=== PATIENT | female | born 1965 | race Hispanic/Latino ===

== ENCOUNTER 2018-05-05 13:59 | Emergency (ER) | payer MEDICARE ==
[~2018-05-05] VITALS: Ht 154.9 cm; Wt 106.6 kg
--- OUTSIDE RECORDS SUMMARY | 2018-05-05 14:05 | XMS REPORT | Summary of Care ---
Author Organization Unknown Address Unknown Phone Unavailable Encounter IRENA Dove(TIKI) [id number] Date(s): 09/06/13 - 09/07/13 [facility] [address] [place] [address]- [facility] Discharge Diagnosis: Lumbar Strain - Right side Discharge Disposition: Home Physician Attending: Samina Overton MD Reason for Visit BACK PAIN Vital Signs 1 2 3 Most recent to oldest [Reference Range]: 162.56 cm (09/06/13 9:45 PM) Height 98.2 DegF (09/07/13 2:08 AM) 98.1 DegF (09/06/13 9:45 PM) Temperature Oral [96.4-99.1 DegF] 128 mmHg (09/07/13 2:08 AM) 125 mmHg (09/06/13 11:56 PM) 129 mmHg (09/06/13 9:45 PM) Systolic Blood Pressure [90-140 mmHg] 86 mmHg (09/07/13 2:08 AM) 80 mmHg (09/06/13 11:56 PM) 83 mmHg (09/06/13 9:45 PM) Diastolic Blood Pressure [60-90 mmHg] 16 BRMIN (09/07/13 2:08 AM) 16 BRMIN (09/06/13 11:56 PM) 17 BRMIN (09/06/13 9:45 PM) Respiratory Rate [14-20 BRMIN] 70 bpm (09/07/13 2:08 AM) 80 bpm (09/06/13 11:56 PM) 83 bpm (09/06/13 9:45 PM) Peripheral Pulse Rate [60-100 bpm] 100 kg (09/06/13 9:45 PM) Weight 37.84 m2 (09/06/13 9:45 PM) Body Mass Index Problem List Condition Effective Dates Status Health Status Informant Asthma(Confirmed) Active Diabetes Active mellitus(Confirmed) Hypertension(Confirm Active ed) Thyroid(Confirmed) Resolved Allergies, Adverse Reactions, Alerts Substance Reaction Severity Status NKDA Active Medications cyclobenzaprine 10 mg, Route: PO, ONCE, Dosing Weight 100, kg, Priority: STAT, Start date: 09/07 1:09:00, Stop date: 09/07/13 1:09:00 Start Date: 09/07/13 Stop Date: 09/07/13 Status: Completed cyclobenzaprine 10 mg oral tablet 10 mg, PO, TID, Muscle Spasm, # 30 tab, 0 Refill(s) Start Date: 09/07/13 Stop Date: 09/17/13 Status: Ordered ibuprofen 600 mg, Route: PO, ONCE, Dosing Weight 100, kg, Priority: STAT, Start date: 05/23 1:09:00, Stop date: 09/07/13 1:09:00 Start Date: 09/07/13 Stop Date: 09/07/13 Status: Completed [place] 7.5/325 oral tablet 1 tab, Route: PO, Dosing Weight 100, kg, ONCE, Start date: 09/07/13 1:09:00, Sto p date: 09/07/13 1:09:00 Start Date: 09/07/13 Stop Date: 09/07/13 Status: Completed promethazine 25 mg oral tablet 25 mg=1 tab, PO, Q4H, Nausea, # 15 tab, 0 Refill(s) Start Date: 09/07/13 Status: Ordered Zofran ODT 4 mg, Route: PO, Drug form: TABDIS, ONCE, Dosing Weight 100, kg, Start date: 05/23 1:12:00, Stop date: 09/07/13 1:12:00 Start Date: 09/07/13 Stop Date: 09/07/13 Status: Completed Results URINE AND STOOL Most recent to 1 oldest [Reference Range]: UA Turbidity [Clear] Slight *ABN* (09/06/13 11:55 PM) UA Color [Yellow] Yellow *NA* (09/06/13 11:55 PM) UA pH [5.0-8.0] 5.0 (09/06/13 11:55 PM) UA Spec Grav 1.020 [<=1.030] (09/06/13 11:55 PM) UA Glucose [Negative Negative mg/dL mg/dL] *NA* (09/06/13 11:55 PM) UA Blood [Negative] Negative (09/06/13 11:55 PM) UA Ketones [Negative Negative mg/dL mg/dL] *NA* (09/06/13 11:55 PM) UA Protein [Negative 10 mg/dL mg/dL] *ABN* (09/06/13 11:55 PM) UA Urobilinogen <=1.0 mg/dL [0.1-1.0 mg/dL] *NA* (09/06/13 11:55 PM) UA Bili [Negative] Negative *NA* (09/06/13 11:55 PM) UA Leuk Est Small [Negative] *ABN* (09/06/13 11:55 PM) UA Nitrite Negative [Negative] (09/06/13 11:55 PM) UA WBC [0-5 /HPF] 3 /HPF (09/06/13 11:55 PM) UA RBC [0-2 /HPF] <1 /HPF (09/06/13 11:55 PM) UA Bacteria [None Occasional /HPF Seen /HPF] *NA* (09/06/13 11:55 PM) UA Sq Epi [Few /LPF] Many /LPF *ABN* (09/06/13 11:55 PM) UA Mucus [None Seen Few /LPF /LPF] *NA* (09/06/13 11:55 PM) UA Trans Epi [<=0] OCC *NA* (09/06/13 11:55 PM) Medications Administered During Your Visit No data available for this section Immunizations No data available for this section Social History Social History Type Response Smoking Status Never smoker, Exposure to Tobacco Smoke Lives with someone who smokes, Cigarette Smoking Last 365 Days No, Reg Smoking Cessation Counseling No
--- OUTSIDE RECORDS SUMMARY | 2018-05-05 14:05 | XMS REPORT | Summary of Care ---
Author Organization Unknown Address Unknown Phone Unavailable Encounter IRENA Webber) [id number] Date(s): 02/23/14 - 02/23/14 [facility] [address] Discharge Diagnosis: Abdominal pain, acute Discharge Disposition: Home Physician Attending: Almas Bartlett MD Reason for Visit ABSCESS Vital Signs 1 2 3 Most recent to oldest [Reference Range]: 162.56 cm (02/23/14 10:20 AM) Height 97.8 DegF (02/23/14 10:13 AM) Temperature Oral [96.4-99.1 DegF] 151 mmHg *HI* (02/23/14 1:36 PM) 172 mmHg *HI* (02/23/14 10:20 AM) 161 mmHg *HI* (02/23/14 10:13 AM) Systolic Blood Pressure [90-140 mmHg] 87 mmHg (02/23/14 1:36 PM) 100 mmHg *HI* (02/23/14 10:20 AM) 87 mmHg (02/23/14 10:13 AM) Diastolic Blood Pressure [60-90 mmHg] 16 BRMIN (02/23/14 1:36 PM) 18 BRMIN (02/23/14 10:13 AM) Respiratory Rate [14-20 BRMIN] 89 bpm (02/23/14 1:36 PM) 100 bpm (02/23/14 10:13 AM) Peripheral Pulse Rate [60-100 bpm] 104.545 kg (02/23/14 10:20 AM) Weight 39.56 m2 (02/23/14 10:20 AM) Body Mass Index Problem List Condition Effective Dates Status Health Status Informant Asthma(Confirmed) Active Diabetes Active mellitus(Confirmed) Hypertension(Confirm Active ed) Thyroid(Confirmed) Resolved Allergies, Adverse Reactions, Alerts Substance Reaction Severity Status NKDA Active Medications Bentyl 20 mg oral tablet 20 mg=1 tab, PO, QID, abdominal pain, # 28 tab, 0 Refill(s) Start Date: 02/23/14 Stop Date: 03/02/14 Status: Ordered potassium chloride 20 mEq oral tablet, extended release 40 mEq, 2 tab, Route: PO, Drug form: ERTAB, ONCE, Dosing Weight 104.545, kg, Diana ority: STAT, Start date: 02/23/14 12:06:00, Stop date: 02/23/14 12:06:00 Notes: (Same as: K-Dur 20)"Do Not Crush" With food and full glass of water Start Date: 02/23/14 Stop Date: 02/23/14 Status: Completed Zofran ODT 4 mg oral tablet, disintegrating 4 mg=1 tab, PO, TID, Nausea and Vomiting, # 10 tab, 0 Refill(s) Start Date: 02/23/14 Status: Ordered Results ELECTROLYTES Most recent to 1 oldest [Reference Range]: Sodium Lvl [135-145 139 mEq/L mEq/L] (02/23/14 10:53 AM) Potassium Lvl 3.2 mEq/L [3.5-5.1 mEq/L] *LOW* (02/23/14 10:53 AM) Chloride Lvl [95-109 103 mEq/L mEq/L] (02/23/14 10:53 AM) CO2 [24-32 mEq/L] 26 mEq/L (02/23/14 10:53 AM) AGAP [10.0-20.0 13.2 mEq/L mEq/L] (02/23/14 10:53 AM) CHEM PANEL Most recent to 1 oldest [Reference Range]: Creatinine Lvl 1.0 mg/dL [0.5-1.4 mg/dL] (02/23/14 10:53 AM) eGFR 67 mL/min/1.73m2 1 *NA* (02/23/14 10:53 AM) BUN [7-22 mg/dL] 9 mg/dL (02/23/14 10:53 AM) B/C Ratio [6-25] 9 (02/23/14 10:53 AM) Glucose Lvl [70-99 138 mg/dL 2 mg/dL] *HI* (02/23/14 10:53 AM) Total Protein 7.6 g/dL [6.4-8.4 g/dL] (02/23/14 10:53 AM) Albumin Lvl [3.5-5.0 3.6 g/dL g/dL] (02/23/14 10:53 AM) Globulin [2.0-4.0 4.0 g/dL g/dL] (02/23/14 10:53 AM) A/G Ratio [0.7-1.6] 0.9 (02/23/14 10:53 AM) Calcium Lvl 8.6 mg/dL [8.5-10.5 mg/dL] (02/23/14 10:53 AM) ALT [0-65 unit/L] 31 unit/L (02/23/14 10:53 AM) AST [0-37 unit/L] 19 unit/L (02/23/14 10:53 AM) Alk Phos [39-136 96 unit/L unit/L] (02/23/14 10:53 AM) Bili Total [0.2-1.3 1.2 mg/dL mg/dL] (02/23/14 10:53 AM) Lipase Lvl [73-393 247 unit/L unit/L] (02/23/14 10:53 AM) 1Result Comment: The eGFR is calculated using the CKD-EPI formula. In most young, healthy individuals the eGFR will be >90 mL/min/1.73m2. The eGFR declines with age. An eGFR of 60-89 may be normal in some populations, particularly the elderly, for whom the CKD-EPI formula has not been extensively validated. Use of the eGFR is not recommended in the following populations: Individuals with unstable creatinine concentrations, including patients and those with serious co-morbid conditions. Patients with extremes in muscle mass or diet. The data above are obtained from the National Kidney Disease Education Program ( NKDEP) which additionally recommends that when the eGFR is used in patients with extremes of body mass index for purposes of drug dosing, the eGFR should be mul tiplied by the estimated BMI. 2Interpretive Data: Adult reference range values reflect the clinical guidelines of the [place] [employer]. URINE CHEM Most recent to 1 oldest [Reference Range]: U Preg [Negative] Negative (02/23/14 11:26 AM) URINE AND STOOL Most recent to 1 oldest [Reference Range]: UA Turbidity [Clear] Slight *ABN* (02/23/14 11:26 AM) UA Color [Yellow] Yellow *NA* (02/23/14 11:26 AM) UA pH [5.0-8.0] 5.0 (02/23/14 11:26 AM) UA Spec Grav 1.014 [<=1.030] (02/23/14 11:26 AM) UA Glucose [Negative Negative mg/dL mg/dL] *NA* (02/23/14:26 AM) UA Blood [Negative] Negative (02/23/14 11:26 AM) UA Ketones [Negative Negative mg/dL mg/dL] *NA* (02/23/14:26 AM) UA Protein [Negative Negative mg/dL mg/dL] (02/23/14 11:26 AM) UA Urobilinogen <=1.0 mg/dL [0.1-1.0 mg/dL] *NA* (02/23/14:26 AM) UA Bili [Negative] Negative *NA* (02/23/14 11:26 AM) UA Leuk Est Negative [Negative] (02/23/14 11:26 AM) UA Nitrite Negative [Negative] (02/23/14 11:26 AM) UA WBC [0-5 /HPF] 3 /HPF (02/23/14 11:26 AM) UA Bacteria [None Occasional /HPF Seen /HPF] *NA* (02/23/14 11:26 AM) UA Sq Epi [Few /LPF] Many /LPF *ABN* (02/23/14 11:26 AM) UA Mucus [None Seen Few /LPF /LPF] *NA* (02/23/14 11:26 AM) Micro? Performed *NA* (02/23/14 11:26 AM) HEMATOLOGY Most recent to 1 oldest [Reference Range]: WBC [3.7-10.4 K/CMM] 12.7 K/CMM *HI* (02/23/14 10:53 AM) RBC [4.20-5.40 4.71 M/CMM M/CMM] (02/23/14 10:53 AM) Hgb [12.0-16.0 g/dL] 13.8 g/dL (02/23/14 10:53 AM) Hct [36.0-48.0 %] 40.3 % (02/23/14 10:53 AM) MCV [80.0-98.0 fL] 85.7 fL (02/23/14 10:53 AM) MCH [27.0-31.0 pg] 29.2 pg (02/23/14 10:53 AM) MCHC [32.0-36.0 34.1 g/dL g/dL] (02/23/14 10:53 AM) RDW [11.5-14.5 %] 13.4 % (02/23/14 10:53 AM) Platelet [133-450 345 K/CMM K/CMM] (02/23/14 10:53 AM) MPV [7.4-10.4 fL] 8.1 fL (02/23/14 10:53 AM) Segs [45.0-75.0 %] 65.2 % (02/23/14 10:53 AM) Lymphocytes 25.2 % [20.0-40.0 %] (02/23/14 10:53 AM) Monocytes [2.0-12.0 4.0 % %] (02/23/14 10:53 AM) Eosinophils [0.0-4.0 4.9 % %] *HI* (02/23/14 10:53 AM) Basophils [0.0-1.0 0.7 % %] (02/23/14 10:53 AM) Segs-Bands # 8.3 K/CMM [1.5-8.1 K/CMM] *HI* (02/23/14 10:53 AM) Lymphocytes # 3.2 K/CMM [1.0-5.5 K/CMM] (02/23/14 10:53 AM) Monocytes # [0.0-0.8 0.5 K/CMM K/CMM] (02/23/14 10:53 AM) Eosinophils # 0.6 K/CMM [0.0-0.5 K/CMM] *HI* (02/23/14 10:53 AM) Basophils # [0.0-0.2 0.1 K/CMM K/CMM] (02/23/14 10:53 AM) Medications Administered During Your Visit No data available for this section Immunizations No data available for this section Social History Social History Type Response Smoking Status Never smoker, Lives with someone who smokes, Cigarette Smoking Last 365 Days No, Reg Smoking Cessation Counseling No
--- OUTSIDE RECORDS SUMMARY | 2018-05-05 14:05 | XMS REPORT | Summary of Care ---
Author Organization Unknown Address Unknown Phone Unavailable Encounter IRENA Dove(TIKI) [id number] Date(s): 01/14/14 - 01/14/14 [facility] [address] Discharge Diagnosis: Knee sprain Discharge Disposition: Home Physician Attending: Tiffanie Desai MD Reason for Visit FALL/KNEE PAIN Vital Signs Most recent to 1 2 oldest [Reference Range]: Height 162.56 cm (01/14/14 3:52 PM) Temperature Oral 98.9 DegF 98.2 DegF [96.4-99.1 DegF] (01/14/14 6:00 PM) (01/14/14 3:52 PM) Systolic Blood 146 mmHg 148 mmHg Pressure [90-140 *HI* *HI* mmHg] (01/14/14 6:00 PM) (01/14/14 3:52 PM) Diastolic Blood 99 mmHg 84 mmHg Pressure [60-90 *HI* (01/14/14 3:52 PM) mmHg] (01/14/14 6:00 PM) Respiratory Rate 15 BRMIN 16 BRMIN [14-20 BRMIN] (01/14/14 6:00 PM) (01/14/14 3:52 PM) Peripheral Pulse 84 bpm 85 bpm Rate [60-100 bpm] (01/14/14 6:00 PM) (01/14/14 3:52 PM) Weight 89.091 kg (01/14/14 3:52 PM) Body Mass Index 33.71 m2 (01/14/14 3:52 PM) Problem List Condition Effective Dates Status Health Status Informant Asthma(Confirmed) Active Diabetes Active mellitus(Confirmed) Hypertension(Confirm Active ed) Thyroid(Confirmed) Resolved Allergies, Adverse Reactions, Alerts Substance Reaction Severity Status NKDA Active Medications Naprosyn 500 mg oral tablet 500 mg=1 tab, PO, BID, Pain, # 30 tab, 0 Refill(s) Start Date: 01/14/14 Status: Ordered Medications Administered During Your Visit No data available for this section Immunizations No data available for this section Social History Social History Type Response Smoking Status Never smoker, Exposure to Tobacco Smoke Lives with someone who smokes, Cigarette Smoking Last 365 Days No, Reg Smoking Cessation Counseling No
--- OUTSIDE RECORDS SUMMARY | 2018-05-05 14:05 | XMS REPORT | Summary of Care ---
Author Organization Unknown Address Unknown Phone Unavailable Encounter IRENA Dove(TIKI) [id number] Date(s): 09/05/13 - 09/05/13 [facility] [address] Discharge Diagnosis: Abdominal pain Discharge Disposition: Home Physician Attending: Checo Higuera MD Reason for Visit VOMITING BLOOD Vital Signs Most recent to 1 2 oldest [Reference Range]: Height 162.56 cm (09/05/13 1:16 AM) Temperature Oral 98.2 DegF [96.4-99.1 DegF] (09/05/13 1:16 AM) Systolic Blood 122 mmHg 127 mmHg Pressure [90-140 (09/05/13 6:40 AM) (09/05/13 1:16 AM) mmHg] Diastolic Blood 67 mmHg 78 mmHg Pressure [60-90 (09/05/13 6:40 AM) (09/05/13 1:16 AM) mmHg] Respiratory Rate 16 BRMIN 18 BRMIN [14-20 BRMIN] (09/05/13 6:40 AM) (09/05/13 1:16 AM) Peripheral Pulse 85 bpm 88 bpm Rate [60-100 bpm] (09/05/13 6:40 AM) (09/05/13 1:16 AM) Weight 100 kg (09/05/13 1:16 AM) Body Mass Index 37.84 m2 (09/05/13 1:16 AM) Problem List Condition Effective Dates Status Health Status Informant Asthma(Confirmed) Active Diabetes Active mellitus(Confirmed) Hypertension(Confirm Active ed) Thyroid(Confirmed) Resolved Allergies, Adverse Reactions, Alerts Substance Reaction Severity Status NKDA Active Medications morphine Sulfate 4 mg, 1 mL, Route: IVP, Drug form: INJ, ONCE, Dosing Weight 100, kg, Priority: S TAT, Start date: 09/05/13 2:33:00, Stop date: 09/05/13 2:33:00 Notes: (Same as:MORPhine Sulfate) Start Date: 09/05/13 Stop Date: 09/05/13 Status: Completed [place] 5/325 oral tablet 1-2 tab, PO, Q4-6H, Pain, # 15 tab, 0 Refill(s) Start Date: 09/05/13 Status: Ordered ondansetron 4 mg, 2 mL, Route: IVP, Drug form: INJ, ONCE, Dosing Weight 100, kg, Priority: S TAT, Start date: 09/05/13 2:33:00, Stop date: 09/05/13 2:33:00 Notes: (Same as: Zofran) Start Date: 09/05/13 Stop Date: 09/05/13 Status: Completed Saline Flush 0.9% 5 mL, Route: IVP, Drug Form: INJ, Dosing Weight 100, kg, PRN, PRN Line Flush, St art date: 09/05/13 2:33:00, Duration: 24 hr, Stop date: 09/06/13 2:32:00 Notes: (Same as: BD Posiflush) Start Date: 09/05/13 Stop Date: 09/05/13 Status: Discontinued Sodium Chloride 0.9% (titrate) 250 mL 250 mL, Rate: Marketing Proposal Coordinator for use with blood product administration., Dosing Weight 100, kg, Route: IV, Total Volume: 250, Priority: Routine, Start Date: 09/05/13 2 :33:00, Duration: 30 day, Stop date: 10/05/13 2:32:00, Replace Every: 24 hr Start Date: 09/05/13 Stop Date: 09/05/13 Status: Discontinued Results ELECTROLYTES Most recent to 1 oldest [Reference Range]: Sodium Lvl [135-145 138 mEq/L mEq/L] (09/05/13 2:20 AM) Potassium Lvl 4.2 mEq/L [3.5-5.1 mEq/L] (09/05/13 2:20 AM) Chloride Lvl [95-109 102 mEq/L mEq/L] (09/05/13 2:20 AM) CO2 [24-32 mEq/L] 24 mEq/L (09/05/13 2:20 AM) AGAP [10.0-20.0 16.2 mEq/L mEq/L] (09/05/13 2:20 AM) CHEM PANEL Most recent to 1 oldest [Reference Range]: Creatinine Lvl 1.1 mg/dL [0.5-1.4 mg/dL] (09/05/13 2:20 AM) eGFR 60 mL/min/1.73m2 1 *NA* (09/05/13 2:20 AM) BUN [7-22 mg/dL] 25 mg/dL *HI* (09/05/13 2:20 AM) Glucose Lvl [70-99 194 mg/dL 2 mg/dL] *HI* (09/05/13 2:20 AM) Total Protein 7.9 g/dL [6.4-8.4 g/dL] (09/05/13 2:20 AM) Albumin Lvl [3.5-5.0 4.0 g/dL g/dL] (09/05/13 2:20 AM) Globulin [2.0-4.0 3.9 g/dL g/dL] (09/05/13 2:20 AM) A/G Ratio [0.7-1.6] 1.0 (09/05/13 2:20 AM) Calcium Lvl 8.8 mg/dL [8.5-10.5 mg/dL] (09/05/13 2:20 AM) Phosphorus [2.5-4.5 4.2 mg/dL mg/dL] (09/05/13 2:20 AM) Magnesium Lvl 1.3 mg/dL [1.8-2.4 mg/dL] *LOW* (09/05/13 2:20 AM) ALT [0-65 unit/L] 23 unit/L (09/05/13 2:20 AM) AST [0-37 unit/L] 15 unit/L (09/05/13 2:20 AM) Alk Phos [39-136 96 unit/L unit/L] (09/05/13 2:20 AM) Bili Total [0.2-1.3 0.6 mg/dL mg/dL] (09/05/13 2:20 AM) Bili Direct [0.0-0.3 0.2 mg/dL mg/dL] (09/05/13 2:20 AM) Bili Indirect 0.4 mg/dL [0.0-1.0 mg/dL] (09/05/13 2:20 AM) Lipase Lvl [73-393 282 unit/L unit/L] (09/05/13 2:20 AM) 1Result Comment: The eGFR is calculated [...] values reflect the clinical guidelines of the [employer] [employer]. URINE AND STOOL Most recent to 1 oldest [Reference Range]: UA Turbidity [Clear] Slight *ABN* (09/05/13 3:20 AM) UA Color [Yellow] Yellow *NA* (09/05/13 3:20 AM) UA pH [5.0-8.0] 5.0 (09/05/13 3:20 AM) UA Spec Grav 1.020 [<=1.030] (09/05/13 3:20 AM) UA Glucose [Negative Negative mg/dL mg/dL] *NA* (09/05/13 3:20 AM) UA Blood [Negative] Negative (09/05/13 3:20 AM) UA Ketones [Negative Negative mg/dL mg/dL] *NA* (09/05/13 3:20 AM) UA Protein [Negative 10 mg/dL mg/dL] *ABN* (09/05/13 3:20 AM) UA Urobilinogen <=1.0 mg/dL [0.1-1.0 mg/dL] *NA* (09/05/13 3:20 AM) UA Bili [Negative] Negative *NA* (09/05/13 3:20 AM) UA Leuk Est Trace [Negative] *ABN* (09/05/13 3:20 AM) UA Nitrite Negative [Negative] (09/05/13 3:20 AM) UA WBC [0-5 /HPF] 4 /HPF (09/05/13 3:20 AM) UA RBC [0-2 /HPF] <1 /HPF (09/05/13 3:20 AM) UA Bacteria [None Occasional /HPF Seen /HPF] *NA* (09/05/13 3:20 AM) UA Sq Epi [Few /LPF] Many /LPF *ABN* (09/05/13 3:20 AM) UA Mucus [None Seen Few /LPF /LPF] *NA* (09/05/13 3:20 AM) HEMATOLOGY Most recent to 1 oldest [Reference Range]: WBC [3.7-10.4 K/CMM] 15.6 K/CMM *HI* (09/05/13 2:20 AM) RBC [4.20-5.40 4.80 M/CMM M/CMM] (09/05/13 2:20 AM) Hgb [12.0-16.0 g/dL] 14.3 g/dL (09/05/13 2:20 AM) Hct [36.0-48.0 %] 42.7 % (09/05/13 2:20 AM) MCV [81.0-99.0 fL] 89.1 fL (09/05/13 2:20 AM) MCH [27.0-31.0 pg] 29.7 pg (09/05/13 2:20 AM) MCHC [32.0-36.0 33.3 g/dL g/dL] (09/05/13 2:20 AM) RDW [11.5-14.5 %] 13.2 % (09/05/13 2:20 AM) Platelet [133-450 338 K/CMM K/CMM] (09/05/13 2:20 AM) MPV [7.4-10.4 fL] 7.9 fL (09/05/13 2:20 AM) Segs [45.0-75.0 %] 82.3 % *HI* (09/05/13 2:20 AM) Lymphocytes 14.2 % [20.0-40.0 %] *LOW* (09/05/13 2:20 AM) Monocytes [2.0-12.0 1.8 % %] *LOW* (09/05/13 2:20 AM) Eosinophils [0.0-4.0 1.6 % %] (09/05/13 2:20 AM) Basophils [0.0-1.0 0.1 % %] (09/05/13 2:20 AM) Segs-Bands # 12.8 K/CMM [1.5-8.1 K/CMM] *HI* (09/05/13 2:20 AM) Lymphocytes # 2.2 K/CMM [1.0-5.5 K/CMM] (09/05/13 2:20 AM) Monocytes # [0.0-0.8 0.3 K/CMM K/CMM] (09/05/13 2:20 AM) Eosinophils # 0.2 K/CMM [0.0-0.5 K/CMM] (09/05/13 2:20 AM) PT [12.0-14.7 12.9 seconds seconds] (09/05/13 2:20 AM) INR [0.85-1.17] 0.98 3 (09/05/13 2:20 AM) PTT [22.9-35.8 29.3 seconds 4 seconds] (09/05/13 2:20 AM) 3Interpretive Data: RECOMMENDED RANGES FOR PROTIME INR: 2.0-3.0 for most medical and surgical thromboembolic states. 2.5-3.5 for artificial heart valves and recurrent embolism. INR SHOULD BE USED ONLY FOR PATIENTS ON STABLE ANTICOAGULANT THERAPY. 4Interpretive Data: Heparin Therapeutic Range: 57 - 92 Seconds Medications Administered During Your Visit No data available for this section Immunizations No data available for this section Procedures Procedure Type Body Site Date of Procedure Related Diagnosis Laparoscopic hysterectomy Social History Social History Type Response Smoking Status Never smoker, Exposure to Tobacco Smoke Lives with someone who smokes, Cigarette Smoking Last 365 Days No, Reg Smoking Cessation Counseling No
--- OUTSIDE RECORDS SUMMARY | 2018-05-05 14:05 | XMS REPORT | Continuity of Care Document ---
Author Author [facility] Interface Address Unknown Phone Unavailable Problems Problem Status Onset Date Classification Date Reported Comments Source LETHARGY Active 02/23/2018 [place] Active 02/23/2018 [facility] BLOOD IN STOOL Active 11/21/2017 [facility] Large breasts Active 07/22/2017 Problem 01/18/2018 [facility] Chronic pain of both knees Active 07/22/2017 Problem 01/18/2018 [facility] Uncontrolled type 2 diabetes mellitus with complication, with long-term current use of insulin Active 02/02/2017 Problem 01/18/2018 [facility] Forgetfulness Active 10/07/2016 Problem 01/18/2018 [facility] Chronic midline low back pain without sciatica Active 10/07/2016 Problem 01/18/2018 [facility] Morbid obesity Active 10/07/2016 Problem 01/18/2018 [facility] Essential hypertension Active 10/07/2016 Problem 01/18/2018 [facility] Moderate persistent asthma without complication Active 10/07/2016 Problem 01/18/2018 [facility] Discharge Diagnosis: Abdominal pain 12/17/2015 2015 [facility] Discharge Diagnosis: Nausea and vomiting 12/17/2015 2015 [facility] SHORTNESS OF BREATH Active 12/17/2015 [facility] Discharge Diagnosis: Anxiety 11/22/2015 11/25/2015 [facility] ABDOMINAL PAIN Active 11/21/2015 [facility] Discharge Diagnosis: Dyspnea 08/20/2014 08/22/2014 [facility] Discharge Diagnosis: Acute anxiety 08/20/2014 08/22/2014 [facility] Discharge Diagnosis: Nonspecific chest pain 08/20/2014 08/22/2014 [facility] SOB Active 08/20/2014 [facility] Discharge Diagnosis: Hyperglycemia 07/03/2014 07/05/2014 [facility] HYPERGLYCEMIA Active 07/02/2014 [facility] Discharge Diagnosis: Closed fracture of medial epicondyle of humerus 03/18/2014 03/20/2014 [facility] LEFT ARM PAIN Active 03/18/2014 [facility] 28085,VENTRAL HERNIA Active 03/08/2014 [facility] Discharge Diagnosis: Abdominal pain, acute 02/23/2014 02/26/2014 [facility] ABSCESS Active 02/23/2014 [facility] Discharge Diagnosis: Knee sprain 01/14/2014 01/16/2014 [facility] FALL/KNEE PAIN Active 01/14/2014 [facility] Discharge Diagnosis: Lumbar Strain - Right side 09/07/2013 09/10/2013 [facility] BACK PAIN Active 09/06/2013 [facility] Discharge Diagnosis: Abdominal pain 09/05/2013 09/07/2013 [facility] VOMITING BLOOD Active 09/04/2013 [facility] Asthma Active Problem 2015 [facility] Diabetes mellitus Active Problem 2015 [facility] Hernia Active Problem 2015 [facility] Hypertension Active Problem 2015 [facility] Muscle spasm<sup>1</sup> Resolved Problem 2015 left leg [facility] Thyroid Resolved Problem 2015 [facility] Cancer Active Problem 01/18/2018 [facility] ADMINISTRTVE ENCOUNT NOS Active [facility] OBSTRUCTIVE SLEEP APNEA (ADULT) (PEDIATR Active [facility] Medications Medication Details Route Status Patient Instructions Ordering Provider Order Date Source Albuterol Sulfate Hfa 90 McG/Actuation Aerosol Inhaler Proventil Hfa 90 McG/Actuation Aerosol Inhaler Inhale 2 Puffs by mouth 4 times daily as needed for Wheezing. Inhalation Active 01/11/2018 [facility] Cyclobenzaprine 10 Mg Tablet Take 1 tablet by mouth 3 times daily as needed for Muscle Spasms. Oral Active 01/11/2018 [facility] Proventil Hfa 90 McG/Actuation Aerosol Inhaler INHALE 2 PUFFS BY MOUTH FOUR TIMES DAILY NEEDED FOR WHEEZING No Longer Active 01/03/2018 [facility] insulin detemir U-100 (LEVEMIR FLEXTOUCH) 100 unit/mL (3 mL) Pen Inject 60 Units under the skin daily for 184 days. Subcutaneous Active 01/03/2018 [facility] Glipizide 5 Mg Tablet Take 1 tablet by mouth 2 times daily (before meals). Oral Active 01/03/2018 [facility] Blood Sugar Diagnostic Strips 2 times daily to test blood sugar. Active 01/03/2018 [facility] Cyclobenzaprine 10 Mg Tablet Take 1 tablet by mouth 3 times daily as needed for Muscle Spasms. Oral No Longer Active 01/03/2018 [facility] Gabapentin 300 Mg Capsule Take 1 capsule by mouth 2 times daily. Oral Active 01/03/2018 [facility] Lisinopril 20 Mg Tablet Prinivil 20 Mg Tablet Take 1 tablet by mouth daily. Oral Active 01/03/2018 [facility] Triamcinolone Acetonide 40 Mg/Ml Suspension For Injection INTRA-ARTICULAR Inactive 12/16/2017 [facility] Albuterol Sulfate Hfa 90 McG/Actuation Aerosol Inhaler Inhale 2 Puffs by mouth 4 times daily as needed for Wheezing. Inhalation Active 11/15/2017 [facility] Terbinafine Hcl 250 Mg Tablet Take 1 tablet by mouth daily. Oral Active 10/18/2017 [facility] Blood Sugar Diagnostic Strips 2 times daily to test blood sugar. No Longer Active 10/18/2017 [facility] Triamcinolone Acetonide 40 Mg/Ml Suspension For Injection INTRA-ARTICULAR Inactive 08/19/2017 [facility] insulin detemir U-100 (LEVEMIR FLEXTOUCH) 100 unit/mL (3 mL) Pen Inject 55 Units under the skin daily for 184 days. Subcutaneous No Longer Active 07/22/2017 [facility] Lisinopril 20 Mg Tablet Prinivil 20 Mg Tablet Take 1 tablet by mouth daily. Oral No Longer Active 07/22/2017 [facility] Amlodipine 5 Mg Tablet Take 1 tablet by mouth daily. Oral Active 07/22/2017 [facility] Cyclobenzaprine 10 Mg Tablet Take 1 tablet by mouth 3 times daily as needed for Muscle Spasms. Oral No Longer Active 07/22/2017 [facility] Gabapentin 300 Mg Capsule Take 1 capsule by mouth 2 times daily. Oral No Longer Active 07/22/2017 [facility] Tropicamide 0.5 % Eye Drops Instill 1 Drop in each eye once as needed for up to 1 dose (for poor retina scan image). No Longer Active 07/22/2017 [facility] Levothyroxine 125 McG Tablet Take 125 mcg by mouth daily. Oral No Longer Active 06/24/2017 [facility] pen needle, diabetic (NOVOFINE) 30 gauge x 1/3" needles Inject under the skin daily Use as directed. Subcutaneous Active 06/24/2017 [facility] Lisinopril 20 Mg Tablet Prinivil 20 Mg Tablet Take 1 tablet by mouth daily. Oral No Longer Active 06/24/2017 [facility] Lancets 28 Gauge by MISCELLANEOUS route 2 times daily Use 2 times weekly as directed. Active 06/24/2017 [facility] insulin detemir U-100 (LEVEMIR FLEXTOUCH) 100 unit/mL (3 mL) Pen Inject 45 Units under the skin daily for 184 days. Subcutaneous No Longer Active 06/24/2017 [facility] Glipizide 5 Mg Tablet Take 1 tablet by mouth 2 times daily (before meals). Oral No Longer Active 06/24/2017 [facility] Gabapentin 300 Mg Capsule Take 1 capsule by mouth 2 times daily. Oral No Longer Active 06/24/2017 [facility] Cyclobenzaprine 10 Mg Tablet Take 1 tablet by mouth 3 times daily as needed for Muscle Spasms. Oral No Longer Active 06/24/2017 [facility] Blood Sugar Diagnostic Strips 2 times daily to test blood sugar. No Longer Active 06/24/2017 [facility] Amlodipine 5 Mg Tablet Take 1 tablet by mouth daily. Oral No Longer Active 06/24/2017 [facility] Albuterol Sulfate Hfa 90 McG/Actuation Aerosol Inhaler Inhale 2 Puffs by mouth 4 times daily as needed for up to 180 days for Wheezing. Inhalation No Longer Active 06/24/2017 [facility] insulin detemir (LEVEMIR FLEXTOUCH) 100 unit/mL (3 mL) Pen Inject 30 Units under the skin daily for 184 days. Subcutaneous No Longer Active 04/22/2017 [facility] pen needle, diabetic (NOVOFINE) 30 gauge x 1/3" needles Inject under the skin daily Use as directed. Subcutaneous No Longer Active 04/22/2017 [facility] Lisinopril 20 Mg Tablet Prinivil 20 Mg Tablet Take 1 tablet by mouth daily. Oral No Longer Active 04/22/2017 [facility] Lancets 28 Gauge by MISCELLANEOUS route 2 times daily Use 2 times weekly as directed. No Longer Active 04/22/2017 [facility] Glipizide 5 Mg Tablet Take 1 tablet by mouth 2 times daily (before meals). Oral No Longer Active 04/22/2017 [facility] Amlodipine 5 Mg Tablet Take 1 tablet by mouth daily. Oral No Longer Active 04/22/2017 [facility] Blood Sugar Diagnostic Strips 2 times daily to test blood sugar. No Longer Active 04/22/2017 [facility] insulin detemir (LEVEMIR FLEXTOUCH) 100 unit/mL (3 mL) Pen Inject 30 Units under the skin daily for 184 days. Subcutaneous No Longer Active 04/19/2017 [facility] pen needle, diabetic (NOVOFINE) 30 gauge x 1/3" needles Inject under the skin daily Use as directed. Subcutaneous No Longer Active 04/19/2017 [facility] Lisinopril 20 Mg Tablet Prinivil 20 Mg Tablet Take 1 tablet by mouth daily. Oral No Longer Active 04/19/2017 [facility] Lancets 28 Gauge by MISCELLANEOUS route 2 times daily Use 2 times weekly as directed. No Longer Active 04/19/2017 [facility] Glipizide 5 Mg Tablet Take 1 tablet by mouth 2 times daily (before meals). Oral No Longer Active 04/19/2017 [facility] Gabapentin 300 Mg Capsule Take 1 capsule by mouth 2 times daily. Oral No Longer Active 04/19/2017 [facility] Cyclobenzaprine 10 Mg Tablet Take 1 tablet by mouth 3 times daily as needed for Muscle Spasms. Oral No Longer Active 04/19/2017 [facility] Blood Sugar Diagnostic Strips 2 times daily to test blood sugar. No Longer Active 04/19/2017 [facility] Amlodipine 5 Mg Tablet Take 1 tablet by mouth daily. Oral No Longer Active 04/19/2017 [facility] Albuterol Sulfate Hfa 90 McG/Actuation Aerosol Inhaler Inhale 2 Puffs by mouth 4 times daily as needed for up to 180 days for Wheezing. Inhalation No Longer Active 04/19/2017 [facility] Glipizide 5 Mg Tablet Take 1 tablet by mouth 2 times daily (before meals). Oral No Longer Active 03/25/2017 [facility] Amlodipine 5 Mg Tablet Take 5 mg by mouth daily. Oral No Longer Active 03/02/2017 [facility] Prednisone 50 Mg Tablet Take 1 tablet by mouth daily for 5 days. Oral No Longer Active 03/02/2017 [facility] Novofine 30 30 Gauge X 1/3" Needle Use as directed. No Longer Active 03/02/2017 [facility] Lisinopril 20 Mg Tablet Prinivil 20 Mg Tablet Take 1 tablet by mouth daily. Oral No Longer Active 03/02/2017 [facility] Levothyroxine 125 McG Tablet Take 1 tablet by mouth daily. Oral No Longer Active 03/02/2017 [facility] Lancets by MISCELLANEOUS route 2 times daily. No Longer Active 03/02/2017 [facility] insulin detemir (LEVEMIR) 100 unit/mL injection Inject 10 Units under the skin daily. Subcutaneous Inactive 03/02/2017 [facility] Insulin Syringe-Needle U-100 1/2 Ml 30 Gauge X 5/16" Ultra Comfort Insulin Syringe 1/2 Ml 30 Gauge X 5/16" Use to inject medication daily. Use a new syringe each time. Subcutaneous No Longer Active 03/02/2017 [facility] pen needle, diabetic (NOVOFINE) 30 gauge x 1/3" needles Use as directed. No Longer Active 03/02/2017 [facility] Glipizide 5 Mg Tablet Take 1 tablet by mouth daily. Oral No Longer Active 03/02/2017 [facility] Gabapentin 300 Mg Capsule Take 1 capsule by mouth 2 times daily. Oral No Longer Active 03/02/2017 [facility] Cyclobenzaprine 10 Mg Tablet Take 1 tablet by mouth 3 times daily as needed for Muscle Spasms. Oral No Longer Active 03/02/2017 [facility] Blood Sugar Diagnostic Strips 2 times daily to test blood sugar. No Longer Active 03/02/2017 [facility] Blood Sugar Diagnostic Strips 2 times daily to test blood sugar. No Longer Active 02/02/2017 [facility] Lisinopril 20 Mg Tablet Prinivil 20 Mg Tablet Take 1 tablet by mouth daily. Oral No Longer Active 02/02/2017 [facility] Albuterol Sulfate Hfa 90 McG/Actuation Aerosol Inhaler Inhale 2 Puffs by mouth 4 times daily as needed for up to 180 days for Wheezing. Inhalation No Longer Active 02/02/2017 [facility] Albuterol Sulfate Hfa 90 McG/Actuation Aerosol Inhaler Inhale 2 Puffs by mouth 4 times daily as needed for up to 180 days for Wheezing. Inhalation No Longer Active 10/12/2016 [facility] Insulin Syringe-Needle U-100 1/2 Ml 30 Gauge X 5/16" Ultra Comfort Insulin Syringe 1/2 Ml 30 Gauge X 5/16" Use to inject medication at bedtime nightly. Use a new syringe each time. Subcutaneous No Longer Active 10/12/2016 [facility] Novofine 30 30 Gauge X 1/3" Needle Use as directed. No Longer Active 10/12/2016 [facility] insulin detemir (LEVEMIR) 100 unit/mL injection Inject 10 Units under the skin at bedtime nightly. Subcutaneous No Longer Active 10/12/2016 [facility] Insulin Syringe-Needle U-100 0.3 Ml 29 Gauge X 1/2" Monoject Insulin Syringe 0.3 Ml 29 Gauge X 1/2" Use to inject medication at bedtime nightly. Use a new syringe each time. Subcutaneous No Longer Active 10/12/2016 [facility] Victoza 3-Fabby 0.6 Mg/0.1 Ml (18 Mg/3 Ml) Subcutaneous Pen Injector Inject 0.2 mL under the skin daily for 90 days. Subcutaneous Inactive 10/12/2016 [facility] Levemir U-100 Insulin 100 Unit/Ml Subcutaneous Solution Inject 20 Units under the skin at bedtime nightly. Subcutaneous Inactive 10/12/2016 [facility] Lancets 2 times weekly. No Longer Active 10/08/2016 [facility] Blood-Glucose Meter Use as directed.. No Longer Active 10/08/2016 [facility] Blood Sugar Diagnostic Strips to test blood sugar. No Longer Active 10/08/2016 [facility] pen needle, diabetic (NOVOFINE) 30 gauge x 1/3" needles Use as directed. No Longer Active 10/08/2016 [facility] insulin aspart (NOVOLOG FLEXPEN) 100 unit/mL pen Inject 10 Units under the skin 3 times daily (before meals). Subcutaneous No Longer Active 10/08/2016 [facility] Premarin 0.625 Mg Tablet Take 0.625 mg by mouth daily. Oral No Longer Active 10/08/2016 [facility] LIRAGLUTIDE (VICTOZA 3-FABBY SC) Inject 18 Units under the skin daily. Subcutaneous Inactive 10/08/2016 [facility] Victoza 3-Fabby 0.6 Mg/0.1 Ml (18 Mg/3 Ml) Subcutaneous Pen Injector Inject 0.2 mL under the skin daily for 90 days. Subcutaneous No Longer Active 10/08/2016 [facility] Lisinopril 40 Mg Tablet Zestril 40 Mg Tablet Take 1 tablet by mouth daily. Oral No Longer Active 10/07/2016 [facility] Cyclobenzaprine 10 Mg Tablet Take 1 tablet by mouth 3 times daily as needed for Muscle Spasms. Oral No Longer Active 10/07/2016 [facility] Gabapentin 300 Mg Capsule Take 1 capsule by mouth 2 times daily. Oral No Longer Active 10/07/2016 [facility] Glipizide 5 Mg Tablet Take 1 tablet by mouth daily. Oral No Longer Active 10/07/2016 [facility] Levothyroxine 125 McG Tablet Take 1 tablet by mouth daily. Oral No Longer Active 10/07/2016 [facility] Blood-Glucose Meter Use as directed.. No Longer Active 10/07/2016 [facility] Blood Sugar Diagnostic Strips to test blood sugar. No Longer Active 10/07/2016 [facility] Tropicamide 0.5 % Eye Drops Instill 1 Drop in each eye once as needed for up to 1 dose for Other (For poor retina scan image). No Longer Active 10/07/2016 [facility] Montelukast 10 Mg Tablet Take 10 mg by mouth at bedtime nightly. Oral No Longer Active 10/07/2016 [facility] Amlodipine 10 Mg Tablet Take 10 mg by mouth daily. Oral No Longer Active 10/07/2016 [facility] Albuterol Sulfate Hfa 90 McG/Actuation Aerosol Inhaler Inhale 2 Puffs by mouth 4 times daily as needed for Wheezing. Inhalation No Longer Active 10/07/2016 [facility] Esomeprazole 20 MG Enteric Coated Capsule [Nexium] 20 mg=1 cap, PO, Daily, # 30 cap, 0 Refill(s) Active 12/18/2015 [facility] Metoclopramide 10 MG Oral Tablet [Reglan] 10 mg=1 tab, PO, QID, X 7 day, # 28 tab, 0 Refill(s) Active 12/18/2015 [facility] Sucralfate 100 MG/ML Oral Suspension [Carafate] 1 gm=10 ml, PO, Before Meals & Bedtime, # 200 ml, 0 Refill(s) Active 12/18/2015 [facility] Dicyclomine Hydrochloride 10 MG Oral Capsule [Bentyl] 10 mg=1 cap, PO, QID, # 20 cap, 0 Refill(s) Active 12/18/2015 [facility] Reglan 10 mg, 2 mL, Route: IVP, Drug form: INJ, ONCE, Dosing Weight 100, kg, Start date: 12/17/15 17:18:00 CDT, Stop date: 12/17/15 17:18:00 CDTNotes: (Same as: Reglan) Inactive 12/17/2015 [facility] Protonix 40 mg, Route: IVP, Drug form: INJ, ONCE, Dosing Weight 100, kg, Start date: 12/17/15 17:17:00 CDT, Stop date: 12/17/15 17:17:00 CDTNotes: For IV push reconstitute with 10 ml 0.9% sodium chloride and push over 2 minutes. (Same as: Protonix) Inactive 12/17/2015 [facility] Morphine 4 mg, 1 mL, Route: IVP, Drug form: INJ, ONCE, Dosing Weight 100, kg, Priority: STAT, Start date: 12/17/15 17:17:00 CDT, Stop date: 12/17/15 17:17:00 CDTNotes: (Same as:MORPhine Sulfate) Inactive 12/17/2015 [facility] Sodium Chloride 0.154 MEQ/ML Injectable Solution 1,000 mL, 1,000 ml/hr, Infuse Over: 1 hr, Route: IV, 1,000, Drug form: INJ, ONCE, Priority: STAT, Dosing Weight 100 kg, Start date: 12/17/15 15:19:00 CDT, Duration: 1 doses or times, Stop date: 12/17/15 15:19:00 CDT Inactive 12/17/2015 [facility] GI cocktail 30 mL, Route: PO, Drug Form: SUSP, Dosing Weight 100, kg, ONCE, STAT, Start date: 12/17/15 15:19:00 CDT, Stop date: 12/17/15 15:19:00 CDTNotes: G.I. Cocktail=antacid with simethicone 22.5 mL - lidocaine viscous 7.5 mL Inactive 12/17/2015 [facility] Zofran 4 mg, 2 mL, Route: IVP, Drug form: INJ, ONCE, Dosing Weight 100, kg, Priority: STAT, Start date: 12/17/15 15:18:00 CDT, Stop date: 12/17/15 15:18:00 CDTNotes: (Same as: Zofran) MEDICATION WASTE Product Size: 4 mg Product Wasted: ___ mg Inactive 12/17/2015 [facility] ketOROLAC 30 mg/mL injectable solution 30 mg, Route: IVP, Drug form: INJ, ONCE, Dosing Weight 100, kg, Priority: STAT, Start date: 11/22/15 5:07:00 CDT, Stop date: 11/22/15 5:07:00 CDT Inactive 11/22/2015 [facility] Sodium Chloride 0.154 MEQ/ML Injectable Solution 1,000 mL, 2,000 ml/hr, Infuse Over: 30 minutes, Route: IV, 1,000, Drug form: INJ, ONCE, Priority: STAT, Dosing Weight 100 kg, Start date: 11/22/15 2:30:00 CDT, Duration: 1 doses or times, Stop date: 11/22/15 2:30:00 CDT Inactive 11/22/2015 [facility] Saline Flush 0.9% 10 mL, Route: IVP, Drug Form: INJ, Dosing Weight 100, kg, PRN, PRN Line Flush, Start date: 11/22/15 2:30:00 CDT, Duration: 30 day, Stop date: 12/22/15 2:29:00 CDTNotes: (Same as: BD Posiflush) Inactive 11/22/2015 [facility] Ondansetron 4 mg, 2 mL, Route: IVP, Drug form: INJ, ONCE, Dosing Weight 100, kg, Priority: STAT, Start date: 11/22/15 2:30:00 CDT, Stop date: 11/22/15 2:30:00 CDTNotes: (Same as: Zofran) MEDICATION WASTE Product Size: 4 mg Product Wasted: ___ mg Inactive 11/22/2015 [facility] Morphine 4 mg, 1 mL, Route: IVP, Drug form: INJ, ONCE, Dosing Weight 100, kg, Priority: STAT, Start date: 11/22/15 2:30:00 CDT, Stop date: 11/22/15 2:30:00 CDTNotes: (Same as:MORPhine Sulfate) Inactive 11/22/2015 [facility] albuterol CFC free 90 mcg/inh inhalation aerosol with adapter 2 puff, INHALATION, QID, # 17 gm, 0 Refill(s) Active 08/20/2014 [facility] Albuterol 0.833 MG/ML / Ipratropium [place] 0.167 MG/ML Inhalant Solution [DuoNeb] 3 ml, Route: INHALATION, Drug Form: SOLN, Dosing Weight 93.182, kg, PRN, PRN Respiratory Protocol, Start date: 08/20/14 10:59:00, Duration: 30 day, Stop date: 09/19/14 10:58:00Notes: (Same as: Duoneb) Inactive 08/20/2014 [facility] Saline Flush 0.9% 10 mL, Route: IVP, Drug Form: INJ, Dosing Weight 93.182, kg, PRN, PRN Line Flush, Start date: 08/20/14 10:59:00, Duration: 30 day, Stop date: 09/19/14 10:58:00Notes: (Same as: BD Posiflush) Inactive 08/20/2014 [facility] Aspirin 324 mg, 4 tab, Route: CHEW, Drug form: CHEWTAB, ONCE, Dosing Weight 93.182, kg, Priority: STAT, Start date: 08/20/14 10:59:00, Stop date: 08/20/14 10:59:00Notes: Take with food. Inactive 08/20/2014 [facility] Ativan 1 mg, 0.5 mL, Route: IVP, Drug form: INJ, ONCE, Dosing Weight 93.182, kg, Priority: STAT, Start date: 08/20/14 10:59:00, Stop date: 08/20/14 10:59:00Notes: (Same as: Ativan) Inactive 08/20/2014 [facility] Metformin 500 mg, 1 tab, Route: PO, Drug form: TAB, ONCE, Dosing Weight 113.636, kg, Start date: 07/03/14 4:32:00, Stop date: 07/03/14 4:32:00Notes: (Same as: Glucophage) Take with meal Inactive 07/03/2014 [facility] Sodium Chloride 0.154 MEQ/ML Injectable Solution 500 mL, 500 ml/hr, Infuse Over: 1 hr, Route: IV, 500, Drug form: INJ, ONCE, Priority: STAT, Dosing Weight 113.636 kg, Start date: 07/03/14 2:37:00, Duration: 1 doses or times, Stop date: 07/03/14 2:37:00 Inactive 07/03/2014 [facility] Insulin, Regular, Pork 3 unit, 0.03 mL, Route: IVP, Drug form: INJ, ONCE, Dosing Weight 113.636, kg, Priority: STAT, Start date: 07/03/14 2:37:00, Stop date: 07/03/14 2:37:00Notes: (Same as: Humulin R and NovoLIN R) (Do not shake) Inactive 07/03/2014 [facility] Insulin, Regular, Pork 5 unit, 0.05 mL, Route: IVP, Drug form: INJ, ONCE, Dosing Weight 113.636, kg, Priority: STAT, Start date: 07/03/14 0:06:00, Stop date: 07/03/14 0:06:00Notes: (Same as: Humulin R and NovoLIN R) (Do not shake) Inactive 07/03/2014 [facility] Saline Flush 0.9% 10 mL, Route: IVP, Drug Form: INJ, Dosing Weight 113.636, kg, PRN, PRN Line Flush, Start date: 07/03/14 0:06:00, Duration: 30 day, Stop date: 08/02/14 1:05:00Notes: (Same as: BD Posiflush) Inactive 07/03/2014 [facility] Sodium Chloride 0.154 MEQ/ML Injectable Solution 1,000 mL, 1,000 ml/hr, Infuse Over: 1 hr, Route: IV, 1,000, Drug form: INJ, ONCE, Priority: STAT, Dosing Weight 113.636 kg, Start date: 07/03/14 0:06:00, Duration: 1 doses or times, Stop date: 07/03/14 0:06:00 Inactive 07/03/2014 [facility] tramadol hydrochloride 50 MG Oral Tablet 50 mg, PO, Q4- 6H, Pain, # 20 tab, 0 Refill(s) Active 03/19/2014 [facility] Zofran ODT 4 mg, Route: PO, Drug form: TABDIS, ONCE, Dosing Weight 106.818, kg, Start date: 03/18/14 18:33:00, Stop date: 03/18/14 18:33:00 Inactive 03/19/2014 [facility] Acetaminophen 325 MG / Hydrocodone Bitartrate 5 MG Oral Tablet [[place] 5/325] 1 tab, Route: PO, Dosing Weight 106.818, kg, ONCE, Start date: 03/18/14 18:33:00, Stop date: 03/18/14 18:33:00 Inactive 03/19/2014 [facility] Ketorolac Tromethamine 30 MG/ML Injectable Solution 60 mg, Route: IM, ONCE, Dosing Weight 106.818, kg, Priority: STAT, Start date: 03/18/14 18:33:00, Stop date: 03/18/14 18:33:00 Inactive 03/19/2014 [facility] Metformin 500 mg, 1 tab, Route: PO, Drug form: TAB, Daily, Dosing Weight 106.96, kg, Start date: 03/17/14 9:00:00, Duration: 30 day, Stop date: 04/15/14 9:00:00Notes: (Same as: Glucophage) Take with meal No Longer Active 03/17/2014 [facility] Hydrochlorothiazide 25 MG / valsartan 160 MG Oral Tablet 1 tab, Route: PO, Drug Form: TAB, Dosing Weight 106.96, kg, Daily, Start date: 03/16/14 9:00:00, Duration: 30 day, Stop date: 04/14/14 9:00:00 No Longer Active 03/16/2014 [facility] hydrochlorothiazide 25 mg oral tablet 25 mg, 1 tab, Route: PO, Drug form: TAB, Daily, Start date: 03/16/14 9:00:00, Duration: 30 day, Stop date: 04/14/14 9:00:00Notes: (Same as: Hydrodiuril) With food. Inactive 03/16/2014 [facility] Diovan 160 mg, 1 tab, Route: PO, Drug form: TAB, Daily, Start date: 03/16/14 9:00:00, Duration: 30 day, Stop date: 04/14/14 9:00:00Notes: Same as Diovan Inactive 03/16/2014 [facility] Enoxaparin 40 mg, 0.4 mL, Route: SUB-Q, Drug form: INJ, [id number], Dosing Weight 106.96, kg, Start date: 03/16/14 8:00:00, Duration: 30 day, Stop date: 04/14/14 8:00:00Notes: (Same as: Lovenox) Inactive 03/16/2014 [facility] Thyroxine 125 microgram, 1 tab, Route: PO, Drug form: TAB, [id number], Dosing Weight 106.96, kg, Start date: 03/16/14 6:30:00, Duration: 30 day, Stop date: 04/14/14 6:30:00Notes: Take 1 hour before or 2 hours after meal; Enteral feeds may interefere with the absorption of this medication. (Same as:Levothroid) Inactive 03/16/2014 [facility] Insulin, Regular, Pork 6 unit, 0.06 mL, Route: SUB-Q, Drug form: SOLN, TID-Before Meals, Dosing Weight 106.96, kg, PRN Blood Glucose Results, Start date: 03/15/14 21:55:00, Duration: 30 day, Stop date: 04/14/14 21:54:00Notes: (Same as: Humulin R) Roll in palms of hands gently; Do not shake vigorously. "single patient use only" (Restricted to patients requiring a dose > 60 units) Stable for 28 days at room temperature Expires in days from Date No Longer Active 03/16/2014 [facility] Glucagon 1 mg, Route: IM, Drug form: PDR/INJ, PRN, Dosing Weight 106.96, kg, PRN Blood Glucose Results, Start date: 03/15/14 21:55:00, Duration: 30 day, Stop date: 04/14/14 21:54:00 No Longer Active 03/16/2014 [facility] Dextrose 50% Syringe 25 gm, 50 mL, Route: IVP, Drug Form: INJ, Dosing Weight 106.96, kg, PRN, PRN Blood Glucose Results, Start date: 03/15/14 21:55:00, Duration: 30 day, Stop date: 04/14/14 21:54:00 No Longer Active 03/16/2014 [facility] Metformin 500 mg, PO, Daily, 0 Refill(s) Active 03/16/2014 [facility] 10 ML Cefazolin 100 MG/ML Prefilled Syringe 2 gm, 100 mL, Route: IVPB, Drug form: INJ, Q8H, Dosing Weight 106.96, kg, Start date: 03/15/14 18:30:00, Duration: 1 doses or times, Stop date: 03/15/14 18:30:00Notes: Same as: Ancef Inactive 03/16/2014 [facility] Regular Insulin, Human 100 UNT/ML Injectable Solution 5 unit, Route: IV, ONCE, Dosing Weight 106.96, kg, Start date: 03/15/14 14:37:00, Stop date: 03/15/14 14:37:00 Inactive 03/15/2014 [facility] Docusate Sodium 100 MG Oral Capsule [Colace] 100 mg, 1 cap, Route: PO, Drug form: CAP, BID, Dosing Weight 106.96, kg, PRN as needed for constipation, Start date: 03/15/14 14:20:00, Stop date: 04/14/14 14:19:00Notes: (Same as: Colace) (Do Not Crush) No Longer Active 03/15/2014 [facility] cyclobenzaprine 10 mg, 1 tab, Route: PO, Drug form: TAB, TID, Dosing Weight 106.96, kg, PRN as needed for muscle spasm, Start date: 03/15/14 14:20:00, Stop date: 04/21/14 16:44:00Notes: (Same As: Flexeril) No Longer Active 03/15/2014 [facility] 200 ACTUAT Albuterol 0.09 MG/ACTUAT Metered Dose Inhaler [ProAir HFA] 1 puff, Route: INHALATION, Drug Form: AERO/A, Dosing Weight 106.96, kg, RDaily, PRN Wheezing, Start date: 03/15/14 14:20:00, Stop date: 04/14/14 14:19:00Notes: Same as: Ventolin HFA No Longer Active 03/15/2014 [facility] Sodium Chloride 0.154 MEQ/ML Injectable Solution 1,000 mL, Rate: 75 ml/hr, Infuse over: 13.3 hr, Route: IV, Dosing Weight 106.96 kg, Total Volume: 1,000, Start date: 03/15/14 14:16:00, Duration: 30 day, Stop date: 04/14/14 14:15:00 No Longer Active 03/15/2014 [facility] Saline Flush 0.9% 10 ml, Route: IVP, Drug Form: INJ, Dosing Weight 106.96, kg, PRN, PRN Line Flush, Start date: 03/15/14 14:16:00, Duration: 30 day, Stop date: 04/14/14 14:15:00Notes: (Same as: BD Posiflush) No Longer Active 03/15/2014 [facility] Acetaminophen 325 MG / Hydrocodone Bitartrate 5 MG Oral Tablet 1 tab, Route: PO, Drug Form: TAB, Dosing Weight 106.96, kg, Q4H, PRN Pain Score 4-6, Start date: 03/15/14 14:16:00, Duration: 30 day, Stop date: 04/14/14 14:15:00Notes: (Same as: [place] 325/5) Do not exceed 4gm/day of acetaminophen. No Longer Active 03/15/2014 [facility] Morphine 2 mg, 1 mL, Route: IVP, Drug form: INJ, Q3H, Dosing Weight 106.96, kg, PRN Pain Score 1-3, Start date: 03/15/14 14:16:00, Duration: 30 day, Stop date: 04/14/14 14:15:00Notes: (Same as:MORPhine Sulfate) No Longer Active 03/15/2014 [facility] Ondansetron 4 mg, 2 mL, Route: IVP, Drug form: INJ, Q6H, Dosing Weight 106.96, kg, PRN Nausea & Vomiting, Start date: 03/15/14 14:16:00, Duration: 30 day, Stop date: 04/14/14 14:15:00Notes: (Same as: Zofran) No Longer Active 03/15/2014 [facility] Regular Insulin, Human 100 UNT/ML Injectable Solution 20 unit, 0.2 mL, Route: SUB-Q, Drug form: INJ, ONCE, Dosing Weight 106.96, kg, Start date: 03/15/14 14:13:00, Stop date: 03/15/14 14:13:00Notes: (Same as: Humulin R and NovoLIN R) (Do not shake) Inactive 03/15/2014 [facility] Zofran 4 mg, Route: PO, ONCE, Dosing Weight 106.96, kg, Start date: 03/15/14 13:51:00, Stop date: 03/15/14 13:51:00 Inactive 03/15/2014 [facility] Docusate Sodium 100 MG Oral Capsule [Colace] 100 mg=1 cap, PO, BID, Constipation, # 20 cap, 0 Refill(s) Active 03/15/2014 [facility] Ondansetron 4 MG Oral Tablet [Zofran] 4 mg=1 tab, PO, BID, as needed for nausea/vomiting, # 10 tab, 0 Refill(s) Active 03/15/2014 [facility] Lidocaine Hydrochloride 10 MG/ML Injectable Solution 0.5 mL, Route: INTRADERM, Drug Form: INJ, Dosing Weight 106.96, kg, ONCALL, Start date: 03/15/14 10:00:00, Duration: 1 doses or timesNotes: Preservative free. (Same as: Xylocaine MPF) Inactive 03/15/2014 [facility] Labetalol 10 mg, 2 mL, Route: IVP, Drug form: INJ, Q5Min, Dosing Weight 106.96, kg, PRN Elevated BP, Start date: 03/15/14 9:57:00, Duration: 5 doses or times, Stop date: Limited # of timesNotes: (Same as: Norm odyne, Trandate) Push over 2 minutes Give bolus over 2-3 minutes. Inactive 03/15/2014 [facility] Ketorolac 30 mg, 1 mL, Route: IVP, Drug form: INJ, ONCE, Dosing Weight 106.96, kg, Start date: 03/15/14 9:57:00, Duration: 1 doses or times, Stop date: 03/15/14 9:57:00Notes: (Same as:Toradol) IV bolus must be given >15 seconds. Give IM administration slowly and deeply into the muscle. Not for use > 4 days Inactive 03/15/2014 [facility] Morphine 4 mg, 0.5 mL, Route: IVP, Drug form: INJ, Q5Min, Dosing Weight 106.96, kg, PRN Pain Score 7-10, Start date: 03/15/14 9:57:00, Duration: 3 doses or times, Stop date: Limited # of timesNotes: (Same as: MORPhine Sulfate) Inactive 03/15/2014 [facility] Hydromorphone 0.5 mg, 0.25 mL, Route: IVP, Drug form: INJ, Q5Min, Dosing Weight 106.96, kg, PRN Pain Score 7-10, Start date: 03/15/14 9:57:00, Duration: 4 doses or times, Stop date: Limited # of timesNotes: (Same as: Dilaudid) Inactive 03/15/2014 [facility] Hydralazine 10 mg, 0.5 mL, Route: IVP, Drug form: INJ, Q20Min, Dosing Weight 106.96, kg, PRN Elevated BP, Start date: 03/15/14 9:57:00, Duration: 2 doses or times, Stop date: Limited # of timesNotes: (Same as: A presoline) Push over 5 minutes Inactive 03/15/2014 [facility] Flumazenil 0.2 mg, 2 mL, Route: IVP, Drug form: INJ, PRN, Dosing Weight 106.96, kg, PRN Benzodiazepine Reversal, Initial dose, Start date: 03/15/14 9:57:00, Duration: 30 day, Stop date: 04/14/14 9:56:00Notes: ( Same as: Romazicon) Inactive 03/15/2014 [facility] Meperidine 12.5 mg, 0.25 mL, Route: IVP, Drug form: INJ, Q30Min, Dosing Weight 106.96, kg, PRN Other -See Comment, For shivering, Start date: 03/15/14 9:57:00, Duration: 2 doses or times, Stop date: Limited # of timesNotes: (Same As: Demerol) Inactive 03/15/2014 [facility] Naloxone 0.04 mg, 0.1 mL, Route: IVP, Drug form: INJ, Q2MIN, Dosing Weight 106.96, kg, PRN Narcotic Reversal, Start date: 03/15/14 9:57:00, Duration: 8 doses or times, Stop date: Limited # of timesNotes: Same as Narcan Inactive 03/15/2014 [facility] Atropine 0.2 mg, 0.2 mL, Route: IVP, Drug form: INJ, Q5Min, Dosing Weight 106.96, kg, PRN Other -See Comment, as needed; for symptomatic pulse rate Inactive 03/15/2014 [facility] Diphenhydramine 12.5 mg, 0.25 mL, Route: IVP, Drug form: INJ, Q6H, Dosing Weight 106.96, kg, PRN Itching, Start date: 03/15/14 9:57:00, Duration: 30 day, Stop date: 04/14/14 9:56:00Notes: (Same as: Benadryl) Inactive 03/15/2014 [facility] Ondansetron 4 mg, 2 mL, Route: IVP, Drug form: INJ, ONCE, Dosing Weight 106.96, kg, PRN Nausea & Vomiting, Start date: 03/15/14 9:57:00Notes: (Same as: Zofran) Inactive 03/15/2014 [facility] Promethazine 6.25 mg, 0.25 mL, Route: IVPB, ONCE, Dosing Weight 106.96, kg, PRN Nausea & Vomiting, Start date: 03/15/14 9:57:00Notes: Do not give IV push. (Same as: Phenergan) Inactive 03/15/2014 [facility] Sodium Chloride 0.154 MEQ/ML Injectable Solution 1,000 mL, Rate: 125 ml/hr, Infuse over: 8 hr, Route: IV, Dosing Weight 106.96 kg, Total Volume: 1,000, Start date: 03/15/14 9:57:00, Duration: 30 day, Stop date: 04/14/14 9:56:00 Inactive 03/15/2014 [facility] Sodium Chloride 0.154 MEQ/ML Injectable Solution 1,000 mL, Rate: 25 ml/hr, Infuse over: 40 hr, Route: IV, Dosing Weight 106.96 kg, Total Volume: 1,000, Start date: 03/15/14 9:52:00, Duration: 30 day, Stop date: 04/14/14 9:51:00 No Longer Active 03/15/2014 [facility] Ancef 2 gm, 100 mL, Route: IVPB, Drug form: INJ, ONCE, Dosing Weight 106.96, kg, Start date: 03/15/14 9:51:00, Duration: 1 doses or times, Stop date: 03/15/14 9:51:00Notes: Same as: Ancef Inactive 03/15/2014 [facility] cyclobenzaprine 10 mg oral tablet 10 mg, PO, TID, Muscle Spasm, # 30 tab, 0 Refill(s) Active 03/12/2014 [facility] montelukast 10 MG Oral Tablet [Singulair] 10 mg=1 tab, PO, Bedtime, # 30 tab, 0 Refill(s) Active 03/12/2014 [facility] levothyroxine 125 mcg (0.125 mg) oral tablet 125 microgram=1 tab, PO, Daily, # 30 tab, 0 Refill(s) Active 03/12/2014 [facility] VICTOZA VICTOZA, 0.2 mL, SUB-Q, Daily, Refill(s) 0 Active 03/12/2014 [facility] Hydrochlorothiazide 25 MG / valsartan 160 MG Oral Tablet 1 tab, PO, Daily, # 30 tab, 0 Refill(s) Active 03/12/2014 [facility] Ondansetron 4 MG Disintegrating Tablet [Zofran] 4 mg=1 tab, PO, TID, Nausea and Vomiting, # 10 tab, 0 Refill(s) Active 02/23/2014 [facility] Dicyclomine Hydrochloride 20 MG Oral Tablet [Bentyl] 20 mg=1 tab, PO, QID, abdominal pain, # 28 tab, 0 Refill(s) Active 02/23/2014 [facility] Potassium Chloride 20 MEQ Extended Release Tablet 40 mEq, 2 tab, Route: PO, Drug form: ERTAB, ONCE, Dosing Weight 104.545, kg, Priority: STAT, Start date: 02/23/14 12:06:00, Stop date: 02/23/14 12:06:00Notes: (Same as: K-Dur 20) "Do Not Crush" With food and full glass of water Inactive 02/23/2014 [facility] Naproxen 500 MG Oral Tablet [Naprosyn] 500 mg=1 tab, PO, BID, Pain, # 30 tab, 0 Refill(s) Active 01/14/2014 [facility] cyclobenzaprine 10 mg oral tablet 10 mg, PO, TID, Muscle Spasm, # 30 tab, 0 Refill(s) Active 09/07/2013 [facility] promethazine 25 mg oral tablet 25 mg=1 tab, PO, Q4H, Nausea, # 15 tab, 0 Refill(s) Active 09/07/2013 [facility] Zofran ODT 4 mg, Route: PO, Drug form: TABDIS, ONCE, Dosing Weight 100, kg, Start date: 09/07/13 1:12:00, Stop date: 09/07/13 1:12:00 Inactive 09/07/2013 [facility] Ibuprofen 600 mg, Route: PO, ONCE, Dosing Weight 100, kg, Priority: STAT, Start date: 09/07/13 1:09:00, Stop date: 09/07/13 1:09:00 Inactive 09/07/2013 [facility] cyclobenzaprine 10 mg, Route: PO, ONCE, Dosing Weight 100, kg, Priority: STAT, Start date: 09/07/13 1:09:00, Stop date: 09/07/13 1:09:00 Inactive 09/07/2013 [facility] Acetaminophen 325 MG / Hydrocodone Bitartrate 7.5 MG Oral Tablet [[place] 7.5/325] 1 tab, Route: PO, Dosing Weight 100, kg, ONCE, Start date: 09/07/13 1:09:00, Stop date: 09/07/13 1:09:00 Inactive 09/07/2013 [facility] Acetaminophen 325 MG / Hydrocodone Bitartrate 5 MG Oral Tablet [[place] 5/325] 1-2 tab, PO, Q4-6H, Pain, # 15 tab, 0 Refill(s) Active 09/05/2013 [facility] Sodium Chloride 0.9% (titrate) 250 mL 250 mL, Rate: [place] for use with blood product administration., Dosing Weight 100, kg, Route: IV, Total Volume: 250, Priority: Routine, Start Date: 09/05/13 2:33:00, Duration: 30 day, Stop date: 10/05/13 2:32:00, Replace Every: 24 hr Inactive 09/05/2013 [facility] Ondansetron 4 mg, 2 mL, Route: IVP, Drug form: INJ, ONCE, Dosing Weight 100, kg, Priority: STAT, Start date: 09/05/13 2:33:00, Stop date: 09/05/13 2:33:00Notes: (Same as: Zofran) Inactive 09/05/2013 [facility] Saline Flush 0.9% 5 mL, Route: IVP, Drug Form: INJ, Dosing Weight 100, kg, PRN, PRN Line Flush, Start date: 09/05/13 2:33:00, Duration: 24 hr, Stop date: 09/06/13 2:32:00Notes: (Same as: BD Posiflush) Inactive 09/05/2013 [facility] Morphine 4 mg, 1 mL, Route: IVP, Drug form: INJ, ONCE, Dosing Weight 100, kg, Priority: STAT, Start date: 09/05/13 2:33:00, Stop date: 09/05/13 2:33:00Notes: (Same as:MORPhine Sulfate) Inactive 09/05/2013 [facility] Allergies, Adverse Reactions, Alerts Substance Category Reaction Severity Reaction type Status Date Reported Comments Source Allergy Unverified<sup>1</sup> Assertion Food allergy Active PEACHES [facility] Plastic Tape<sup>2</sup> Assertion Allergy to substance Active PLASTIC ARM BAND [facility] Immunizations Immunization Date Given Site Status Last Updated Comments Source TDap (Tetanus Toxoid, Reduced Diphtheria Toxoid And Acellular Pertussis, Absorbed) 10/19/2017 Not Given Deferred: Unavailable- Patient to return for vaccine later [facility] TDap (Tetanus Toxoid, Reduced Diphtheria Toxoid And Acellular Pertussis, Absorbed) 07/22/2017 Not Given Deferred: Vaccine Unavailable [facility] PPV 23 (Pneumococcal Polysaccharide 23 Valent) 07/22/2017 completed [facility] Influenza Vaccine, Seasonal, Injectable 06/24/2017 Not Given Deferred: Patient Refused [facility] Results Order Name Results Value Reference Range Date Interpretation Comments Source Chest 1view DX Chest 1view DX Patient Name: CARLIE ELIZABETH : 1965; Age: 52 years y/o Female MR: [id number] * CHEST, portable, 1 view HISTORY: Chest pain. COMPARISON: 12/17/2015. TECHNIQUE: A portable frontal radiograph of the chest was obtained. FINDINGS: There is slight chronic elevation of the right hemidiaphragm. There is no evidence of an active or acute process within the chest. The lungs are clear. There are no pulmonary infiltrates or pleural effusions. The heart is normal in size. The regional skeleton is unremarkable. IMPRESSION: 1. No active disease. SL: [id number] 02/23/2018 - - Read by: Adilson Pelaez MD Dictated Date/time: 02/23/18 13:19 Electronically Signed by: Adilson Pelaez MD 02/23/18 13:20 FINAL REPORT [facility] Brain wo contrast CT Brain wo contrast CT CT HEAD WITHOUT CONTRAST: HISTORY: Altered mental status. PROCEDURE: Multiple axial images from the skull base to the skull vertex were obtained without contrast. Coronal and sagittal reconstructed images were performed. DLP: 860 mGy-cm COMPARISON: None FINDINGS: No acute hemorrhage, midline shift, extra-axial fluid collection, mass, or hydrocephalus is present. Blankenship-white differentiation appears normal. No sulcal effacement to suggest acute infarct is present. The visualized mastoid air cells are clear. There is no air-fluid level in the visualized paranasal sinuses. IMPRESSION: No acute intracranial abnormality. SL: [id number] 02/23/2018 - - Read by: Carlitos Pinon MD Dictated Date/time: 02/23/18 13:42 Electronically Signed by: Carlitos Pinon MD 02/23/18 13:44 FINAL REPORT [facility] XRAY KNEE 1 OR 2 VIEWS (LIMITED-AP/LAT) <p>IMPRESSION:Chondrocalcinosis of the left knee. Joint spaces preserved</p><p> </p><p>Signed By: Melonie Shoemaker MD, 01/11/2018 7:41 PM</p><p> </p> IMPRESSION:Chondrocalcinosis of the left knee. Joint spaces preserved Signed By: Melonie Shoemaker MD, 01/11/2018 7:41 PM 01/12/2018 [facility] XRAY KNEE 1 OR 2 VIEWS (LIMITED-AP/LAT) <p>EXAM: XR LEFT KNEE 2 VIEW</p><p> </p><p>DATE:01/11/2018 2:27 PM </p><p> </p><p>INDICATION: Left Knee Pain, chronic. Chronic pain of both knees </p><p> </p><p>COMPARISON: Contralateral right knee radiographs of 10/08/2016</p><p> </p><p>TECHNIQUE:AP and lateral knee radiographs</p><p> </p><p>DISCUSSION:No acute fracture or malalignment is identified. Knee joint</p><p>spaces are overall preserved on these non-weightbearing views, with only</p><p>minimal osteophytes.</p><p> </p><p>No knee joint effusion is identified. Chondrocalcinosis is present on</p><p>the left, which was not present on the previously imaged right knee.</p><p> </p> EXAM: XR LEFT KNEE 2 VIEW DATE:01/11/2018 2:27 PM INDICATION: Left Knee Pain, chronic. Chronic pain of both knees COMPARISON: Contralateral right knee radiographs of 10/08/2016 TECHNIQUE:AP and lateral knee radiographs DISCUSSION:No acute fracture or malalignment is identified. Knee joint spaces are overall preserved on these non-weightbearing views, with only minimal osteophytes. No knee joint effusion is identified. Chondrocalcinosis is present on the left, which was not present on the previously imaged right knee. 01/12/2018 [facility] XRAY KNEE 1 OR 2 VIEWS (LIMITED-AP/LAT) <p styleCode="header">Interface, Rad/Mammog In - 01/11/2018 7:46 PM CDT</p><p><span>EXAM: XR LEFT KNEE 2 VIEW</span>

<span>DATE: 01/11/2018 2:27 PM </span>

<span>INDICATION: Left Knee Pain, chronic. Chronic pain of both knees </span>

<span>COMPARISON: Contralateral right knee radiographs of 10/08/2016</span>

<span>TECHNIQUE: AP and lateral knee radiographs</span>

<span>DISCUSSION: No acute fracture or malalignment is identified. Knee joint</span>
<span>spaces are overall preserved on these non-weightbearing views, with only</span>
<span>minimal osteophytes. </span>

<span>No knee joint effusion is identified. Chondrocalcinosis is present on</span>
<span>the left, which was not present on the previously imaged right knee.</span>

<span>IMPRESSION</span>
<span>IMPRESSION: Chondrocalcinosis of the left knee. Joint spaces preserved</span><br/ >
<span>Signed By: Melonie Shoemaker MD, 01/11/2018 7:41 PM</span>
</p> Interface, Rad/Mammog In - 01/11/2018 7:46 PM CDT EXAM: XR LEFT KNEE 2 VIEW DATE: 01/11/2018 2:27 PM INDICATION: Left Knee Pain, chronic. Chronic pain of both knees COMPARISON: Contralateral right knee radiographs of 10/08/2016 TECHNIQUE: AP and lateral knee radiographs DISCUSSION: No acute fracture or malalignment is identified. Knee joint spaces are overall preserved on these non-weightbearing views, with only minimal osteophytes. No knee joint effusion is identified. Chondrocalcinosis is present on the left, which was not present on the previously imaged right knee. IMPRESSION IMPRESSION: Chondrocalcinosis of the left knee. Joint spaces preserved Signed By: Melonie Shoemaker MD, 01/11/2018 7:41 PM 01/12/2018 [facility] XRAY KNEE 1 OR 2 VIEWS (LIMITED-AP/LAT) IMPRESSION:Chondrocalcinosis of the left knee. Joint spaces preserved Signed By: Melonie Shoemaker MD, 01/11/2018 7:41 PM EXAM: XR LEFT KNEE 2 VIEW DATE:01/11/2018 2:27 PM INDICATION: Left Knee Pain, chronic. Chronic pain of both knees COMPARISON: Contralateral right knee radiographs of 10/08/2016 TECHNIQUE:AP and lateral knee radiographs DISCUSSION:No acute fracture or malalignment is identified. Knee joint spaces are overall preserved on these non-weightbearing views, with only minimal osteophytes. No knee joint effusion is identified. Chondrocalcinosis is present on the left, which was not present on the previously imaged right knee. Latisha, Mynor/Mammog In - 01/11/2018 7:46 PM CDT EXAM: XR LEFT KNEE 2 VIEW DATE: 01/11/2018 2:27 PM INDICATION: Left Knee Pain, chronic. Chronic pain of both knees COMPARISON: Contralateral right knee radiographs of 10/08/2016 TECHNIQUE: AP and lateral knee radiographs DISCUSSION: No acute fracture or malalignment is identified. Knee joint spaces are overall preserved on these non-weightbearing views, with only minimal osteophytes. No knee joint effusion is identified. Chondrocalcinosis is present on the left, which was not present on the previously imaged right knee. IMPRESSION IMPRESSION: Chondrocalcinosis of the left knee. Joint spaces preserved Signed By: Melonie Shoemaker MD, 01/11/2018 7:41 PM 01/12/2018 [facility] DIABETIC FOOT EXAM <p>Dorian Agustin MD 01/11/2018 10:37 PM</p><p>Diabetic Foot Exam was performed at 01/11/2018 9:40 PM.Right foot </p><p>sensation is normal, right foot pulses are normal, right foot appearance </p><p>is normal.Left foot sensation is normal,left foot pulses are normal,</p><p>left foot appearance is normal. </p><p> </p><p> </p> Dorian Agustin MD 01/11/2018 10:37 PM Diabetic Foot Exam was performed at 01/11/2018 9:40 PM.Right foot sensation is normal, right foot pulses are normal, right foot appearance is normal.Left foot sensation is normal,left foot pulses are normal, left foot appearance is normal. 01/11/2018 [facility] Abdomen/Pelvis w IV contrast CT Abdomen/Pelvis w IV contrast CT Clinical Indication: Abdominal pain, acute - Has rectal bleeding and lower abdominal pain. Has had prior umbilical hernia repair, feels to her something is wrong with repair, but I do not feel any incarceration or extrusion. Has no hx of diverticulitis. Comparison: 11/22/2015 TECHNIQUE: Helical imaging was performed after injection of IV contrast, from the diaphragm through the symphysis with multiplanar reformations obtained. IV CONTRAST: 100 mL of Omnipaque GI CONTRAST: No oral contrast was administered. DLP: 1533.42 mGy-cm FINDINGS: LOWER CHEST: The lung bases are clear. LIVER: The liver parenchyma is normal in appearance without masses or intrahepatic biliary ductal dilatation. The portal vein is normal in caliber. BILIARY TREE: The common bile duct is normal in caliber without evidence of filling defects. GALLBLADDER: The gallbladder is surgically absent, surgical clips are seen within the gallbladder fossa, PANCREAS: The pancreas is unremarkable. The pancreatic duct is normal in caliber. SPLEEN: The spleen is normal in size and there are no parenchymal abnormalities. ADRENALS: The right adrenal gland is unremarkable. The left adrenal gland is unremarkable. KIDNEYS: The kidneys demonstrates normal contrast enhancement. There are no masses. There is no evidence of renal or ureteral calculi. There is no evidence of hydronephrosis. There is a simple cyst in the midpole of the left kidney measuring 2.8 cm in size. BOWEL: The visualized portion of the esophagus is unremarkable. The stomach is unremarkable. The small bowel is normal in caliber and there is no evidence of masses or obstruction. The colon is normal in caliber, there are no masses, there is no evidence of diverticulosis or diverticulitis. APPENDIX: The appendix is unremarkable. PELVIS: There are no pelvic masses. The urinary bladder is unremarkable. PERITONEUM: There is no evidence for free intraperitoneal fluid or air. SOFT TISSUES: The soft tissues are unremarkable. There is no evidence of masses or hernias. LYMPH NODES: There is no evidence of mesenteric, retroperitoneal, or inguinal lymphadenopathy. VASCULATURE: The abdominal aorta is normal in caliber. The branches of the abdominal aorta are widely patent. MUSCULOSKELETAL: There is bilateral L5 pars defects. IMPRESSION: 1. No acute intra-abdominal findings. 2. 2.8 cm left renal cyst. 3. Bilateral L5 pars defects. SL: [id number] 11/22/2017 - - Read by: Maribel Thurman MD Dictated Date/time: 11/22/17 02:51 Electronically Signed by: Maribel Thurman MD 11/22/17 02:57 FINAL REPORT [facility] HEMOGLOBIN A1C Hemoglobin A1c 8.9 % 4.3 - 6.1 11/16/2017 [facility] HEMOGLOBIN A1C Est Average Gluc 208.7 mg/dL 11/16/2017 [facility] HEMOGLOBIN A1C Lab Interpretation Abnormal 11/16/2017 [facility] HEMOGLOBIN A1C Hemoglobin A1c 8.9 % 4.3 - 6.1 11/15/2017 [facility] HEMOGLOBIN A1C Est Average Gluc 208.7 mg/dL 11/15/2017 [facility] HEMOGLOBIN A1C Lab Interpretation Abnormal 11/15/2017 [facility] OPHTHALMOLOGY RETINAL SCAN RETINAL SCAN-FINAL RESULT NORMAL 07/23/2017 [facility] OPHTHALMOLOGY RETINAL SCAN Right Diabetic Retinopathy None 07/23/2017 [facility] OPHTHALMOLOGY RETINAL SCAN Right Macular Edema None 07/23/2017 [facility] OPHTHALMOLOGY RETINAL SCAN Right Other Suspected Conditions None 07/23/2017 [facility] OPHTHALMOLOGY RETINAL SCAN Right Image Quality Gradeable Image 07/23/2017 [facility] OPHTHALMOLOGY RETINAL SCAN Left Diabetic Retinopathy None 07/23/2017 [facility] OPHTHALMOLOGY RETINAL SCAN Left Macular Edema None 07/23/2017 [facility] OPHTHALMOLOGY RETINAL SCAN Left Other Suspected Conditions None 07/23/2017 [facility] OPHTHALMOLOGY RETINAL SCAN Left Image Quality Gradeable Image 07/23/2017 [facility] OPHTHALMOLOGY RETINAL SCAN <p>Retinal Study Result for ELIZABETHCARLIE</p><p> </p><p>CARLIE ELIZABETH, a 51 y/o, F (: 1965, )</p><p>presented to [facility] on 07-22-2017 for a retinal imaging study of the left and right eyes.</p><p> </p><p>Based on the findings of the study, the following is recommended for CARLIE ELIZABETH</p><p>Normal Scan: Please advise the patient to return for another scan in 1 year.</p><p> </p><p>Interpreting Provider's Comments:No comments provided</p><p> </p><p>Right Eye Findings:</p><p>Normal Result.Negative for Diabetic Retinopathy.</p><p> </p><p>Left Eye Findings:</p><p>Normal Re sult.Negative for Diabetic Retinopathy.</p><p> </p><p> </p><p>This result was electronically signed by Markel Downey MD. Taxonomy: [id number] on 07-23-2017 05:31:38 UTC time.</p><p> </p><p>NOTE:Any pathology noted on this diabetic retinal evaluation should be confirmed by an appropriate ophthalmic examination.</p> Retinal Study Result for CARLIE ELIZABETH MARY, a 51 y/o, F (: 1965, ) presented to [facility] on 07-22-2017 for a retinal imaging study of the left and right eyes. Based on the findings of the study, the following is recommended for CARLIE ELIZABETH Normal Scan: Please advise the patient to return for another scan in 1 year. Interpreting Provider's Comments:No comments provided Right Eye Findings: Normal Result.Negative for Diabetic Retinopathy. Left Eye Findings: Normal Result.Negative for Diabetic Retinopathy. This result was electronically signed by Markel Downey MD. Taxonomy: [id number] on 07-23-2017 05:31:38 UTC time. NOTE:Any pathology noted on this diabetic retinal evaluation should be confirmed by an appropriate ophthalmic examination. 07/23/2017 [facility] OPHTHALMOLOGY RETINAL SCAN RETINAL SCAN-FINAL RESULT NORMAL 07/23/2017 [facility] OPHTHALMOLOGY RETINAL SCAN Right Diabetic Retinopathy None 07/23/2017 [facility] OPHTHALMOLOGY RETINAL SCAN Right Macular Edema None 07/23/2017 [facility] OPHTHALMOLOGY RETINAL SCAN Right Other Suspected Conditions None 07/23/2017 [facility] OPHTHALMOLOGY RETINAL SCAN Right Image Quality Gradeable Image 07/23/2017 [facility] OPHTHALMOLOGY RETINAL SCAN Left Diabetic Retinopathy None 07/23/2017 [facility] OPHTHALMOLOGY RETINAL SCAN Left Macular Edema None 07/23/2017 [facility] OPHTHALMOLOGY RETINAL SCAN Left Other Suspected Conditions None 07/23/2017 [facility] OPHTHALMOLOGY RETINAL SCAN Left Image Quality Gradeable Image 07/23/2017 [facility] OPHTHALMOLOGY RETINAL SCAN <p>Retinal Study Result for CARLIE ELIZABETH</p><p> </p><p>CARLIE ELIZABETH a 51 y/o, F (: 08-13-1966, )</p><p>presented to [facility] on 07-22-2017 for a retinal imaging study of the left and right eyes.</p><p> </p><p>Based on the findings of the study, the following is recommended for CARLIE ELIZABETH</p><p>Normal Scan: Please advise the patient to return for another scan in 1 year.</p><p> </p><p>Interpreting Provider's Comments:No comments provided</p><p> </p><p>Right Eye Findings:</p><p>Normal Result.Negative for Diabetic Retinopathy.</p><p> </p><p>Left Eye Findings:</p><p>Normal Re sult.Negative for Diabetic Retinopathy.</p><p> </p><p> </p><p>This result was electronically signed by Markel Downey MD. RAINI: [id number] Taxonomy: [id number] on 07-23-2017 05:31:38 UTC time.</p><p> </p><p>NOTE:Any pathology noted on this diabetic retinal evaluation should be confirmed by an appropriate ophthalmic examination.</p> Retinal Study Result for CARLIE ELIZABETH MARY, a 51 y/o, F (: 1965, ) presented to [facility] on 07-22-2017 for a retinal imaging study of the left and right eyes. Based on the findings of the study, the following is recommended for CARLIE ELIZABETH Normal Scan: Please advise the patient to return for another scan in 1 year. Interpreting Provider's Comments:No comments provided Right Eye Findings: Normal Result.Negative for Diabetic Retinopathy. Left Eye Findings: Normal Result.Negative for Diabetic Retinopathy. This result was electronically signed by Markel Downey MD. Taxonomy: [id number] on 07-23-2017 05:31:38 [facility] time. NOTE:Any pathology noted on this diabetic retinal evaluation should be confirmed by an appropriate ophthalmic examination. 07/23/2017 [facility] HEMOGLOBIN A1C Hemoglobin A1c 9.1 % 4.3 - 6.1 06/24/2017 [facility] HEMOGLOBIN A1C Est Average Gluc 214.5 mg/dL 06/24/2017 [facility] HEMOGLOBIN A1C Lab Interpretation Abnormal 06/24/2017 [facility] OCCULT BLOOD ICT Occult Blood ICT Negative NEG 04/22/2017 [facility] OCCULT BLOOD ICT Occult Blood ICT Negative NEG 04/22/2017 [facility] TSH TSH 4.17 0.36 - 3.74 03/03/2017 [facility] TSH Lab Interpretation Abnormal 03/03/2017 [facility] TSH TSH 4.17 uIU/mL 0.36 - 3.74 03/02/2017 [facility] TSH Lab Interpretation Abnormal 03/02/2017 [facility] DIABETIC FOOT EXAM <p>Dorian Agustin MD 12/08/2016 10:58 PM</p><p>CHIEF COMPLAINT </p><p>Establish Care</p><p> </p><p> </p><p>HISTORY OF PRESENT ILLNESS</p><p>Carlie Elizabeth , a 50y.o. / Female , presents </p><p>to establish care.She has HTN and DM.She is not on Metformin </p><p>because it made her "sick to her stomach" when given in years </p><p>ago.She takes Glipizide, and claims to be 100% compliant.</p><p>However, with diet and exercise, she is 50% compliant, although </p><p>she is trying to improve both.</p><p> </p><p>She also has Chronic midline low back pain (epidural).The </p><p>problem started after she got an epidural many years ago.09/16 </p><p>pain, intermittent.No radiation down to legs.She takes </p><p>cyclobenzaprine for this, which helps. </p><p> </p><p>Asthma.She reports using albuterol twice a day as needed.She </p><p>wants refills on her albuterol inhaler.</p><p> </p><p>Forgetfulness.Daughter reports noticing that the patient is </p><p>becoming more forgetful lately.</p><p> </p><p> </p><p> </p><p>REVIEW OF SYSTEMS </p><p> </p><p> </p><p>Respiratory: (+) cough and (+) shortness of breath.</p><p>Cardiovascular: Negative for chest pain. </p><p>Musculoskeletal: (+) for back pain </p><p> </p><p> </p><p>No past medical history on file.</p><p>No family history on file.</p><p>No past surgical history on file.</p><p>Social History </p><p>Substance Use Topics </p><p> Smoking status: Never Smoker</p><p> Smokeless tobacco: Never Used </p><p> Alcohol Use: Yes </p><p> Comment: Holidays only </p><p> </p><p>Allergies:Review of patient's allergies indicates no known </p><p>allergies.</p><p> </p& gt;<p> </p><p>EXAMINATION</p><p>BP 134/98 mmHg | Pulse 87 | Temp(Src) 98.1 F (36.7 C) (Oral) | </p><p>Resp 18 | Ht 5' 2.21" (1.58 m) | Wt 227 lb (102.967 kg) | BMI </p><p>41.25 kg/m2 Body mass index is 41.25 kg/(m^2).</p><p> </p><p>Physical Exam </p><p>Nursing note and vitals reviewed.</p><p>-Constitutional: Pt is oriented to person, place, and time. Pt </p><p>appears well-developed and well-nourished. No distress. </p><p>HENT: </p><p>-Head: Normocephalic and atraumatic. </p><p>-Eyes: EOM are normal.</p><p>-Cardiovascular: Normal rate, regular rhythm and normal heart </p><p>sounds.No murmur heard.</p><p>-Pulmonary/Chest: Effort normal and breath sounds normal. No </p><p>respiratory distress. </p><p>-Neurological: Pt is alert and oriented to person, place, and </p><p>time. No cranial nerve deficit. </p><p>-Psychiatric: Pt has a normal mood and affect. Pt behavior is </p><p>normal.</p><p>Diabetic Foot Exam was performed at 12/08/2016 10:58 PM.Right </p><p>foot sensation is normal, right foot pulses are normal, right </p><p>foot appearance is normal.Left foot sensation is normal,left </p><p>foot pulses are normal,left foot appearance is normal. </p><p> </p><p> </p><p> </p><p> </p><p> </p><p> </p><p> </p><p>LABS/IMAGINGS</p><p>Reviewed last labs - N/A</p><p> </p><p> </p><p>ASSESSMENT & PLAN</p><p> </p><p>1. Encounter to establish [facility] </p><p> LIVER PROFILE </p><p> HIV-1/HIV-2 ROUTINE SCREENING </p><p> FREE T4 </p><p> CBC </p><p> VIT D, 25-HYDROXY </p><p> MAMMOGRAM BILAT SCREEN DIGITAL </p><p> BASIC METABOLIC PANEL </p><p> UA CHEMISTRIES </p><p> LIPID PROFILE </p><p> CANCELED: ALT/AST </p><p>2. ForgetfulnessConsider vit. b12 and folic acid levels on next </p><p>visit. </p><p>3. Chronic midline low back pain without sciatica</p><p>cyclobenzaprine (FLEXERIL) 10 mg tablet - refill </p><p> gabapentin (NEURONTIN) 300 mg capsule - start.Patient had been </p><p>on Lyrica before. </p><p>4. Moderate persistent asthma without complicationalbuterol </p><p>(VENTOLIN HFA,PROVENTIL HFA,PROAIR HFA) 90 mcg/actuation inhaler </p><p>- refill.Consider inhaled steroid on next visit. </p><p>5. Morbid obesity, unspecified obesity typeORDER FOR APPT TO </p><p>PATIENT ED - DISEASE MGMT (AMB) </p><p> ORDER FOR APPT TO NUTRITION </p><p>6. Diabetes mellitus type 2 in obeseHEMOGLOBIN A1C </p><p> MICROALBUM, URINE </p><p> ORDER FOR APPT TO PATIENT ED - DISEASE MGMT (AMB) </p><p> ORDER FOR APPT TO NUTRITION </p><p> blood glucose meter </p><p> blood glucose test strips </p><p> lancets </p><p> OPHTHALMOLOGY RETINAL SCAN </p><p> tropicamide (MYDRIACYL) 0.5 % ophthalmic solution </p><p> lisinopril (ZESTRIL) 40 mg tablet </p><p> ORDER FOR APPT TO HEALTH EDUCATION </p><p> glipiZIDE (GLUCOTROL) 5 mg tablet - refill </p><p>7. Essential hypertensionD/C Amlodipine.Start Lisinopril 40mg </p><p>qd. </p><p>8. Unspecified hypothyroidismlevothyroxine (SYNTHROID) 125 mcg </p><p>tablet - refill </p><p> </p><p> </p><p> </p><p> </p><p>Lifestyle modification emphasized including: </p><p>Orders and follow up as documented in [facility].</p><p>Patient was provided education on their diagnosis, treatments and </p><p>any medications prescribed including medication use, any possible </p><p>adverse side effect or potential drug to drug interactions. </p><p>Patient's level of understanding is assessed with patient </p><p>ack nowledgment of understanding . </p><p> </p><p> </p><p>Dorian Agustin [id number]</p><p> </p> <p>Dorian Agustin MD 12/08/2016 10:58 PM</p><p>CHIEF COMPLAINT </p><p>Establish Care</p><p> </p><p> </p><p>HISTORY OF PRESENT ILLNESS</p><p>Carlie Elizabeth , a 50y.o. / Female , presents </p><p>to establish care.She has HTN and DM.She is not on Metformin </p><p>because it made her "sick to her stomach" when given in years </p><p>ago.She takes Glipizide, and claims to be 100% compliant.</p><p>However, with diet and exercise, she is 50% compliant, although </p><p>she is trying to improve both.</p><p> </p><p>She also has Chronic midline low back pain (epidural).The </p><p>problem started after she got an epidural many years ago.09/16 </p><p>pain, intermittent.No radiation down to legs.She takes </p><p>cyclobenzaprine for this, which helps. </p><p> </p><p>Asthma.She reports using albuterol twice a day as needed.She </p><p>wants refills on her albuterol inhaler.</p><p> </p><p>Forgetfulness.Daughter reports noticing that the patient is </p><p>becoming more forgetful lately.</p><p> </p><p> </p><p> </p><p>REVIEW OF SYSTEMS </p><p> </p><p> </p><p>Respiratory: (+) cough and (+) shortness of breath.</p><p>Cardiovascular: Negative for chest pain. </p><p>Musculoskeletal: (+) for back pain </p><p> </p><p> </p><p>No past medical history on file.</p><p>No family history on file.</p><p>No past surgical history on file.</p><p>Social History </p><p>Substance Use Topics </p><p> Smoking status: Never Smoker</p><p> Smokeless tobacco: Never Used </p><p> Alcohol Use: Yes </p><p> Comment: Holidays only </p><p> </p><p>Allergies:Review of patient's allergies indicates no known </p><p>allergies.</p><p> </p& gt;<p> </p><p>EXAMINATION</p><p>BP 134/98 mmHg | Pulse 87 | Temp(Src) 98.1 F (36.7 C) (Oral) | </p><p>Resp 18 | Ht 5' 2.21" (1.58 m) | Wt 227 lb (102.967 kg) | BMI </p><p>41.25 kg/m2 Body mass index is 41.25 kg/(m^2).</p><p> </p><p>Physical Exam </p><p>Nursing note and vitals reviewed. </p><p>-Constitutional: Pt is oriented to person, place, and time. Pt </p><p>appears well-developed and well-nourished. No distress. </p><p>HENT: </p><p>-Head: Normocephalic and atraumatic. </p><p>-Eyes: EOM are normal.</p><p>-Cardiovascular: Normal rate, regular rhythm and normal heart </p><p>sounds.No murmur heard.</p><p>-Pulmonary/Chest: Effort normal and breath sounds normal. No </p><p>respiratory distress. </p><p>-Neurological: Pt is alert and oriented to person, place, and </p><p>time. No cranial nerve deficit. </p><p>-Psychiatric: Pt has a normal mood and affect. Pt behavior is </p><p>normal.</p><p>Diabetic Foot Exam was performed at 12/08/2016 10:58 PM.Right </p><p>foot sensation is normal, right foot pulses are normal, right </p><p>foot appearance is normal.Left foot sensation is normal,left </p><p>foot pulses are normal,left foot appearance is normal. </p><p> </p><p> </p><p> </p><p> </p><p> </p><p> </p><p> </p><p>LABS/IMAGINGS</p><p>Reviewed last labs - N/A</p><p> </p><p> </p><p>ASSESSMENT & PLAN</p><p> & lt;/p><p>1. Encounter to establish [facility] </p><p> LIVER PROFILE </p><p> HIV-1/HIV-2 ROUTINE SCREENING </p><p> FREE T4 </p><p> CBC </p><p> VIT D, 25- HYDROXY </p><p> MAMMOGRAM BILAT SCREEN DIGITAL </p><p> BASIC METABOLIC PANEL </p><p> UA CHEMISTRIES </p><p> LIPID PROFILE </p><p> CANCELED: ALT/AST </p><p>2. ForgetfulnessConsider vit. b12 and folic acid levels on next </p><p>visit. </p><p>3. Chronic midline low back pain without sciatica&lt ;/p><p>cyclobenzaprine (FLEXERIL) 10 mg tablet - refill </p><p> gabapentin (NEURONTIN) 300 mg capsule - start.Patient had been </p><p>on Lyrica before. </p><p>4. Moderate persistent asthma without complicationalbuterol </p><p>(VENTOLIN HFA,PROVENTIL HFA,PROAIR HFA) 90 mcg/actuation inhaler </p><p>- refill.Consider inhaled steroid on next visit. </p><p>5. Morbid obesity, unspecified obesity typeORDER FOR APPT TO </p><p>PATIENT ED - DISEASE MGMT (AMB) </p><p> ORDER FOR APPT TO NUTRITION </p><p>6. Diabetes mellitus type 2 in obeseHEMOGLOBIN A1C </p><p> MICROALBUM, URINE </p><p> ORDER FOR APPT TO PATIENT ED - DISEASE MGMT (AMB) </p><p> ORDER FOR APPT TO NUTRITION </p><p> blood glucose meter </p><p> blood glucose test strips </p><p> lancets </p><p> OPHTHALMOLOGY RETINAL SCAN </p><p> tropicamide (MYDRIACYL) 0.5 % ophthalmic solution </p><p> lisinopril (ZESTRIL) 40 mg tablet </p><p> ORDER FOR APPT TO HEALTH EDUCATION </p><p> glipiZIDE (GLUCOTROL) 5 mg tablet - refill </p><p>7. Essential hypertensionD/C Amlodipine.Start Lisinopril 40mg </p><p>qd. </p><p>8. Unspecified hypothyroidismlevothyroxine (SYNTHROID) 125 mcg </p><p>tablet - refill </p><p> </p><p> </p><p> </p><p> </p><p>Lifestyle modification emphasized including: </p><p>Orders and follow up as documented in [facility].</p><p>Patient was provided education on their diagnosis, treatments and </p><p>any medications prescribed including medication use, any possible </p><p>adverse side effect or potential drug to drug interactions. </p><p>Patient's level of understanding is assessed with patient </p><p>acknowledgment of understanding . </p><p> </p><p> </p><p>Dorian Agustin [id number]</p><p> </p> 12/08/2016 [facility] CARSON STAIN Spec Description Vaginal 10/12/2016 [facility] CARSON STAIN Order Comments None 10/12/2016 [facility] CARSON STAIN Direct Exam No fungus seen by CARSON 10/12/2016 [facility] CARSON STAIN Report Status Final 10/12/2016 10/12/2016 [facility] WET M[place] Spec Description Vaginal 10/12/2016 [facility] [place] Order Comments None 10/12/2016 [facility] [place] Exam Epithelial cells Clue cells present Few WBC's seen No Trichomonas seen 10/12/2016 [facility] [place] Report Status Final 10/12/2016 10/12/2016 [facility] XRAY KNEE 3 VIEWS (ROUTINE W/ WT BEARING AP/LAT/SUN) <p>IMPRESSION:</p><p>1. No radiographic evidence for osteoarthrosis of the knee. </p><p>2. No other bony abnormality.</p><p> </p><p>Signed By: Sylvester Champagne MD, 10/08/2016 12:12 PM</p><p> </p> IMPRESSION: 1. No radiographic evidence for osteoarthrosis of the knee. 2. No other bony abnormality. Signed By: Sylvester Champagne MD, 10/08/2016 12:12 PM 10/08/2016 [facility] XRAY KNEE 3 VIEWS (ROUTINE W/ WT BEARING AP/LAT/SUN) <p>EXAM: XR RIGHT KNEE 3 VIEWS </p><p> </p><p>DATE:10/08/2016 9:46 AM </p><p> </p><p>INDICATION: Chronic Right knee pain</p><p> </p><p>COMPARISON: None available</p><p> </p><p>TECHNIQUE: Weight-bearing AP, internal rotation, external rotation and</p><p>lateral radiographs of the knee</p><p> </p><p>FINDINGS:No fracture, dislocation or other acute bony abnormality is</p><p>identified. There is no osteophyte formation. Joint spaces are preserved</p><p>in all three compartments. Subchondral sclerosis is absent.</p><p> </p><p>There is no excessive joint fluid. No soft tissue abnormality is</p><p>identified.</p><p> </p> EXAM: XR RIGHT KNEE 3 VIEWS DATE:10/08/2016 9:46 AM INDICATION: Chronic Right knee pain COMPARISON: None available TECHNIQUE: Weight-bearing AP, internal rotation, external rotation and lateral radiographs of the knee FINDINGS:No fracture, dislocation or other acute bony abnormality is identified. There is no osteophyte formation. Joint spaces are preserved in all three compartments. Subchondral sclerosis is absent. There is no excessive joint fluid. No soft tissue abnormality is identified. 10/08/2016 [facility] XRAY KNEE 3 VIEWS (ROUTINE W/ WT BEARING AP/LAT/SUN) <p styleCode="header">Yessica Good In - 10/08/2016 12:17 PM CDT</p><p><span>EXAM: XR RIGHT KNEE 3 VIEWS </span>

<span>DATE: 9:46 AM </span>

<span>INDICATION: Chronic Right knee pain</span>

<span>COMPARISON: None available</span>
<br/ ><span>TECHNIQUE: Weight-bearing AP, internal rotation, external rotation and</span>
<span>lateral radiographs of the knee</span>

<span>FI NDINGS: No fracture, dislocation or other acute bony abnormality is</span>
<span>identified. There is no osteophyte formation. Joint spaces are preserved</span>
<span>in all three compartments. Subchondral sclerosis is absent. </span>

<span>There is no excessive joint fluid. No soft tissue abnormality is</span><br/ ><span>identified.</span>

<span>IMPRESSION: </span>
<span>1. No radiographic evidence for osteoarthrosis of the knee. </span>
<span>2. No other bony abnormality.</span>

<span>Signed By: Sylvester Champagne MD, 10/08/2016 12:12 PM</span>
</p> Yessica Good In - 10/08/2016 12:17 PM CDT EXAM: XR RIGHT KNEE 3 VIEWS DATE: 10/08/2016 9:46 AM INDICATION: Chronic Right knee pain COMPARISON: None available TECHNIQUE: Weight-bearing AP, internal rotation, external rotation and lateral radiographs of the knee FINDINGS: No fracture, dislocation or other acute bony abnormality is identified. There is no osteophyte formation. Joint spaces are preserved in all three compartments. Subchondral sclerosis is absent. There is no excessive joint fluid. No soft tissue abnormality is identified. IMPRESSION: 1. No radiographic evidence for osteoarthrosis of the knee. 2. No other bony abnormality. Signed By: Sylvester Champagne MD, 10/08/2016 12:12 PM 10/08/2016 [facility] XRAY KNEE 3 VIEWS (ROUTINE W/ WT BEARING AP/LAT/SUN) IMPRESSION: 1. No radiographic evidence for osteoarthrosis of the knee. 2. No other bony abnormality. Signed By: Sylvester Champagne MD, 10/08/2016 12:12 PM EXAM: XR RIGHT KNEE 3 VIEWS DATE:10/08/2016 9:46 AM INDICATION: Chronic Right knee pain COMPARISON: None available TECHNIQUE: Weight-bearing AP, internal rotation, external rotation and lateral radiographs of the knee FINDINGS:No fracture, dislocation or other acute bony abnormality is identified. There is no osteophyte formation. Joint spaces are preserved in all three compartments. Subchondral sclerosis is absent. There is no excessive joint fluid. No soft tissue abnormality is identified. Interface, Rad/Mammog In - 10/08/2016 12:17 PM CDT EXAM: XR RIGHT KNEE 3 VIEWS DATE: 10/08/2016 9:46 AM INDICATION: Chronic Right knee pain COMPARISON: None available TECHNIQUE: Weight-bearing AP, internal rotation, external rotation and lateral radiographs of the knee FINDINGS: No fracture, dislocation or other acute bony abnormality is identified. There is no osteophyte formation. Joint spaces are preserved in all three compartments. Subchondral sclerosis is absent. There is no excessive joint fluid. No soft tissue abnormality is identified. IMPRESSION: 1. No radiographic evidence for osteoarthrosis of the knee. 2. No other bony abnormality. Signed By: Sylvester Champagne MD, 10/08/2016 12:12 PM 10/08/2016 [facility] FOLIC ACID Folic Acid 15.8 ng/mL 5.39 - 24 10/08/2016 [facility] VITAMIN B12 Vitamin B12 631 pg/mL 211 - 911 10/08/2016 [facility] BASIC METABOLIC PANEL CO2 29 mmol/L 21 - 32 10/08/2016 [facility] BASIC METABOLIC PANEL Chloride 102 mmol/L 98 - 107 10/08/2016 [facility] BASIC METABOLIC PANEL Potassium 4.2 mmol/L 3.5 - 5.1 10/08/2016 [facility] BASIC METABOLIC PANEL Sodium 138 mmol/L 136 - 145 10/08/2016 [facility] BASIC METABOLIC PANEL Glucose 216 mg/dL 70 - 99 10/08/2016 [facility] BASIC METABOLIC PANEL Urea Nitrogen 11 mg/dL 7 - 18 10/08/2016 [facility] BASIC METABOLIC PANEL Creatinine 1.01 mg/dL 0.6 - 1.3 10/08/2016 [facility] BASIC METABOLIC PANEL Anion Gap 7 10/08/2016 [facility] BASIC METABOLIC PANEL Calcium 9.5 mg/dL 8.5 - 10.2 10/08/2016 [facility] BASIC METABOLIC PANEL GFR, Estimated 58 mL/min/1.73 m2 10/08/2016 [facility] BASIC METABOLIC PANEL GFR, Estim, Afr-Am >60 mL/min/1.73 m2 10/08/2016 [facility] BASIC METABOLIC PANEL Lab Interpretation Abnormal 10/08/2016 [facility] CBC WBC 9.0 K/uL 4.5 - 11 10/08/2016 [facility] CBC RBC 5.26 M/uL 4.20 - 5.40 10/08/2016 [facility] CBC Hemoglobin 15.2 g/dL 12 - 16 10/08/2016 [facility] CBC Hematocrit 46.9 % 37 - 47 10/08/2016 [facility] CBC MCV 89 fL 82 - 92 10/08/2016 [facility] CBC MCH 28.9 pg 27 - 32 10/08/2016 [facility] CBC MCHC 32.4 g/dL 32 - 36 10/08/2016 [facility] CBC RDW 39.4 fL 36.4 - 46.3 10/08/2016 [facility] CBC Platelet 367 K/uL 150 - 400 10/08/2016 [facility] CBC Mean Platelet Volume 9.8 fL 9.4 - 12.4 10/08/2016 [facility] CBC Percent NRBC 0.0 10/08/2016 [facility] CBC Absolute NRBC 0.00 10/08/2016 [facility] FREE T4 Free T4 1.15 ng/dl 0.89 - 1.76 10/08/2016 [facility] HIV-1/HIV-2 ROUTINE SCREENING HIV-1/HIV-2 Negative NEG 10/08/2016 [facility] LIPID PROFILE Cholesterol 191 mg/dL <200 10/08/2016 REFERENCE RANGE: Desirable: <200 mg/dL Borderline: 200-240 mg/dL High Risk: >240 mg/dL [facility] LIPID PROFILE Triglyceride 142 mg/dL 10/08/2016 REFERENCE RANGE: Normal: <150 mg/dL Borderline High: 150-199 mg/dL High: 200-499 mg/dL Very High: >ob=084 mg/dL [facility] LIPID PROFILE HDL 49 mg/dL 40 - 60 10/08/2016 Increased CHD risk: <40 mg/dL Decreased CHD risk: >60 mg/dL [facility] LIPID PROFILE LDL 114 mg/dL 10/08/2016 REFERENCE RANGE: Optimal: <100 mg/dL Near Optimal: 100-129 mg/dL Borderline High: 130-159 mg/dL High: 160-189 mg/dL Very High: >tm=282 mg/dL [facility] LIVER PROFILE T Protein 7.6 g/dL 6.4 - 8.2 10/08/2016 [facility] LIVER PROFILE Albumin 3.6 g/dL 3.4 - 5 10/08/2016 [facility] LIVER PROFILE T Bilirubin 0.8 mg/dL 0.2 - 1 10/08/2016 [facility] LIVER PROFILE Alk Phos 120 U/L 45 - 117 10/08/2016 High [facility] LIVER PROFILE AST 17 U/L 15 - 37 10/08/2016 [facility] LIVER PROFILE ALT 31 U/L 12 - 78 10/08/2016 [facility] LIVER PROFILE D Bilirubin 0.2 mg/dL 0 - 0.2 10/08/2016 [facility] LIVER PROFILE Lab Interpretation Abnormal 10/08/2016 [facility] MICROALBUM, URINE Microalbum, Random 9.1 mg/dL 0 - 29 10/08/2016 [facility] MICROALBUM, URINE Creatinine, Ur 292.6 mg/dL 10/08/2016 [facility] MICROALBUM, URINE Urine Microalbumin 31.1 mg/g UCR 0 - 29 10/08/2016 High To minimize intra-individual variation, analysis of three random urine samples collected over the course of a week is recommended. [facility] MICROALBUM, URINE Lab Interpretation Abnormal 10/08/2016 [facility] UA CHEMISTRIES Color Yellow 10/08/2016 [facility] UA CHEMISTRIES Clarity Clear 10/08/2016 [facility] UA CHEMISTRIES Spec [place] 1.006 1.001 - 1.035 10/08/2016 [facility] UA CHEMISTRIES pH 6.0 5 - 8 10/08/2016 [facility] UA CHEMISTRIES Protein Negative NEG 10/08/2016 [facility] UA CHEMISTRIES Glucose Negative NEG 10/08/2016 [facility] UA CHEMISTRIES Ketone Negative NEG 10/08/2016 [facility] UA CHEMISTRIES Bilirubin Negative NEG 10/08/2016 [facility] UA CHEMISTRIES Nitrate Negative NEG 10/08/2016 [facility] UA CHEMISTRIES Urobilinogen <1.0 0.2 - 1 10/08/2016 [facility] UA CHEMISTRIES Leukocyte Negative NEG 10/08/2016 [facility] UA CHEMISTRIES Blood Negative NEG 10/08/2016 [facility] VIT D, 25-HYDROXY Vit D, 25-Hydroxy 14.0 ng/mL 30 - 100 10/08/2016 Low Vitamin D deficiency has been defined by the [place] of [employer] and Endocrine Society guideline as a level of serum 25-OH Vitamin D less than 20 ng/mL. The Endocrine Society further defines Vitamin D insufficiency as a level between 21 and 29 ng/mL and sufficiency as a level between 30 and 100 ng/mL. [facility] VIT D, 25-HYDROXY Lab Interpretation Abnormal 10/08/2016 [facility] CARDIAC ENZYMES Troponin-I null 0.00 - 0.40 12/17/2015 [facility] CARDIAC ENZYMES CK MB null 0.5 - 3.6 12/17/2015 [facility] CARDIAC ENZYMES Total CK 31 unit/L 12 - 191 12/17/2015 [facility] CARDIAC ENZYMES CK MB Index null 0.0 - 2.5 12/17/2015 [facility] CHEM PANEL Ketone Quantitative 0.10 mmol/L <=0.27 mmol/L 12/17/2015 [facility] CHEM PANEL Lipase Lvl 259 unit/L 73 - 393 12/17/2015 [facility] CHEM PANEL eGFR 55 mL/min/1.73m2 12/17/2015 Result Comment: The eGFR is calculated using the [...] from the National Kidney Disease Education Program (NKDEP) which additionally recommends that when the eGFR is used in patients with extremes of body mass index for purposes of drug dosing, the eGFR should be multiplied by the estimated BMI. [facility] CHEM PANEL Globulin 5.2 g/dL 2.7 - 4.2 12/17/2015 [facility] CHEM PANEL A/G Ratio 0.8 0.7 - 1.6 12/17/2015 [facility] CHEM PANEL B/C Ratio 18 6 - 25 12/17/2015 [facility] CHEM PANEL Calcium Lvl 9.1 mg/dL 8.5 - 10.5 12/17/2015 [facility] CHEM PANEL Bili Total 0.6 mg/dL 0.2 - 1.3 12/17/2015 [facility] CHEM PANEL AGAP 15.7 meq/L 10.0 - 20.0 12/17/2015 [facility] CHEM PANEL Chloride Lvl 102 meq/L 95 - 109 12/17/2015 [facility] CHEM PANEL CO2 23 meq/L 24 - 32 12/17/2015 [facility] CHEM PANEL Total Protein 9.2 g/dL 6.4 - 8.4 12/17/2015 [facility] CHEM PANEL Albumin Lvl 4.0 g/dL 3.5 - 5.0 12/17/2015 [facility] CHEM PANEL Creatinine Lvl 1.18 mg/dL 0.50 - 1.40 12/17/2015 [facility] CHEM PANEL Potassium Lvl 3.7 meq/L 3.5 - 5.1 12/17/2015 [facility] CHEM PANEL AST 22 unit/L 0 - 37 12/17/2015 [facility] CHEM PANEL Alk Phos 113 unit/L 39 - 136 12/17/2015 [facility] CHEM PANEL ALT 31 unit/L 0 - 65 12/17/2015 [facility] CHEM PANEL Sodium Lvl 137 meq/L 135 - 145 12/17/2015 [facility] CHEM PANEL Glucose Lvl 129 mg/dL 70 - 99 12/17/2015 [facility] CHEM PANEL BUN 21 mg/dL 7 - 22 12/17/2015 [facility] HEMATOLOGY MPV 8.3 fL 7.4 - 10.4 12/17/2015 [facility] HEMATOLOGY Hct 49.9 % 36.0 - 48.0 12/17/2015 [facility] HEMATOLOGY WBC 8.6 K/CMM 3.7 - 10.4 12/17/2015 [facility] HEMATOLOGY Hgb 15.9 g/dL 12.0 - 16.0 12/17/2015 [facility] HEMATOLOGY RBC 5.49 M/CMM 4.20 - 5.40 12/17/2015 [facility] HEMATOLOGY Platelet 339 K/CMM 133 - 450 12/17/2015 [facility] HEMATOLOGY MCH 29.0 pg 27.0 - 31.0 12/17/2015 [facility] HEMATOLOGY MCV 90.9 fL 80.0 - 98.0 12/17/2015 [facility] HEMATOLOGY RDW 13.3 % 11.5 - 14.5 12/17/2015 [facility] HEMATOLOGY MCHC 31.9 g/dL 32.0 - 36.0 12/17/2015 [facility] HEMATOLOGY Lymphocytes # 1.2 K/CMM 1.0 - 5.5 12/17/2015 [facility] HEMATOLOGY Monocytes # 0.4 K/CMM 0.0 - 0.8 12/17/2015 [facility] HEMATOLOGY Monocytes 4.2 % 2.0 - 12.0 12/17/2015 [facility] HEMATOLOGY Lymphocytes 13.8 % 20.0 - 40.0 12/17/2015 [facility] HEMATOLOGY Eosinophils 0.3 % 0.0 - 4.0 12/17/2015 [facility] HEMATOLOGY Basophils 0.5 % 0.0 - 1.0 12/17/2015 [facility] HEMATOLOGY Segs 81.2 % 45.0 - 75.0 12/17/2015 [facility] HEMATOLOGY Segs-Bands # 7.0 K/CMM 1.5 - 8.1 12/17/2015 [facility] Abdomen 2 views DX Abdomen 2 views DX Study: ABDOMEN, 2 VIEWS Clinical Indication: Vomiting Comparison: Abdomen 09/05/2013 FINDINGS: Image quality is compromised by the large patient size. Supine and upright images demonstrate a moderate amount of gas within the small bowel and colon in a nonspecific pattern. Findings could represent aerophagia. No abnormal soft tissue mass or calcification is seen. Cholecystectomy has been performed. SL: [id number] 12/17/2015 - - Read by: Karthik Valencia MD Dictated Date/time: 12/17/15 18:42 Electronically Signed by: Karthik Valencia MD 12/17/15 18:44 FINAL REPORT [facility] Chest 1view DX Chest 1view DX Patient Name: CARLIE ELIZABETH : 1965; Age: 49 years Female MR: [id number] Study: Chest 1view DX Order Time: 12/17/2015 3:18 PM CDT Clinical Indication: Chest pain. COMPARISON: 08/20/2014. FINDINGS: Views: 1 LUNGS: There is normal lung volume. There are no suspicious interstitial/airspace opacities. There are no pleural effusions. There is no pneumothorax. The pulmonary vasculature is normal. MEDIASTINUM: The cardiac silhouette is mildly enlarged. The trachea is midline. BONES: There are no clinically significant osseous abnormalities noted. IMPRESSION: No radiographic evidence of acute pulmonary disease. SL: [id number] 12/17/2015 - - Read by: Sp Culver MD Dictated Date/time: 12/17/15 16:15 Electronically Signed by: Sp Culver MD 12/17/15 16:16 FINAL REPORT [facility] CHEM PANEL Lipase Lvl 384 unit/L 73 - 393 11/22/2015 [facility] ED Abdomen/Pelvis IV contrast only CT ED Abdomen/Pelvis IV contrast only CT EXAM: CT abdomen and pelvis with contrast. INDICATION: Abdominal pain, acute. TECHNIQUE: Contiguous axial CT images of the abdomen and pelvis. Intravenous contrast: Present. Oral contrast: Absent. DLP 984 mGy-cm. COMPARISON: 02/23/2014. FINDINGS: Lower chest: Partially imaged. Lung bases: Unremarkable. Cardiac apex: Unremarkable. Solid abdominal viscera: Liver: Hypodense Gallbladder: Cholecystectomy Pancreas: Unremarkable. Spleen: Unremarkable. Adrenal glands: Unremarkable. Right kidney: No hydronephrosis. Left kidney: No hydronephrosis. There is a 1.8 cm cyst along the upper pole Urinary bladder: Unremarkable. Abdominal aorta: Unremarkable. Peritoneal: Free fluid: None. Free air: None. Other: No pathologic sized lymph nodes in the upper abdomen. The previously described right paracentral ventral hernia is no longer visualized Bowel: Stomach: Unremarkable. Small bowel: Unremarkable. Appendix: Unremarkable Colon: Scattered diverticula without evidence of diverticulitis Rectum: Unremarkable. Uterus: Hysterectomy Bones: There are chronic bilateral L5 pars defects IMPRESSION: 1. No CT evidence of acute process of the abdomen. Fatty liver. Cholecystectomy. Normal appendix. 11/22/2015 - - Read by: Car Garcia MD Dictated Date/time: 11/22/15 04:54 Electronically Signed by: Car Garcia MD 11/22/15 04:58 FINAL REPORT [facility] CHEM PANEL Calcium Lvl 9.2 mg/dL 8.5 - 10.5 11/22/2015 [facility] CHEM PANEL Albumin Lvl 3.8 g/dL 3.5 - 5.0 11/22/2015 [facility] CHEM PANEL Chloride Lvl 104 meq/L 95 - 109 11/22/2015 [facility] CHEM PANEL Potassium Lvl 4.0 meq/L 3.5 - 5.1 11/22/2015 [facility] CHEM PANEL Sodium Lvl 139 meq/L 135 - 145 11/22/2015 [facility] CHEM PANEL Total Protein 8.3 g/dL 6.4 - 8.4 11/22/2015 [facility] CHEM PANEL Bili Total 0.5 mg/dL 0.2 - 1.3 11/22/2015 [facility] CHEM PANEL Alk Phos 108 unit/L 39 - 136 11/22/2015 [facility] CHEM PANEL eGFR 60 mL/min/1.73m2 11/22/2015 Result Comment: The eGFR is calculated using the [...] from the National Kidney Disease Education Program (NKDEP) which additionally recommends that when the eGFR is used in patients with extremes of body mass index for purposes of drug dosing, the eGFR should be multiplied by the estimated BMI. [facility] CHEM PANEL AST 21 unit/L 0 - 37 11/22/2015 [facility] CHEM PANEL ALT 30 unit/L 0 - 65 11/22/2015 [facility] CHEM PANEL CO2 26 meq/L 24 - 32 11/22/2015 [facility] CHEM PANEL Creatinine Lvl 1.10 mg/dL 0.50 - 1.40 11/22/2015 [facility] CHEM PANEL BUN 12 mg/dL 7 - 22 11/22/2015 [facility] CHEM PANEL Glucose Lvl 118 mg/dL 70 - 99 11/22/2015 [facility] CHEM PANEL A/G Ratio 0.8 0.7 - 1.6 11/22/2015 [facility] CHEM PANEL Globulin 4.5 g/dL 2.0 - 4.0 11/22/2015 [facility] CHEM PANEL B/C Ratio 11 6 - 25 11/22/2015 [facility] CHEM PANEL AGAP 13.0 meq/L 10.0 - 20.0 11/22/2015 [facility] HEMATOLOGY WBC 10.2 K/CMM 3.7 - 10.4 11/22/2015 [facility] HEMATOLOGY Hgb 14.6 g/dL 12.0 - 16.0 11/22/2015 [facility] HEMATOLOGY RBC 5.09 M/CMM 4.20 - 5.40 11/22/2015 [facility] HEMATOLOGY MCV 89.3 fL 80.0 - 98.0 11/22/2015 [facility] HEMATOLOGY Hct 45.5 % 36.0 - 48.0 11/22/2015 [facility] MCH 28.7 pg 27.0 - 31.0 11/22/2015 [facility] HEMATOLOGY Platelet 347 K/CMM 133 - 450 11/22/2015 [facility] HEMATOLOGY MPV 7.7 fL 7.4 - 10.4 11/22/2015 [facility] HEMATOLOGY RDW 13.2 % 11.5 - 14.5 11/22/2015 [facility] HEMATOLOGY MCHC 32.1 g/dL 32.0 - 36.0 11/22/2015 [facility] HEMATOLOGY Segs 60.7 % 45.0 - 75.0 11/22/2015 [facility] Lymphocytes 29.7 % 20.0 - 40.0 11/22/2015 [facility] HEMATOLOGY Basophils 0.6 % 0.0 - 1.0 11/22/2015 [facility] HEMATOLOGY Monocytes 4.3 % 2.0 - 12.0 11/22/2015 [facility] HEMATOLOGY Segs-Bands # 6.2 K/CMM 1.5 - 8.1 11/22/2015 [facility] HEMATOLOGY Eosinophils 4.7 % 0.0 - 4.0 11/22/2015 [facility] HEMATOLOGY Eosinophils # 0.5 K/CMM 0.0 - 0.5 11/22/2015 [facility] HEMATOLOGY Lymphocytes # 3.0 K/CMM 1.0 - 5.5 11/22/2015 [facility] HEMATOLOGY Basophils # 0.1 K/CMM 0.0 - 0.2 11/22/2015 [facility] HEMATOLOGY Monocytes # 0.4 K/CMM 0.0 - 0.8 11/22/2015 [facility] URINE AND STOOL UA Spec Grav 1.002 <=1.030 11/22/2015 [facility] URINE AND STOOL UA Turbidity Marked *ABN* (11/21/15 10:14 PM) Clear 11/22/2015 [facility] URINE AND STOOL UA Sq Epi Many /LPF Few /LPF 11/22/2015 [facility] URINE AND STOOL UA Bacteria Moderate /HPF None Seen /HPF 11/22/2015 [facility] URINE AND STOOL UA Leuk Est Negative (11/21/15 10:14 PM) Negative 11/22/2015 [facility] URINE AND STOOL UA RBC 4 /HPF 0 - 2 11/22/2015 [facility] URINE AND STOOL UA WBC 8 /HPF 0 - 5 11/22/2015 [facility] URINE AND STOOL UA Glucose Negative mg/dL Negative mg/dL 11/22/2015 [facility] URINE AND STOOL UA Protein Negative mg/dL Negative mg/dL 11/22/2015 [facility] URINE AND STOOL UA pH 6.0 5.0 - 8.0 11/22/2015 [facility] URINE AND STOOL UA Nitrite Negative (11/21/15 10:14 PM) Negative 11/22/2015 [facility] URINE AND STOOL UA Blood Small *ABN* (11/21/15 10:14 PM) Negative 11/22/2015 [facility] URINE AND STOOL UA Bili Negative *NA* (11/21/15 10:14 PM) Negative 11/22/2015 [facility] URINE AND STOOL UA Mucus Few /LPF None Seen /LPF 11/22/2015 [facility] URINE AND STOOL UA Urobilinogen <=1.0 mg/dL 0.1 - 1.0 11/22/2015 [facility] URINE AND STOOL UA Ketones Negative 11/22/2015 [facility] URINE AND STOOL UA Color Yellow *NA* (11/21/15 10:14 PM) Yellow 11/22/2015 [facility] Abdomen RUQ US Abdomen RUQ US EXAM: Abdomen ultrasound. INDICATION: Abdominal pain. TECHNIQUE: Grayscale and Doppler sonogram of the abdomen. COMPARISON: None. FINDINGS: Pancreas: Not well seen Aorta: Visualized portion is unremarkable. IVC: Visualized portion is unremarkable. Liver: Parenchyma: Increased echotexture. Length: 15.7 cm. Main portal vein: Diameter: 1 cm. Normal directional flow. Gallbladder: Cholecystectomy Common bile duct: Diameter: 0.5 cm. Right kidney: Length: 10.9 x 5.0 x 6.0 cm. No hydronephrosis. IMPRESSION: Fatty liver. Cholecystectomy 11/22/2015 - - Read by: Car Garcia MD Dictated Date/time: 11/22/15 03:16 Electronically Signed by: Car Garcia MD 11/22/15 03:17 FINAL REPORT [facility] CARDIAC ENZYMES CK MB Index 1.1 0.0 - 2.5 08/20/2014 [facility] CARDIAC ENZYMES Troponin-I null 0.00 - 0.40 08/20/2014 [facility] CARDIAC ENZYMES CK MB 0.5 ng/mL 0.5 - 3.6 08/20/2014 [facility] CARDIAC ENZYMES BNP 6 pg/mL <=100 pg/mL 08/20/2014 3Interpretive Data: Elevated results are in line with increasing severity of congestive heart failure. Minor elevations between 100 and 300 may be seen with Myocardial Ischemia, Sodium retaining drugs, and compensated/treated heart failure. [facility] CARDIAC ENZYMES Total CK 44 unit/L 12 - 191 08/20/2014 [facility] CHEM PANEL Glucose Lvl 290 mg/dL 70 - 99 08/20/2014 2Interpretive Data: Adult reference range values reflect the clinical guidelines of the [place] [employer]. [facility] CHEM PANEL BUN 15 mg/dL 7 - 22 08/20/2014 [facility] CHEM PANEL ALT 31 unit/L 0 - 65 08/20/2014 [facility] CHEM PANEL Alk Phos 126 unit/L 39 - 136 08/20/2014 [facility] CHEM PANEL Bili Total 0.5 mg/dL 0.2 - 1.3 08/20/2014 [facility] CHEM PANEL AST 22 unit/L 0 - 37 08/20/2014 [facility] CHEM PANEL CO2 25 meq/L 24 - 32 08/20/2014 [facility] CHEM PANEL Albumin Lvl 3.5 g/dL 3.5 - 5.0 08/20/2014 [facility] CHEM PANEL Total Protein 7.5 g/dL 6.4 - 8.4 08/20/2014 [facility] CHEM PANEL B/C Ratio 12 6 - 25 08/20/2014 [facility] CHEM PANEL AGAP 12.9 meq/L 10.0 - 20.0 08/20/2014 [facility] CHEM PANEL A/G Ratio 0.9 0.7 - 1.6 08/20/2014 [facility] CHEM PANEL Globulin 4.0 g/dL 2.0 - 4.0 08/20/2014 [facility] CHEM PANEL eGFR 54 mL/min/1.73m2 08/20/2014 1Result Comment: The eGFR is calculated using [...] from the National Kidney Disease Education Program (NKDEP) which additionally recommends that when the eGFR is used in patients with extremes of body mass index for purposes of drug dosing, the eGFR should be multiplied by the estimated BMI. [facility] CHEM PANEL Creatinine Lvl 1.2 mg/dL 0.5 - 1.4 08/20/2014 [facility] CHEM PANEL Sodium Lvl 137 meq/L 135 - 145 08/20/2014 [facility] CHEM PANEL Potassium Lvl 3.9 meq/L 3.5 - 5.1 08/20/2014 [facility] CHEM PANEL Chloride Lvl 103 meq/L 95 - 109 08/20/2014 [facility] CHEM PANEL Calcium Lvl 8.5 mg/dL 8.5 - 10.5 08/20/2014 [facility] HEMATOLOGY Segs 75.1 % 45.0 - 75.0 08/20/2014 [facility] HEMATOLOGY Lymphocytes 16.8 % 20.0 - 40.0 08/20/2014 [facility] HEMATOLOGY Eosinophils 3.4 % 0.0 - 4.0 08/20/2014 [facility] HEMATOLOGY Lymphocytes # 1.8 K/CMM 1.0 - 5.5 08/20/2014 [facility] HEMATOLOGY Segs-Bands # 7.9 K/CMM 1.5 - 8.1 08/20/2014 [facility] HEMATOLOGY Monocytes 4.2 % 2.0 - 12.0 08/20/2014 [facility] HEMATOLOGY Basophils 0.5 % 0.0 - 1.0 08/20/2014 [facility] HEMATOLOGY Eosinophils # 0.4 K/CMM 0.0 - 0.5 08/20/2014 [facility] HEMATOLOGY Monocytes # 0.4 K/CMM 0.0 - 0.8 08/20/2014 [facility] HEMATOLOGY Basophils # 0.1 K/CMM 0.0 - 0.2 08/20/2014 [facility] HEMATOLOGY RBC 4.47 M/CMM 4.20 - 5.40 08/20/2014 [facility] HEMATOLOGY Hct 39.4 % 36.0 - 48.0 08/20/2014 [facility] HEMATOLOGY Hgb 13.3 g/dL 12.0 - 16.0 08/20/2014 [facility] HEMATOLOGY MCV 88.2 fL 80.0 - 98.0 08/20/2014 [facility] MCH 29.9 pg 27.0 - 31.0 08/20/2014 [facility] HEMATOLOGY WBC 10.6 K/CMM 3.7 - 10.4 08/20/2014 [facility] HEMATOLOGY MPV 7.7 fL 7.4 - 10.4 08/20/2014 [facility] RDW 13.3 % 11.5 - 14.5 08/20/2014 [facility] MCHC 33.9 g/dL 32.0 - 36.0 08/20/2014 [facility] HEMATOLOGY Platelet 305 K/CMM 133 - 450 08/20/2014 [facility] Chest 1view DX Chest 1view DX HISTORY: Chest pain TECHNIQUE: Single portable view of the chest. COMPARISON: None FINDINGS: Exam is slightly degraded secondary to low lung volumes. Heart size and central vasculature are within normal limits. There is no effusion or focal pneumonia. No pneumothorax. No acute osseous pathology. IMPRESSION: Low lung volumes. No acute cardiopulmonary process. 08/20/2014 - - Read by: Lauryn Driver MD Dictated Date/time: 08/20/14 12:14 Electronically Signed by: Lauryn Driver MD 08/20/14 12:15 FINAL REPORT [facility] CHEM PANEL Ketone Quantitative 0.12 mmol/L <=0.27 mmol/L 07/03/2014 [facility] CHEM PANEL Calcium Lvl 9.4 mg/dL 8.5 - 10.5 07/03/2014 [facility] CHEM PANEL eGFR 49 mL/min/1.73m2 07/03/2014 1Result Comment: The eGFR is calculated using [...] from the National Kidney Disease Education Program (NKDEP) which additionally recommends that when the eGFR is used in patients with extremes of body mass index for purposes of drug dosing, the eGFR should be multiplied by the estimated BMI. [facility] CHEM PANEL Creatinine Lvl 1.3 mg/dL 0.5 - 1.4 07/03/2014 [email or web address] CHEM PANEL AST 17 unit/L 0 - 37 07/03/2014 [email or web address] CHEM PANEL ALT 28 unit/L 0 - 65 07/03/2014 [email or web address] CHEM PANEL Alk Phos 163 unit/L 39 - 136 07/03/2014 [email or web address] CHEM PANEL Glucose Lvl 469 mg/dL 70 - 99 07/03/2014 3Interpretive Data: Adult reference range values reflect the clinical guidelines of the [place] [employer]. [facility] CHEM PANEL Sodium Lvl 132 meq/L 135 - 145 07/03/2014 [email or web address] CHEM PANEL Chloride Lvl 96 meq/L 95 - 109 07/03/2014 [email or web address] CHEM PANEL Potassium Lvl 4.0 meq/L 3.5 - 5.1 07/03/2014 [email or web address] CHEM PANEL Total Protein 7.8 g/dL 6.4 - 8.4 07/03/2014 [email or web address] CHEM PANEL Bili Total 0.4 mg/dL 0.2 - 1.3 07/03/2014 [email or web address] CHEM PANEL BUN 17 mg/dL 7 - 22 07/03/2014 [email or web address] CHEM PANEL CO2 26 meq/L 24 - 32 07/03/2014 [email or web address] CHEM PANEL Albumin Lvl 3.7 g/dL 3.5 - 5.0 07/03/2014 [email or web address] CHEM PANEL Globulin 4.1 g/dL 2.0 - 4.0 07/03/2014 [facility] CHEM PANEL A/G Ratio 0.9 0.7 - 1.6 07/03/2014 [facility] CHEM PANEL B/C Ratio 13 6 - 25 07/03/2014 [facility] CHEM PANEL AGAP 14.0 meq/L 10.0 - 20.0 07/03/2014 [facility] HEMATOLOGY Basophils # 0.1 K/CMM 0.0 - 0.2 07/03/2014 [facility] HEMATOLOGY Lymphocytes # 2.6 K/CMM 1.0 - 5.5 07/03/2014 [facility] HEMATOLOGY Eosinophils # 0.5 K/CMM 0.0 - 0.5 07/03/2014 [facility] HEMATOLOGY Segs-Bands # 9.2 K/CMM 1.5 - 8.1 07/03/2014 [facility] Basophils 0.7 % 0.0 - 1.0 07/03/2014 [facility] HEMATOLOGY Monocytes # 0.3 K/CMM 0.0 - 0.8 07/03/2014 [facility] HEMATOLOGY Eosinophils 3.8 % 0.0 - 4.0 07/03/2014 [facility] HEMATOLOGY Monocytes 2.3 % 2.0 - 12.0 07/03/2014 [facility] HEMATOLOGY Lymphocytes 20.3 % 20.0 - 40.0 07/03/2014 [facility] HEMATOLOGY Segs 72.9 % 45.0 - 75.0 07/03/2014 [facility] HEMATOLOGY MPV 8.5 fL 7.4 - 10.4 07/03/2014 [facility] HEMATOLOGY WBC 12.6 K/CMM 3.7 - 10.4 07/03/2014 [facility] HEMATOLOGY RBC 4.57 M/CMM 4.20 - 5.40 07/03/2014 [facility] HEMATOLOGY Hct 40.7 % 36.0 - 48.0 07/03/2014 [facility] HEMATOLOGY MCV 89.2 fL 80.0 - 98.0 07/03/2014 [facility] HEMATOLOGY Hgb 13.6 g/dL 12.0 - 16.0 07/03/2014 [facility] HEMATOLOGY Platelet 283 K/CMM 133 - 450 07/03/2014 [facility] HEMATOLOGY RDW 13.5 % 11.5 - 14.5 07/03/2014 [facility] HEMATOLOGY MCH 29.9 pg 27.0 - 31.0 07/03/2014 [facility] HEMATOLOGY MCHC 33.5 g/dL 32.0 - 36.0 07/03/2014 [facility] ELECTROLYTES AGAP 13.2 meq/L 10.0 - 20.0 03/16/2014 [facility] ELECTROLYTES BUN 17 mg/dL 7 - 22 03/16/2014 [facility] ELECTROLYTES CO2 24 meq/L 24 - 32 03/16/2014 [facility] ELECTROLYTES Glucose Lvl 315 mg/dL 70 - 99 03/16/2014 3Interpretive Data: Adult reference range values reflect the clinical guidelines of the [place] [employer]. [facility] ELECTROLYTES eGFR 54 mL/min/1.73m2 03/16/2014 1Result Comment: The eGFR is calculated using [...] from the National Kidney Disease Education Program (NKDEP) which additionally recommends that when the eGFR is used in patients with extremes of body mass index for purposes of drug dosing, the eGFR should be multiplied by the estimated BMI. [facility] ELECTROLYTES Creatinine Lvl 1.2 mg/dL 0.5 - 1.4 03/16/2014 [facility] ELECTROLYTES Calcium Lvl 7.4 mg/dL 8.5 - 10.5 03/16/2014 [facility] ELECTROLYTES Chloride Lvl 105 meq/L 95 - 109 03/16/2014 [facility] ELECTROLYTES Potassium Lvl 4.2 meq/L 3.5 - 5.1 03/16/2014 [facility] ELECTROLYTES Sodium Lvl 138 meq/L 135 - 145 03/16/2014 [facility] HEMATOLOGY Hct 36.2 % 36.0 - 48.0 03/16/2014 [facility] HEMATOLOGY Platelet 292 K/CMM 133 - 450 03/16/2014 [facility] HEMATOLOGY MPV 8.5 fL 7.4 - 10.4 03/16/2014 [facility] HEMATOLOGY MCH 30.0 pg 27.0 - 31.0 03/16/2014 [facility] HEMATOLOGY MCHC 33.9 g/dL 32.0 - 36.0 03/16/2014 [facility] HEMATOLOGY MCV 88.4 fL 80.0 - 98.0 03/16/2014 [facility] HEMATOLOGY RDW 13.4 % 11.5 - 14.5 03/16/2014 [facility] Hgb 12.3 g/dL 12.0 - 16.0 03/16/2014 [facility] HEMATOLOGY WBC 19.9 K/CMM 3.7 - 10.4 03/16/2014 [facility] HEMATOLOGY RBC 4.09 M/CMM 4.20 - 5.40 03/16/2014 [facility] HEMATOLOGY Segs-Bands # 18.3 K/CMM 1.5 - 8.1 03/16/2014 [facility] HEMATOLOGY Lymphocytes # 1.1 K/CMM 1.0 - 5.5 03/16/2014 [facility] HEMATOLOGY Monocytes # 0.4 K/CMM 0.0 - 0.8 03/16/2014 [facility] HEMATOLOGY Eosinophils # 0.0 K/CMM 0.0 - 0.5 03/16/2014 [facility] HEMATOLOGY Basophils # 0.1 K/CMM 0.0 - 0.2 03/16/2014 [facility] HEMATOLOGY Lymphocytes 5.4 % 20.0 - 40.0 03/16/2014 [facility] HEMATOLOGY Monocytes 1.9 % 2.0 - 12.0 03/16/2014 [facility] HEMATOLOGY Eosinophils 0.2 % 0.0 - 4.0 03/16/2014 [facility] HEMATOLOGY Basophils 0.4 % 0.0 - 1.0 03/16/2014 [facility] HEMATOLOGY Plt Morph Normal (03/16/14 2:50 AM) 03/16/2014 [facility] HEMATOLOGY Segs 92.1 % 45.0 - 75.0 03/16/2014 [facility] HEMATOLOGY RBC Morph Normal (03/16/14 2:50 AM) 03/16/2014 [facility] SPECIAL CHEMISTRY Hgb A1C 8.4 % <=5.6 % 03/16/2014 [facility] SPECIAL CHEMISTRY Hgb A1C 8.1 % <=5.6 % 03/12/2014 [facility] CHEM PANEL eGFR 60 mL/min/1.73m2 03/12/2014 2Result Comment: The eGFR is calculated using the [...] from the National Kidney Disease Education Program (NKDEP) which additionally recommends that when the eGFR is used in patients with extremes of body mass index for purposes of drug dosing, the eGFR should be multiplied by the estimated BMI. [facility] CHEM PANEL Creatinine Lvl 1.1 mg/dL 0.5 - 1.4 03/12/2014 [facility] CHEM PANEL BUN 20 mg/dL 7 - 22 03/12/2014 [facility] CHEM PANEL Glucose Lvl 212 mg/dL 70 - 99 03/12/2014 4Interpretive Data: Adult reference range values reflect the clinical guidelines of the [place] [employer]. [facility] ELECTROLYTES Sodium Lvl 138 meq/L 135 - 145 03/12/2014 [facility] ELECTROLYTES Potassium Lvl 4.4 meq/L 3.5 - 5.1 03/12/2014 [facility] HEMATOLOGY Hgb 13.4 g/dL 12.0 - 16.0 03/12/2014 [facility] HEMATOLOGY Hct 40.0 % 36.0 - 48.0 03/12/2014 [facility] URINE AND STOOL UA Urobilinogen <=1.0 mg/dL 0.1 - 1.0 02/23/2014 [facility] URINE AND STOOL Micro? Performed *NA* (02/23/14 11:26 AM) 02/23/2014 [facility] URINE AND STOOL UA Bacteria Occasional /HPF None Seen /HPF 02/23/2014 [facility] URINE AND STOOL UA Mucus Few /LPF None Seen /LPF 02/23/2014 [facility] URINE AND STOOL UA Bili Negative *NA* (02/23/14 11:26 AM) Negative 02/23/2014 [facility] URINE AND STOOL UA Glucose Negative mg/dL Negative mg/dL 02/23/2014 [facility] URINE AND STOOL UA WBC 3 /HPF 0 - 5 02/23/2014 [facility] URINE AND STOOL UA Sq Epi Many /LPF Few /LPF 02/23/2014 [facility] URINE AND STOOL UA Ketones Negative mg/dL Negative mg/dL 02/23/2014 [facility] URINE AND STOOL UA Blood Negative (02/23/14 11:26 AM) Negative 02/23/2014 [facility] URINE AND STOOL UA Nitrite Negative (02/23/14 11:26 AM) Negative 02/23/2014 [facility] URINE AND STOOL UA Leuk Est Negative (02/23/14 11:26 AM) Negative 02/23/2014 [facility] URINE AND STOOL UA Protein Negative mg/dL Negative mg/dL 02/23/2014 [facility] URINE AND STOOL UA Spec Grav 1.014 <=1.030 02/23/2014 [facility] URINE AND STOOL UA pH 5.0 5.0 - 8.0 02/23/2014 [facility] URINE AND STOOL UA Turbidity Slight *ABN* (02/23/14 11:26 AM) Clear 02/23/2014 [facility] URINE AND STOOL UA Color Yellow *NA* (02/23/14 11:26 AM) Yellow 02/23/2014 [facility] URINE CHEM U Preg Negative (02/23/14 11:26 AM) Negative 02/23/2014 [facility] CHEM PANEL Lipase Lvl 247 unit/L 73 - 393 02/23/2014 [facility] CHEM PANEL Calcium Lvl 8.6 mg/dL 8.5 - 10.5 02/23/2014 [facility] CHEM PANEL eGFR 67 mL/min/1.73m2 02/23/2014 1Result Comment: The eGFR is calculated using [...] from the National Kidney Disease Education Program (NKDEP) which additionally recommends that when the eGFR is used in patients with extremes of body mass index for purposes of drug dosing, the eGFR should be multiplied by the estimated BMI. [facility] CHEM PANEL Creatinine Lvl 1.0 mg/dL 0.5 - 1.4 02/23/2014 [facility] CHEM PANEL BUN 9 mg/dL 7 - 22 02/23/2014 [facility] CHEM PANEL CO2 26 meq/L 24 - 32 02/23/2014 [facility] CHEM PANEL Alk Phos 96 unit/L 39 - 136 02/23/2014 [facility] CHEM PANEL Glucose Lvl 138 mg/dL 70 - 99 02/23/2014 2Interpretive Data: Adult reference range values reflect the clinical guidelines of the [place] [employer]. [facility] CHEM PANEL Bili Total 1.2 mg/dL 0.2 - 1.3 02/23/2014 [facility] CHEM PANEL AST 19 unit/L 0 - 37 02/23/2014 [facility] CHEM PANEL ALT 31 unit/L 0 - 65 02/23/2014 [facility] CHEM PANEL Chloride Lvl 103 meq/L 95 - 109 02/23/2014 [facility] CHEM PANEL Potassium Lvl 3.2 meq/L 3.5 - 5.1 02/23/2014 [facility] CHEM PANEL Sodium Lvl 139 meq/L 135 - 145 02/23/2014 [facility] CHEM PANEL Total Protein 7.6 g/dL 6.4 - 8.4 02/23/2014 [facility] CHEM PANEL Albumin Lvl 3.6 g/dL 3.5 - 5.0 02/23/2014 [facility] CHEM PANEL B/C Ratio 9 6 - 25 02/23/2014 [facility] CHEM PANEL AGAP 13.2 meq/L 10.0 - 20.0 02/23/2014 [facility] CHEM PANEL A/G Ratio 0.9 0.7 - 1.6 02/23/2014 [facility] CHEM PANEL Globulin 4.0 g/dL 2.0 - 4.0 02/23/2014 [facility] HEMATOLOGY MCHC 34.1 g/dL 32.0 - 36.0 02/23/2014 [facility] HEMATOLOGY RDW 13.4 % 11.5 - 14.5 02/23/2014 [facility] HEMATOLOGY MPV 8.1 fL 7.4 - 10.4 02/23/2014 [facility] HEMATOLOGY Platelet 345 K/CMM 133 - 450 02/23/2014 [facility] HEMATOLOGY Hct 40.3 % 36.0 - 48.0 02/23/2014 [facility] HEMATOLOGY MCV 85.7 fL 80.0 - 98.0 02/23/2014 [facility] MCH 29.2 pg 27.0 - 31.0 02/23/2014 [facility] WBC 12.7 K/CMM 3.7 - 10.4 02/23/2014 [facility] RBC 4.71 M/CMM 4.20 - 5.40 02/23/2014 [facility] Hgb 13.8 g/dL 12.0 - 16.0 02/23/2014 [facility] Lymphocytes 25.2 % 20.0 - 40.0 02/23/2014 [facility] Segs 65.2 % 45.0 - 75.0 02/23/2014 [facility] Monocytes # 0.5 K/CMM 0.0 - 0.8 02/23/2014 [facility] HEMATOLOGY Eosinophils # 0.6 K/CMM 0.0 - 0.5 02/23/2014 [facility] Basophils # 0.1 K/CMM 0.0 - 0.2 02/23/2014 [facility] Monocytes 4.0 % 2.0 - 12.0 02/23/2014 [facility] HEMATOLOGY Eosinophils 4.9 % 0.0 - 4.0 02/23/2014 [facility] Basophils 0.7 % 0.0 - 1.0 02/23/2014 [facility] Segs-Bands # 8.3 K/CMM 1.5 - 8.1 02/23/2014 [facility] Lymphocytes # 3.2 K/CMM 1.0 - 5.5 02/23/2014 [facility] Abdomen/Pelvis w IV contrast CT Abdomen/Pelvis w IV contrast CT EXAM: Abdomen/Pelvis w contrast CT HISTORY: Acute abdominal pain COMPARISON: 09/05/2013. Axial CT imaging of the abdomen and pelvis was obtained after the administration of 95 cc intravenous contrast. Sagittal and coronal reformats were reviewed. DLP 1456. FINDINGS: The lung bases are grossly clear. There is diffuse hepatic steatosis. The gallbladder is absent. The liver, adrenal glands and pancreas are unremarkable. Left renal cyst is noted. The kidneys are otherwise unremarkable. The right colon traverses a defect in the right lateral abdominal wall at the level of the acetabula without evidence of strangulation or obstruction. The defect demonstrates an aperture of approximately 2.6 cm. The appendix and small bowel are unremarkable. The bladder is unremarkable. Small cyst noted involving the left ovary. No free fluid or adenopathy. There is no aggressive osseous lesion. 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 IMPRESSION: Hernia involving the lower right abdominal wall at the level of the acetabulum. The hernia contains nonobstructed, noninflamed loop of right colon. 02/23/2014 - - Read by: Nayana Brownlee MD Dictated Date/time: 02/23/14 12:56 Electronically Signed by: Nayana Brownlee MD 02/23/14 13:01 FINAL REPORT [facility] Patella Axial Lateral Patella Axial Lateral Exam: Radiographic examination of the left patella in 2 views: History: Pain fall . Comparison Study: None. Findings: no evidence of soft tissue swelling . The bones are normally mineralized. The visualized joint spaces are within normal limits. . Impression: Normal appearance of the patella.. . 01/14/2014 - - Read by: Loyda Torres MD Dictated Date/time: 01/14/14 18:03 Electronically Signed by: Loyda Torres MD 01/14/14 18:05 FINAL REPORT [facility] URINE AND STOOL UA Bacteria Occasional /HPF None Seen /HPF 09/07/2013 [facility] URINE AND STOOL UA RBC null 0 - 2 09/07/2013 [facility] URINE AND STOOL UA Mucus Few /LPF None Seen /LPF 09/07/2013 [facility] URINE AND STOOL UA Urobilinogen <=1.0 mg/dL 0.1 - 1.0 09/07/2013 [facility] URINE AND STOOL UA Trans Epi OCC <=0 09/07/2013 [facility] URINE AND STOOL UA Spec Grav 1.020 <=1.030 09/07/2013 [facility] URINE AND STOOL UA pH 5.0 5.0 - 8.0 09/07/2013 [facility] URINE AND STOOL UA WBC 3 /HPF 0 - 5 09/07/2013 [facility] URINE AND STOOL UA Leuk Est Small *ABN* (09/06/13 11:55 PM) Negative 09/07/2013 [facility] URINE AND STOOL UA Sq Epi Many /LPF Few /LPF 09/07/2013 [facility] URINE AND STOOL UA Nitrite Negative (09/06/13 11:55 PM) Negative 09/07/2013 [facility] URINE AND STOOL UA Protein 10 mg/dL Negative mg/dL 09/07/2013 [facility] URINE AND STOOL UA Glucose Negative mg/dL Negative mg/dL 09/07/2013 [facility] URINE AND STOOL UA Blood Negative (09/06/13 11:55 PM) Negative 09/07/2013 [facility] URINE AND STOOL UA Bili Negative *NA* (09/06/13 11:55 PM) Negative 09/07/2013 [facility] URINE AND STOOL UA Ketones Negative mg/dL Negative mg/dL 09/07/2013 [facility] URINE AND STOOL UA Turbidity Slight *ABN* (09/06/13 11:55 PM) Clear 09/07/2013 [facility] URINE AND STOOL UA Color Yellow *NA* (09/06/13 11:55 PM) Yellow 09/07/2013 [facility] URINE AND STOOL UA pH 5.0 5.0 - 8.0 09/05/2013 [facility] URINE AND STOOL UA Bili Negative *NA* (09/05/13 3:20 AM) Negative 09/05/2013 [facility] URINE AND STOOL UA Glucose Negative mg/dL Negative mg/dL 09/05/2013 [facility] URINE AND STOOL UA Ketones Negative mg/dL Negative mg/dL 09/05/2013 [facility] URINE AND STOOL UA Protein 10 mg/dL Negative mg/dL 09/05/2013 [facility] URINE AND STOOL UA Sq Epi Many /LPF Few /LPF 09/05/2013 [facility] URINE AND STOOL UA Nitrite Negative (09/05/13 3:20 AM) Negative 09/05/2013 [facility] URINE AND STOOL UA Leuk Est Trace *ABN* (09/05/13 3:20 AM) Negative 09/05/2013 [facility] URINE AND STOOL UA Blood Negative (09/05/13 3:20 AM) Negative 09/05/2013 [facility] URINE AND STOOL UA Bacteria Occasional /HPF None Seen /HPF 09/05/2013 [facility] URINE AND STOOL UA RBC null 0 - 2 09/05/2013 [facility] URINE AND STOOL UA WBC 4 /HPF 0 - 5 09/05/2013 [facility] URINE AND STOOL UA Mucus Few /LPF None Seen /LPF 09/05/2013 [facility] URINE AND STOOL UA Urobilinogen <=1.0 mg/dL 0.1 - 1.0 09/05/2013 [facility] URINE AND STOOL UA Color Yellow *NA* (09/05/13 3:20 AM) Yellow 09/05/2013 [facility] URINE AND STOOL UA Spec Grav 1.020 <=1.030 09/05/2013 [facility] URINE AND STOOL UA Turbidity Slight *ABN* (09/05/13 3:20 AM) Clear 09/05/2013 [facility] CHEM PANEL Magnesium Lvl 1.3 mg/dL 1.8 - 2.4 09/05/2013 [facility] CHEM PANEL Phosphorus 4.2 mg/dL 2.5 - 4.5 09/05/2013 [facility] CHEM PANEL ALT 23 unit/L 0 - 65 09/05/2013 [facility] CHEM PANEL Total Protein 7.9 g/dL 6.4 - 8.4 09/05/2013 [facility] CHEM PANEL Alk Phos 96 unit/L 39 - 136 09/05/2013 [facility] CHEM PANEL AST 15 unit/L 0 - 37 09/05/2013 [facility] CHEM PANEL Bili Direct 0.2 mg/dL 0.0 - 0.3 09/05/2013 [facility] CHEM PANEL Bili Total 0.6 mg/dL 0.2 - 1.3 09/05/2013 [facility] CHEM PANEL Albumin Lvl 4.0 g/dL 3.5 - 5.0 09/05/2013 [facility] CHEM PANEL A/G Ratio 1.0 0.7 - 1.6 09/05/2013 [facility] CHEM PANEL Bili Indirect 0.4 mg/dL 0.0 - 1.0 09/05/2013 [facility] CHEM PANEL Globulin 3.9 g/dL 2.0 - 4.0 09/05/2013 [facility] CHEM PANEL Lipase Lvl 282 unit/L 73 - 393 09/05/2013 [facility] ELECTROLYTES AGAP 16.2 meq/L 10.0 - 20.0 09/05/2013 [facility] ELECTROLYTES eGFR 60 mL/min/1.73m2 09/05/2013 1Result Comment: The eGFR is calculated using [...] from the National Kidney Disease Education Program (NKDEP) which additionally recommends that when the eGFR is used in patients with extremes of body mass index for purposes of drug dosing, the eGFR should be multiplied by the estimated BMI. [facility] ELECTROLYTES CO2 24 meq/L 24 - 32 09/05/2013 [facility] ELECTROLYTES Chloride Lvl 102 meq/L 95 - 109 09/05/2013 [facility] ELECTROLYTES Potassium Lvl 4.2 meq/L 3.5 - 5.1 09/05/2013 [facility] ELECTROLYTES Calcium Lvl 8.8 mg/dL 8.5 - 10.5 09/05/2013 [facility] ELECTROLYTES Sodium Lvl 138 meq/L 135 - 145 09/05/2013 [facility] ELECTROLYTES Creatinine Lvl 1.1 mg/dL 0.5 - 1.4 09/05/2013 [facility] ELECTROLYTES Glucose Lvl 194 mg/dL 70 - 99 09/05/2013 2Interpretive Data: Adult reference range values reflect the clinical guidelines of the [place] [employer]. [facility] ELECTROLYTES BUN 25 mg/dL 7 - 22 09/05/2013 [facility] HEMATOLOGY Monocytes # 0.3 K/CMM 0.0 - 0.8 09/05/2013 [facility] HEMATOLOGY Basophils 0.1 % 0.0 - 1.0 09/05/2013 [facility] HEMATOLOGY Segs-Bands # 12.8 K/CMM 1.5 - 8.1 09/05/2013 [facility] HEMATOLOGY Lymphocytes # 2.2 K/CMM 1.0 - 5.5 09/05/2013 [facility] HEMATOLOGY Eosinophils # 0.2 K/CMM 0.0 - 0.5 09/05/2013 [facility] HEMATOLOGY Segs 82.3 % 45.0 - 75.0 09/05/2013 [facility] HEMATOLOGY Monocytes 1.8 % 2.0 - 12.0 09/05/2013 [facility] HEMATOLOGY Lymphocytes 14.2 % 20.0 - 40.0 09/05/2013 [facility] HEMATOLOGY Eosinophils 1.6 % 0.0 - 4.0 09/05/2013 [facility] HEMATOLOGY PTT 29.3 s 22.9 - 35.8 09/05/2013 4Interpretive Data: Heparin Therapeutic Range: 57 - 92 Seconds [facility] INR 0.98 0.85 - 1.17 09/05/2013 3Interpretive Data: RECOMMENDED RANGES FOR PROTIME INR: 2.0-3.0 for most medical and surgical thromboembolic states. 2.5-3.5 for artificial heart valves and recurrent embolism. INR SHOULD BE USED ONLY FOR PATIENTS ON STABLE ANTICOAGULANT THERAPY. [facility] PT 12.9 s 12.0 - 14.7 09/05/2013 [facility] MCV 89.1 fL 81.0 - 99.0 09/05/2013 [facility] MCH 29.7 pg 27.0 - 31.0 09/05/2013 [facility] Platelet 338 K/CMM 133 - 450 09/05/2013 [facility] RDW 13.2 % 11.5 - 14.5 09/05/2013 [facility] MCHC 33.3 g/dL 32.0 - 36.0 09/05/2013 [facility] WBC 15.6 K/CMM 3.7 - 10.4 09/05/2013 [facility] Hct 42.7 % 36.0 - 48.0 09/05/2013 [facility] Hgb 14.3 g/dL 12.0 - 16.0 09/05/2013 [facility] RBC 4.80 M/CMM 4.20 - 5.40 09/05/2013 [facility] MPV 7.9 fL 7.4 - 10.4 09/05/2013 [facility] Abdomen/Pelvis w IV contrast CT Abdomen/Pelvis w IV contrast CT CLINICAL HISTORY: See Clinic Indication , Abdominal pain, acute EXAM: CT abdomen and pelvis with contrast Sep 05, 2013 05:25:00 AM COMPARISON: CT abdomen and pelvis with contrast April 28, 2013 TECHNIQUE: Following the administration of intravenous contrast, Volumetric CT acquisition was performed through the abdomen and pelvis. Images in the axial, coronal, and sagittal planes were presented for interpretation. Delayed excretory phase images were also obtained. Radiation dose/contrast: IV(OMNI 300/95ML) KUO=[id number] FINDINGS: The lung bases are clear. The visualized cardiomediastinal structures within normal limits. There is mild diffuse fatty infiltration of the liver which is otherwise unremarkable. The spleen is grossly normal in appearance. The gallbladder is surgically absent. There is no intra or extrahepatic biliary ductal dilation. The pancreas and adrenal glands are normal in appearance. The kidneys are normal in size bilaterally and the ureters are normal in course and caliber. There are no renal calculi comment distal obstructing stones, or evidence of hydronephrosis/hydroureter. There is a 2.1 x 2.7 cm cyst in the mid left kidney which is grossly stable in appearance. The stomach and small intestines are within normal limits for this exam performed without enteric contrast. The appendix is well-visualized and normal, best seen on axial image 68 anterior to the right common iliac artery. The colon is stool filled and otherwise unremarkable. Within the pelvis, the bladder and rectum are normal. The uterus and ovaries are surgically absent. There are no pathologically enlarged inguinal, retroperitoneal, portacaval, or mesenteric lymph nodes. The soft tissue structures of the abdominal wall are normal in appearance. The visualized osseous structures within normal limits for the patient's age. The abdominal aorta and its primary branches are normal in course and caliber. IMPRESSIONS: 1. No acute intra-abdominal process. 2. Status post cholecystectomy and hysterectomy. 09/05/2013 - - Read by: Beka Beck MD Dictated Date/time: 09/05/13 05:28 Electronically Signed by: Beka Beck MD 09/05/13 05:33 FINAL REPORT [facility] Abdomen acute series comp w chest 1 view Abdomen acute series comp w chest 1 view Clinical History : See Clinic Indication , Abdominal pain, acute Exam : Acute Abdominal Series Sep 05, 2013 02:58:00 AM Comparisons : none Findings : The lungs are clear without focal consolidation or pleural effusion. The heart is normal in size. The mediastinal contours and normal. The thoracic spine, shoulders, and ribs are age appropriate. The bowel gas pattern is normal. There is no evidence of free air. There are no abnormal masses or calcifications. There are surgical clips from prior cholecystectomy. Limited evaluation of the liver and spleen demonstrate no gross abnormalities. The osseous structures are age appropriate. Impressions: 1. No acute cardiopulmonary disease. 2. No acute intra-abdominal process 09/05/2013 - - Read by: Beka Beck MD Dictated Date/time: 09/05/13 03:00 Electronically Signed by: Beka Beck MD 09/05/13 03:00 FINAL REPORT [facility] Vital Signs Vital Sign Value Date Comments Source Respitory Rate 22 01/18/2018 [facility] Height 157.5 cm 01/18/2018 [facility] Weight 111.131 01/18/2018 [facility] BMI Calculated 44.81 01/18/2018 [facility] Systolic (mm Hg) 132 01/11/2018 [facility] Diastolic (mm Hg) 74 01/11/2018 [facility] Heart Rate 98 01/11/2018 [facility] Temperature Oral (F) 36.11 Inna 01/11/2018 [facility] Temperature Oral (F) 36.39 Inna 01/03/2018 [facility] Respitory Rate 22 01/03/2018 [facility] Height 157.5 cm 01/03/2018 [facility] Weight 108.364 01/03/2018 [facility] BMI Calculated 43.70 01/03/2018 [facility] Systolic (mm Hg) 153 01/03/2018 [facility] Diastolic (mm Hg) 87 01/03/2018 [facility] Heart Rate 97 01/03/2018 [facility] Systolic (mm Hg) 132 12/16/2017 [facility] Diastolic (mm Hg) 77 12/16/2017 [facility] Heart Rate 82 12/16/2017 [facility] Systolic (mm Hg) 157 11/15/2017 [facility] Diastolic (mm Hg) 91 11/15/2017 [facility] Heart Rate 98 11/15/2017 [facility] Temperature Oral (F) 36.33 Inna 11/15/2017 [facility] Respitory Rate 22 11/15/2017 [facility] Height 157.5 cm 11/15/2017 [facility] Weight 103.42 11/15/2017 [facility] BMI Calculated 41.70 11/15/2017 [facility] Systolic (mm Hg) 108 10/18/2017 [facility] Diastolic (mm Hg) 73 10/18/2017 [facility] Heart Rate 98 10/18/2017 [facility] Temperature Oral (F) 36.39 Inna 10/18/2017 [facility] Respitory Rate 22 10/18/2017 [facility] Height 157.5 cm 10/18/2017 [facility] Weight 107.502 10/18/2017 [facility] BMI Calculated 43.35 10/18/2017 [facility] Systolic (mm Hg) 138 08/31/2017 [facility] Diastolic (mm Hg) 90 08/31/2017 [facility] Heart Rate 100 08/31/2017 [facility] Temperature Oral (F) 36.78 Inna 08/31/2017 [facility] Respitory Rate 22 08/31/2017 [facility] Height 157.5 cm 08/31/2017 [facility] Weight 105.688 08/31/2017 [facility] BMI Calculated 42.62 08/31/2017 [facility] Respitory Rate 20 12/18/2015 [facility] Systolic (mm Hg) 107 12/18/2015 [facility] Diastolic (mm Hg) 72 12/18/2015 [facility] Respitory Rate 15 12/17/2015 [facility] Systolic (mm Hg) 102 12/17/2015 [facility] Diastolic (mm Hg) 77 12/17/2015 [facility] Respitory Rate 16 12/17/2015 [facility] Heart Rate 87 12/17/2015 [facility] Systolic (mm Hg) 130 12/17/2015 [facility] Diastolic (mm Hg) 75 12/17/2015 [facility] Heart Rate 99 12/17/2015 [facility] Temperature Oral (F) 98.1 F 12/17/2015 [facility] Height 162.56 cm 12/17/2015 [facility] BMI Calculated 37.84 12/17/2015 [facility] Weight 100 12/17/2015 [facility] Temperature Oral (F) 98.1 F 12/17/2015 [facility] Heart Rate 125 12/17/2015 [facility] Temperature Oral (F) 98.5 F 11/22/2015 [facility] Systolic (mm Hg) 140 11/22/2015 [facility] Diastolic (mm Hg) 90 11/22/2015 [facility] Respitory Rate 16 11/22/2015 [facility] Heart Rate 78 11/22/2015 [facility] Respitory Rate 16 11/22/2015 [facility] Heart Rate 81 11/22/2015 [facility] Systolic (mm Hg) 146 11/22/2015 [facility] Diastolic (mm Hg) 96 11/22/2015 [facility] Weight 100 11/22/2015 [facility] BMI Calculated 36.69 11/22/2015 [facility] Temperature Oral (F) 98.0 F 11/22/2015 [facility] Height 165.1 cm 11/22/2015 [facility] Heart Rate 80 11/22/2015 [facility] Respitory Rate 16 11/22/2015 [facility] Systolic (mm Hg) 129 11/22/2015 [facility] Diastolic (mm Hg) 89 11/22/2015 [facility] Systolic (mm Hg) 120 08/20/2014 [facility] Diastolic (mm Hg) 80 08/20/2014 [facility] Respitory Rate 18 08/20/2014 [facility] Heart Rate 92 08/20/2014 [facility] Height 162.56 cm 08/20/2014 [facility] Temperature Oral (F) 98.7 F 08/20/2014 [facility] BMI Calculated 35.26 08/20/2014 [facility] Weight 93.182 08/20/2014 [facility] Heart Rate 92 08/20/2014 [facility] Respitory Rate 20 08/20/2014 [facility] Systolic (mm Hg) 151 08/20/2014 [facility] Diastolic (mm Hg) 101 08/20/2014 [facility] Systolic (mm Hg) 115 07/03/2014 [facility] Diastolic (mm Hg) 58 07/03/2014 [facility] Respitory Rate 21 07/03/2014 [facility] Respitory Rate 23 07/03/2014 [facility] Systolic (mm Hg) 115 07/03/2014 [facility] Diastolic (mm Hg) 72 07/03/2014 [facility] Respitory Rate 16 07/03/2014 [facility] Systolic (mm Hg) 120 07/03/2014 [facility] Diastolic (mm Hg) 75 07/03/2014 [facility] Temperature Oral (F) 97.9 F 07/03/2014 [facility] Heart Rate 56 07/03/2014 [facility] Weight 113.636 07/03/2014 [facility] Temperature Oral (F) 98.3 F 03/19/2014 [facility] Respitory Rate 16 03/19/2014 [facility] Systolic (mm Hg) 148 03/19/2014 [facility] Diastolic (mm Hg) 62 03/19/2014 [facility] Heart Rate 60 03/19/2014 [facility] Weight 106.818 03/19/2014 [facility] BMI Calculated 45.99 03/19/2014 [facility] Height 152.4 cm 03/19/2014 [facility] Systolic (mm Hg) 145 03/19/2014 [facility] Temperature Oral (F) 97.9 F 03/19/2014 [facility] Respitory Rate 18 03/19/2014 [facility] Heart Rate 98 03/19/2014 [facility] Diastolic (mm Hg) 97 03/19/2014 [facility] Respitory Rate 18 03/17/2014 [facility] Respitory Rate 19 03/16/2014 [facility] Diastolic (mm Hg) 70 03/16/2014 [facility] Temperature Oral (F) 98 F 03/16/2014 [facility] Systolic (mm Hg) 122 03/16/2014 [facility] Respitory Rate 17 03/16/2014 [facility] Diastolic (mm Hg) 90 03/16/2014 [facility] Systolic (mm Hg) 132 03/16/2014 [facility] Systolic (mm Hg) 97 03/16/2014 [facility] Diastolic (mm Hg) 81 03/16/2014 [facility] Temperature Oral (F) 97.9 F 03/16/2014 [facility] Temperature Oral (F) 98.2 F 03/16/2014 [facility] Heart Rate 97 03/15/2014 [facility] Weight 106.96 03/12/2014 [facility] BMI Calculated 40.48 03/12/2014 [facility] Height 162.56 cm 03/12/2014 [facility] Heart Rate 89 02/23/2014 [facility] Respitory Rate 16 02/23/2014 [facility] Diastolic (mm Hg) 87 02/23/2014 [facility] Systolic (mm Hg) 151 02/23/2014 [facility] Weight 104.545 02/23/2014 [facility] Systolic (mm Hg) 172 02/23/2014 [facility] BMI Calculated 39.56 02/23/2014 [facility] Diastolic (mm Hg) 100 02/23/2014 [facility] Height 162.56 cm 02/23/2014 [facility] Diastolic (mm Hg) 87 02/23/2014 [facility] Systolic (mm Hg) 161 02/23/2014 [facility] Respitory Rate 18 02/23/2014 [facility] Temperature Oral (F) 97.8 F 02/23/2014 [facility] Heart Rate 100 02/23/2014 [facility] Systolic (mm Hg) 146 01/14/2014 [facility] Diastolic (mm Hg) 99 01/14/2014 [facility] Temperature Oral (F) 98.9 F 01/14/2014 [facility] Respitory Rate 15 01/14/2014 [facility] Heart Rate 84 01/14/2014 [facility] Weight 89.091 01/14/2014 [facility] BMI Calculated 33.71 01/14/2014 [facility] Height 162.56 cm 01/14/2014 [facility] Temperature Oral (F) 98.2 F 01/14/2014 [facility] Heart Rate 85 01/14/2014 [facility] Respitory Rate 16 01/14/2014 [facility] Systolic (mm Hg) 148 01/14/2014 [facility] Diastolic (mm Hg) 84 01/14/2014 [facility] Temperature Oral (F) 98.2 F 09/07/2013 [facility] Diastolic (mm Hg) 86 09/07/2013 [facility] Respitory Rate 16 09/07/2013 [facility] Heart Rate 70 09/07/2013 [facility] Systolic (mm Hg) 128 09/07/2013 [facility] Respitory Rate 16 09/07/2013 [facility] Heart Rate 80 09/07/2013 [facility] Diastolic (mm Hg) 80 09/07/2013 [facility] Systolic (mm Hg) 125 09/07/2013 [facility] Weight 100 09/07/2013 [facility] BMI Calculated 37.84 09/07/2013 [facility] Height 162.56 cm 09/07/2013 [facility] Temperature Oral (F) 98.1 F 09/07/2013 [facility] Systolic (mm Hg) 129 09/07/2013 [facility] Respitory Rate 17 09/07/2013 [facility] Heart Rate 83 09/07/2013 [facility] Diastolic (mm Hg) 83 09/07/2013 [facility] Respitory Rate 16 09/05/2013 [facility] Heart Rate 85 09/05/2013 [facility] Diastolic (mm Hg) 67 09/05/2013 [facility] Systolic (mm Hg) 122 09/05/2013 [facility] BMI Calculated 37.84 09/05/2013 [facility] Height 162.56 cm 09/05/2013 [facility] Weight 100 09/05/2013 [facility] Respitory Rate 18 09/05/2013 [facility] Heart Rate 88 09/05/2013 [facility] Temperature Oral (F) 98.2 F 09/05/2013 [facility] Diastolic (mm Hg) 78 09/05/2013 [facility] Systolic (mm Hg) 127 09/05/2013 [facility] Encounters Location Location Details Encounter Type Encounter Number Reason For Visit Attending Provider ADM Date DC Date Status Source [facility] [id number] Checo Higuera 09/05/2013 09/05/2013 [facility] [id number] Samina Kumarlashawn 09/07/2013 09/07/2013 [facility] [id number] Tiffanie Desai 01/14/2014 01/14/2014 [facility] [id number] Almas Bartlett 02/23/2014 02/23/2014 [facility] Inpatient [id number] Gaudencio Telles 03/15/2014 03/17/2014 [facility] [id number] Nicolle Temple 03/19/2014 03/19/2014 [facility] [id number] Christine Azevedo 07/03/2014 07/03/2014 [facility] [id number] Woody Dumont 08/20/2014 08/20/2014 [facility] [id number] Luis Stevens 11/22/2015 11/22/2015 [facility] [id number] Chato Nichelle 12/17/2015 12/18/2015 [facility] Office Visit [id number] Encounter to establish care Forgetfulness Chronic midline low back pain without sciatica Morbid obesity, unspecified obesity type Diabetes mellitus type 2 in obese Essential hypertension Unspecified hypothyroidism Moderate persistent asthma without complication Dorian Agustin MD 10/07/2016 10/07/2016 [facility] Patient [facility] [place] Patient Education [id number] Dorian Agustin MD 10/07/2016 10/07/2016 [facility] Office Visit [id number] Diabetes mellitus type 2 in obese Chronic dental pain Forgetfulness Chronic pain of right knee Dorian Agustin MD 10/08/2016 10/08/2016 [facility] Office Visit [id number] Diabetes mellitus type 2 in obese Moderate persistent asthma without complication Well woman exam Chronic pain of right knee Dorian Agustin MD 10/12/2016 10/12/2016 [facility] Patient Education [place] Patient Education [id number] Diabetes education, encounter for Dorian Agustin MD 10/19/2016 10/19/2016 [facility] [place] Telephone [id number] Kimber Hoffman RN 10/23/2016 [facility] Office Visit [id number] Diony Coppola [facility] 11/25/2016 11/25/2016 [facility] Office Visit [id number] Diony Coppola [facility] 12/21/2016 12/21/2016 [facility] Patient [facility] [place] Patient Education [id number] Kimber Hoffman RN 02/02/2017 [facility] Pharm[facility] [place] Pharmacy Visit [id number] 02/02/2017 [facility] Office Visit [id number] Routine adult health maintenance Uncontrolled type 2 diabetes mellitus with complication, with long-term current use of insulin Essential hypertension Morbid obesity Moderate persistent asthma without complication Leach's palsy Dorian Agustin MD 02/02/2017 02/02/2017 [facility] Office Visit [id number] Diony Coppola [facility] 02/25/2017 02/25/2017 [facility] Patient [facility] [place] Patient Education [id number] Kimber Hoffman RN 03/02/2017 [facility] Office Visit [id number] Essential hypertension Acquired hypothyroidism Chronic midline low back pain without sciatica Uncontrolled type 2 diabetes mellitus with complication, with long-term current use of insulin Forgetfulness TMJ syndrome Morbid obesity History of hypothyroidism Dorian Agustin MD 03/02/2017 03/02/2017 [facility] Telephone [id number] Kya Reyes LVN 03/03/2017 [facility] Patient [facility] [place] Patient Education [id number] Diabetes education, encounter for Dorian Agustin MD 03/05/2017 03/05/2017 [facility] Office Visit [id number] Uncontrolled type 2 diabetes mellitus with complication, with long-term current use of insulin Diony Abdon [facility] 03/25/2017 03/25/2017 [facility] Patient [facility] [place] Telephone [id number] Kimber Hoffman RN 04/08/2017 [facility] Orders Only [id number] Morbid obesity Dorian Agustin MD 04/19/2017 [facility] Pharm[facility] [place] Pharmacy Visit [id number] 04/19/2017 [facility] Office Visit [id number] Uncontrolled type 2 diabetes mellitus with complication, with long-term current use of insulin Morbid obesity Essential hypertension Chronic midline low back pain without sciatica Moderate persistent asthma without complication Routine adult health maintenance Dorian Agustin MD 04/19/2017 04/19/2017 [facility] Pharm[facility] [place] Pharmacy Visit [id number] 04/20/2017 [facility] Orders Only [id number] Routine adult health maintenance Dorian Agustin MD 04/22/2017 [facility] Pharm[facility] [place] Pharmacy Visit [id number] 04/22/2017 [facility] Office Visit [id number] Uncontrolled type 2 diabetes mellitus with complication, with long-term current use of insulin Essential hypertension Dionytheron Coppola [facility] 04/22/2017 04/22/2017 [facility] Patient [facility] [place] Telephone [id number] Kimber Hoffman RN 04/26/2017 [facility] Pharm[facility] [place] Pharmacy Visit [id number] 04/28/2017 [facility] Patient Education [place] Patient Education [id number] Diabetes education, encounter for Dorian Agustin MD 04/28/2017 04/28/2017 [facility] Visit [id number] 05/04/2017 [facility] Orders Only [id number] Chronic pain of right knee Dorian Agustin MD 06/24/2017 [facility] Nutrition [place] Nutrition [id number] Nico MILTON 06/24/2017 [facility] Office Visit [id number] Uncontrolled type 2 diabetes mellitus with complication, with long-term current use of insulin Routine adult health maintenance Need for influenza vaccination Essential hypertension Chronic midline low back pain without sciatica Moderate persistent asthma without complication Large breasts Hypothyroidism, unspecified type Chronic pain of right knee Dorian Agustin MD 06/24/2017 06/24/2017 [facility] Nursing [place] Telephone [id number] Laila Farris LVN 06/25/2017 [facility] Office Visit [id number] Chronic midline low back pain without sciatica Uncontrolled type 2 diabetes mellitus with complication, with long-term current use of insulin Large breasts Chronic pain of both knees Morbid obesity Need for pneumococcal vaccination Need for Tdap vaccination Routine adult health maintenance Essential hypertension Dorian Agustin MD 07/22/2017 07/22/2017 [facility] Ophthalmology/Optometry [facility] Nurse Only [id number] Uncontrolled type 2 diabetes mellitus with complication, with long-term current use of insulin Dorian Agustin MD 07/22/2017 07/22/2017 [facility] Office Visit [id number] Uncontrolled type 2 diabetes mellitus with complication, with long-term current use of insulin Diony Coppola [facility] 08/03/2017 08/03/2017 [facility] Nutrition [place] Nutrition [id number] Nico MILTON 08/03/2017 08/03/2017 [facility] Procedures [place] Office Visit [id number] Chronic pain of right knee Catherine Cespedes MD 08/19/2017 08/19/2017 [facility] Office Visit [id number] Uncontrolled type 2 diabetes mellitus with complication, with long-term current use of insulin Diony Coppola [facility] 08/31/2017 08/31/2017 [facility] Orders Only [id number] Chronic pain of both knees Dorian Agustin MD 10/18/2017 [facility] Office Visit [id number] Need for Tdap vaccination Routine adult health maintenance Onychomycosis Uncontrolled type 2 diabetes mellitus with complication, with long-term current use of insulin Chronic pain of both knees Dorian Agustin MD 10/18/2017 10/18/2017 [facility] Telephone [id number] Kathy Hylton JIG GRINDER 10/20/2017 [facility] Telephone [id number] Marsha Luna RN 11/15/2017 [facility] Refill [id number] Moderate persistent asthma without complication Dorian Agustin MD 11/15/2017 [facility] Office Visit [id number] Uncontrolled type 2 diabetes mellitus with complication, with long-term current use of insulin Diony Coppola [facility] 11/15/2017 11/15/2017 [facility] Telephone [id number] Laila Farris LVN 11/17/2017 [facility] Procedures [place] Office Visit [id number] Chronic pain of right knee Catherine Cespedes MD 12/16/2017 12/16/2017 [facility] Refill [id number] Moderate persistent asthma without complication Dorian Agustin MD 12/29/2017 [facility] Refill [id number] Chronic midline low back pain without sciatica Essential hypertension Dorian Agustin MD 01/03/2018 [facility] Office Visit [id number] Uncontrolled type 2 diabetes mellitus with complication, with long-term current use of insulin Diony Coppola [facility] 01/03/2018 01/03/2018 [facility] Orders Only [id number] Chronic pain of both knees Uncontrolled type 2 diabetes mellitus with complication, with long- term current use of insulin Dorian Agustin MD 01/11/2018 [facility] Office Visit [id number] Moderate persistent asthma without complication Dietary counseling Exercise counseling Chronic pain of both knees Chronic midline low back pain without sciatica Routine adult health maintenance Abdominal pain, right upper quadrant Spasm of muscle Uncontrolled type 2 diabetes mellitus with complication, with long-term current use of insulin Dorian Agustin MD 01/11/2018 01/11/2018 [facility] Radiology [place] Ancillary Procedure [id number] Dorian Agustin MD 01/11/2018 01/11/2018 [facility] Patient Education [place] Patient Education [id number] Diabetes education, encounter for Dorian Agustin MD 01/11/2018 01/11/2018 [facility] Procedures Procedure Code Date Perfomer Comments Source XRAY KNEE 1 OR 2 VIEWS (LIMITED-AP/LAT) [id number] [facility] 01/11/2018 [facility] HEMOGLOBIN A1C 04173 11/15/2017 [facility] OPHTHALMOLOGY RETINAL SCAN [id number] 07/23/2017 [facility] HEMOGLOBIN A1C 49707 06/24/2017 [facility] OCCULT BLOOD ICT 61457 04/22/2017 [facility] HEMOCCULT KIT FOR SPECIMEN COLLECTION AT HOME 17376 04/19/2017 [facility] TSH 29226 03/02/2017 [facility] HEMOGLOBIN A1C 08059 02/02/2017 [facility] HEMOCCULT KIT FOR SPECIMEN COLLECTION AT HOME 06813 02/02/2017 [facility] Thyroid gland excision [id number] 05/10/1994 [facility] Thyroid gland excision [id number] 05/10/1994 [facility] Laparoscopic hysterectomy [id number] [facility] Cholecystectomy [id number] [facility] [id number] [facility] Knee [id number] [facility] Laparoscopic hysterectomy [id number] [facility] Cholecystectomy [id number] [facility] Hand [id number] [facility] Knee [id number] [facility]
--- OUTSIDE RECORDS SUMMARY | 2018-05-05 14:06 | XMS REPORT | Clinical Summary ---
Author Author [facility] Organization [facility] Address Unknown Phone Unavailable Care Team Providers Care Laboratory Helper Name Role Phone Elana Peralta MD PCP Allergies No Known Allergies Current Medications Prescription Sig. Disp. Refills Start End Date Status Date pen needle, diabetic Inject under the skin 1 Box 5 06/24/19 Active (NOVOFINE) 30 gauge x daily Use as directed. 18 1/" needlesIndications: Uncontrolled type 2 diabetes mellitus with complication, with long-term current use of insulin lancets 28 by MISCELLANEOUS route 2 100 Each 5 06/24/19 Active gaugeIndications: times daily Use 2 times 18 Uncontrolled type 2 weekly as directed. diabetes mellitus with complication, with long-term current use of insulin glipiZIDE (GLUCOTROL) 5 Take 1 tablet by mouth 2 180 tablet 3 06/24/19 Active mg tabletIndications: times daily (before 18 Uncontrolled type 2 meals). diabetes mellitus with complication, with long-term current use of insulin blood glucose test 2 times daily to test 100 Each 5 06/24/19 Active stripsIndications: blood sugar. 18 Uncontrolled type 2 diabetes mellitus with complication, with long-term current use of insulin albuterol (VENTOLIN Inhale 2 Puffs by mouth 4 6.7 g 3 06/24/19 12/22/19 Active HFA,PROVENTIL HFA,PROAIR times daily as needed for 18 18 HFA) 90 mcg/actuation up to 180 days for inhalerIndications: Wheezing. Moderate persistent asthma without complication levothyroxine (SYNTHROID) Take 1 tablet by mouth 90 tablet 1 06/24/19 Active 125 mcg daily. 18 tabletIndications: Hypothyroidism, unspecified type insulin detemir U-100 Inject 55 Units under the 101.2 mL 0 07/23/19 01/23/20 Active (LEVEMIR FLEXTOUCH) 100 skin daily for 184 days. 18 18 unit/mL (3 mL) PenIndications: Uncontrolled type 2 diabetes mellitus with complication, with long-term current use of insulin lisinopril (PRINIVIL) 20 Take 1 tablet by mouth 90 tablet 3 07/23/19 Active mg tabletIndications: daily. 18 Essential hypertension amLODIPine (NORVASC) 5 mg Take 1 tablet by mouth 90 tablet 3 07/23/19 Active tabletIndications: daily. 18 Essential hypertension cyclobenzaprine Take 1 tablet by mouth 3 270 tablet 1 07/23/19 Active (FLEXERIL) 10 mg times daily as needed for 18 tabletIndications: Muscle Spasms. Chronic midline low back pain without sciatica gabapentin (NEURONTIN) Take 1 capsule by mouth 2 180 capsule 3 07/23/19 Active 300 mg times daily. 18 capsuleIndications: Chronic midline low back pain without sciatica blood glucose Use as directed.. 1 Kit 0 10/08/19 10/09/19 Discontin meterIndications: 17 17 ued Diabetes mellitus type 2 in obese blood glucose test to test blood sugar. 50 Each 3 10/08/19 10/09/19 Discontin stripsIndications: 17 17 ued Diabetes mellitus type 2 in obese lancetsIndications: 2 times weekly. 100 Each 1 10/09/19 03/02/20 Discontin Diabetes mellitus type 2 17 17 ued in obese tropicamide (MYDRIACYL) Instill 1 Drop in each 15 mL 0 10/08/19 10/08/19 0.5 % ophthalmic eye once as needed for up 17 17 solutionIndications: to 1 dose for Other (For Diabetes mellitus type 2 poor retina scan image). in obese montelukast (SINGULAIR) Take 10 mg by mouth at 10/08/19 Discontin 10 mg tablet bedtime nightly. 17 ued estrogens, conjugated, Take 0.625 mg by mouth 10/09/19 Discontin (PREMARIN) 0.625 mg daily. 17 ued tablet amLODIPine (NORVASC) 10 Take 10 mg by mouth 10/08/19 Discontin mg tablet daily. 17 ued glipiZIDE (GLUCOTROL) 5 Take 5 mg by mouth daily. 10/08/19 Discontin mg tablet 17 ued cyclobenzaprine Take 10 mg by mouth 3 10/08/19 Discontin (FLEXERIL) 10 mg tablet times daily as needed for 17 ued Muscle Spasms. gabapentin (NEURONTIN) Take 300 mg by mouth 2 10/08/19 Discontin 300 mg capsule times daily. 17 ued levothyroxine (SYNTHROID) Take 125 mcg by mouth 10/08/19 Discontin 125 mcg tablet daily. 17 ued LIRAGLUTIDE (VICTOZA Inject 18 Units under the 10/09/19 10/09/19 Discontin 3-FABBY SC) skin daily. 17 17 ued lisinopril (ZESTRIL) 40 Take 1 tablet by mouth 90 tablet 0 10/08/19 03/02/20 Discontin mg tabletIndications: daily. 17 17 ued Diabetes mellitus type 2 in obese albuterol (VENTOLIN Inhale 2 Puffs by mouth 4 6 Month 0 10/08/19 10/13/19 Discontin HFA,PROVENTIL HFA,PROAIR times daily as needed for Supply 17 17 ued HFA) 90 mcg/actuation Wheezing. inhaler cyclobenzaprine Take 1 tablet by mouth 3 90 tablet 2 10/08/19 03/02/20 Discontin (FLEXERIL) 10 mg times daily as needed for 17 17 ued tabletIndications: Muscle Spasms. Chronic midline low back pain without sciatica gabapentin (NEURONTIN) Take 1 capsule by mouth 2 60 capsule 2 10/08/19 03/02/20 Discontin 300 mg times daily. 17 17 ued capsuleIndications: Chronic midline low back pain without sciatica glipiZIDE (GLUCOTROL) 5 Take 1 tablet by mouth 90 tablet 0 10/08/19 03/02/20 Discontin mg tabletIndications: daily. 17 17 ued Diabetes mellitus type 2 in obese levothyroxine (SYNTHROID) Take 1 tablet by mouth 90 tablet 0 10/08/19 03/02/20 Discontin 125 mcg daily. 17 17 ued tabletIndications: Unspecified hypothyroidism blood glucose Use as directed.. 1 Kit 0 10/09/19 03/02/20 Discontin meterIndications: 17 17 ued Diabetes mellitus type 2 in obese blood glucose test to test blood sugar. 50 Each 3 10/09/19 02/03/20 Discontin stripsIndications: 17 17 ued Diabetes mellitus type 2 in obese lancetsIndications: by MISCELLANEOUS route 2 100 Each 1 10/09/19 03/02/20 Discontin Diabetes mellitus type 2 times weekly. 17 17 ued in obese Liraglutide (VICTOZA Inject 0.2 mL under the 6 mL 2 10/09/19 10/13/19 Discontin 3-FABBY) 0.6 mg/0.1 mL (18 skin daily for 90 days. 17 17 ued mg/3 mL) PnIjIndications: Diabetes mellitus type 2 in obese pen needle, diabetic Use as directed. 1 Box 3 10/09/19 03/02/20 Discontin (NOVOFINE) 30 gauge x 17 17 ued 1/3" needlesIndications: Diabetes mellitus type 2 in obese insulin aspart (NOVOLOG Inject 10 Units under the 5 Pen 2 10/09/19 03/02/20 Discontin FLEXPEN) 100 unit/mL skin 3 times daily 17 17 ued penIndications: Diabetes (before meals). mellitus type 2 in obese albuterol (VENTOLIN Inhale 2 Puffs by mouth 4 1 Inhaler 3 10/13/19 10/13/19 Discontin HFA,PROVENTIL HFA,PROAIR times daily as needed for 17 17 ued HFA) 90 mcg/actuation up to 180 days for inhalerIndications: Wheezing. Moderate persistent asthma without complication Liraglutide (VICTOZA Inject 0.2 mL under the 6 mL 2 10/13/19 10/13/19 Discontin 3-FABBY) 0.6 mg/0.1 mL (18 skin daily for 90 days. 17 17 ued mg/3 mL) PnIjIndications: Diabetes mellitus type 2 in obese albuterol (VENTOLIN Inhale 2 Puffs by mouth 4 1 Inhaler 3 10/13/19 02/03/20 Discontin HFA,PROVENTIL HFA,PROAIR times daily as needed for 17 17 ued HFA) 90 mcg/actuation up to 180 days for inhalerIndications: Wheezing. Moderate persistent asthma without complication insulin detemir (LEVEMIR) Inject 20 Units under the 3 Month 0 10/13/19 10/13/19 Discontin 100 unit/mL skin at bedtime nightly. Supply 17 17 ued injectionIndications: Diabetes mellitus type 2 in obese INSULIN SYRINGE 0.5mL Use to inject medication 1 Box 3 10/13/19 03/02/20 Discontin 30GX5/16" (MONOJECT at bedtime nightly. Use a 17 17 ued ULTRACOMFORT INSULIN SYR new syringe each time. 0.5ML 30GX5/16") syringe-needleIndications : Diabetes mellitus type 2 in obese pen needle, diabetic Use as directed. 1 Box 3 10/13/19 03/02/20 Discontin (NOVOFINE 30) 30 gauge x 17 17 ued 1/3" needlesIndications: Diabetes mellitus type 2 in obese insulin detemir (LEVEMIR) Inject 10 Units under the 3 Month 0 10/13/19 03/02/20 Discontin 100 unit/mL skin at bedtime nightly. Supply 17 17 ued injectionIndications: Diabetes mellitus type 2 in obese INSULIN SYRINGE 0.3mL Use to inject medication 1 Box 0 10/13/19 03/02/20 Discontin 29Gx1/2" (MONOJECT at bedtime nightly. Use a 17 17 ued ULTRACOMFORT INSULIN SYR new syringe each time. 0.3ML 29GX1/2") syringe-needleIndications : Diabetes mellitus type 2 in obese amLODIPine (NORVASC) 5 mg Take 5 mg by mouth daily. 03/02/20 Discontin tabletIndications: 17 ued Essential hypertension blood glucose test 2 times daily to test 50 Each 5 02/03/20 03/02/20 Discontin stripsIndications: blood sugar. 17 17 ued Uncontrolled type 2 diabetes mellitus with complication, with long-term current use of insulin lisinopril (PRINIVIL) 20 Take 1 tablet by mouth 90 tablet 1 02/03/20 03/02/20 Discontin mg tabletIndications: daily. 17 17 ued Essential hypertension albuterol (VENTOLIN Inhale 2 Puffs by mouth 4 1 Inhaler 3 02/03/20 04/19/20 Discontin HFA,PROVENTIL HFA,PROAIR times daily as needed for 17 17 ued HFA) 90 mcg/actuation up to 180 days for inhalerIndications: Wheezing. Moderate persistent asthma without complication predniSONE (DELTASONE) 50 Take 1 tablet by mouth 5 tablet 0 03/02/20 03/07/20 mg tabletIndications: TMJ daily for 5 days. 17 17 syndrome pen needle, diabetic Use as directed. 1 Box 5 03/02/20 04/19/20 Discontin (NOVOFINE 30) 30 gauge x 17 17 ued 1/3" needlesIndications: Uncontrolled type 2 diabetes mellitus with complication, with long-term current use of insulin lisinopril (PRINIVIL) 20 Take 1 tablet by mouth 90 tablet 3 03/02/20 04/19/20 Discontin mg tabletIndications: daily. 17 17 ued Essential hypertension levothyroxine (SYNTHROID) Take 1 tablet by mouth 90 tablet 3 03/02/20 03/03/20 Discontin 125 mcg daily. 17 17 ued tabletIndications: Acquired hypothyroidism lancetsIndications: by MISCELLANEOUS route 2 100 Each 5 03/02/20 04/19/20 Discontin Uncontrolled type 2 times daily. 17 17 ued diabetes mellitus with complication, with long-term current use of insulin insulin detemir (LEVEMIR) Inject 10 Units under the 10 mL 5 03/02/20 03/02/20 Discontin 100 unit/mL skin daily. 17 17 ued injectionIndications: Uncontrolled type 2 diabetes mellitus with complication, with long-term current use of insulin INSULIN SYRINGE 0.5mL Use to inject medication 1 Box 5 03/02/20 04/19/20 Discontin 30GX5/16" (MONOJECT daily. Use a new syringe 17 17 ued ULTRACOMFORT INSULIN SYR each time. 0.5ML 30GX5/16") syringe-needleIndications : Uncontrolled type 2 diabetes mellitus with complication, with long-term current use of insulin pen needle, diabetic Use as directed. 1 Box 6 03/02/20 04/19/20 Discontin (NOVOFINE) 30 gauge x 17 17 ued 1/3" needlesIndications: Uncontrolled type 2 diabetes mellitus with complication, with long-term current use of insulin glipiZIDE (GLUCOTROL) 5 Take 1 tablet by mouth 90 tablet 3 03/02/20 03/25/20 Discontin mg tabletIndications: daily. 17 17 ued Uncontrolled type 2 diabetes mellitus with complication, with long-term current use of insulin gabapentin (NEURONTIN) Take 1 capsule by mouth 2 180 capsule 3 03/02/20 04/19/20 Discontin 300 mg times daily. 17 17 ued capsuleIndications: Chronic midline low back pain without sciatica cyclobenzaprine Take 1 tablet by mouth 3 90 tablet 5 03/02/20 04/19/20 Discontin (FLEXERIL) 10 mg times daily as needed for 17 17 ued tabletIndications: Muscle Spasms. Chronic midline low back pain without sciatica blood glucose test 2 times daily to test 50 Each 5 03/02/20 04/19/20 Discontin stripsIndications: blood sugar. 17 17 ued Uncontrolled type 2 diabetes mellitus with complication, with long-term current use of insulin amLODIPine (NORVASC) 5 mg Take 1 tablet by mouth 90 tablet 3 03/02/20 04/19/20 Discontin tabletIndications: daily. 17 17 ued Essential hypertension insulin detemir (LEVEMIR) Inject 20 Units under the 10 mL 3 03/02/20 04/19/20 Discontin 100 unit/mL skin daily. 17 17 ued injectionIndications: Uncontrolled type 2 diabetes mellitus with complication, with long-term current use of insulin INSULIN SYRINGE 0.5mL Use to inject medication 1 Box 5 03/02/20 04/19/20 Discontin 30GX5/16" (MONOJECT daily. Use a new syringe 17 17 ued ULTRACOMFORT INSULIN SYR each time. 0.5ML 30GX5/16") syringe-needle glipiZIDE (GLUCOTROL) 5 Take 1 tablet by mouth 2 180 tablet 3 03/25/20 04/19/20 Discontin mg tabletIndications: times daily (before 17 17 ued Uncontrolled type 2 meals). diabetes mellitus with complication, with long-term current use of insulin insulin detemir (LEVEMIR Inject 30 Units under the 55.2 mL 0 04/19/20 04/22/20 Discontin FLEXTOUCH) 100 unit/mL (3 skin daily for 184 days. 17 17 ued mL) PenIndications: Uncontrolled type 2 diabetes mellitus with complication, with long-term current use of insulin pen needle, diabetic Inject under the skin 1 Box 5 04/19/20 04/22/20 Discontin (NOVOFINE) 30 gauge x daily Use as directed. 17 17 ued 1/3" needlesIndications: Uncontrolled type 2 diabetes mellitus with complication, with long-term current use of insulin lisinopril (PRINIVIL) 20 Take 1 tablet by mouth 90 tablet 3 04/19/20 04/22/20 Discontin mg tabletIndications: daily. 17 17 ued Essential hypertension lancets 28 by MISCELLANEOUS route 2 100 Each 5 04/19/20 04/22/20 Discontin gaugeIndications: times daily Use 2 times 17 17 ued Uncontrolled type 2 weekly as directed. diabetes mellitus with complication, with long-term current use of insulin glipiZIDE (GLUCOTROL) 5 Take 1 tablet by mouth 2 180 tablet 3 04/19/20 04/22/20 Discontin mg tabletIndications: times daily (before 17 17 ued Uncontrolled type 2 meals). diabetes mellitus with complication, with long-term current use of insulin gabapentin (NEURONTIN) Take 1 capsule by mouth 2 180 capsule 3 04/19/20 06/24/19 Discontin 300 mg times daily. 17 18 ued capsuleIndications: Chronic midline low back pain without sciatica cyclobenzaprine Take 1 tablet by mouth 3 270 tablet 1 04/19/20 06/24/19 Discontin (FLEXERIL) 10 mg times daily as needed for 17 18 ued tabletIndications: Muscle Spasms. Chronic midline low back pain without sciatica blood glucose test 2 times daily to test 100 Each 5 04/19/20 04/22/20 Discontin stripsIndications: blood sugar. 17 17 ued Uncontrolled type 2 diabetes mellitus with complication, with long-term current use of insulin amLODIPine (NORVASC) 5 mg Take 1 tablet by mouth 90 tablet 3 04/19/20 04/22/20 Discontin tabletIndications: daily. 17 17 ued Essential hypertension albuterol (VENTOLIN Inhale 2 Puffs by mouth 4 6.7 g 3 04/19/20 06/24/19 Discontin HFA,PROVENTIL HFA,PROAIR times daily as needed for 17 18 ued HFA) 90 mcg/actuation up to 180 days for inhalerIndications: Wheezing. Moderate persistent asthma without complication insulin detemir (LEVEMIR Inject 30 Units under the 55.2 mL 0 04/22/20 06/24/19 Discontin FLEXTOUCH) 100 unit/mL (3 skin daily for 184 days. 17 18 ued mL) PenIndications: Uncontrolled type 2 diabetes mellitus with complication, with long-term current use of insulin pen needle, diabetic Inject under the skin 1 Box 5 04/22/20 06/24/19 Discontin (NOVOFINE) 30 gauge x daily Use as directed. 17 18 ued 1/3" needlesIndications: Uncontrolled type 2 diabetes mellitus with complication, with long-term current use of insulin lisinopril (PRINIVIL) 20 Take 1 tablet by mouth 90 tablet 3 04/22/20 06/24/19 Discontin mg tabletIndications: daily. 17 18 ued Essential hypertension lancets 28 by MISCELLANEOUS route 2 100 Each 5 04/22/20 06/24/19 Discontin gaugeIndications: times daily Use 2 times 17 18 ued Uncontrolled type 2 weekly as directed. diabetes mellitus with complication, with long-term current use of insulin glipiZIDE (GLUCOTROL) 5 Take 1 tablet by mouth 2 180 tablet 3 04/22/20 06/24/19 Discontin mg tabletIndications: times daily (before 17 18 ued Uncontrolled type 2 meals). diabetes mellitus with complication, with long-term current use of insulin amLODIPine (NORVASC) 5 mg Take 1 tablet by mouth 90 tablet 3 04/22/20 06/24/19 Discontin tabletIndications: daily. 17 18 ued Essential hypertension blood glucose test 2 times daily to test 100 Each 5 04/22/20 06/24/19 Discontin stripsIndications: blood sugar. 17 18 ued Uncontrolled type 2 diabetes mellitus with complication, with long-term current use of insulin levothyroxine (SYNTHROID) Take 125 mcg by mouth 06/24/19 Discontin 125 mcg tablet daily. 18 ued lisinopril (PRINIVIL) 20 Take 1 tablet by mouth 90 tablet 3 06/24/19 07/23/19 Discontin mg tabletIndications: daily. 18 18 ued Essential hypertension insulin detemir U-100 Inject 45 Units under the 82.8 mL 0 06/24/19 07/23/19 Discontin (LEVEMIR FLEXTOUCH) 100 skin daily for 184 days. 18 18 ued unit/mL (3 mL) PenIndications: Uncontrolled type 2 diabetes mellitus with complication, with long-term current use of insulin gabapentin (NEURONTIN) Take 1 capsule by mouth 2 180 capsule 3 06/24/19 07/23/19 Discontin 300 mg times daily. 18 18 ued capsuleIndications: Chronic midline low back pain without sciatica cyclobenzaprine Take 1 tablet by mouth 3 270 tablet 1 06/24/19 07/23/19 Discontin (FLEXERIL) 10 mg times daily as needed for 18 18 ued tabletIndications: Muscle Spasms. Chronic midline low back pain without sciatica amLODIPine (NORVASC) 5 mg Take 1 tablet by mouth 90 tablet 3 06/24/19 07/23/19 Discontin tabletIndications: daily. 18 18 ued Essential hypertension tropicamide (MYDRIACYL) Instill 1 Drop in each 15 mL 0 07/23/19 07/23/19 0.5 % ophthalmic eye once as needed for up 18 18 solutionIndications: to 1 dose (for poor Uncontrolled type 2 retina scan image). diabetes mellitus with complication, with long-term current use of insulin Hospital, Clinic, or Ordered Dose Route Frequency Start End Date Status Other Facility Date Administered Medication triamcinolone acetonide 80 mg IX ONCE 08/20/19 08/20/19 Ended (KENALOG-40) injection 80 18 18 mg Active Problems Problem Noted Date Large breasts 07/22/2017 Chronic pain of both knees 07/22/2017 Uncontrolled type 2 diabetes mellitus with complication, with long-term 02/02/2017 current use of insulin Forgetfulness 10/07/2016 Chronic midline low back pain without sciatica 10/07/2016 Morbid obesity 10/07/2016 Essential hypertension 10/07/2016 Moderate persistent asthma without complication 10/07/2016 Resolved Problems Problem Noted Date Resolved Date History of hypothyroidism 03/03/2017 06/24/2017 Diabetes mellitus type 2 in obese 10/07/2016 02/02/2017 Unspecified hypothyroidism 10/07/2016 03/03/2017 Encounters Date Type Specialty Care Team Description 08/31/2017 Office Visit Clinical Pharmacy Diony Coppola, 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, with long-term current use of insulin (Primary Dx) 08/19/2017 Office Visit Family Practice Catherine Cespedes MD Chronic knee pain after total replacement of right knee joint (Primary Dx) 08/03/2017 Nutrition Nutrition Nico Arora LD 08/03/2017 Office Visit Clinical Pharmacy Dion[facility] Coppola, 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, with long-term current use of insulin (Primary Dx) 07/22/2017 Nurse Only Ophthalmology Dorian Agustin MD Uncontrolled type 2 Rolle, Brisaida diabetes mellitus with complication, with long-term current use of insulin 07/22/2017 Office Visit Family Practice Dorian Agustin MD Need for pneumococcal vaccination (Primary Dx); Chronic midline low back pain without sciatica; Uncontrolled type 2 diabetes mellitus with complication, with long-term current use of insulin; Large breasts; Chronic pain of both knees; Morbid obesity; Need for Tdap vaccination; Routine adult health maintenance; Essential hypertension 06/25/2017 Telephone Laila Farris LVN Appointment Related Questions 06/24/2017 Office Visit Family Practice Dorian Agustin MD Uncontrolled type 2 diabetes mellitus with complication, with long-term current use of insulin (Primary Dx); Routine adult health maintenance; Need for influenza vaccination; Essential hypertension; Chronic midline low back pain without sciatica; Moderate persistent asthma without complication; Large breasts; Hypothyroidism, unspecified type; Chronic pain of right knee 06/24/2017 Orders Only [facility] Dorian Agustin MD Chronic pain of right knee 06/24/2017 Nutrition Nutrition Nico Arora LD 05/04/2017 Pharmacy Visit 04/28/2017 Patient Patient Education Dorian Agustin MD Diabetes education, Education Kimber Hoffman, ELIZABETH encounter for (Primary Dx) 04/28/2017 Pharmacy Visit 04/26/2017 Telephone Patient Education Kimber Hoffman RN Disease Management F/U 04/22/2017 Office Visit Clinical Pharmacy Diony Coppola, 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, with long-term current use of insulin (Primary Dx); Essential hypertension 04/22/2017 Orders Only Family Dorian Quintero MD Routine adult health maintenance 04/22/2017 Pharmacy Visit 04/20/2017 Pharmacy Visit 04/19/2017 Office Visit [facility] Dorian Quintero MD Uncontrolled type 2 diabetes mellitus with complication, with long-term current use of insulin (Primary Dx); Morbid obesity; Essential hypertension; Chronic midline low back pain without sciatica; Moderate persistent asthma without complication; Routine adult health maintenance 04/19/2017 Orders Only [facility] Dorian Agustin MD Morbid obesity 04/19/2017 Pharmacy Visit 04/08/2017 Telephone Patient Education Kimber Hoffman RN Appointment Related Questions 03/25/2017 Office Visit Clinical Pharmacy Diony Coppola, 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, with long-term current use of insulin (Primary Dx) 03/05/2017 Patient Patient Education Dorian Agustin MD Diabetes education, Education Kimber HoffmanELIZABETH encounter for (Primary Dx) 03/03/2017 Telephone Kya Reyes, Information Only RECEIVING CLERK 03/02/2017 Office Visit Family Practice Dorian Agustin MD Forgetfulness (Primary Dx); Essential hypertension; Acquired hypothyroidism; Chronic midline low back pain without sciatica; Uncontrolled type 2 diabetes mellitus with complication, with long-term current use of insulin; TMJ syndrome; Morbid obesity; History of hypothyroidism 03/02/2017 Patient Patient Education Kimber Hoffman RN Education 02/25/2017 Office Visit Clinical Pharmacy Diony Coppola, NO SHOW ENCOUNTER RPH (Primary Dx) 02/02/2017 Office Visit Family Practice Dorian Agustin MD Routine adult health maintenance (Primary Dx); Uncontrolled type 2 diabetes mellitus with complication, with long-term current use of insulin; Essential hypertension; Morbid obesity; Moderate persistent asthma without complication; Leach's palsy 02/02/2017 Patient Patient Education Kimber Hoffman RN Education 02/02/2017 Pharmacy Visit 12/21/2016 Office Visit Clinical Pharmacy Diony Coppola, NO SHOW ENCOUNTER RPH (Primary Dx) 11/25/2016 Office Visit Clinical Pharmacy Diony Coppola, NO SHOW ENCOUNTER RPH (Primary Dx) 10/23/2016 Telephone Patient Education Kimber Hoffman RN Appointment Related Questions 10/19/2016 Patient Patient Education Dorian Agustin MD Diabetes education, Kimber Casey RN encounter for (Primary Dx) 10/12/2016 Office Visit Family Dorian Quintero MD Diabetes mellitus type 2 in obese (Primary Dx); Moderate persistent asthma without complication; Well woman exam; Chronic pain of right knee 10/08/2016 Office Visit Family Dorian Quintero MD Diabetes mellitus type 2 in obese (Primary Dx); Chronic dental pain; Forgetfulness; Chronic pain of right knee 10/07/2016 Patient Patient Education Dorian Agustin MD Education Kimber Hoffman RN 10/07/2016 Office Visit Family Dorian Quintero MD Encounter to establish care (Primary Dx); Forgetfulness; Chronic midline low back pain without sciatica; Morbid obesity, unspecified obesity type; Diabetes mellitus type 2 in obese; Essential hypertension; Unspecified hypothyroidism; Moderate persistent asthma without complication after 10/07/2016 Immunizations Name Dates Previously Given Next Due Influenza Vaccine, 06/24/2017 (Deferred: Patient Refused) Seasonal, Injectable PPV 23 (Pneumococcal 07/22/2017 Polysaccharide 23 Valent) TDap (Tetanus Toxoid, 07/22/2017 (Deferred: Vaccine Unavailable) Reduced Diphtheria Toxoid And Acellular Pertussis, Absorbed) Family History Medical History Relation Name Comments Alcohol/Drug Father Diabetes Maternal Aunt Cancer Paternal Grandfather Stroke Paternal Grandfather Arthritis Paternal Grandmother Diabetes Sister Hypertension Sister Relation Name Status Comments Brother Alive 2 Brother (Age 37) Daughter Alive 1 Father Maternal Aunt Maternal Grandfather Maternal Grandmother Mother Alive Paternal Grandfather Paternal Grandmother Sister Alive 1 Son Alive 1 Social History Tobacco Use Types Packs/Day Years Used Date Never Smoker Smokeless Tobacco: Never Used Tobacco Cessation: Counseling Given: Yes Alcohol Use Drinks/Week oz/Week Comments Yes Holidays only Sex Assigned at Date Recorded Not on file Last Filed Vital Signs Vital Sign Reading Time Taken Blood Pressure 138/90 08/31/2017 2:29 PM CDT Pulse 100 08/31/2017 2:29 PM CDT Temperature 36.8 C (98.2 F) 08/31/2017 2:29 PM CDT Respiratory Rate 22 08/31/2017 2:29 PM CDT Oxygen Saturation - - Inhaled Oxygen - - Concentration Weight 105.7 kg (233 lb) 08/31/2017 2:29 PM CDT Height 157.5 cm (5' 2") 08/31/2017 2:29 PM CDT Body Mass Index 42.62 08/31/2017 2:29 PM CDT Plan of Treatment Date Type Specialty Care Team Description 10/11/2017 Office Visit Family Practice Dorian Agustin MD refill on meds [address] [place] [id number] [phone] 11/15/2017 Office Visit Clinical Pharmacy Diony Coppola dm f/u [facility] Health Maintenance Due Date Last Done Comments BREAST CANCER SCRN 2006 (YEARLY) DM FOOT EXAM (YEARLY) 10/07/2017 10/07/2016, 10/07/2016 DM MICROALBUMIN URINE 02/02/2018 02/02/2017, 02/02/2017, 10/08/2016 SCRN (YEARLY) COLORECTAL CANCER SCRN 04/22/2018 04/22/2017 ANNUAL (FIT/FOBT) AGE 50 TO 75 DM HGBA1C (YEARLY) 06/24/2018 06/24/2017, 02/02/2017, 10/08/2016 DM RETINAL EXAM (YEARLY) 07/23/2018 07/23/2017, 10/07/2016 CERVICAL CANCER SCRN (3 10/13/2019 10/12/2016 YRS) Goals Patient Goal Type Goal Recent Progress Patient-Stat Author ed? Diet Reduce fat intake Not on track (10/12/2016) No Dorian Agustin MD Lifestyle Eat Healthy On track (04/28/2017) No Eric, Patient will eat more Kya fruit and vegetables. 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 Component Value Ref Range RETINAL SCAN-FINAL RESULT NORMAL Right Diabetic None Retinopathy Right Macular Edema None Right Other Suspected None Conditions Right Image Quality Gradeable Image Left Diabetic Retinopathy None Left Macular Edema None Left Other Suspected None Conditions Left Image Quality Gradeable Image Specimen Performing Laboratory IRIS Narrative Retinal Study Result for CARLIE ELIZABETH MARY, a 51 y/o, F (: 1965, ) presented to [facility] on 07-22-2017 for a retinal imaging study [...] electronically signed by Markel Downey MD. Taxonomy: [id number] on 07-23-2017 05:31:38 [facility] time. NOTE:Any pathology noted on this diabetic retinal evaluation should be confirmed by an appropriate ophthalmic examination. * HEMOGLOBIN A1C (06/24/2017 2:06 PM) Only the most recent of 3 results within the time period is included. Component Value Ref Range Hemoglobin A1c 9.1 (H) 4.3 - 6.1 % Est Average Gluc 214.5 mg/dL Specimen Performing Laboratory Blood MISYS * OCCULT BLOOD ICT (04/22/2017 6:00 AM) Component Value Ref Range Occult Blood ICT Negative NEG Specimen Performing Laboratory Stool MISYS * TSH (03/02/2017 11:06 AM) Only the most recent of 2 results within the time period is included. Component Value Ref Range TSH 4.17 (H) 0.36 - 3.74 uIU/mL Specimen Performing Laboratory Blood MISYS * DIABETIC FOOT EXAM (12/08/2016 10:58 PM) Dorian Antonio MD 12/08/2016 10:58 PM CHIEF COMPLAINT Establish Care HISTORY OF PRESENT ILLNESS Carlie Elizabeth , a 50y.o. / Female , presents to [facility].She has HTN and DM.She is not on Metformin because it made her "sick to her stomach" when given in years ago.She takes Glipizide, and claims to be 100% compliant. However, with diet and exercise, she is 50% compliant, although she is trying to improve both. She also has Chronic midline low back pain (epidural).The problem started after she got an epidural many years ago.5/10 pain, intermittent.No radiation down to legs.She takes cyclobenzaprine for this, which helps. Asthma.She reports using albuterol twice a day as needed.She wants refills on her albuterol inhaler. Forgetfulness.Daughter reports noticing that the patient is becoming more forgetful lately. REVIEW OF SYSTEMS Respiratory: (+) cough and (+) shortness of breath. Cardiovascular: Negative for chest pain. Musculoskeletal: (+) for back pain No past medical history on file. No family history on file. No past surgical history on file. Social History Substance Use Topics Smoking status: Never Smoker Smokeless tobacco: Never Used Alcohol Use: Yes Comment: Holidays only Allergies:Review of patient's allergies indicates no known allergies. EXAMINATION BP 134/98 mmHg | Pulse 87 | Temp(Src) 98.1 F (36.7 C) (Oral) | Resp 18 | Ht 5' 2.21" (1.58 m) | Wt 227 lb (102.967 kg) | BMI 41.25 kg/m2 Body mass index is 41.25 kg/(m^2). Physical Exam Nursing note and vitals reviewed. -Constitutional: Pt is oriented to person, place, and time. Pt appears well-developed and well-nourished. No distress. HENT: -Head: Normocephalic and atraumatic. -Eyes: EOM are normal. -Cardiovascular: Normal rate, regular rhythm and normal heart sounds.No murmur heard. -Pulmonary/Chest: Effort normal and breath sounds normal. No respiratory distress. -Neurological: Pt is alert and oriented to person, place, and time. No cranial nerve deficit. -Psychiatric: Pt has a normal mood and affect. Pt behavior is normal. Diabetic Foot Exam was performed at 12/08/2016 10:58 PM.Right foot sensation is normal, right foot pulses are normal, right foot appearance is normal.Left foot sensation is normal,left foot pulses are normal,left foot appearance is normal. LABS/IMAGINGS Reviewed last labs - N/A ASSESSMENT & PLAN 1. Encounter to establish [facility] LIVER PROFILE HIV-1/HIV-2 ROUTINE SCREENING FREE T4 CBC VIT D, 25-HYDROXY MAMMOGRAM BILAT SCREEN DIGITAL BASIC METABOLIC PANEL UA CHEMISTRIES LIPID PROFILE CANCELED: ALT/AST 2. ForgetfulnessConsider vit. b12 and folic acid levels on next visit. 3. Chronic midline low back pain without sciatica cyclobenzaprine (FLEXERIL) 10 mg tablet - refill gabapentin (NEURONTIN) 300 mg capsule - start.Patient had been on Lyrica before. 4. Moderate persistent asthma without complicationalbuterol (VENTOLIN HFA,PROVENTIL HFA,PROAIR HFA) 90 mcg/actuation inhaler - refill.Consider inhaled steroid on next visit. 5. Morbid obesity, unspecified obesity typeORDER FOR APPT TO PATIENT ED - DISEASE MGMT (AMB) ORDER FOR APPT TO NUTRITION 6. Diabetes mellitus type 2 in obeseHEMOGLOBIN A1C MICROALBUM, URINE ORDER FOR APPT TO PATIENT ED - DISEASE MGMT (AMB) ORDER FOR APPT TO NUTRITION blood glucose meter blood glucose test strips lancets OPHTHALMOLOGY RETINAL SCAN tropicamide (MYDRIACYL) 0.5 % ophthalmic solution lisinopril (ZESTRIL) 40 mg tablet ORDER FOR APPT TO HEALTH EDUCATION glipiZIDE (GLUCOTROL) 5 mg tablet - refill 7. Essential hypertensionD/C Amlodipine.Start Lisinopril 40mg qd. 8. Unspecified hypothyroidismlevothyroxine (SYNTHROID) 125 mcg tablet - refill Lifestyle modification emphasized including: Orders and follow up as documented in EpicCare. Patient was provided education on their diagnosis, treatments and any medications prescribed including medication use, any possible adverse side effect or potential drug to drug interactions. Patient's level of understanding is assessed with patient acknowledgment of understanding . Dorian Agustin [id number] * WET MOUNT (10/12/2016 9:07 AM) Component Value Ref Range Spec Description Vaginal Order Comments None Exam Epithelial cells Clue cells present Few WBC's seen No Trichomonas seen Report Status Final 10/12/2016 Specimen Performing Laboratory Genital, vaginal - MISYS VAGINAL * CARSON STAIN (10/12/2016 9:07 AM) Component Value Ref Range Spec Description Vaginal Order Comments None Direct Exam No fungus seen by CARSON Report Status Final 10/12/2016 Specimen Performing Laboratory Genital, vaginal - MISYS VAGINAL * XRAY KNEE 3 VIEWS (ROUTINE W/ WT BEARING AP/LAT/SUN) (10/08/2016 9:46 AM) Specimen Performing Laboratory SMS Impressions IMPRESSION: 1. No radiographic evidence for osteoarthrosis of the knee. 2. No other bony abnormality. Signed By: Sylvester Champagne MD, 10/08/2016 12:12 PM Narrative EXAM: XR RIGHT KNEE 3 VIEWS DATE:10/08/2016 [...] fluid. No soft tissue abnormality is identified. Procedure Note Interface, Rad/Mammog In - 10/08/2016 12:17 PM [...] By: Sylvester Champagne MD, 10/08/2016 12:12 PM * FOLIC ACID (10/08/2016 9:26 AM) Component Value Ref Range Folic Acid 15.8 5.39 - 24.0 ng/mL Specimen Performing Laboratory Blood MISYS * VITAMIN B12 (10/08/2016 9:26 AM) Component Value Ref Range Vitamin B12 631 211 - 911 pg/mL Specimen Performing Laboratory Blood MISYS * VIT D, 25-HYDROXY (10/08/2016 7:37 AM) Component Value Ref Range Vit D, 25-Hydroxy 14.0 (L) 30 - 100 ng/mL Comment: Vitamin D deficiency has been defined by the [place] [employer] and Endocrine Society guideline as a level of serum 25-OH Vitamin D less than 20 ng/mL. The Endocrine Society further defines Vitamin D insufficiency as a level between 21 and 29 ng/mL and sufficiency as a level between 30 and 100 ng/mL. Specimen Performing Laboratory MISYS * HIV-1/HIV-2 ROUTINE SCREENING (10/08/2016 7:37 AM) Component Value Ref Range HIV-1/HIV-2 Negative NEG Specimen Performing Laboratory MISYS * MICROALBUM, URINE (10/08/2016 7:37 AM) Component Value Ref Range Microalbum, Random 9.1 0.0 - 29.0 mg/dL Creatinine, Ur 292.6 mg/dL Urine Microalbumin 31.1 (H) 0 - 29 mg/g UCR Comment: To minimize intra-individual variation, analysis of three random urine samples collected over the course of a week is recommended. Specimen Performing Laboratory MISYS * FREE T4 (10/08/2016 7:37 AM) Component Value Ref Range Free T4 1.15 0.89 - 1.76 ng/dl Specimen Performing Laboratory Blood MISYS * UA CHEMISTRIES (10/08/2016 7:37 AM) Component Value Ref Range Color Yellow Clarity Clear Spec [place] 1.006 1.001 - 1.035 pH 6.0 5 - 8 Protein Negative NEG Glucose Negative NEG Ketone Negative NEG Bilirubin Negative NEG Nitrate Negative NEG Urobilinogen <1.0 0.2 - 1.0 EU/dL Leukocyte Negative NEG Blood Negative NEG Specimen Performing Laboratory Urine MISYS * LIVER PROFILE (10/08/2016 7:37 AM) Component Value Ref Range T Protein 7.6 6.4 - 8.2 g/dL Albumin 3.6 3.4 - 5.0 g/dL T Bilirubin 0.8 0.2 - 1.0 mg/dL Alk Phos 120 (H) 45 - 117 U/L AST 17 15 - 37 U/L ALT 31 12 - 78 U/L D Bilirubin 0.2 0.0 - 0.2 mg/dL Specimen Performing Laboratory Blood MISYS * LIPID PROFILE (10/08/2016 7:37 AM) Component Value Ref Range Cholesterol 191 <200 mg/dL Comment: REFERENCE RANGE: Desirable: <200 mg/dL Borderline: 200-240 mg/dL High Risk: >240 mg/dL Triglyceride 142 mg/dL Comment: REFERENCE RANGE: Normal: <150 mg/dL Borderline High: 150-199 mg/dL High: 200-499 mg/dL Very High: >cs=806 mg/dL HDL 49 40 - 60 mg/dL Comment: Increased CHD risk: <40 mg/dL Decreased CHD risk: >60 mg/dL LDL 114 mg/dL Comment: REFERENCE RANGE: Optimal: <100 mg/dL Near Optimal: 100-129 mg/dL Borderline High: 130-159 mg/dL High: 160-189 mg/dL Very High: >sb=000 mg/dL Specimen Performing Laboratory Blood MISYS * CBC (10/08/2016 7:37 AM) Component Value Ref Range WBC 9.0 4.5 - 11.0 K/uL RBC 5.26 4.20 - 5.40 M/uL Hemoglobin 15.2 12.0 - 16.0 g/dL Hematocrit 46.9 37.0 - 47.0 % MCV 89 82 - 92 fL MCH 28.9 27.0 - 32.0 pg MCHC 32.4 32.0 - 36.0 g/dL RDW 39.4 36.4 - 46.3 fL Platelet 367 150 - 400 K/uL Mean Platelet Volume 9.8 9.4 - 12.4 fL Percent NRBC 0.0 Absolute NRBC 0.00 Specimen Performing Laboratory Blood MISYS * BASIC METABOLIC PANEL (10/08/2016 7:37 AM) Component Value Ref Range CO2 29 21 - 32 mmol/L Chloride 102 98 - 107 mmol/L Potassium 4.2 3.50 - 5.10 mmol/L Sodium 138 136 - 145 mmol/L Glucose 216 (H) 70 - 99 mg/dL Urea Nitrogen 11 7 - 18 mg/dL Creatinine 1.01 0.60 - 1.30 mg/dL Anion Gap 7 Calcium 9.5 8.50 - 10.20 mg/dL GFR, Estimated 58 mL/min/1.73 m2 GFR, Estim, Afr-Am >60 mL/min/1.73 m2 Specimen Performing Laboratory Blood MISYS after 10/07/2016
--- OUTSIDE RECORDS SUMMARY | 2018-05-05 14:06 | XMS REPORT | Summary of Care ---
Author Author [facility] Organization [facility] Address Unknown Phone Unavailable Encounter IRENA Dove(TIKI) [id number] Date(s): 12/17/15 - 12/17/15 [facility] [address] [place] [address]- Discharge Diagnosis: Abdominal pain Discharge Diagnosis: Nausea and vomiting Discharge Disposition: Home or Self Care Attending Physician: Chato Steward MD Vital Signs 1 2 3 Most recent to oldest [Reference Range]: 162.56 cm (12/17/15 1:55 PM) Height 98.1 DegF (12/17/15 5:22 PM) 98.1 DegF (12/17/15 1:55 PM) Temperature Oral [96.4-99.1 DegF] 107/72 mmHg (12/17/15 7:24 PM) 102/77 mmHg (12/17/15 6:56 PM) 130/75 mmHg (12/17/15 6:30 PM) Blood Pressure [90-140/60-90 mmHg] 20 BRMIN (12/17/15 7:24 PM) 15 BRMIN (12/17/15 6:56 PM) 16 BRMIN (12/17/15 6:30 PM) Respiratory Rate [14-20 BRMIN] 87 bpm (12/17/15 6:30 PM) 99 bpm (12/17/15 5:22 PM) 125 bpm *HI* (12/17/15 1:55 PM) Peripheral Pulse Rate [60-100 bpm] 100 kg (12/17/15 1:55 PM) Weight 37.84 m2 (12/17/15 1:55 PM) Body Mass Index Problem List Condition Effective Dates Status Health Status Informant Asthma(Confirmed) Active Diabetes Active mellitus(Confirmed) Hernia(Confirmed) Active Hypertension(Confirm Active ed) Muscle Resolved spasm(Confirmed)1 Thyroid(Confirmed) Resolved 1left leg Allergies, Adverse Reactions, Alerts Substance Reaction Severity Status Allergy Unverified1 Active NKDA Active Plastic Tape2 Active 1PEACHES 2PLASTIC ARM BAND Medications Bentyl 10 mg oral capsule 10 mg=1 cap, PO, QID, # 20 cap, 0 Refill(s) Start Date: 12/17/15 Stop Date: 12/27/15 Status: Ordered Carafate 1 g/10 mL oral suspension 1 gm=10 ml, PO, Before Meals & Bedtime, # 200 ml, 0 Refill(s) Start Date: 12/17/15 Status: Ordered GI cocktail 30 mL, Route: PO, Drug Form: SUSP, Dosing Weight 100, kg, ONCE, STAT, Start date : 12/17/15 15:19:00 CDT, Stop date: 12/17/15 15:19:00 CDT Notes: G.I. Cocktail=antacid with simethicone 22.5 mL - lidocaine viscous 7.5 mL Start Date: 12/17/15 Stop Date: 12/17/15 Status: Completed morphine Sulfate 4 mg, 1 mL, Route: IVP, Drug form: INJ, ONCE, Dosing Weight 100, kg, Priority: S TAT, Start date: 12/17/15 17:17:00 CDT, Stop date: 12/17/15 17:17:00 CDT Notes: (Same as:MORPhine Sulfate) Start Date: 12/17/15 Stop Date: 12/17/15 Status: Completed NexIUM 20 mg oral delayed release capsule 20 mg=1 cap, PO, Daily, # 30 cap, 0 Refill(s) Start Date: 12/17/15 Status: Ordered Protonix 40 mg, Route: IVP, Drug form: INJ, ONCE, Dosing Weight 100, kg, Start date: 01/23 17:17:00 CDT, Stop date: 12/17/15 17:17:00 CDT Notes: For IV push reconstitute with 10 ml 0.9% sodium chloride and push over 2 minutes. (Same as: Protonix) Start Date: 12/17/15 Stop Date: 12/17/15 Status: Completed Reglan 10 mg, 2 mL, Route: IVP, Drug form: INJ, ONCE, Dosing Weight 100, kg, Start date : 12/17/15 17:18:00 CDT, Stop date: 12/17/15 17:18:00 CDT Notes: (Same as: Reglan) Start Date: 12/17/15 Stop Date: 12/17/15 Status: Completed Reglan 10 mg oral tablet 10 mg=1 tab, PO, QID, X 7 day, # 28 tab, 0 Refill(s) Start Date: 12/17/15 Stop Date: 12/24/15 Status: Ordered Sodium Chloride 0.9% (Bolus) IV 1,000 mL, 1,000 ml/hr, Infuse Over: 1 hr, Route: IV, 1,000, Drug form: INJ, ONCE , Priority: STAT, Dosing Weight 100 kg, Start date: 12/17/15 15:19:00 CDT, Durat ion: 1 doses or times, Stop date: 12/17/15 15:19:00 CDT Start Date: 12/17/15 Stop Date: 12/17/15 Status: Completed Zofran 4 mg, 2 mL, Route: IVP, Drug form: INJ, ONCE, Dosing Weight 100, kg, Priority: S TAT, Start date: 12/17/15 15:18:00 CDT, Stop date: 12/17/15 15:18:00 CDT Notes: (Same as: Zofran) MEDICATION WASTE Product Size: 4 mgProduct Was ailyn: ___ mg Start Date: 12/17/15 Stop Date: 12/17/15 Status: Completed Results ELECTROLYTES Most recent to 1 oldest [Reference Range]: Sodium Lvl [135-145 137 mEq/L mEq/L] (12/17/15 3:40 PM) Potassium Lvl 3.7 mEq/L [3.5-5.1 mEq/L] (12/17/15 3:40 PM) Chloride Lvl [95-109 102 mEq/L mEq/L] (12/17/15 3:40 PM) CO2 [24-32 mEq/L] 23 mEq/L *LOW* (12/17/15 3:40 PM) AGAP [10.0-20.0 15.7 mEq/L mEq/L] (12/17/15 3:40 PM) CHEM PANEL Most recent to 1 oldest [Reference Range]: Creatinine Lvl 1.18 mg/dL [0.50-1.40 mg/dL] (12/17/15 3:40 PM) eGFR 55 mL/min/1.73m2 1 *NA* (12/17/15 3:40 PM) BUN [7-22 mg/dL] 21 mg/dL (12/17/15 3:40 PM) B/C Ratio [6-25] 18 (12/17/15 3:40 PM) Glucose Lvl [70-99 129 mg/dL mg/dL] *HI* (12/17/15 3:40 PM) Total Protein 9.2 g/dL [6.4-8.4 g/dL] *HI* (12/17/15 3:40 PM) Albumin Lvl [3.5-5.0 4.0 g/dL g/dL] (12/17/15 3:40 PM) Globulin [2.7-4.2 5.2 g/dL g/dL] *HI* (12/17/15 3:40 PM) A/G Ratio [0.7-1.6] 0.8 (12/17/15 3:40 PM) Calcium Lvl 9.1 mg/dL [8.5-10.5 mg/dL] (12/17/15 3:40 PM) ALT [0-65 unit/L] 31 unit/L (12/17/15 3:40 PM) AST [0-37 unit/L] 22 unit/L (12/17/15 3:40 PM) Alk Phos [39-136 113 unit/L unit/L] (12/17/15 3:40 PM) Bili Total [0.2-1.3 0.6 mg/dL mg/dL] (12/17/15 3:40 PM) Lipase Lvl [73-393 259 unit/L unit/L] (12/17/15 3:40 PM) Ketone Quantitative 0.10 mmol/L [<=0.27 mmol/L] (12/17/15 3:40 PM) 1Result Comment: The eGFR is calculated using [...] be mul tiplied by the estimated BMI. CARDIAC ENZYMES Most recent to 1 oldest [Reference Range]: Total CK [12-191 31 unit/L unit/L] (12/17/15 3:40 PM) CK MB [0.5-3.6 <0.5 ng/mL ng/mL] (12/17/15 3:40 PM) CK MB Index <1.6 [0.0-2.5] (12/17/15 3:40 PM) Troponin-I <0.02 ng/mL [0.00-0.40 ng/mL] (12/17/15 3:40 PM) HEMATOLOGY Most recent to 1 oldest [Reference Range]: WBC [3.7-10.4 K/CMM] 8.6 K/CMM (12/17/15 3:40 PM) RBC [4.20-5.40 5.49 M/CMM M/CMM] *HI* (12/17/15 3:40 PM) Hgb [12.0-16.0 g/dL] 15.9 g/dL (12/17/15 3:40 PM) Hct [36.0-48.0 %] 49.9 % *HI* (12/17/15 3:40 PM) MCV [80.0-98.0 fL] 90.9 fL (12/17/15 3:40 PM) MCH [27.0-31.0 pg] 29.0 pg (12/17/15 3:40 PM) MCHC [32.0-36.0 31.9 g/dL g/dL] *LOW* (12/17/15 3:40 PM) RDW [11.5-14.5 %] 13.3 % (12/17/15 3:40 PM) Platelet [133-450 339 K/CMM K/CMM] (12/17/15 3:40 PM) MPV [7.4-10.4 fL] 8.3 fL (12/17/15 3:40 PM) Segs [45.0-75.0 %] 81.2 % *HI* (12/17/15 3:40 PM) Lymphocytes 13.8 % [20.0-40.0 %] *LOW* (12/17/15 3:40 PM) Monocytes [2.0-12.0 4.2 % %] (12/17/15 3:40 PM) Eosinophils [0.0-4.0 0.3 % %] (12/17/15 3:40 PM) Basophils [0.0-1.0 0.5 % %] (12/17/15 3:40 PM) Segs-Bands # 7.0 K/CMM [1.5-8.1 K/CMM] (12/17/15 3:40 PM) Lymphocytes # 1.2 K/CMM [1.0-5.5 K/CMM] (12/17/15 3:40 PM) Monocytes # [0.0-0.8 0.4 K/CMM K/CMM] (12/17/15 3:40 PM) Immunizations No data available for this section Procedures Procedure Date Related Diagnosis Body Site Thyroid gland excision 05/10/94 Cholecystectomy Hand Knee Laparoscopic hysterectomy Social History Social History Type Response Alcohol Never, Previous treatment: None. Smoking Status Never smoker; Exposure to Tobacco Smoke None; Cigarette Smoking Last 365 Days No; Reg Smoking Cessation Counseling No Assessment and Plan No data available for this section
--- OUTSIDE RECORDS SUMMARY | 2018-05-05 14:06 | XMS REPORT | Summary of Care ---
Author Organization Unknown Address Unknown Phone Unavailable Encounter IRENA Webber) [id number] Date(s): 07/02/14 - 07/03/14 [facility] [address] [place] [address]- Discharge Diagnosis: Hyperglycemia Discharge Disposition: Home Physician Attending: Christine Azevedo DO Vital Signs 1 2 3 Most recent to oldest [Reference Range]: 97.9 DegF (07/02/14 11:51 PM) Temperature Oral [96.4-99.1 DegF] 115/58 mmHg (07/03/14 4:33 AM) 115/72 mmHg (07/03/14 3:47 AM) 120/75 mmHg (07/03/14 12:30 AM) Blood Pressure [90-140/60-90 mmHg] 21 BRMIN *HI* (07/03/14 4:33 AM) 23 BRMIN *HI* (07/03/14 3:47 AM) 16 BRMIN (07/03/14 12:30 AM) Respiratory Rate [14-20 BRMIN] 56 bpm *LOW* (07/02/14 11:51 PM) Peripheral Pulse Rate [60-100 bpm] 113.636 kg (07/02/14 11:51 PM) Weight Problem List Condition Effective Dates Status Health Status Informant Asthma(Confirmed) Active Diabetes Active mellitus(Confirmed) Hernia(Confirmed) Active Hypertension(Confirm Active ed) Muscle Resolved spasm(Confirmed)1 Thyroid(Confirmed) Resolved 1left leg Allergies, Adverse Reactions, Alerts Substance Reaction Severity Status Allergy Unverified1 Active NKDA Active Plastic Tape2 Active 1PEACHES 2PLASTIC ARM BAND Medications Insulin regular 3 unit, 0.03 mL, Route: IVP, Drug form: INJ, ONCE, Dosing Weight 113.636, kg, Pr iority: STAT, Start date: 07/03/14 2:37:00, Stop date: 07/03/14 2:37:00 Notes: (Same as: Humulin R and NovoLIN R) (Do not shake) Start Date: 07/03/14 Stop Date: 07/03/14 Status: Completed Insulin regular 5 unit, 0.05 mL, Route: IVP, Drug form: INJ, ONCE, Dosing Weight 113.636, kg, Pr iority: STAT, Start date: 07/03/14 0:06:00, Stop date: 07/03/14 0:06:00 Notes: (Same as: Humulin R and NovoLIN R) (Do not shake) Start Date: 07/03/14 Stop Date: 07/03/14 Status: Completed metFORMIN 500 mg, 1 tab, Route: PO, Drug form: TAB, ONCE, Dosing Weight 113.636, kg, Start date: 07/03/14 4:32:00, Stop date: 07/03/14 4:32:00 Notes: (Same as: Glucophage) Take with meal Start Date: 07/03/14 Stop Date: 07/03/14 Status: Discontinued NS (Bolus) IV 500 mL, 500 ml/hr, Infuse Over: 1 hr, Route: IV, 500, Drug form: INJ, ONCE, Prio rity: STAT, Dosing Weight 113.636 kg, Start date: 07/03/14 2:37:00, Duration: 1 doses or times, Stop date: 07/03/14 2:37:00 Start Date: 07/03/14 Stop Date: 07/03/14 Status: Completed Saline Flush 0.9% 10 mL, Route: IVP, Drug Form: INJ, Dosing Weight 113.636, kg, PRN, PRN Line Flus h, Start date: 07/03/14 0:06:00, Duration: 30 day, Stop date: 08/02/14 1:05:00 Notes: (Same as: BD Posiflush) Start Date: 07/03/14 Stop Date: 07/03/14 Status: Discontinued Sodium Chloride 0.9% (Bolus) IV 1,000 mL, 1,000 ml/hr, Infuse Over: 1 hr, Route: IV, 1,000, Drug form: INJ, ONCE , Priority: STAT, Dosing Weight 113.636 kg, Start date: 07/03/14 0:06:00, Durati on: 1 doses or times, Stop date: 07/03/14 0:06:00 Start Date: 07/03/14 Stop Date: 07/03/14 Status: Completed Results ELECTROLYTES Most recent to 1 oldest [Reference Range]: Sodium Lvl [135-145 132 mEq/L mEq/L] *LOW* (07/03/14 12:45 AM) Potassium Lvl 4.0 mEq/L [3.5-5.1 mEq/L] (07/03/14 12:45 AM) Chloride Lvl [95-109 96 mEq/L mEq/L] (07/03/14 12:45 AM) CO2 [24-32 mEq/L] 26 mEq/L (07/03/14 12:45 AM) AGAP [10.0-20.0 14.0 mEq/L mEq/L] (07/03/14 12:45 AM) CHEM PANEL Most recent to 1 oldest [Reference Range]: Creatinine Lvl 1.3 mg/dL [0.5-1.4 mg/dL] (07/03/14 12:45 AM) eGFR 49 mL/min/1.73m2 1 *NA* (07/03/14 12:45 AM) BUN [7-22 mg/dL] 17 mg/dL (07/03/14 12:45 AM) B/C Ratio [6-25] 13 (07/03/14 12:45 AM) Glucose Lvl [70-99 469 mg/dL 2, 3 mg/dL] *CRIT* (07/03/14 12:45 AM) Total Protein 7.8 g/dL [6.4-8.4 g/dL] (07/03/14 12:45 AM) Albumin Lvl [3.5-5.0 3.7 g/dL g/dL] (07/03/14 12:45 AM) Globulin [2.0-4.0 4.1 g/dL g/dL] *HI* (07/03/14 12:45 AM) A/G Ratio [0.7-1.6] 0.9 (07/03/14 12:45 AM) Calcium Lvl 9.4 mg/dL [8.5-10.5 mg/dL] (07/03/14 12:45 AM) ALT [0-65 unit/L] 28 unit/L (07/03/14 12:45 AM) AST [0-37 unit/L] 17 unit/L (07/03/14 12:45 AM) Alk Phos [39-136 163 unit/L unit/L] *HI* (07/03/14 12:45 AM) Bili Total [0.2-1.3 0.4 mg/dL mg/dL] (07/03/14 12:45 AM) Ketone Quantitative 0.12 mmol/L [<=0.27 mmol/L] (07/03/14 12:45 AM) 1Result Comment: The eGFR is calculated [...] be mul tiplied by the estimated BMI. 2Result Comment: Critical Result(s) called to Amanda Norton at 07/03/2014 01:09 by CLAUDIA. Read back OK. 3Interpretive Data: Adult reference range values reflect the clinical guidelines of the [place] [employer]. HEMATOLOGY Most recent to 1 oldest [Reference Range]: WBC [3.7-10.4 K/CMM] 12.6 K/CMM *HI* (07/03/14 12:45 AM) RBC [4.20-5.40 4.57 M/CMM M/CMM] (07/03/14 12:45 AM) Hgb [12.0-16.0 g/dL] 13.6 g/dL (07/03/14 12:45 AM) Hct [36.0-48.0 %] 40.7 % (07/03/14 12:45 AM) MCV [80.0-98.0 fL] 89.2 fL (07/03/1445 AM) MCH [27.0-31.0 pg] 29.9 pg (07/03/1445 AM) MCHC [32.0-36.0 33.5 g/dL g/dL] (07/03/1445 AM) RDW [11.5-14.5 %] 13.5 % (07/03/1445 AM) Platelet [133-450 283 K/CMM K/CMM] (07/03/1445 AM) MPV [7.4-10.4 fL] 8.5 fL (07/03/1445 AM) Segs [45.0-75.0 %] 72.9 % (07/03/1445 AM) Lymphocytes 20.3 % [20.0-40.0 %] (07/03/1445 AM) Monocytes [2.0-12.0 2.3 % %] (07/03/14:45 AM) Eosinophils [0.0-4.0 3.8 % %] (07/03/14:45 AM) Basophils [0.0-1.0 0.7 % %] (07/03/1445 AM) Segs-Bands # 9.2 K/CMM [1.5-8.1 K/CMM] *HI* (07/03/14:45 AM) Lymphocytes # 2.6 K/CMM [1.0-5.5 K/CMM] (07/03/14:45 AM) Monocytes # [0.0-0.8 0.3 K/CMM K/CMM] (07/03/14 12:45 AM) Eosinophils # 0.5 K/CMM [0.0-0.5 K/CMM] (07/03/14 12:45 AM) Basophils # [0.0-0.2 0.1 K/CMM K/CMM] (07/03/14 12:45 AM) Immunizations No data available for this section Procedures No data available for this section Social History Social History Type Response Alcohol Never, Previous treatment: None. Smoking Status Never smoker; Lives with someone who smokes; Cigarette Smoking Last 365 Days No; Reg Smoking Cessation Counseling No Assessment and Plan No data available for this section
--- OUTSIDE RECORDS SUMMARY | 2018-05-05 14:06 | XMS REPORT | Summary of Care ---
Author Author [facility] Organization [facility] Address Unknown Phone Unavailable Encounter IRENA Dove(TIKI) [id number] Date(s): 11/21/15 - 11/22/15 [facility] [address] [place] [address]- Discharge Diagnosis: Anxiety Discharge Diagnosis: Abdominal pain Discharge Disposition: Home Attending Physician: Luis Stevens MD Vital Signs 1 2 3 Most recent to oldest [Reference Range]: 165.1 cm (11/21/15 9:27 PM) Height 98.5 DegF (11/22/15 5:04 AM) 98.0 DegF (11/21/15 9:27 PM) Temperature Oral [96.4-99.1 DegF] 140/90 mmHg (11/22/15 5:04 AM) 146/96 mmHg *HI* (11/22/15 3:11 AM) 129/89 mmHg (11/21/15 9:27 PM) Blood Pressure [90-140/60-90 mmHg] 16 BRMIN (11/22/15 5:04 AM) 16 BRMIN (11/22/15 3:11 AM) 16 BRMIN (11/21/15 9:27 PM) Respiratory Rate [14-20 BRMIN] 78 bpm (11/22/15 5:04 AM) 81 bpm (11/22/15 3:11 AM) 80 bpm (11/21/15 9:27 PM) Peripheral Pulse Rate [60-100 bpm] 100 kg (11/21/15 9:27 PM) Weight 36.69 m2 (11/21/15 9:27 PM) Body Mass Index Problem List Condition Effective Dates Status Health Status Informant Asthma(Confirmed) Active Diabetes Active mellitus(Confirmed) Hernia(Confirmed) Active Hypertension(Confirm Active ed) Muscle Resolved spasm(Confirmed)1 Thyroid(Confirmed) Resolved 1left leg Allergies, Adverse Reactions, Alerts Substance Reaction Severity Status Allergy Unverified1 Active NKDA Active Plastic Tape2 Active 1PEACHES 2PLASTIC ARM BAND Medications ketOROLAC 30 mg/mL injectable solution 30 mg, Route: IVP, Drug form: INJ, ONCE, Dosing Weight 100, kg, Priority: STAT, Start date: 11/22/15 5:07:00 CDT, Stop date: 11/22/15 5:07:00 CDT Start Date: 11/22/15 Stop Date: 11/22/15 Status: Completed morphine Sulfate 4 mg, 1 mL, Route: IVP, Drug form: INJ, ONCE, Dosing Weight 100, kg, Priority: S TAT, Start date: 11/22/15 2:30:00 CDT, Stop date: 11/22/15 2:30:00 CDT Notes: (Same as:MORPhine Sulfate) Start Date: 11/22/15 Stop Date: 11/22/15 Status: Completed ondansetron 4 mg, 2 mL, Route: IVP, Drug form: INJ, ONCE, Dosing Weight 100, kg, Priority: S TAT, Start date: 11/22/15 2:30:00 CDT, Stop date: 11/22/15 2:30:00 CDT Notes: (Same as: April) MEDICATION WASTE Product Size: 4 mgProduct Was ailyn: ___ mg Start Date: 11/22/15 Stop Date: 11/22/15 Status: Completed Saline Flush 0.9% 10 mL, Route: IVP, Drug Form: INJ, Dosing Weight 100, kg, PRN, PRN Line Flush, S tart date: 11/22/15 2:30:00 CDT, Duration: 30 day, Stop date: 12/22/15 2:29:00 C DT Notes: (Same as: BD Posiflush) Start Date: 11/22/15 Stop Date: 11/22/15 Status: Discontinued Sodium Chloride 0.9% (Bolus) IV 1,000 mL, 2,000 ml/hr, Infuse Over: 30 minutes, Route: IV, 1,000, Drug form: INJ , ONCE, Priority: STAT, Dosing Weight 100 kg, Start date: 11/22/15 2:30:00 CDT, Duration: 1 doses or times, Stop date: 11/22/15 2:30:00 CDT Start Date: 11/22/15 Stop Date: 11/22/15 Status: Completed Results ELECTROLYTES Most recent to 1 oldest [Reference Range]: Sodium Lvl [135-145 139 mEq/L mEq/L] (11/21/15 10:14 PM) Potassium Lvl 4.0 mEq/L [3.5-5.1 mEq/L] (11/21/15 10:14 PM) Chloride Lvl [95-109 104 mEq/L mEq/L] (11/21/15 10:14 PM) CO2 [24-32 mEq/L] 26 mEq/L (11/21/15 10:14 PM) AGAP [10.0-20.0 13.0 mEq/L mEq/L] (11/21/15 10:14 PM) CHEM PANEL Most recent to 1 oldest [Reference Range]: Creatinine Lvl 1.10 mg/dL [0.50-1.40 mg/dL] (11/21/15 10:14 PM) eGFR 60 mL/min/1.73m2 1 *NA* (11/21/15 10:14 PM) BUN [7-22 mg/dL] 12 mg/dL (11/21/15 10:14 PM) B/C Ratio [6-25] 11 (11/21/15 10:14 PM) Glucose Lvl [70-99 118 mg/dL mg/dL] *HI* (11/21/15 10:14 PM) Total Protein 8.3 g/dL [6.4-8.4 g/dL] (11/21/15 10:14 PM) Albumin Lvl [3.5-5.0 3.8 g/dL g/dL] (11/21/15 10:14 PM) Globulin [2.0-4.0 4.5 g/dL g/dL] *HI* (11/21/15 10:14 PM) A/G Ratio [0.7-1.6] 0.8 (11/21/15 10:14 PM) Calcium Lvl 9.2 mg/dL [8.5-10.5 mg/dL] (11/21/15 10:14 PM) ALT [0-65 unit/L] 30 unit/L (11/21/15 10:14 PM) AST [0-37 unit/L] 21 unit/L (11/21/15 10:14 PM) Alk Phos [39-136 108 unit/L unit/L] (11/21/15 10:14 PM) Bili Total [0.2-1.3 0.5 mg/dL mg/dL] (11/21/15 10:14 PM) Lipase Lvl [73-393 384 unit/L unit/L] (11/22/15 3:14 AM) 1Result Comment: The eGFR is calculated [...] be mul tiplied by the estimated BMI. URINE AND STOOL Most recent to 1 oldest [Reference Range]: UA Turbidity [Clear] Marked *ABN* (11/21/15 10:14 PM) UA Color [Yellow] Yellow *NA* (11/21/15 10:14 PM) UA pH [5.0-8.0] 6.0 (11/21/15 10:14 PM) UA Spec Grav 1.002 [<=1.030] (11/21/15 10:14 PM) UA Glucose [Negative Negative mg/dL mg/dL] *NA* (11/21/15 10:14 PM) UA Blood [Negative] Small *ABN* (11/21/15 10:14 PM) UA Ketones Negative *NA* (11/21/15 10:14 PM) UA Protein [Negative Negative mg/dL mg/dL] (11/21/15 10:14 PM) UA Urobilinogen <=1.0 mg/dL [0.1-1.0 mg/dL] *NA* (11/21/15 10:14 PM) UA Bili [Negative] Negative *NA* (11/21/15 10:14 PM) UA Leuk Est Negative [Negative] (11/21/15 10:14 PM) UA Nitrite Negative [Negative] (11/21/15 10:14 PM) UA WBC [0-5 /HPF] 8 /HPF *HI* (11/21/15 10:14 PM) UA RBC [0-2 /HPF] 4 /HPF *HI* (11/21/15 10:14 PM) UA Bacteria [None Moderate /HPF Seen /HPF] *ABN* (11/21/15 10:14 PM) UA Sq Epi [Few /LPF] Many /LPF *ABN* (11/21/15 10:14 PM) UA Mucus [None Seen Few /LPF /LPF] *NA* (11/21/15 10:14 PM) HEMATOLOGY Most recent to 1 oldest [Reference Range]: WBC [3.7-10.4 K/CMM] 10.2 K/CMM (11/21/15 10:14 PM) RBC [4.20-5.40 5.09 M/CMM M/CMM] (11/21/15 10:14 PM) Hgb [12.0-16.0 g/dL] 14.6 g/dL (11/21/15 10:14 PM) Hct [36.0-48.0 %] 45.5 % (11/21/15 10:14 PM) MCV [80.0-98.0 fL] 89.3 fL (11/21/15 10:14 PM) MCH [27.0-31.0 pg] 28.7 pg (11/21/15 10:14 PM) MCHC [32.0-36.0 32.1 g/dL g/dL] (11/21/15 10:14 PM) RDW [11.5-14.5 %] 13.2 % (11/21/15 10:14 PM) Platelet [133-450 347 K/CMM K/CMM] (11/21/15 10:14 PM) MPV [7.4-10.4 fL] 7.7 fL (11/21/15 10:14 PM) Segs [45.0-75.0 %] 60.7 % (11/21/15 10:14 PM) Lymphocytes 29.7 % [20.0-40.0 %] (11/21/15 10:14 PM) Monocytes [2.0-12.0 4.3 % %] (11/21/15 10:14 PM) Eosinophils [0.0-4.0 4.7 % %] *HI* (11/21/15 10:14 PM) Basophils [0.0-1.0 0.6 % %] (11/21/15 10:14 PM) Segs-Bands # 6.2 K/CMM [1.5-8.1 K/CMM] (11/21/15 10:14 PM) Lymphocytes # 3.0 K/CMM [1.0-5.5 K/CMM] (11/21/15 10:14 PM) Monocytes # [0.0-0.8 0.4 K/CMM K/CMM] (11/21/15 10:14 PM) Eosinophils # 0.5 K/CMM [0.0-0.5 K/CMM] (11/21/15 10:14 PM) Basophils # [0.0-0.2 0.1 K/CMM K/CMM] (11/21/15 10:14 PM) Immunizations No data available for this section Procedures Procedure Date Related Diagnosis Body Site Thyroid gland excision 05/10/94 Cholecystectomy Hand Knee Laparoscopic hysterectomy Social History Social History Type Response Alcohol Never, Previous treatment: None. Smoking Status Never smoker; Type: Cigarettes; Lives with someone who smokes; Cigarette Smoking Last 365 Days No; Reg Smoking Cessation Counseling No Assessment and Plan No data available for this section
--- OUTSIDE RECORDS SUMMARY | 2018-05-05 14:06 | XMS REPORT | Summary of Care ---
Author Organization Unknown Address Unknown Phone Unavailable Encounter IRENA Dove(TIKI) [id number] Date(s): 03/15/14 - 03/16/14 [facility] [address] [place] [address]- [facility] Discharge Disposition: Home Physician Attending: Gaudencio Telles MD Physician Admitting: Gaudencio Telles MD Physician_Referring: Gaudencio Telles MD Reason for Visit [id number],VENTRAL HERNIA Vital Signs 1 2 3 Most recent to oldest [Reference Range]: 162.56 cm (03/12/14 3:50 PM) Height 98 DegF (03/16/14 4:00 PM) 97.9 DegF (03/16/14 12:00 PM) 98.2 DegF (03/16/14 8:00 AM) Temperature Oral [96.4-99.1 DegF] 122 mmHg (03/16/14 4:00 PM) 132 mmHg (03/16/14 2:00 PM) 97 mmHg (03/16/14 12:00 PM) Systolic Blood Pressure [90-140 mmHg] 70 mmHg (03/16/14 4:00 PM) 90 mmHg (03/16/14 2:00 PM) 81 mmHg (03/16/14 12:00 PM) Diastolic Blood Pressure [60-90 mmHg] 18 BRMIN (03/16/14 6:00 PM) 19 BRMIN (03/16/14 5:00 PM) 17 BRMIN (03/16/14 4:00 PM) Respiratory Rate [14-20 BRMIN] 97 bpm (03/15/14 9:45 AM) Peripheral Pulse Rate [60-100 bpm] 106.96 kg (03/12/14 3:50 PM) Weight 40.48 m2 (03/12/14 3:50 PM) Body Mass Index Problem List Condition Effective Dates Status Health Status Informant Asthma(Confirmed) Active Diabetes Active mellitus(Confirmed) Hernia(Confirmed) Active Hypertension(Confirm Active ed) Thyroid(Confirmed) Resolved Allergies, Adverse Reactions, Alerts Substance Reaction Severity Status Allergy Unverified1 Active NKDA Active Plastic Tape2 Active 1PEACHES 2PLASTIC ARM BAND Medications acetaminophen-hydrocodone 325 mg-5 mg oral tablet 1 tab, Route: PO, Drug Form: TAB, Dosing Weight 106.96, kg, Q4H, PRN Pain Score 4-6, Start date: 03/15/14 14:16:00, Duration: 30 day, Stop date: 04/14/14 14:15: 00 Notes: (Same as: [place] 325/5) Do not exceed 4gm/day of acetaminophen. Start Date: 03/15/14 Stop Date: 03/16/14 Status: Discontinued Ancef 2 gm, 100 mL, Route: IVPB, Drug form: INJ, ONCE, Dosing Weight 106.96, kg, Start date: 03/15/14 9:51:00, Duration: 1 doses or times, Stop date: 03/15/14 9:51:00 Notes: Same as: Ancef Start Date: 03/15/14 Stop Date: 03/15/14 Status: Completed atropine 0.2 mg, 0.2 mL, Route: IVP, Drug form: INJ, Q5Min, Dosing Weight 106.96, kg, PRN Other -See Comment, as needed; for symptomatic pulse rate < 80% of mean 50 BPM, Start date: 03/15/14 9:57:00, Duration: 30 day, Stop date: 04/14/14 9:56:00 Start Date: 03/15/14 Stop Date: 03/15/14 Status: Discontinued ceFAZolin (SCIP) 2 gm, 100 mL, Route: IVPB, Drug form: INJ, Q8H, Dosing Weight 106.96, kg, Start date: 03/15/14 18:30:00, Duration: 1 doses or times, Stop date: 03/15/14 18:30:0 0 Notes: Same as: Ancef Start Date: 03/15/14 Stop Date: 03/15/14 Status: Completed Colace 100 mg oral capsule 100 mg=1 cap, PO, BID, Constipation, # 20 cap, 0 Refill(s) Start Date: 03/15/14 Status: Ordered Colace 100 mg oral capsule 100 mg, 1 cap, Route: PO, Drug form: CAP, BID, Dosing Weight 106.96, kg, PRN as needed for constipation, Start date: 03/15/14 14:20:00, Stop date: 04/14/14 14:1 9:00 Notes: (Same as: Colace) (Do Not Crush) Start Date: 03/15/14 Stop Date: 03/16/14 Status: Discontinued cyclobenzaprine 10 mg, 1 tab, Route: PO, Drug form: TAB, TID, Dosing Weight 106.96, kg, PRN as n eeded for muscle spasm, Start date: 03/15/14 14:20:00, Stop date: 04/21/14 16:44 :00 Notes: (Same As: Flexeril) Start Date: 03/15/14 Stop Date: 03/16/14 Status: Discontinued cyclobenzaprine 10 mg oral tablet 10 mg, PO, TID, Muscle Spasm, # 30 tab, 0 Refill(s) Start Date: 03/12/14 Stop Date: 03/22/14 Status: Ordered Dextrose 50% Syringe 25 gm, 50 mL, Route: IVP, Drug Form: INJ, Dosing Weight 106.96, kg, PRN, PRN Blo od Glucose Results, Start date: 03/15/14 21:55:00, Duration: 30 day, Stop date: 04/14/14 21:54:00 Start Date: 03/15/14 Stop Date: 03/16/14 Status: Discontinued Dextrose 50% Syringe 12.5 gm, 25 mL, Route: IVP, Drug Form: INJ, Dosing Weight 106.96, kg, PRN, PRN B lood Glucose Results, Start date: 03/15/14 21:55:00, Duration: 30 day, Stop date : 04/14/14 21:54:00 Start Date: 03/15/14 Stop Date: 03/16/14 Status: Discontinued Diovan 160 mg, 1 tab, Route: PO, Drug form: TAB, Daily, Start date: 03/16/14 9:00:00, D uration: 30 day, Stop date: 04/14/14 9:00:00 Notes: Same as Diovan Start Date: 03/16/14 Stop Date: 03/16/14 Status: Discontinued diphenhydrAMINE 12.5 mg, 0.25 mL, Route: IVP, Drug form: INJ, Q6H, Dosing Weight 106.96, kg, PRN Itching, Start date: 03/15/14 9:57:00, Duration: 30 day, Stop date: 04/14/14 9: 56:00 Notes: (Same as: Benadryl) Start Date: 03/15/14 Stop Date: 03/15/14 Status: Discontinued enoxaparin 40 mg, 0.4 mL, Route: SUB-Q, Drug form: INJ, [id number], Dosing Weight 106.96, kg, Start date: 03/16/14 8:00:00, Duration: 30 day, Stop date: 04/14/14 8:00:00 Notes: (Same as: Lovenox) Start Date: 03/16/14 Stop Date: 03/16/14 Status: Discontinued flumazenil 0.2 mg, 2 mL, Route: IVP, Drug form: INJ, PRN, Dosing Weight 106.96, kg, PRN Behzad zodiazepine Reversal, Initial dose, Start date: 03/15/14 9:57:00, Duration: 30 d ay, Stop date: 04/14/14 9:56:00 Notes: (Same as: Romazicon) Start Date: 03/15/14 Stop Date: 03/15/14 Status: Discontinued glucagon 1 mg, Route: IM, Drug form: PDR/INJ, PRN, Dosing Weight 106.96, kg, PRN Blood Gl ucose Results, Start date: 03/15/14 21:55:00, Duration: 30 day, Stop date: 04/14 21:54:00 Start Date: 03/15/14 Stop Date: 03/16/14 Status: Discontinued hydrALAZINE 10 mg, 0.5 mL, Route: IVP, Drug form: INJ, Q20Min, Dosing Weight 106.96, kg, PRN Elevated BP, Start date: 03/15/14 9:57:00, Duration: 2 doses or times, Stop madan e: Limited # of times Notes: (Same as: Apresoline)Push over 5 minutes Start Date: 03/15/14 Stop Date: 03/15/14 Status: Discontinued hydrochlorothiazide 25 mg oral tablet 25 mg, 1 tab, Route: PO, Drug form: TAB, Daily, Start date: 03/16/14 9:00:00, Du ration: 30 day, Stop date: 04/14/14 9:00:00 Notes: (Same as: Hydrodiuril) With food. Start Date: 03/16/14 Stop Date: 03/16/14 Status: Discontinued hydrochlorothiazide-valsartan 25 mg-160 mg oral tablet 1 tab, Route: PO, Drug Form: TAB, Dosing Weight 106.96, kg, Daily, Start date: 05/16/13 9:00:00, Duration: 30 day, Stop date: 04/14/14 9:00:00 Start Date: 03/16/14 Stop Date: 03/15/14 Status: Deleted hydrochlorothiazide-valsartan 25 mg-160 mg oral tablet 1 tab, PO, Daily, # 30 tab, 0 Refill(s) Start Date: 03/12/14 Status: Ordered hydromorphone 0.5 mg, 0.25 mL, Route: IVP, Drug form: INJ, Q5Min, Dosing Weight 106.96, kg, [place] N Pain Score 7-10, Start date: 03/15/14 9:57:00, Duration: 4 doses or times, Sto p date: Limited # of times Notes: (Same as: Dilaudid) Start Date: 03/15/14 Stop Date: 03/15/14 Status: Discontinued Insulin regular 6 unit, 0.06 mL, Route: SUB-Q, Drug form: SOLN, TID-Before Meals, Dosing Weight 106.96, kg, PRN Blood Glucose Results, Start date: 03/15/14 21:55:00, Duration: 30 day, Stop date: 04/14/14 21:54:00 Notes: (Same as: Humulin R) Roll in palms of hands gently; Do not shake vigorou sly. "single patient use only"(Restricted to patients requiring a dose > 60 units) Stable for 28 days at room temperatureExpires in days from _ Date Start Date: 03/15/14 Stop Date: 03/16/14 Status: Discontinued Insulin regular 8 unit, 0.08 mL, Route: SUB-Q, Drug form: SOLN, TID-Before Meals, Dosing Weight 106.96, kg, PRN Blood Glucose Results, Start date: 03/15/14 21:55:00, Duration: 30 day, Stop date: 04/14/14 21:54:00 Notes: (Same as: Humulin R) Roll in palms of hands gently; Do not shake vigorou sly. "single patient use only"(Restricted to patients requiring a dose > 60 units) Stable for 28 days at room temperatureExpires in days from _ Date Start Date: 03/15/14 Stop Date: 03/16/14 Status: Discontinued Insulin regular 10 unit, 0.1 mL, Route: SUB-Q, Drug form: SOLN, TID-Before Meals, Dosing Weight 106.96, kg, PRN Blood Glucose Results, Start date: 03/15/14 21:55:00, Duration: 30 day, Stop date: 04/14/14 21:54:00 Notes: (Same as: Humulin R) Roll in palms of hands gently; Do not shake vigorou sly. "single patient use only"(Restricted to patients requiring a dose > 60 units) Stable for 28 days at room temperatureExpires in days from _ Date Start Date: 03/15/14 Stop Date: 03/16/14 Status: Discontinued Insulin regular 2 unit, 0.02 mL, Route: SUB-Q, Drug form: SOLN, TID-Before Meals, Dosing Weight 106.96, kg, PRN Blood Glucose Results, Start date: 03/15/14 21:55:00, Duration: 30 day, Stop date: 04/14/14 21:54:00 Notes: (Same as: Humulin R) Roll in palms of hands gently; Do not shake vigorou sly. "single patient use only"(Restricted to patients requiring a dose > 60 units) Stable for 28 days at room temperatureExpires in days from _ Date Start Date: 03/15/14 Stop Date: 03/16/14 Status: Discontinued Insulin regular 4 unit, 0.04 mL, Route: SUB-Q, Drug form: SOLN, TID-Before Meals, Dosing Weight 106.96, kg, PRN Blood Glucose Results, Start date: 03/15/14 21:55:00, Duration: 30 day, Stop date: 04/14/14 21:54:00 Notes: (Same as: Humulin R) Roll in palms of hands gently; Do not shake vigorou sly. "single patient use only"(Restricted to patients requiring a dose > 60 units) Stable for 28 days at room temperatureExpires in days from _ Date Start Date: 03/15/14 Stop Date: 03/16/14 Status: Discontinued insulin regular 100 units/mL human recombinant 20 unit, 0.2 mL, Route: SUB-Q, Drug form: INJ, ONCE, Dosing Weight 106.96, kg, S tart date: 03/15/14 14:13:00, Stop date: 03/15/14 14:13:00 Notes: (Same as: Humulin R and NovoLIN R) (Do not shake) Start Date: 03/15/14 Stop Date: 03/15/14 Status: Completed insulin regular 100 units/mL human recombinant 5 unit, Route: IV, ONCE, Dosing Weight 106.96, kg, Start date: 03/15/14 14:37:00 , Stop date: 03/15/14 14:37:00 Start Date: 03/15/14 Stop Date: 03/15/14 Status: Completed ketorolac 30 mg, 1 mL, Route: IVP, Drug form: INJ, ONCE, Dosing Weight 106.96, kg, Start d ate: 03/15/14 9:57:00, Duration: 1 doses or times, Stop date: 03/15/14 9:57:00 Notes: (Same as:Toradol) IV bolus must be given >15 seconds. Give IM administration slowly and deeply into the muscle. Not for use > 4 days Start Date: 03/15/14 Stop Date: 03/15/14 Status: Completed labetalol 10 mg, 2 mL, Route: IVP, Drug form: INJ, Q5Min, Dosing Weight 106.96, kg, PRN El evated BP, Start date: 03/15/14 9:57:00, Duration: 5 doses or times, Stop date: Limited # of times Notes: (Same as: Normodyne, Trandate)Push over 2 minutes Give bolus over 2-3 mi nutes. Start Date: 03/15/14 Stop Date: 03/15/14 Status: Discontinued levothyroxine 125 microgram, 1 tab, Route: PO, Drug form: TAB, [id number], Dosing Weight 106.96, k g, Start date: 03/16/14 6:30:00, Duration: 30 day, Stop date: 04/14/14 6:30:00 Notes: Take 1 hour before or 2 hours after meal; Enteral feeds may interefere wi th the absorption of this medication. (Same as:Levothroid) Start Date: 03/16/14 Stop Date: 03/16/14 Status: Discontinued levothyroxine 125 mcg (0.125 mg) oral tablet 125 microgram=1 tab, PO, Daily, # 30 tab, 0 Refill(s) Start Date: 03/12/14 Status: Ordered lidocaine 1% 0.5 mL, Route: INTRADERM, Drug Form: INJ, Dosing Weight 106.96, kg, ONCALL, Star t date: 03/15/14 10:00:00, Duration: 1 doses or times Notes: Preservative free. (Same as: Xylocaine MPF) Start Date: 03/15/14 Stop Date: 03/15/14 Status: Completed meperidine 12.5 mg, 0.25 mL, Route: IVP, Drug form: INJ, Q30Min, Dosing Weight 106.96, kg, PRN Other -See Comment, For shivering, Start date: 03/15/14 9:57:00, Duration: 2 doses or times, Stop date: Limited # of times Notes: (Same As: Demerol) Start Date: 03/15/14 Stop Date: 03/15/14 Status: Discontinued metFORMIN 500 mg, 1 tab, Route: PO, Drug form: TAB, Daily, Dosing Weight 106.96, kg, Start date: 03/17/14 9:00:00, Duration: 30 day, Stop date: 04/15/14 9:00:00 Notes: (Same as: Glucophage) Take with meal Start Date: 03/17/14 Stop Date: 03/16/14 Status: Canceled metFORMIN 500 mg, PO, Daily, 0 Refill(s) Start Date: 03/15/14 Status: Ordered morphine Sulfate 2 mg, 1 mL, Route: IVP, Drug form: INJ, Q3H, Dosing Weight 106.96, kg, PRN Pain Score 1-3, Start date: 03/15/14 14:16:00, Duration: 30 day, Stop date: 04/14/14 14:15:00 Notes: (Same as:MORPhine Sulfate) Start Date: 03/15/14 Stop Date: 03/16/14 Status: Discontinued morphine Sulfate 4 mg, 0.5 mL, Route: IVP, Drug form: INJ, Q5Min, Dosing Weight 106.96, kg, PRN P ain Score 7-10, Start date: 03/15/14 9:57:00, Duration: 3 doses or times, Stop d ate: Limited # of times Notes: (Same as: MORPhine Sulfate) Start Date: 03/15/14 Stop Date: 03/15/14 Status: Discontinued naloxone 0.04 mg, 0.1 mL, Route: IVP, Drug form: INJ, Q2MIN, Dosing Weight 106.96, kg, [place] N Narcotic Reversal, Start date: 03/15/14 9:57:00, Duration: 8 doses or times, S top date: Limited # of times Notes: Same as Narcan Start Date: 03/15/14 Stop Date: 03/15/14 Status: Discontinued ondansetron 4 mg, 2 mL, Route: IVP, Drug form: INJ, Q6H, Dosing Weight 106.96, kg, PRN Nause a & Vomiting, Start date: 03/15/14 14:16:00, Duration: 30 day, Stop date: 04/14/14 14:15:00 Notes: (Same as: Zofran) Start Date: 03/15/14 Stop Date: 03/16/14 Status: Discontinued ondansetron 4 mg, 2 mL, Route: IVP, Drug form: INJ, ONCE, Dosing Weight 106.96, kg, PRN Naus ea & Vomiting, Start date: 03/15/14 9:57:00 Notes: (Same as: Zofran) Start Date: 03/15/14 Stop Date: 03/15/14 Status: Completed ProAir HFA 90 mcg/inh inhalation aerosol with adapter 1 puff, Route: INHALATION, Drug Form: AERO/A, Dosing Weight 106.96, kg, RDaily, PRN Wheezing, Start date: 03/15/14 14:20:00, Stop date: 04/14/14 14:19:00 Notes: Same as: Ventolin HFA Start Date: 03/15/14 Stop Date: 03/16/14 Status: Discontinued promethazine + Sodium Chloride 0.9% IV 50 mL 6.25 mg, 0.25 mL, Route: IVPB, ONCE, Dosing Weight 106.96, kg, PRN Nausea & Vomiting, Start date: 03/15/14 9:57:00 Notes: Do not give IV push. (Same as: Phenergan) Start Date: 03/15/14 Stop Date: 03/15/14 Status: Discontinued Saline Flush 0.9% 10 ml, Route: IVP, Drug Form: INJ, Dosing Weight 106.96, kg, PRN, PRN Line Flush , Start date: 03/15/14 14:16:00, Duration: 30 day, Stop date: 04/14/14 14:15:00 Notes: (Same as: BD Posiflush) Start Date: 03/15/14 Stop Date: 03/16/14 Status: Discontinued Singulair 10 mg oral tablet 10 mg=1 tab, PO, Bedtime, # 30 tab, 0 Refill(s) Start Date: 03/12/14 Status: Ordered Sodium Chloride 0.9% IV 1,000 mL 1,000 mL, Rate: 75 ml/hr, Infuse over: 13.3 hr, Route: IV, Dosing Weight 106.96 kg, Total Volume: 1,000, Start date: 03/15/14 14:16:00, Duration: 30 day, Stop d ate: 04/14/14 14:15:00 Start Date: 03/15/14 Stop Date: 03/16/14 Status: Discontinued Sodium Chloride 0.9% IV 1,000 mL 1,000 mL, Rate: 125 ml/hr, Infuse over: 8 hr, Route: IV, Dosing Weight 106.96 kg , Total Volume: 1,000, Start date: 03/15/14 9:57:00, Duration: 30 day, Stop date : 04/14/14 9:56:00 Start Date: 03/15/14 Stop Date: 03/15/14 Status: Discontinued Sodium Chloride 0.9% IV 1,000 mL 1,000 mL, Rate: 25 ml/hr, Infuse over: 40 hr, Route: IV, Dosing Weight 106.96 kg , Total Volume: 1,000, Start date: 03/15/14 9:52:00, Duration: 30 day, Stop date : 04/14/14 9:51:00 Start Date: 03/15/14 Stop Date: 03/16/14 Status: Discontinued VICTOZA VICTOZA, 0.2 mL, SUB-Q, Daily, Refill(s) 0 Start Date: 03/12/14 Status: Ordered Zofran 4 mg, Route: PO, ONCE, Dosing Weight 106.96, kg, Start date: 03/15/14 13:51:00, Stop date: 03/15/14 13:51:00 Start Date: 03/15/14 Stop Date: 03/15/14 Status: Completed Zofran 4 mg oral tablet 4 mg=1 tab, PO, BID, as needed for nausea/vomiting, # 10 tab, 0 Refill(s) Start Date: 03/15/14 Status: Ordered Results ELECTROLYTES Most recent to 1 oldest [Reference Range]: Sodium Lvl [135-145 138 mEq/L 138 mEq/L mEq/L] (03/16/14 2:50 AM) (03/12/14 4:23 PM) Potassium Lvl 4.2 mEq/L 4.4 mEq/L [3.5-5.1 mEq/L] (03/16/14 2:50 AM) (03/12/14 4:23 PM) Chloride Lvl [95-109 105 mEq/L mEq/L] (03/16/14 2:50 AM) CO2 [24-32 mEq/L] 24 mEq/L (03/16/14 2:50 AM) AGAP [10.0-20.0 13.2 mEq/L mEq/L] (03/16/14 2:50 AM) CHEM PANEL Most recent to 1 2 oldest [Reference Range]: Creatinine Lvl 1.2 mg/dL 1.1 mg/dL [0.5-1.4 mg/dL] (03/16/14 2:50 AM) (03/12/14 4:23 PM) eGFR 54 mL/min/1.73m2 1 60 mL/min/1.73m2 2 *NA* *NA* (03/16/14 2:50 AM) (03/12/14 4:23 PM) BUN [7-22 mg/dL] 17 mg/dL 20 mg/dL (03/16/14 2:50 AM) (03/12/14 4:23 PM) Glucose Lvl [70-99 315 mg/dL 3 212 mg/dL 4 mg/dL] *HI* *HI* (03/16/14 2:50 AM) (03/12/14 4:23 PM) Calcium Lvl 7.4 mg/dL [8.5-10.5 mg/dL] *LOW* (03/16/14 2:50 AM) 1Result Comment: The eGFR is calculated [...] tiplied by the estimated BMI. 2Result Comment: The eGFR is calculated using [...] be mul tiplied by the estimated BMI. 3Interpretive Data: Adult reference range values reflect the clinical guidelines of the [employer]. 4Interpretive Data: Adult reference range values reflect the clinical guidelines of the [employer]. SPECIAL CHEMISTRY Most recent to 1 2 oldest [Reference Range]: Hgb A1C [<=5.6 %] 8.4 % 8.1 % *HI* *HI* (03/16/14 2:50 AM) (03/12/14 4:23 PM) HEMATOLOGY Most recent to 1 2 oldest [Reference Range]: WBC [3.7-10.4 K/CMM] 19.9 K/CMM *HI* (03/16/14 2:50 AM) RBC [4.20-5.40 4.09 M/CMM M/CMM] *LOW* (03/16/14 2:50 AM) Hgb [12.0-16.0 g/dL] 12.3 g/dL 13.4 g/dL (03/16/14 2:50 AM) (03/12/14 4:23 PM) Hct [36.0-48.0 %] 36.2 % 40.0 % (03/16/14 2:50 AM) (03/12/14 4:23 PM) MCV [80.0-98.0 fL] 88.4 fL (03/16/14 2:50 AM) MCH [27.0-31.0 pg] 30.0 pg (03/16/14 2:50 AM) MCHC [32.0-36.0 33.9 g/dL g/dL] (03/16/14 2:50 AM) RDW [11.5-14.5 %] 13.4 % (03/16/14 2:50 AM) Platelet [133-450 292 K/CMM K/CMM] (03/16/14 2:50 AM) MPV [7.4-10.4 fL] 8.5 fL (03/16/14 2:50 AM) Segs [45.0-75.0 %] 92.1 % *HI* (03/16/14 2:50 AM) Lymphocytes 5.4 % [20.0-40.0 %] *LOW* (03/16/14 2:50 AM) Monocytes [2.0-12.0 1.9 % %] *LOW* (03/16/14 2:50 AM) Eosinophils [0.0-4.0 0.2 % %] (03/16/14 2:50 AM) Basophils [0.0-1.0 0.4 % %] (03/16/14 2:50 AM) Segs-Bands # 18.3 K/CMM [1.5-8.1 K/CMM] *HI* (03/16/14 2:50 AM) Lymphocytes # 1.1 K/CMM [1.0-5.5 K/CMM] (03/16/14 2:50 AM) Monocytes # [0.0-0.8 0.4 K/CMM K/CMM] (03/16/14 2:50 AM) Eosinophils # 0.0 K/CMM [0.0-0.5 K/CMM] (03/16/14 2:50 AM) Basophils # [0.0-0.2 0.1 K/CMM K/CMM] (03/16/14 2:50 AM) RBC Morph Normal (03/16/14 2:50 AM) Plt Morph Normal (03/16/14 2:50 AM) Medications Administered During Your Visit No data available for this section Immunizations No data available for this section Procedures Procedure Type Body Site Date of Procedure Related Diagnosis Cholecystectomy Hand Knee Social History Social History Type Response Smoking Status Never smoker, Lives with someone who smokes, Cigarette Smoking Last 365 Days No, Reg Smoking Cessation Counseling No
--- OUTSIDE RECORDS SUMMARY | 2018-05-05 14:06 | XMS REPORT | Summary of Care ---
Author Organization Unknown Address Unknown Phone Unavailable Encounter IRENA Dove(TIKI) [id number] Date(s): 03/18/14 - 03/18/14 [facility] [address] [place] [address]- [facility] Discharge Diagnosis: Closed fracture of medial epicondyle of humerus Discharge Disposition: Home Physician Attending: Nicolle Temple MD Reason for Visit LEFT ARM PAIN Vital Signs Most recent to 1 2 oldest [Reference Range]: Height 152.4 cm (03/18/14 6:16 PM) Temperature Oral 98.3 DegF 97.9 DegF [96.4-99.1 DegF] (03/18/14 7:57 PM) (03/18/14 6:16 PM) Systolic Blood 148 mmHg 145 mmHg Pressure [90-140 *HI* *HI* mmHg] (03/18/14 7:57 PM) (03/18/14 6:16 PM) Diastolic Blood 62 mmHg 97 mmHg Pressure [60-90 (03/18/14 7:57 PM) *HI* mmHg] (03/18/14 6:16 PM) Respiratory Rate 16 BRMIN 18 BRMIN [14-20 BRMIN] (03/18/14 7:57 PM) (03/18/14 6:16 PM) Peripheral Pulse 60 bpm 98 bpm Rate [60-100 bpm] (03/18/14 7:57 PM) (03/18/14 6:16 PM) Weight 106.818 kg (03/18/14 6:16 PM) Body Mass Index 45.99 m2 (03/18/14 6:16 PM) Problem List Condition Effective Dates Status Health Status Informant Asthma(Confirmed) Active Diabetes Active mellitus(Confirmed) Hernia(Confirmed) Active Hypertension(Confirm Active ed) Muscle Resolved spasm(Confirmed)1 Thyroid(Confirmed) Resolved 1left leg Allergies, Adverse Reactions, Alerts Substance Reaction Severity Status Allergy Unverified1 Active NKDA Active Plastic Tape2 Active 1PEACHES 2PLASTIC ARM BAND Medications ketorolac 30 mg/mL injectable solution 60 mg, Route: IM, ONCE, Dosing Weight 106.818, kg, Priority: STAT, Start date: 05/18/13 18:33:00, Stop date: 03/18/14 18:33:00 Start Date: 03/18/14 Stop Date: 03/18/14 Status: Completed [place] Mar 5/325 oral tablet 1 tab, Route: PO, Dosing Weight 106.818, kg, ONCE, Start date: 03/18/14 18:33:00 , Stop date: 03/18/14 18:33:00 Start Date: 03/18/14 Stop Date: 03/18/14 Status: Completed tramadol 50 mg oral tablet 50 mg, PO, Q4-6H, Pain, # 20 tab, 0 Refill(s) Start Date: 03/18/14 Stop Date: 03/22/14 Status: Ordered Zofran ODT 4 mg, Route: PO, Drug form: TABDIS, ONCE, Dosing Weight 106.818, kg, Start date: 03/18/14 18:33:00, Stop date: 03/18/14 18:33:00 Start Date: 03/18/14 Stop Date: 03/18/14 Status: Completed Medications Administered During Your Visit No data available for this section Immunizations No data available for this section Social History Social History Type Response Smoking Status Never smoker, Lives with someone who smokes, Cigarette Smoking Last 365 Days No, Reg Smoking Cessation Counseling No
--- OUTSIDE RECORDS SUMMARY | 2018-05-05 14:06 | XMS REPORT | Summary of Care ---
Author Organization Unknown Address Unknown Phone Unavailable Encounter IRENA Dove(TIKI) [id number] Date(s): 08/20/14 - 08/20/14 [facility] [address] [place] [address]- Discharge Diagnosis: Dyspnea Discharge Diagnosis: Acute anxiety Discharge Diagnosis: Nonspecific chest pain Discharge Disposition: Home Physician Attending: Woody Dumont DO Vital Signs Most recent to 1 2 oldest [Reference Range]: Height 162.56 cm (08/20/14 10:35 AM) Temperature Oral 98.7 DegF [96.4-99.1 DegF] (08/20/14 10:35 AM) Blood Pressure 120/80 mmHg 151/101 mmHg [90-140/60-90 mmHg] (08/20/14 12:27 PM) *HI* (08/20/14 10:35 AM) Respiratory Rate 18 BRMIN 20 BRMIN [14-20 BRMIN] (08/20/14 12:27 PM) (08/20/14 10:35 AM) Peripheral Pulse 92 bpm 92 bpm Rate [60-100 bpm] (08/20/14 12:27 PM) (08/20/14 10:35 AM) Weight 93.182 kg (08/20/14 10:35 AM) Body Mass Index 35.26 m2 (08/20/14 10:35 AM) Problem List Condition Effective Dates Status Health Status Informant Asthma(Confirmed) Active Diabetes Active mellitus(Confirmed) Hernia(Confirmed) Active Hypertension(Confirm Active ed) Muscle Resolved spasm(Confirmed)1 Thyroid(Confirmed) Resolved 1left leg Allergies, Adverse Reactions, Alerts Substance Reaction Severity Status Allergy Unverified1 Active NKDA Active Plastic Tape2 Active 1PEACHES 2PLASTIC ARM BAND Medications albuterol CFC free 90 mcg/inh inhalation aerosol with adapter 2 puff, INHALATION, QID, # 17 gm, 0 Refill(s) Start Date: 08/20/14 Status: Ordered aspirin 324 mg, 4 tab, Route: CHEW, Drug form: CHEWTAB, ONCE, Dosing Weight 93.182, kg, Priority: STAT, Start date: 08/20/14 10:59:00, Stop date: 08/20/14 10:59:00 Notes: Take with food. Start Date: 08/20/14 Stop Date: 08/20/14 Status: Completed Ativan 1 mg, 0.5 mL, Route: IVP, Drug form: INJ, ONCE, Dosing Weight 93.182, kg, Priori ty: STAT, Start date: 08/20/14 10:59:00, Stop date: 08/20/14 10:59:00 Notes: (Same as: Ativan) Start Date: 08/20/14 Stop Date: 08/20/14 Status: Completed DuoNeb inhalation solution 3 ml, Route: INHALATION, Drug Form: SOLN, Dosing Weight 93.182, kg, PRN, PRN Res piratory Protocol, Start date: 08/20/14 10:59:00, Duration: 30 day, Stop date: 0 09/19/14 10:58:00 Notes: (Same as: Duoneb) Start Date: 08/20/14 Stop Date: 08/20/14 Status: Discontinued Saline Flush 0.9% 10 mL, Route: IVP, Drug Form: INJ, Dosing Weight 93.182, kg, PRN, PRN Line Flush , Start date: 08/20/14 10:59:00, Duration: 30 day, Stop date: 09/19/14 10:58:00 Notes: (Same as: BD Posiflush) Start Date: 08/20/14 Stop Date: 08/20/14 Status: Discontinued Results ELECTROLYTES Most recent to 1 oldest [Reference Range]: Sodium Lvl [135-145 137 mEq/L mEq/L] (08/20/14 11:45 AM) Potassium Lvl 3.9 mEq/L [3.5-5.1 mEq/L] (08/20/14 11:45 AM) Chloride Lvl [95-109 103 mEq/L mEq/L] (08/20/14 11:45 AM) CO2 [24-32 mEq/L] 25 mEq/L (08/20/14 11:45 AM) AGAP [10.0-20.0 12.9 mEq/L mEq/L] (08/20/1445 AM) CHEM PANEL Most recent to 1 oldest [Reference Range]: Creatinine Lvl 1.2 mg/dL [0.5-1.4 mg/dL] (08/20/1445 AM) eGFR 54 mL/min/1.73m2 1 *NA* (08/20/1445 AM) BUN [7-22 mg/dL] 15 mg/dL (08/20/1445 AM) B/C Ratio [6-25] 12 (08/20/1445 AM) Glucose Lvl [70-99 290 mg/dL 2 mg/dL] *HI* (08/20/1445 AM) Total Protein 7.5 g/dL [6.4-8.4 g/dL] (08/20/1445 AM) Albumin Lvl [3.5-5.0 3.5 g/dL g/dL] (08/20/1445 AM) Globulin [2.0-4.0 4.0 g/dL g/dL] (08/20/1445 AM) A/G Ratio [0.7-1.6] 0.9 (08/20/1445 AM) Calcium Lvl 8.5 mg/dL [8.5-10.5 mg/dL] (08/20/1445 AM) ALT [0-65 unit/L] 31 unit/L (08/20/1445 AM) AST [0-37 unit/L] 22 unit/L (08/20/14:45 AM) Alk Phos [39-136 126 unit/L unit/L] (08/20/1445 AM) Bili Total [0.2-1.3 0.5 mg/dL mg/dL] (08/20/14:45 AM) 1Result Comment: The eGFR is calculated [...] values reflect the clinical guidelines of the [place] [employer]. CARDIAC ENZYMES Most recent to 1 oldest [Reference Range]: Total CK [12-191 44 unit/L unit/L] (08/20/14 11:45 AM) CK MB [0.5-3.6 0.5 ng/mL ng/mL] (08/20/14:45 AM) CK MB Index 1.1 [0.0-2.5] (08/20/14:45 AM) Troponin-I <0.02 ng/mL [0.00-0.40 ng/mL] (08/20/14:45 AM) BNP [<=100 pg/mL] 6 pg/mL 3 (08/20/14 11:45 AM) 3Interpretive Data: Elevated results are in line with increasing severity of congestive heart failure. Minor elevations between 100 and 300 may be seen with Myocardial Ischemia, Sodium retaining drugs, and compensated/treated heart failure. HEMATOLOGY Most recent to 1 oldest [Reference Range]: WBC [3.7-10.4 K/CMM] 10.6 K/CMM *HI* (08/20/14:45 AM) RBC [4.20-5.40 4.47 M/CMM M/CMM] (08/20/14:45 AM) Hgb [12.0-16.0 g/dL] 13.3 g/dL (08/20/14:45 AM) Hct [36.0-48.0 %] 39.4 % (08/20/14:45 AM) MCV [80.0-98.0 fL] 88.2 fL (08/20/14:45 AM) MCH [27.0-31.0 pg] 29.9 pg (08/20/14 11:45 AM) MCHC [32.0-36.0 33.9 g/dL g/dL] (08/20/14 11:45 AM) RDW [11.5-14.5 %] 13.3 % (08/20/14 11:45 AM) Platelet [133-450 305 K/CMM K/CMM] (08/20/14 11:45 AM) MPV [7.4-10.4 fL] 7.7 fL (08/20/14:45 AM) Segs [45.0-75.0 %] 75.1 % *HI* (08/20/14:45 AM) Lymphocytes 16.8 % [20.0-40.0 %] *LOW* (08/20/14:45 AM) Monocytes [2.0-12.0 4.2 % %] (08/20/14 11:45 AM) Eosinophils [0.0-4.0 3.4 % %] (08/20/14 11:45 AM) Basophils [0.0-1.0 0.5 % %] (08/20/14 11:45 AM) Segs-Bands # 7.9 K/CMM [1.5-8.1 K/CMM] (08/20/14 11:45 AM) Lymphocytes # 1.8 K/CMM [1.0-5.5 K/CMM] (08/20/14 11:45 AM) Monocytes # [0.0-0.8 0.4 K/CMM K/CMM] (08/20/14 11:45 AM) Eosinophils # 0.4 K/CMM [0.0-0.5 K/CMM] (08/20/14 11:45 AM) Basophils # [0.0-0.2 0.1 K/CMM K/CMM] (08/20/14 11:45 AM) Immunizations No data available for this [...]
--- OUTSIDE RECORDS SUMMARY | 2018-05-05 14:07 | XMS REPORT | Clinical Summary ---
Author Author [facility] Organization [facility] Address Unknown Phone Unavailable Care Team Providers Care Water Team Leader Name Role Phone Elana Peralta MD PCP [...] Chronic midline low back pain without sciatica lancetsIndications: 2 times weekly. 100 Each 1 10/09/19 03/02/20 Discontin Diabetes mellitus type 2 17 17 ued in obese lisinopril (ZESTRIL) 40 Take 1 tablet by mouth 90 tablet 0 10/08/19 03/02/20 Discontin mg tabletIndications: daily. 17 17 ued Diabetes mellitus type 2 in obese cyclobenzaprine Take 1 tablet by mouth 3 [...] times weekly. 17 17 ued in obese pen needle, diabetic Use as [...] inhalerIndications: Wheezing. Moderate persistent asthma without complication INSULIN SYRINGE 0.5mL Use to inject medication [...] right knee joint (Primary Dx) 08/03/2017 Nutrition Nico Aparicio LD 08/03/2017 Office Visit Clinical Pharmacy Diony [...] pain of right knee 06/24/2017 Orders Only Family Practice Dorian Agustin MD Chronic pain of right knee 06/24/2017 Nutrition Nico Aparicio LD 05/04/2017 Pharmacy Visit 04/28/2017 Patient Patient Education Dorian Agutsin MD Diabetes education, Kimber Casey RN encounter for (Primary Dx) 04/28/2017 Pharmacy Visit 04/26/2017 Telephone Patient Education Kimber Hoffman RN Disease Management F/U 04/22/2017 Office Visit Clinical Pharmacy Diony Coppola, 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, with long-term current use of insulin (Primary Dx); Essential hypertension 04/22/2017 Orders Only [facility] Dorian Quintero MD Routine adult health maintenance 04/22/2017 Pharmacy Visit 04/20/2017 Pharmacy Visit 04/19/2017 Office Visit [facility] Practice Dorian Agustin MD Uncontrolled type 2 diabetes mellitus with complication, with long-term current use of insulin (Primary Dx); Morbid obesity; Essential hypertension; Chronic midline low back pain without sciatica; Moderate persistent asthma without complication; Routine adult health maintenance 04/19/2017 Orders Only [facility] Dorian Quintero MD Morbid obesity 04/19/2017 Pharmacy Visit 04/08/2017 Telephone Patient Education Kimber Hoffman RN Appointment Related Questions 03/25/2017 Office Visit Clinical Pharmacy Diony Coppola, 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, with long-term current use of insulin (Primary Dx) 03/05/2017 Patient Patient Education Dorian Agustin MD Diabetes education, Education Kimber Hoffman RN encounter for (Primary Dx) 03/03/2017 Telephone Kya Reyes, Information Only METAL ANNEALER 03/02/2017 Office Visit Family Dorian Quintero MD Forgetfulness (Primary Dx); Essential hypertension; Acquired hypothyroidism; Chronic midline low back pain without sciatica; Uncontrolled type 2 diabetes mellitus with complication, with long-term current use of insulin; TMJ syndrome; Morbid obesity; History of hypothyroidism 03/02/2017 Patient Patient Education Kimber Hoffman RN Education 02/25/2017 Office Visit Clinical Pharmacy Diony Coppola, NO SHOW ENCOUNTER RPH (Primary Dx) 02/02/2017 Office Visit Family Dorian Quintero MD Routine adult health maintenance (Primary Dx); [...] Dorian Agustin MD Diabetes education, Education Kimber Hoffman RN encounter for (Primary Dx) after 10/17/2016 Immunizations Name Dates Previously Given Next Due [...] Treatment Date Type Specialty Care Team Description 11/15/2017 Office Visit Clinical Pharmacy [place] Dionykarl Tijerina f/u [facility] Health Maintenance Due Date Last Done Comments [...] Reduce fat intake Not on track (10/12/2016) Dorian Arce MD Lifestyle Eat Healthy On track (04/28/2017) No Eric, Patient will eat more Kya fruit and vegetables. CARLY Larkin Treatment Maintain blood pressure On track (10/12/2016) No Vamsi, under 140/90 MD Dorian Procedures Procedure Name Priority Date/Time Associated Diagnosis Comments HEMOCCULT KIT FOR Routine 04/19/2017 Routine adult health SPECIMEN COLLECTION AT 1:50 PM DIRECTOR OF WEB MARKETING maintenance HOME HEMOCCULT KIT FOR Routine 02/02/2017 Routine adult health SPECIMEN COLLECTION AT 10:41 AM CDT maintenance HOME after 10/17/2016 Results * OPHTHALMOLOGY RETINAL SCAN (07/23/2017 12:31 PM) Component Value Ref Range RETINAL SCAN-FINAL RESULT NORMAL Right Diabetic None Retinopathy Right Macular Edema None Right Other Suspected None Conditions Right Image Quality Gradeable Image Left Diabetic Retinopathy None Left Macular Edema None Left Other Suspected None Conditions Left Image Quality Gradeable Image Specimen Performing Laboratory IRIS Narrative Retinal Study Result for ELIZABETH CARLIE CARLIE ELIZABETH a 51 y/o, F (: 1965, ) presented to [facility] on 07-22-2017 for a retinal imaging study [...] electronically signed by Markel Downey MD. Taxonomy: [id number] on 07-23-2017 05:31:38 [facility] time. NOTE:Any pathology noted on this diabetic retinal evaluation should be confirmed by an appropriate ophthalmic examination. * HEMOGLOBIN A1C (06/24/2017 2:06 PM) Only the most recent of 2 results within the time period is included. Component Value Ref Range Hemoglobin A1c 9.1 (H) 4.3 - 6.1 % Est Average Gluc 214.5 mg/dL Specimen Performing Laboratory Blood MISYS * OCCULT BLOOD ICT (04/22/2017 6:00 AM) Component Value Ref Range Occult Blood ICT Negative NEG Specimen Performing Laboratory Stool MISYS * TSH (03/02/2017 11:06 AM) Component Value Ref Range TSH 4.17 (H) 0.36 - 3.74 uIU/mL Specimen Performing Laboratory Blood MISYS * DIABETIC FOOT EXAM (12/08/2016 10:58 PM) Dorian Antonio MD 12/08/2016 10:58 PM CHIEF COMPLAINT Establish Care HISTORY OF PRESENT ILLNESS Carlie Elizabeth , a 50y.o. / Female , presents to establish care.She has HTN and DM.She is [...] ASSESSMENT & PLAN 1. Encounter to establish [facility] LIVER PROFILE HIV-1/HIV-2 ROUTINE SCREENING FREE T4 [...] Orders and follow up as documented in [facility]. Patient was provided education on their diagnosis, treatments and any medications prescribed including medication use, any possible adverse side effect or potential drug to drug interactions. Patient's level of understanding is assessed with patient acknowledgment of understanding . Dorian Agustin [id number] after 10/17/2016
--- OUTSIDE RECORDS SUMMARY | 2018-05-05 14:07 | XMS REPORT | Clinical Summary ---
Author Author [facility] Organization [facility] Address Unknown Phone Unavailable Care Team Providers Care Event Operations Manager Name Role Phone Elana Peralta MD PCP Allergies No Known Allergies Current Medications Prescription Sig. Disp. Refills Start End Date Status Date pen needle, diabetic Inject under the skin 1 Box 5 06/24/19 Active (NOVOFINE) 30 gauge x daily Use as directed. 18 1" needlesIndications: Uncontrolled type 2 diabetes mellitus with [...] long-term current use of insulin insulin detemir U-100 Inject 55 Units under [...] Chronic midline low back pain without sciatica terbinafine HCl (LAMISIL) Take 1 tablet by mouth 84 tablet 0 10/19/19 Active 250 mg tabletIndications: daily. 18 Onychomycosis blood glucose test 2 times daily to test 100 Each 5 10/19/19 Active stripsIndications: blood sugar. 18 Uncontrolled type 2 diabetes mellitus with complication, with long-term current use of insulin lancetsIndications: 2 times weekly. 100 Each 1 [...] daily to test 100 Each 5 06/24/19 10/19/19 Discontin stripsIndications: blood sugar. 18 18 ued Uncontrolled type 2 diabetes mellitus with complication, with long-term current use of insulin amLODIPine (NORVASC) 5 mg Take 1 tablet by mouth 90 tablet 3 06/24/19 07/23/19 Discontin tabletIndications: daily. 18 18 ued Essential hypertension albuterol (VENTOLIN Inhale 2 Puffs by mouth 4 6.7 g 3 06/24/19 10/19/19 Discontin HFA,PROVENTIL HFA,PROAIR times daily as needed for 18 18 ued HFA) 90 mcg/actuation up to 180 days for inhalerIndications: Wheezing. Moderate persistent asthma without complication levothyroxine (SYNTHROID) Take 1 tablet by mouth 90 tablet 1 06/24/19 10/19/19 Discontin 125 mcg daily. 18 18 ued tabletIndications: Hypothyroidism, unspecified type tropicamide (MYDRIACYL) Instill 1 Drop in each [...] Medication triamcinolone acetonide 80 mg IX ONCE 04/12/20 04/12/20 Ended (KENALOG-40) injection 80 18 18 mg [...] Encounters Date Type Specialty Care Team Description 10/20/2017 Telephone Family Practice Kathy Hylton LVN Other (returning staff message) 10/18/2017 Office Visit Family Practice Dorian Agustin MD Need for Tdap vaccination (Primary Dx); Routine adult health maintenance; Onychomycosis; Uncontrolled type 2 diabetes mellitus with complication, with long-term current use of insulin; Chronic pain of both knees 10/18/2017 Orders Only Family Practice Dorian Agustin MD Chronic pain of both knees 08/31/2017 Office Visit Clinical Pharmacy Diony Coppola, [...] pain of right knee 06/24/2017 Orders Only [facility] Dorian Agustin MD Chronic pain of [...] (Primary Dx); Essential hypertension 04/22/2017 Orders Only [facility] Dorian Agustin MD Routine adult health maintenance 04/22/2017 Pharmacy Visit 04/20/2017 Pharmacy Visit 04/19/2017 Office Visit [facility] Dorian Quintero MD Uncontrolled type 2 diabetes mellitus with complication, with long-term current use of insulin (Primary Dx); Morbid obesity; Essential hypertension; Chronic midline low back pain without sciatica; Moderate persistent asthma without complication; Routine adult health maintenance 04/19/2017 Orders Only [facility] Dorian Agustin MD Morbid obesity 04/19/2017 Pharmacy Visit 04/08/2017 Telephone Patient Education Kimber Hoffman RN Appointment Related Questions 03/25/2017 Office Visit Clinical Pharmacy Diony Coppola, 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, with long-term current use of insulin (Primary Dx) 03/05/2017 Patient Patient Education Dorian Agustin MD Diabetes education, Education Kimber Hoffman, ELIZABETH encounter for (Primary Dx) 03/03/2017 Telephone Kya Reyes, Information Only BPM ANALYST 03/02/2017 Office Visit Family Practice Dorian Agustin [...] Education Kimber Hoffman RN Appointment Related Questions after 10/21/2016 Immunizations Name Dates Previously Given Next Due Influenza Vaccine, 06/24/2017 (Deferred: Patient Refused) Seasonal, Injectable PPV 23 (Pneumococcal 07/22/2017 Polysaccharide 23 Valent) TDap (Tetanus Toxoid, 10/19/2017 (Deferred: Unavailable-Patient to Reduced Diphtheria Toxoid return for vaccine later), 07/22/2017 (Deferred: And Acellular Pertussis, Vaccine Unavailable) Absorbed) Family History Medical History Relation Name [...] Vital Sign Reading Time Taken Blood Pressure 108/73 10/18/2017 12:40 PM CDT Pulse 98 10/18/2017 12:40 PM CDT Temperature 36.4 C (97.5 F) 10/18/2017 12:40 PM CDT Respiratory Rate 22 10/18/2017 12:40 PM CDT Oxygen Saturation - - Inhaled Oxygen - - Concentration Weight 107.5 kg (237 lb) 10/18/2017 12:40 PM CDT Height 157.5 cm (5' 2") 10/18/2017 12:40 PM CDT Body Mass Index 43.35 10/18/2017 12:40 PM CDT Plan of Treatment Date Type Specialty Care Team Description 11/15/2017 Office Visit Clinical Pharmacy Diony Coppola dm f/u [facility] Health Maintenance Due Date Last Done Comments [...] adult health SPECIMEN COLLECTION AT 1:50 PM CASTING AGENT maintenance HOME HEMOCCULT KIT FOR Routine 02/02/2017 Routine adult health SPECIMEN COLLECTION AT 10:41 AM CDT maintenance HOME after 10/21/2016 Results * OPHTHALMOLOGY RETINAL SCAN (07/23/2017 12:31 [...] y/o, F (: 1965, ) presented to [facility] on 07-22-2017 for a retinal imaging study [...] electronically signed by Markel Downey MD. Taxonomy: [id number] on 07-23-2017 05:31:38 [facility] [...] ASSESSMENT & PLAN 1. Encounter to establish [facility] LIVER PROFILE HIV-1/HIV-2 ROUTINE SCREENING FREE T4 [...] of understanding . Dorian Agustin [id number] after 10/21/2016
--- OUTSIDE RECORDS SUMMARY | 2018-05-05 14:08 | XMS REPORT | Clinical Summary ---
Author Author [facility] Organization [facility] Address Unknown Phone Unavailable Care Team Providers Care Blow Pit Operator Name Role Phone Elana Peralta MD PCP [...] with long-term current use of insulin albuterol 90 Inhale 2 Puffs by mouth 4 6.7 g 3 11/16/19 Active mcg/actuation times daily as needed for 18 inhalerIndications: Wheezing. Moderate persistent asthma without complication lancetsIndications: 2 times weekly. 100 Each 1 [...] 30) 30 gauge x 17 17 ued 1/" needlesIndications: Uncontrolled type 2 diabetes mellitus [...] daily Use as directed. 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, with long-term current use of insulin (Primary Dx) 11/15/2017 Telephone Family Practice Marsha Luna, Other ([facility] - Direct RN Pharmacy ) 11/15/2017 Refill Family Practice Dorian Agustin MD Moderate persistent asthma without complication 10/20/2017 Telephone Family Practice Kathy Hylton LVN [...] of right knee joint (Primary Dx) 08/03/2017 Nico Ocampo LD 08/03/2017 Office Visit Clinical Pharmacy Diony oCppola, Uncontrolled type 2 RPH diabetes mellitus with [...] MD Chronic pain of right knee 06/24/2017 Nico Ocampo LD 05/04/2017 Pharmacy Visit 04/28/2017 Patient Patient Education Dorian Agustin MD Diabetes education, Education Kimber Hoffman, RN encounter for (Primary Dx) 04/28/2017 Pharmacy Visit 04/26/2017 Telephone Patient Education Kimber Hoffman, senior technical writer F/U 04/22/2017 Office Visit Clinical Pharmacy Diony Coppola, 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, with long-term current use of insulin (Primary Dx); Essential hypertension 04/22/2017 Orders Only Family Dorian Quintero MD Routine adult health maintenance 04/22/2017 Pharmacy Visit 04/20/2017 Pharmacy Visit 04/19/2017 Office Visit Family Practice Dorian Agustin MD Uncontrolled type 2 diabetes mellitus with complication, with long-term current use of insulin (Primary Dx); Morbid obesity; Essential hypertension; Chronic midline low back pain without sciatica; Moderate persistent asthma without complication; Routine adult health maintenance 04/19/2017 Orders Only Family Practice Dorian Agustin MD Morbid obesity 04/19/2017 [...] Dx) 03/03/2017 Telephone Kya Reyes, Information Only CRIMINAL JUSTICE PROFESSOR 03/02/2017 Office Visit Family Practice Dorian Agustin MD Forgetfulness (Primary Dx); Essential hypertension; Acquired hypothyroidism; Chronic midline low back pain without sciatica; Uncontrolled type 2 diabetes mellitus with complication, with long-term current use of insulin; TMJ syndrome; Morbid obesity; History of hypothyroidism 03/02/2017 Patient Patient Education Kimber Hfofman RN Education 02/25/2017 Office Visit Clinical Pharmacy [...] Coppola, NO SHOW ENCOUNTER RPH (Primary Dx) after 11/25/2016 Immunizations Name Dates Previously Given Next Due [...] Vital Sign Reading Time Taken Blood Pressure 157/91 11/15/2017 10:08 AM CDT Pulse 98 11/15/2017 10:08 AM CDT Temperature 36.3 C (97.4 F) 11/15/2017 10:08 AM CDT Respiratory Rate 22 11/15/2017 10:08 AM CDT Oxygen Saturation - - Inhaled Oxygen - - Concentration Weight 103.4 kg (228 lb) 11/15/2017 10:08 AM CDT Height 157.5 cm (5' 2") 11/15/2017 10:08 AM CDT Body Mass Index 41.7 11/15/2017 10:08 AM CDT Plan of Treatment Date Type Specialty Care Team Description 12/13/2017 Office Visit Clinical Pharmacy Diony Coppola dm f/u [facility] 12/16/2017 Office Visit Family Practice Catherine Cespedes MD knee steoid injection [address] [place] [address] [phone] Health Maintenance Due Date Last Done Comments Breast Cancer Scrn 2006 (Yearly) DM Foot Exam (Yearly) 10/07/2017 10/07/2016, 10/07/2016 IMM Influenza Seasonal 02/07/2018Feb to July (>/=19 yrs) Colorectal Cancer Scrn 04/22/2018 04/22/2017 Annual (FIT/FOBT) Age 50 to 75 DM Retinal Exam (Yearly) 07/23/2018 07/23/2017, 10/07/2016 DM HGBA1C (Yearly) 11/15/2018 11/15/2017, 06/24/2017, 02/02/2017, Additional history exists Cervical Cancer Scrn (3 10/13/2019 10/12/2016 Yrs) Goals Patient Goal Type Goal Recent Progress Patient-Stat Author ed? Diet Reduce fat intake Not on track (10/12/2016) Dorian Arce MD Lifestyle Eat Healthy On track (04/28/2017) No Eric, Patient will eat more Kya fruit and vegetables. CARLY Larkin Treatment Maintain blood pressure On track (10/12/2016) Jessica Agustin, under 140/90 MD Dorian Procedures Procedure Name Priority Date/Time Associated Diagnosis Comments HEMOCCULT KIT FOR Routine 04/19/2017 Routine adult health SPECIMEN COLLECTION AT 1:50 PM INSTRUCTOR ROBOTICS maintenance HOME HEMOCCULT KIT FOR Routine 02/02/2017 Routine adult health SPECIMEN COLLECTION AT 10:41 AM CDT maintenance HOME after 11/25/2016 Results * HEMOGLOBIN A1C (11/15/2017 10:37 AM) Only the most recent of 3 results within the time period is included. Component Value Ref Range Hemoglobin A1c 8.9 (H) 4.3 - 6.1 % Est Average Gluc 208.7 mg/dL Specimen Performing Laboratory Blood MISYS * OPHTHALMOLOGY RETINAL SCAN (07/23/2017 12:31 PM) Component Value Ref Range RETINAL SCAN-FINAL RESULT NORMAL Right Diabetic None Retinopathy Right Macular Edema None Right Other Suspected None Conditions Right Image Quality Gradeable Image Left Diabetic Retinopathy None Left Macular Edema None Left Other Suspected None Conditions Left Image Quality Gradeable Image Specimen Performing Laboratory IRIS Narrative Retinal Study Result for CARLIE ELIZABETH MARY, chay 51 y/o, F (: 1965, ) presented to [facility] on 07-22-2017 for a retinal [...] electronically signed by Markel Downey MD. Taxonomy: [id number] on 07-23-2017 05:31:38 [facility] time. NOTE:Any pathology noted on this diabetic retinal evaluation should be confirmed by an appropriate ophthalmic examination. * OCCULT BLOOD ICT (04/22/2017 6:00 AM) [...] ASSESSMENT & PLAN 1. Encounter to establish [facility] LIVER PROFILE HIV-1/HIV-2 ROUTINE SCREENING FREE [...] Orders and follow up as documented in [facility]. Patient was provided education on their diagnosis, treatments and any medications prescribed including medication use, any possible adverse side effect or potential drug to drug interactions. Patient's level of understanding is assessed with patient acknowledgment of understanding . Dorian Agustin [id number] after 11/25/2016
--- OUTSIDE RECORDS SUMMARY | 2018-05-05 14:08 | XMS REPORT | Clinical Summary ---
Author Author [facility] Organization [facility] Address Unknown Phone Unavailable Care Team Providers Care Technical Support Consultant Name Role Phone Elana Peralta MD PCP [...] Visit 04/26/2017 Telephone Patient Education Kimber Hoffman, blasting coal miner F/U 04/22/2017 Office Visit Clinical Pharmacy Diony [...] Dx) 03/03/2017 Telephone Kya Reyes, Information Only MEN'S LOCKER ROOM ATTENDANT 03/02/2017 Office Visit Family Practice Dorian Agustin [...] NO SHOW ENCOUNTER RPH (Primary Dx) after 11/21/2016 Immunizations Name Dates Previously Given Next Due [...] Visit Clinical Pharmacy Diony Coppola dm f/u [facility] 12/16/2017 Office Visit Family Practice Catherine Cespedes MD knee steoid injection [address] [place] [address] [phone] Health Maintenance Due Date Last Done Comments Breast Cancer Scrn 2006 (Yearly) DM Foot Exam (Yearly) 10/07/2017 10/07/2016, 10/07/2016 DM Microalbumin Urine 02/02/2018 02/02/2017, 02/02/2017, 10/08/2016 Scrn (Yearly) Colorectal Cancer Scrn 04/22/2018 04/22/2017 Annual (FIT/FOBT) [...] adult health SPECIMEN COLLECTION AT 1:50 PM BATCH HEAT TREAT OPERATOR maintenance HOME HEMOCCULT KIT FOR Routine 02/02/2017 Routine adult health SPECIMEN COLLECTION AT 10:41 AM CDT maintenance HOME after 11/21/2016 Results * HEMOGLOBIN A1C (11/15/2017 10:37 AM) [...] y/o, F (: 1965, ) presented to [facility] on 07-22-2017 for a retinal imaging study [...] electronically signed by Markel Downey MD. Taxonomy: [id number] on 07-23-2017 05:31:38 [facility] time. NOTE:Any pathology noted on [...] * DIABETIC FOOT EXAM (12/08/2016 10:58 PM) Narrative Dorian Agustin MD 12/08/2016 10:58 PM CHIEF COMPLAINT Establish [...] ASSESSMENT & PLAN 1. Encounter to establish [facility] LIVER PROFILE HIV-1/HIV-2 ROUTINE SCREENING FREE [...] Orders and follow up as documented in [facility]. Patient was provided education on their diagnosis, treatments and any medications prescribed including medication use, any possible adverse side effect or potential drug to drug interactions. Patient's level of understanding is assessed with patient acknowledgment of understanding . Dorian Agustin [id number] after 11/21/2016
--- OUTSIDE RECORDS SUMMARY | 2018-05-05 14:08 | XMS REPORT | Clinical Summary ---
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, with long-term current use of insulin (Primary Dx); Essential hypertension 04/22/2017 Orders Only Family Practice Dorian Agustin MD Routine adult [...] Dx) 03/03/2017 Telephone Kya Reyes, Information Only ANTISQUEAK WORKER 03/02/2017 Office Visit Family Practice Dorian Agustin [...] ENCOUNTER RPH (Primary Dx) 02/02/2017 Office Visit [facility] Dorian Agustin MD Routine adult health maintenance [...] NO SHOW ENCOUNTER RPH (Primary Dx) after 11/14/2016 Immunizations Name Dates Previously Given Next Due [...] Yes Alcohol Use Drinks/Week oz/Week Comments Yes Hols only Sex Assigned at Date Recorded Not [...] Pharmacy Diony Coppola dm f/u [facility] Health Maintenance Due Date Last Done Comments [...] adult health SPECIMEN COLLECTION AT 1:50 PM MULTI PUNCH OPERATOR maintenance HOME HEMOCCULT KIT FOR Routine 02/02/2017 Routine adult health SPECIMEN COLLECTION AT 10:41 AM CDT maintenance HOME after 11/14/2016 Results * OPHTHALMOLOGY RETINAL SCAN (07/23/2017 12:31 [...] y/o, F (: 1965, ) presented to [facility] on 07-22-2017 for a retinal [...] electronically signed by Markel Downey MD. Taxonomy: [id number] on 07-23-2017 05:31:38 [facility] time. NOTE:Any pathology noted on [...] 50y.o. / Female , presents to establish [facility].She has HTN and DM.She is not [...] ASSESSMENT & PLAN 1. Encounter to establish [facility] LIVER PROFILE HIV-1/HIV-2 ROUTINE SCREENING FREE [...] of understanding . Dorian Agustin [id number] after 11/14/2016
--- OUTSIDE RECORDS SUMMARY | 2018-05-05 14:09 | XMS REPORT | Clinical Summary ---
Author Author [facility] Organization [facility] Address Unknown Phone Unavailable Care Team Providers Care Hand Assembler For Puller Over Name Role Phone Elana Peralta MD PCP [...] Visit 04/26/2017 Telephone Patient Education Kimber Hoffman, pilot submersible F/U 04/22/2017 Office Visit Clinical Pharmacy Diony [...] Dx) 03/03/2017 Telephone Kya Reyes, Information Only NOVELTY PRINTING MACHINE OPERATOR 03/02/2017 Office Visit Family Practice Dorian Agustin [...] NO SHOW ENCOUNTER RPH (Primary Dx) after 11/26/2016 Immunizations Name Dates Previously Given Next Due [...] Pharmacy Diony Coppola dm f/u [facility] 12/16/2017 Office Visit Family Practice Catherine Cespedes MD knee steoid injection [address] [address] [phone] Health Maintenance Due Date Last Done Comments Breast Cancer Scrn 2006 (Yearly) DM Foot Exam (Yearly) 10/07/2017 10/07/2016, 10/07/2016 IMM Influenza Seasonal 02/07/2018 Oct to July (>/=19 yrs) Colorectal Cancer Scrn [...] Lifestyle Eat Healthy On track (04/28/2017) No Reyes, Patient will eat more Kya fruit and vegetables. CARLY Larkin Treatment Maintain blood pressure On track (10/12/2016) Jessica Agustin, under 140/90 MD Dorian Procedures Procedure Name Priority Date/Time Associated Diagnosis Comments HEMOCCULT KIT FOR Routine 04/19/2017 Routine adult health SPECIMEN COLLECTION AT 1:50 PM CATERING ASSOCIATE maintenance HOME HEMOCCULT KIT FOR Routine 02/02/2017 Routine adult health SPECIMEN COLLECTION AT 10:41 AM CDT maintenance HOME after 11/26/2016 Results * HEMOGLOBIN A1C (11/15/2017 10:37 AM) [...] y/o, F (: 1965, ) presented to [facility] on 07-22-2017 for a retinal imaging study [...] electronically signed by Markel Downey MD. Taxonomy: [id number] on 07-23-2017 05:31:38 [facility] time. NOTE:Any pathology noted on this diabetic [...] a 50y.o. / Female , presents to [facility].She has HTN and DM.She is not on [...] ASSESSMENT & PLAN 1. Encounter to establish [facility] LIVER PROFILE HIV-1/HIV-2 ROUTINE SCREENING FREE [...] of understanding . Dorian Agustin [id number] after 11/26/2016
--- OUTSIDE RECORDS SUMMARY | 2018-05-05 14:09 | XMS REPORT | Clinical Summary ---
Author Author [facility] Organization [facility] Address Unknown Phone Unavailable Care Team Providers Care Manual Equipment Mechanic Name Role Phone Elana Peralta MD PCP [...] Visit 04/26/2017 Telephone Patient Education Kimber Hoffman, product test specialist F/U 04/22/2017 Office Visit Clinical Pharmacy Diony [...] Dx) 03/03/2017 Telephone Kya Reyes, Information Only TEST DESK TROUBLE LOCATOR 03/02/2017 Office Visit Family Practice Dorian Agustin [...] NO SHOW ENCOUNTER RPH (Primary Dx) after 12/09/2016 Immunizations Name Dates Previously Given Next Due [...] Treatment Date Type Specialty Care Team Description 12/16/2017 Office Visit Family Practice Catherine Cespedes MD knee steoid injection [address] [address] 01/03/2018 Office Visit Clinical Pharmacy Diony Coppola dm f/u [facility] 02/03/2018 Office Visit Ophthalmology Jannette Muhammad OD Ann. Eye Exam [address] [place] [address] Health Maintenance Due Date Last Done Comments [...] adult health SPECIMEN COLLECTION AT 1:50 PM MOTOR BIKE MECHANIC maintenance HOME HEMOCCULT KIT FOR Routine 02/02/2017 Routine adult health SPECIMEN COLLECTION AT 10:41 AM CDT maintenance HOME after 12/09/2016 Results * HEMOGLOBIN A1C (11/15/2017 10:37 AM) [...] y/o, F (: 1965, ) presented to [facility] on 07-22-2017 for a retinal imaging study [...] electronically signed by Markel Downey MD. Taxonomy: [id number] on 07-23-2017 05:31:38 [facility] [[email or web address]] time. NOTE:Any pathology noted on this diabetic retinal evaluation should be confirmed by an appropriate ophthalmic examination. * OCCULT BLOOD ICT (04/22/2017 6:00 AM) Component Value Ref Range Occult Blood ICT Negative NEG Specimen Performing Laboratory Stool MISYS * TSH (03/02/2017 11:06 AM) Component Value Ref Range TSH 4.17 (H) 0.36 - 3.74 uIU/mL Specimen Performing Laboratory Blood MISYS after 12/09/2016
--- OUTSIDE RECORDS SUMMARY | 2018-05-05 14:10 | XMS REPORT | Clinical Summary ---
Author Author [facility] Organization [facility] Address Unknown Phone Unavailable Care Team Providers Care Telecommunications Specialist Name Role Phone Dorian Agustin MD PCP Allergies No Known Allergies Current [...] Ended (KENALOG-40) injection 80 18 18 mg triamcinolone acetonide 80 mg IX ONCE 12/17/19 12/17/19 Ended (KENALOG-40) injection 80 18 18 mgIndications: Chronic pain of right knee Active Problems Problem Noted Date Large breasts [...] Encounters Date Type Specialty Care Team Description 12/29/2017 Refill Family Practice Dorian Agustin MD Moderate persistent asthma without complication 12/16/2017 Office Visit Family Practice Catherine Cespedes MD Chronic pain of right knee (Primary Dx) 11/17/2017 Telephone Family Practice Laila Farris LVN Appointment Related Questions 11/15/2017 Office Visit Clinical Pharmacy Diony Coppola, Uncontrolled type 2 [facility] diabetes mellitus with complication, with long-term current use of insulin (Primary Dx) 11/15/2017 Telephone Family Practice Marsha Luna, Crow ([facility] - Direct RN Pharmacy ) [...] Visit Family Practice Catherine Cespedes MD Chronic pain of right knee (Primary Dx) 08/03/2017 Nutrition Nico Aparicio LD 08/03/2017 Office Visit Clinical Pharmacy Diony Coppola, 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, with long-term current use of insulin (Primary Dx) 07/22/2017 Nurse Only Ophthalmology Dorain Agustin MD Uncontrolled type 2 Rolle, Brisaida diabetes mellitus with complication, with long-term current use of insulin 07/22/2017 Office Visit [facility] Dorian Agustin MD Need for pneumococcal vaccination (Primary Dx); Chronic midline low back pain without sciatica; Uncontrolled type 2 diabetes mellitus with complication, with long-term current use of insulin; Large breasts; Chronic pain of both knees; Morbid obesity; Need for Tdap vaccination; Routine adult health maintenance; Essential hypertension 06/25/2017 Telephone Laila Farris LVN Appointment Related Questions 06/24/2017 Office Visit [facility] Dorian Agustin MD Uncontrolled type 2 [...] Dx) 04/28/2017 Pharmacy Visit 04/26/2017 Telephone Patient Kimber Casey, cell inspector F/U 04/22/2017 Office Visit Clinical Pharmacy Diony Coppola, 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, with long-term current use of insulin (Primary Dx); Essential hypertension 04/22/2017 Orders Only Family Dorian Quintero MD Routine adult health maintenance 04/22/2017 Pharmacy Visit 04/20/2017 Pharmacy Visit 04/19/2017 Office Visit Family Dorian Quintero MD Uncontrolled type 2 diabetes mellitus with complication, with long-term current use of insulin (Primary Dx); Morbid obesity; Essential hypertension; Chronic midline low back pain without sciatica; Moderate persistent asthma without complication; Routine adult health maintenance 04/19/2017 Orders Only Family Dorian Quintero MD Morbid obesity 04/19/2017 Pharmacy [...] Dx) 03/03/2017 Telephone Kya Reyes, Information Only MASTER AT ARMS 03/02/2017 Office Visit Family Dorian Quintero MD [...] Leach's palsy 02/02/2017 Patient Patient Education Kimber Hoffman, ELIZABETH Education 02/02/2017 Pharmacy Visit after 01/02/2017 Immunizations Name Dates Previously Given Next Due [...] Vital Sign Reading Time Taken Blood Pressure 132/77 12/16/2017 11:52 AM CDT Pulse 82 12/16/2017 11:52 AM CDT Temperature 36.4 C (97.5 F) 01/03/2018 2:21 PM CDT Respiratory Rate 22 01/03/2018 2:21 PM CDT Oxygen Saturation - - Inhaled Oxygen - - Concentration Weight 108.4 kg (238 lb 14.4 oz) 01/03/2018 2:21 PM CDT Height 157.5 cm (5' 2") 01/03/2018 2:21 PM CDT Body Mass Index 43.7 01/03/2018 2:21 PM CDT Plan of Treatment Date Type Specialty Care Team Description 01/03/2018 Office Visit Clinical Pharmacy Diony Coppola, Uncontrolled type 2 [facility] diabetes mellitus with complication, with long-term current use of insulin (Primary Dx) 01/11/2018 Office Visit Family Practice Dorian Agustin MD PT PRESENT FOLLOW UP [address] [facility] VISIT/[place] [address] SEEN BY PROVIDER [phone] 02/03/2018 Office Visit Ophthalmology Jannette Muhammad OD Ann. Eye Exam [address] [place] [address] Health Maintenance Due Date Last Done Comments [...] Procedure Name Priority Date/Time Associated Diagnosis Comments HEMOGLOBIN A1C Routine 11/15/2017 Uncontrolled type 2 Results for this 10:37 AM CDT diabetes mellitus with procedure are in the complication, with results section. long-term current use of insulin OPHTHALMOLOGY RETINAL Routine 07/23/2017 Uncontrolled type 2 Results for this SCAN 12:31 PM CDT diabetes mellitus with procedure are in the complication, with results section. long-term current use of insulin HEMOGLOBIN A1C STAT 06/24/2017 Uncontrolled type 2 Results for this 2:06 PM HEALTH CARE ASSISTANT diabetes mellitus with procedure are in the complication, with results section. long-term current use of insulin OCCULT BLOOD ICT Routine 04/22/2017 Routine adult health Results for this 6:00 AM HEALTH CARE ASSISTANT maintenance procedure are in the results section. HEMOCCULT KIT FOR Routine 04/19/2017 Routine adult health SPECIMEN COLLECTION AT 1:50 PM HEALTH CARE ASSISTANT maintenance HOME TSH Routine 03/02/2017 Acquired hypothyroidism Results for this 11:06 AM CDT procedure are in the results section. HEMOGLOBIN A1C STAT 02/02/2017 Uncontrolled type 2 Results for this 10:47 AM CDT diabetes mellitus with procedure are in the complication, with results section. long-term current use of insulin HEMOCCULT KIT FOR Routine 02/02/2017 Routine adult health SPECIMEN COLLECTION AT 10:41 AM CDT maintenance HOME after 01/02/2017 Results * HEMOGLOBIN A1C (11/15/2017 10:37 AM) Only the most recent of 3 results within the time period is included. Hemoglobin A1c 8.9 (H) 4.3 - 6.1 % BT DIAGNOSTIC IMMUNOLOGY Est Average Gluc 208.7 mg/dL BT DIAGNOSTIC IMMUNOLOGY Specimen Blood Performing Organization Address [facility] Phone Number [facility] BT DIAGNOSTIC IMMUNOLOGY * OPHTHALMOLOGY RETINAL SCAN (07/23/2017 12:31 PM) RETINAL SCAN-FINAL RESULT NORMAL IRIS Right Diabetic None IRIS Retinopathy Right Macular Edema None IRIS Right Other Suspected None IRIS Conditions Right Image Quality Gradeable Image IRIS Left Diabetic Retinopathy None IRIS Left Macular Edema None IRIS Left Other Suspected None IRIS Conditions Left Image Quality Gradeable Image IRIS Narrative Performed At Retinal Study Result for CARLIE ELIZABETH MARY, a 51 y/o, F (: 1965, ) presented to [facility] on 07-22-2017 for a retinal imaging [...] electronically signed by Markel Downey MD. Taxonomy: [id number] on 07-23-2017 05:31:38 [facility] time. NOTE:Any pathology noted on this diabetic retinal evaluation should be confirmed by an appropriate ophthalmic examination. Performing Organization Address City/[facility] Phone Number IRIS * OCCULT BLOOD ICT (04/22/2017 6:00 AM) Occult Blood ICT Negative NEG EPES LAB Specimen Stool Performing Organization Address [facility] Phone Number MISYS [facility] * TSH (03/02/2017 11:06 AM) TSH 4.17 (H) 0.36 - 3.74 uIU/mL BT MAIN-STATION 3 Specimen Blood Performing Organization Address City/[facility] Phone Number MISYS BT MAIN-STATION 3 after 01/02/2017
--- OUTSIDE RECORDS SUMMARY | 2018-05-05 14:10 | XMS REPORT | Clinical Summary ---
Author Author [facility] Organization [facility] Address Unknown Phone Unavailable Care Team Providers Care Dining Car Server Name Role Phone Dorian Agustin MD PCP [...] 07/23/19 Active tabletIndications: daily. 18 Essential hypertension terbinafine HCl (LAMISIL) Take 1 tablet by mouth 84 tablet 0 10/19/19 Active 250 mg tabletIndications: daily. 18 Onychomycosis albuterol 90 Inhale 2 Puffs by mouth 4 6.7 g 3 11/16/19 Active mcg/actuation times daily as needed for 18 inhalerIndications: Wheezing. Moderate persistent asthma without complication insulin detemir U-100 Inject 60 Units under the 110.4 mL 0 01/04/20 07/06/19 Active (LEVEMIR FLEXTOUCH) 100 skin daily for 184 days. 18 19 unit/mL (3 mL) PenIndications: Uncontrolled type 2 diabetes mellitus with complication, with long-term current use of insulin glipiZIDE (GLUCOTROL) 5 Take 1 tablet by mouth 2 180 tablet 3 01/04/20 Active mg tabletIndications: times daily (before 18 Uncontrolled type 2 meals). diabetes mellitus with complication, with long-term current use of insulin blood glucose test 2 times daily to test 100 Each 5 01/04/20 Active stripsIndications: blood sugar. 18 Uncontrolled type 2 diabetes mellitus with complication, with long-term current use of insulin gabapentin (NEURONTIN) Take 1 capsule by mouth 2 180 capsule 3 01/04/20 Active 300 mg times daily. 18 capsuleIndications: Chronic midline low back pain without sciatica lisinopril (PRINIVIL) 20 Take 1 tablet by mouth 90 tablet 3 01/04/20 Active mg tabletIndications: daily. 18 Essential hypertension albuterol 90 Inhale 2 Puffs by mouth 4 6.7 g 2 01/12/20 Active mcg/actuation times daily as needed for 18 inhalerIndications: Wheezing. Moderate persistent asthma without complication cyclobenzaprine Take 1 tablet by mouth 3 270 tablet 1 01/12/20 Active (FLEXERIL) 10 mg times daily as needed for 18 tabletIndications: Spasm Muscle Spasms. of muscle lancetsIndications: 2 times weekly. 100 Each 1 [...] ued ULTRACOMFORT INSULIN SYR each time. 0.5ML 30G/16") syringe-needle glipiZIDE (GLUCOTROL) 5 Take 1 tablet [...] by mouth 2 180 tablet 3 06/24/19 01/04/20 Discontin mg tabletIndications: times daily (before 18 18 ued Uncontrolled type 2 meals). diabetes [...] 18 18 ued tabletIndications: Hypothyroidism, unspecified type insulin detemir U-100 Inject 55 Units under the 101.2 mL 0 07/23/19 01/04/20 Discontin (LEVEMIR FLEXTOUCH) 100 skin daily for 184 days. 18 18 ued unit/mL (3 mL) PenIndications: Uncontrolled type 2 diabetes mellitus with complication, with long-term current use of insulin lisinopril (PRINIVIL) 20 Take 1 tablet by mouth 90 tablet 3 07/23/19 01/04/20 Discontin mg tabletIndications: daily. 18 18 ued Essential hypertension cyclobenzaprine Take 1 tablet by mouth 3 270 tablet 1 07/23/19 01/04/20 Discontin (FLEXERIL) 10 mg times daily as needed for 18 18 ued tabletIndications: Muscle Spasms. Chronic midline low back pain without sciatica gabapentin (NEURONTIN) Take 1 capsule by mouth 2 180 capsule 3 07/23/19 01/04/20 Discontin 300 mg times daily. 18 18 ued capsuleIndications: Chronic midline low back pain without sciatica tropicamide (MYDRIACYL) Instill 1 Drop in each 15 mL 0 07/23/19 07/23/19 0.5 % ophthalmic eye once as needed for up 18 18 solutionIndications: to 1 dose (for poor Uncontrolled type 2 retina scan image). diabetes mellitus with complication, with long-term current use of insulin blood glucose test 2 times daily to test 100 Each 5 10/19/19 01/04/20 Discontin stripsIndications: blood sugar. 18 18 ued Uncontrolled type 2 diabetes mellitus with complication, with long-term current use of insulin PROVENTIL HFA 90 INHALE 2 PUFFS BY MOUTH 6.7 g 0 01/04/20 01/12/20 Discontin mcg/actuation FOUR TIMES DAILY 18 18 ued inhalerIndications: NEEDED FOR WHEEZING Moderate persistent asthma without complication cyclobenzaprine Take 1 tablet by mouth 3 270 tablet 1 01/04/20 01/12/20 Discontin (FLEXERIL) 10 mg times daily as needed for 18 18 ued tabletIndications: Muscle Spasms. Chronic midline low back pain without sciatica Hospital, Clinic, or Ordered Dose Route Frequency [...] 10/07/2016 Moderate persistent asthma without complication 10/07/2016 Cancer Overview: hx of thyroid cancer Resolved Problems Problem Noted Date Resolved Date History of hypothyroidism 03/03/2017 06/24/2017 Diabetes mellitus type 2 in obese 10/07/2016 02/02/2017 Unspecified hypothyroidism 10/07/2016 03/03/2017 Encounters Date Type Specialty Care Team Description 01/11/2018 Patient Patient Education Dorian Agustin MD Diabetes education, Education Kimber Hoffman, ELIZABETH encounter for (Primary Dx) 01/11/2018 Ancillary Radiology Dorian Agustin MD Procedure 01/11/2018 Office Visit Family Practice Dorian Agustin MD Chronic pain of both knees (Primary Dx); Moderate persistent asthma without complication; Dietary counseling for Above / Below Normal BMI; Exercise counseling for Above Normal BMI Only!; Chronic midline low back pain without sciatica; Routine adult health maintenance; Abdominal pain, right upper quadrant; Spasm of muscle; Uncontrolled type 2 diabetes mellitus with complication, with long-term current use of insulin 01/11/2018 Orders Only Family Practice Dorian Agustin MD Chronic pain of both knees; Uncontrolled type 2 diabetes mellitus with complication, with long-term current use of insulin 01/03/2018 Office Visit Clinical Pharmacy Diony Coppola, Uncontrolled type 2 [facility] diabetes mellitus with complication, with long-term current use of insulin (Primary Dx) 01/03/2018 Refill Family Practice Dorian Agustin MD Chronic midline low back pain without sciatica; Essential hypertension 12/29/2017 Refill [facility] Dorian Agustin MD Moderate persistent asthma without complication 12/16/2017 Office Visit [facility] Catherine Cespedes MD Chronic pain of right knee (Primary Dx) 11/17/2017 Telephone [facility] Laila Farris LVN Appointment Related Questions 11/15/2017 Office Visit Clinical Pharmacy Diony Coppola, 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, with long-term current use of insulin (Primary Dx) 11/15/2017 Telephone [facility] Marsha Luna, Other ([facility] - Direct RN Pharmacy ) 11/15/2017 Refill [facility] Dorian Agustin MD Moderate persistent asthma without complication 10/20/2017 Telephone [facility] Kathy Hylton LVN Other (returning staff message) 10/18/2017 Office Visit [facility] Dorian Agustin MD Need for Tdap vaccination (Primary Dx); Routine adult health maintenance; Onychomycosis; Uncontrolled type 2 diabetes mellitus with complication, with long-term current use of insulin; Chronic pain of both knees 10/18/2017 Orders Only [facility] Dorian Agustin MD Chronic pain of both knees 08/31/2017 Office Visit Clinical Pharmacy Diony Coppola, 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, with long-term current use of insulin (Primary Dx) 08/19/2017 Office Visit [facility] Catherine Cespedes MD Chronic pain of right knee (Primary Dx) 08/03/2017 Nutrition Nutrition Nico Arora, YOAN 08/03/2017 Office Visit Clinical Pharmacy Diony Coppola, 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, with long-term current use of insulin (Primary Dx) 07/22/2017 Nurse Only Ophthalmology Dorian Agustin MD Uncontrolled type 2 Rolle, Brisaida diabetes mellitus with complication, with long-term current use of insulin 07/22/2017 Office Visit [facility] Dorian Agustin MD Need for [...] pain of right knee 06/24/2017 Nutrition Nutrition Ulysses, Nico George, YOAN 05/04/2017 Pharmacy Visit 04/28/2017 Patient Patient Education Dorian Agustin MD Diabetes education, Education Kimber Hoffman, ELIZABETH encounter for (Primary Dx) 04/28/2017 Pharmacy Visit 04/26/2017 Telephone Patient Education Kimber Hoffman, supervisor cytogenetic laboratory F/U 04/22/2017 Office Visit Clinical Pharmacy Diony [...] Dx) 03/03/2017 Telephone Kya Reyes, Information Only OUTDOOR RECREATION SPECIALIST 03/02/2017 Office Visit Family Practice Dorian Agustin MD Forgetfulness (Primary Dx); Essential hypertension; Acquired hypothyroidism; Chronic midline low back pain without sciatica; Uncontrolled type 2 diabetes mellitus with complication, with long-term current use of insulin; TMJ syndrome; Morbid obesity; History of hypothyroidism 03/02/2017 Patient Patient Education Kimber Hoffman, ELIZABETH Education 02/25/2017 Office Visit Clinical Pharmacy Diony Coppola, NO SHOW ENCOUNTER RP (Primary Dx) 02/02/2017 Office Visit Family Practice Dorian Agustin MD Routine adult health maintenance (Primary Dx); Uncontrolled type 2 diabetes mellitus with complication, with long-term current use of insulin; Essential hypertension; Morbid obesity; Moderate persistent asthma without complication; Leach's palsy 02/02/2017 Patient Patient Education Kimber Hoffman, ELIZABETH Education 02/02/2017 Pharmacy Visit after 01/17/2017 Immunizations Name Dates Previously Given Next Due [...] Vital Sign Reading Time Taken Blood Pressure 132/74 01/11/2018 1:19 PM CDT Pulse 98 01/11/2018 1:19 PM CDT Temperature 36.1 C (97 F) 01/11/2018 1:19 PM CDT Respiratory Rate 22 01/18/2018 1:00 PM CDT Oxygen Saturation - - Inhaled Oxygen - - Concentration Weight 111.1 kg (245 lb) 01/18/2018 1:00 PM CDT Height 157.5 cm (5' 2") 01/18/2018 1:00 PM CDT Body Mass Index 44.81 01/18/2018 1:00 PM CDT Plan of Treatment Date Type Specialty Care Team Description 01/18/2018 Office Visit Family Practice Dorian Agustin MD Arrived [address] [place] [address] [id number] 02/15/2018 Office Visit Clinical Pharmacy Diony Coppola [facility] Health Maintenance Due Date Last Done Comments Breast Cancer Scrn 2006 (Yearly) IMM Influenza Seasonal 02/07/2018Feb to July (>/=19 yrs) Colorectal Cancer Scrn 04/22/2018 04/22/2017 Annual (FIT/FOBT) Age 50 to 75 DM Retinal Exam (Yearly) 07/23/2018 07/23/2017, 10/07/2016 DM HGBA1C (Yearly) 11/15/2018 11/15/2017, 06/24/2017, 02/02/2017, Additional history exists DM Foot Exam (Yearly) 01/11/2019 01/11/2018, 10/07/2016, 10/07/2016 Cervical Cancer Scrn (3 10/13/2019 10/12/2016 Yrs) [...] Procedure Name Priority Date/Time Associated Diagnosis Comments XRAY KNEE 1 OR 2 VIEWS Routine 01/11/2018 Chronic pain of both Results for this (LIMITED-AP/LAT) 2:27 PM CDT knees procedure are in the results section. DIABETIC FOOT EXAM Routine 01/11/2018 Uncontrolled type 2 Results for this 1:14 PM CDT diabetes mellitus with procedure are in the complication, with results section. long-term current use of insulin HEMOGLOBIN A1C Routine 11/15/2017 Uncontrolled type 2 [...] type 2 Results for this 2:06 PM ADVICE CLERK diabetes mellitus with procedure are in the complication, with results section. long-term current use of insulin OCCULT BLOOD ICT Routine 04/22/2017 Routine adult health Results for this 6:00 AM ADVICE CLERK maintenance procedure are in the results section. HEMOCCULT KIT FOR Routine 04/19/2017 Routine adult health SPECIMEN COLLECTION AT 1:50 PM ADVICE CLERK maintenance HOME TSH Routine 03/02/2017 Acquired hypothyroidism [...] AT 10:41 AM CDT maintenance HOME after 01/17/2017 Results * XRAY KNEE 1 OR 2 VIEWS (LIMITED-AP/LAT) (01/11/2018 2:27 PM) Impressions Performed At IMPRESSION:Chondrocalcinosis of the left knee. Joint spaces preserved SMS Signed By: Melonie Shoemaker MD, 01/11/2018 7:41 PM Narrative Performed At EXAM: XR LEFT KNEE 2 VIEW SMS DATE:01/11/2018 2:27 PM INDICATION: Left Knee Pain, [...] present on the previously imaged right knee. Procedure Note Interface, Rad/Mammog In - 01/11/2018 7:46 PM [...] By: Melonie Shoemaker MD, 01/11/2018 7:41 PM Performing Organization Address City/[facility] [place] Phone Number SMS * DIABETIC FOOT EXAM (01/11/2018 1:14 PM) Narrative Performed At Dorian Agustin MD 01/11/2018 10:37 PM Diabetic Foot Exam was performed at 01/11/2018 9:40 PM.Right foot sensation is normal, right foot pulses are normal, right foot appearance is normal.Left foot sensation is normal,left foot pulses are normal, left foot appearance is normal. * HEMOGLOBIN A1C (11/15/2017 10:37 AM) Only the most recent of 3 results within the time period is included. Hemoglobin A1c 8.9 (H) 4.3 - 6.1 % [facility]MMUN[facility] Est Average Gluc 208.7 mg/dL BT DIAGNOSTIC IMMUNOLOGY Specimen Blood Performing Organization Address [facility] Phone Number MISYS BT DIAGNOSTIC IMMUNOLOGY * OPHTHALMOLOGY RETINAL SCAN [...] At Retinal Study Result for CARLIE ELIZABETH KAYLYNN GLENN CARLIE chay 51 y/o, F (: 1965, ) presented to [facility] on 07-22-2017 for a retinal imaging [...] electronically signed by Markel Downey MD. Taxonomy: [id number] on 07-23-2017 05:31:38 [facility] time. NOTE:Any pathology noted on this diabetic retinal evaluation should be confirmed by an appropriate ophthalmic examination. Performing Organization Address City/[facility] [place] Phone Number IRIS * OCCULT BLOOD ICT (04/22/2017 6:00 AM) Occult Blood ICT Negative [facility] Specimen Stool Performing Organization Address [facility] [place] Phone Number MISYS [facility] * TSH (03/02/2017 11:06 AM) TSH 4.17 (H) 0.36 - 3.74 uIU/mL BT MAIN-STATION 3 Specimen Blood Performing Organization Address [facility] Phone Number ROMINA BT MAIN-STATION 3 after 01/17/2017
--- OUTSIDE RECORDS SUMMARY | 2018-05-05 14:10 | XMS REPORT | Clinical Summary ---
Author Author [facility] Organization [facility] Address Unknown Phone Unavailable Care Team Providers Care Patient Care Director Name Role Phone Dorian Agustin MD PCP [...] inhalerIndications: Wheezing. Moderate persistent asthma without complication PROVENTIL HFA 90 INHALE 2 PUFFS BY MOUTH 6.7 g 0 01/04/20 Active mcg/actuation FOUR TIMES DAILY 18 inhalerIndications: NEEDED FOR WHEEZING Moderate persistent asthma without complication insulin detemir [...] complication, with long-term current use of insulin cyclobenzaprine Take 1 tablet by mouth 3 270 tablet 1 01/04/20 Active (FLEXERIL) 10 mg times daily as [...] Active mg tabletIndications: daily. 18 Essential hypertension lancetsIndications: 2 times weekly. 100 Each 1 [...] Encounters Date Type Specialty Care Team Description 01/03/2018 Office Visit Clinical Pharmacy Diony Coppola, 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, with long-term current use of insulin (Primary Dx) 01/03/2018 Refill Family Practice Dorian Agustin MD Chronic midline low back pain without sciatica; Essential hypertension 12/29/2017 Refill Family Practice Dorian Agustin MD Moderate persistent asthma without complication 12/16/2017 Office Visit Family Practice Catherine Cespedes MD Chronic pain of right knee (Primary Dx) 11/17/2017 Telephone [facility] Laila Farris LVN Appointment Related Questions 11/15/2017 Office Visit Clinical Pharmacy Diony Coppola, 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, with long-term current use of insulin (Primary Dx) 11/15/2017 Telephone [facility] Marsha Luna, Other (H[facility] - Direct RN Pharmacy ) 11/15/2017 Refill [facility] Dorian Agustin MD Moderate [...] pain of right knee (Primary Dx) 08/03/2017 Nico Ocampo LD 08/03/2017 Office Visit Clinical Pharmacy Diony Coppola, 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, with long-term current use of insulin (Primary Dx) 07/22/2017 Nurse Only Ophthalmology Dorian Agustin MD Uncontrolled type 2 Rolle, Brisaida diabetes mellitus with complication, with long-term current use of insulin 07/22/2017 Office Visit [facility] Dorian Agustin MD Need for pneumococcal vaccination (Primary Dx); Chronic midline low back pain without sciatica; Uncontrolled type 2 diabetes mellitus with complication, with long-term current use of insulin; Large breasts; Chronic pain of both knees; Morbid obesity; Need for Tdap vaccination; Routine adult health maintenance; Essential hypertension 06/25/2017 Telephone Laila Farris LVN Appointment Related Questions 06/24/2017 Office Visit [facility] Dorian Agustin MD Uncontrolled type 2 diabetes mellitus with complication, with long-term current use of insulin (Primary Dx); Routine adult health maintenance; Need for influenza vaccination; Essential hypertension; Chronic midline low back pain without sciatica; Moderate persistent asthma without complication; Large breasts; Hypothyroidism, unspecified type; Chronic pain of right knee 06/24/2017 Orders Only [facility] Dorian Agustin MD Chronic pain of right knee 06/24/2017 Nico Ocampo LD 05/04/2017 Pharmacy Visit 04/28/2017 Patient Patient Education Dorian Agustin MD Diabetes education, Education Kimber Hoffman, RN encounter for (Primary Dx) 04/28/2017 Pharmacy Visit 04/26/2017 Telephone Patient Education Kimber Hoffman, rough rib grader F/U 04/22/2017 Office Visit Clinical Pharmacy Diony [...] Pharmacy Visit 04/08/2017 Telephone Patient Education Kimber Hoffman, ELIZABETH Appointment Related Questions 03/25/2017 Office Visit Clinical Pharmacy Diony Coppola, 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, with long-term current use of insulin (Primary Dx) 03/05/2017 Patient Patient Education Dorian Agustin MD Diabetes education, Education Kimber Hoffman, ELIZABETH encounter for (Primary Dx) 03/03/2017 Telephone Kya Reyes, Information Only LIGHT RAIL TRANSIT OPERATOR 03/02/2017 Office Visit Family Practice Dorian [...] Hoffman, ELIZABETH Education 02/02/2017 Pharmacy Visit after 01/10/2017 Immunizations Name Dates Previously Given Next Due [...] Vital Sign Reading Time Taken Blood Pressure 153/87 01/03/2018 2:21 PM CDT Pulse 97 01/03/2018 2:21 PM CDT Temperature 36.4 C (97.5 F) 01/03/2018 2:21 PM CDT Respiratory Rate 22 01/03/2018 2:21 PM CDT Oxygen Saturation - - Inhaled Oxygen - - Concentration Weight 108.4 kg (238 lb 14.4 oz) 01/03/2018 2:21 PM CDT Height 157.5 cm (5' 2") 01/03/2018 2:21 PM CDT Body Mass Index 43.7 01/03/2018 2:21 PM CDT Plan of Treatment Date Type Specialty Care Team Description 01/11/2018 Office Visit Family Practice Dorian Agustin MD PT PRESENT FOLLOW UP [address] [facility] VISIT/[place] [address] SEEN BY PROVIDER [phone] 02/15/2018 Office Visit Clinical Pharmacy Diony Coppola [facility] Health Maintenance Due Date Last Done [...] type 2 Results for this 2:06 PM DIRECTOR EMPLOYEE SAFETY AND HEALTH diabetes mellitus with procedure are in the complication, with results section. long-term current use of insulin OCCULT BLOOD ICT Routine 04/22/2017 Routine adult health Results for this 6:00 AM DIRECTOR EMPLOYEE [employer]AFETY [employer] HEALTH maintenance procedure are in the results section. HEMOCCULT KIT FOR Routine 04/19/2017 Routine adult health SPECIMEN COLLECTION AT 1:50 PM DIRECTOR EMPLOYEE SAFETY [employer] HEALTH maintenance HOME TSH Routine 03/02/2017 Acquired hypothyroidism [...] AT 10:41 AM CDT maintenance HOME after 01/10/2017 Results * HEMOGLOBIN A1C (11/15/2017 10:37 AM) Only the most recent of 3 results within the time period is included. Hemoglobin A1c 8.9 (H) 4.3 - 6.1 % BT DIAGNOSTIC IMMUNOLOGY Est Average Gluc 208.7 mg/dL BT DIAGNOSTIC IMMUNOLOGY Specimen Blood Performing Organization Address City/State/Zipcode Phone Number MISYS BT DIAGNOSTIC IMMUNOLOGY * [...] ) presented to [facility] on 07-22-2017 for a retinal imaging study [...] electronically signed by Markel Downey MD. Taxonomy: [id number] on 07-23-2017 05:31:38 [facility] time. NOTE:Any pathology noted on this diabetic retinal evaluation should be confirmed by an appropriate ophthalmic examination. Performing Organization Address City/[facility] Phone Number IRIS * OCCULT BLOOD ICT (04/22/2017 6:00 AM) Occult Blood ICT Negative [facility] Specimen Stool Performing Organization Address [facility] Phone Number [facility] * TSH (03/02/2017 11:06 AM) TSH 4.17 (H) 0.36 - 3.74 uIU/mL BT MAIN-STATION 3 Specimen Blood Performing Organization Address City/[facility] Phone Number ROMINA BT MAIN-STATION 3 after 01/10/2017
--- OUTSIDE RECORDS SUMMARY | 2018-05-05 14:11 | XMS REPORT | Summary of Care ---
Author Author Yee Mcmullen R.N. Unknown Address Unknown Phone Unavailable Care Team Providers Care Bathroom Tiling Professional Name Role Phone BALDEV CROSS M.D. Unavailable Unavailable Dorian Agustin MD Unavailable Unavailable Functional Status Name Dates Details Functional status health issues are not documented Status: Name Dates Details Cognitive status health issues are not documented Status: Problems Name Dates Details Right knee pain (719.46, M25.561) Status: Active Medications Name Dates Details Medications not documented Allergies and Adverse Reactions Name Dates Details No Known Drug Allergies (Allergy) Status: Active Tape (Allergy) Status: Active Past Medical History Name Dates Details History of arthritis (V13.4, Z87.39) Status: Resolved History of asthma (V12.69, Z87.09) Status: Resolved History of back pain (V13.59, Z87.39) Status: Resolved History of depression (V11.8, Z86.59) Status: Resolved History of diabetes mellitus (V12.29, Z86.39) Status: Resolved History of gout (V12.29, Z87.39) Status: Resolved History of Hernia (553.9, K46.9) Status: Resolved History of hypertension (V12.59, Z86.79) Status: Resolved History of pneumonia (V12.61, Z87.01) Status: Resolved History of seizure (V12.49, Z87.898) Status: Resolved History of stroke (V12.54, Z86.73) Status: Resolved Procedures Procedure Dates Details [U] XRAY KNEE 4 OR MORE VWS RIGHT [id number] Date: 05-Aug-2017 History of hand surgery Completed History of hernia repair Completed History of knee arthroscopy Completed Immunization Name Dates Details Immunizations not documented Family History Name Dates Details Family history of diabetes mellitus (V18.0, Z83.3) Comments: Family History Status: Active Family history of hypertension (V17.49, Z82.49) Comments: Family History Status: Active Family history of arthritis (V17.7, Z82.61) Comments: Family History Status: Active Family history of malignant neoplasm (V16.9, Z80.9) Comments: Family History Status: Active Family history of cerebrovascular accident (CVA) (V17.1, Z82.3) Comments: Family History Status: Active Social History Name Dates Details Unknown if ever smoked Vital Signs Date Test Result Details [id number] BP Systolic 154 mm[Hg] Status: BP Diastolic 86 mm[Hg] Status: Height 64 in Status: Weight 235 lb Status: Body Mass Index Calculated 40.34 kg/m2 Status: Body Surface Area Calculated 2.09 m2 Status: Temperature 97.7 f Status: Heart Rate 82 /min Status: O2 SAT 99 % Status: Results Date Description Value Details Results not documented Plan of Care Name Dates Details Planned Observations Planned Goals not documented Planned Encounters Appointment; BALDEV CROSS M.D. On: 24-Sep-2017 13:00 Interventions Provided Labs/Procedures/Imaging* [U] XRAY KNEE 4 OR MORE VWS RIGHT [id number]; To Be Done: 06 Aug 2017 Instructions Name Dates Details Instructions not documented Encounters Appointment; BALDEV CROSS M.D. Encounter Diagnosis: Problem not documented On: 06-Aug-2017 11:30
--- OUTSIDE RECORDS SUMMARY | 2018-05-05 14:11 | XMS REPORT ---
Author Author [facility] Address Unknown Phone Unavailable Care Team Providers Care Campaign Associate Name Role Phone Unavailable Unavailable Problems This patient has no known problems. Allergies, Adverse Reactions, Alerts This patient has no known allergies or adverse reactions. Medications This patient has no known medications. Encounters Start Date/Time End Date/Time Encounter Type Admission Type Attending [facility] Facility Care Department Encounter ID 2018-06-16 00:00:00 2018-06-16 00:00:00 Outpatient [facility] [id number] 2018-04-29 00:00:00 2018-04-29 00:00:00 Outpatient [facility] [id number] 2018-04-18 14:46:38 2018-04-18 14:46:38 Outpatient [facility] [id number] 2018-04-18 13:38:08 2018-04-18 13:38:08 Outpatient [facility] [id number] 2018-04-14 00:00:00 2018-04-14 00:00:00 Outpatient [facility] [id number] 2018-03-14 14:17:26 2018-03-14 14:17:26 Outpatient [facility] [id number] 2018-03-14 13:10:10 2018-03-14 13:10:10 Outpatient [facility] [id number] 2018-03-10 00:00:00 2018-03-10 00:00:00 Outpatient [facility] [id number] 2018-03-07 00:00:00 2018-03-07 00:00:00 Outpatient [facility] [id number] 2018-02-16 00:00:00 2018-02-16 00:00:00 Outpatient [facility] [id number] 2018-02-15 00:00:00 2018-02-15 00:00:00 Outpatient [facility] [id number] 2018-02-03 00:00:00 2018-02-03 00:00:00 Outpatient [facility] [id number] 2018-01-27 00:00:00 2018-01-27 00:00:00 Outpatient [facility] [id number] 2018-01-18 13:00:27 2018-01-18 13:00:27 Outpatient [facility] [id number] 2018-01-11 14:37:10 2018-01-11 14:37:10 Outpatient [facility] [id number] 2018-01-11 14:13:00 2018-01-11 14:13:00 Outpatient [facility] [id number] 2018-01-11 13:18:58 2018-01-11 13:18:58 Outpatient [facility] [id number] 2018-01-11 00:00:00 2018-01-11 00:00:00 Outpatient [facility] [id number] 2018-01-03 14:21:40 2018-01-03 14:21:40 Outpatient [facility] [id number] 2017-12-16 10:49:28 2017-12-16 10:49:28 Outpatient [facility] [id number] 2017-12-13 00:00:00 2017-12-13 00:00:00 Outpatient [facility] [id number] 2017-11-15 10:40:53 2017-11-15 10:40:53 Outpatient [facility] [id number] 2017-11-15 10:08:49 2017-11-15 10:08:49 Outpatient [facility] [id number] 2017-10-18 12:40:20 2017-10-18 12:40:20 Outpatient [facility] [id number] 2017-10-18 00:00:00 2017-10-18 00:00:00 Outpatient [facility] [id number] 2017-10-11 00:00:00 2017-10-11 00:00:00 Outpatient [facility] [id number] 2017-09-30 00:00:00 2017-09-30 00:00:00 Outpatient [facility] [id number] 2017-09-30 00:00:00 2017-09-30 00:00:00 Outpatient [facility] [id number] 2017-09-28 00:00:00 2017-09-28 00:00:00 Outpatient [facility] [id number] 2017-09-28 00:00:00 2017-09-28 00:00:00 Outpatient [facility] [id number] 2017-09-24 00:00:00 2017-09-24 00:00:00 Outpatient [facility] [id number] 2017-09-23 00:00:00 2017-09-23 00:00:00 Outpatient [facility] [id number] 2017-09-21 00:00:00 2017-09-21 00:00:00 Outpatient [facility] [id number] 2017-09-21 00:00:00 2017-09-21 00:00:00 Outpatient [facility] [id number] 2017-08-31 14:28:54 2017-08-31 14:28:54 Outpatient [facility] [id number] 2017-08-19 11:17:06 2017-08-19 11:17:06 Outpatient [facility] [id number] 2017-08-03 13:43:29 2017-08-03 13:43:29 Outpatient [facility] [id number] 2017-08-03 12:56:43 2017-08-03 12:56:43 Outpatient [facility] [id number] 2017-07-22 14:31:48 2017-07-22 14:31:48 Outpatient [facility] [id number] 2017-07-22 13:32:18 2017-07-22 13:32:18 Outpatient [facility] [id number] 2017-06-30 00:00:00 2017-06-30 00:00:00 Outpatient [facility] [id number] 2017-06-24 14:11:07 2017-06-24 14:11:07 Outpatient [facility] [id number] 2017-06-24 13:41:46 2017-06-24 13:41:46 Outpatient [facility] [id number] 2017-06-08 00:00:00 2017-06-08 00:00:00 Outpatient [facility] [id number] 2017-05-27 00:00:00 2017-05-27 00:00:00 Outpatient [facility] [id number] 2017-05-27 00:00:00 2017-05-27 00:00:00 Outpatient [facility] [id number] 2017-05-27 00:00:00 2017-05-27 00:00:00 Outpatient [facility] [id number] 2017-05-27 00:00:00 2017-05-27 00:00:00 Outpatient [facility] [id number] 2017-05-20 00:00:00 2017-05-20 00:00:00 Outpatient [facility] [id number] 2017-04-28 13:09:34 2017-04-28 13:09:34 Outpatient [facility] [id number] 2017-04-22 11:17:13 2017-04-22 11:17:13 Outpatient [facility] [id number] 2017-04-22 08:12:31 2017-04-22 08:12:31 Outpatient [facility] [id number] 2017-04-19 13:11:04 2017-04-19 13:11:04 Outpatient [facility] [id number] 2017-04-16 00:00:00 2017-04-16 00:00:00 Outpatient [facility] [id number] 2017-03-25 07:57:24 2017-03-25 07:57:24 Outpatient [facility] [id number] 2017-03-05 09:03:47 2017-03-05 09:03:47 Outpatient [facility] [id number] 2017-03-02 11:09:59 2017-03-02 11:09:59 Outpatient [facility] [id number] 2017-03-02 08:51:37 2017-03-02 08:51:37 Outpatient [facility] [id number] 2017-02-25 00:00:00 2017-02-25 00:00:00 Outpatient [facility] [id number] 2017-02-25 00:00:00 2017-02-25 00:00:00 Outpatient [facility] [id number] 2017-02-02 10:50:50 2017-02-02 10:50:50 Outpatient [facility] [id number] 2017-02-02 10:16:09 2017-02-02 10:16:09 Outpatient [facility] [id number]
== END 2018-05-05 18:10 | disposition short-term general hospital (02) ==
LOC: ER 13:59
DX: M25.569 Pain in unspecified knee (principal)

== ENCOUNTER 2018-08-23 19:52 | Emergency (ER) | payer SELFPAY ==
[~2018-08-23] VITALS: Ht 154.9 cm; Wt 106.6 kg
--- OUTSIDE RECORDS SUMMARY | 2018-08-23 19:57 | XMS REPORT | Continuity of Care Document ---
Author Author [facility] Interface Address Unknown Phone Unavailable Problems Problem Status Onset Date Classification Date Reported Comments Source Hypothyroidism Active 03/14/2018 08/21/2018 [facility] Large breasts Active 07/22/2017 08/21/2018 [facility] Chronic pain of both knees Active 07/22/2017 08/21/2018 [facility] Uncontrolled type 2 diabetes mellitus with complication, with long-term current use of insulin Active 02/02/2017 08/21/2018 [facility] Forgetfulness Active 10/07/2016 08/21/2018 [facility] Chronic midline low back pain without sciatica Active 10/07/2016 08/21/2018 [facility] Morbid obesity Active 10/07/2016 08/21/2018 [facility] Essential hypertension Active 10/07/2016 08/21/2018 [facility] Moderate persistent asthma without complication Active 10/07/2016 08/21/2018 [facility] Cancer Active 08/01/2018 [facility] Routine adult health maintenance Active 08/21/2018 [facility] Chronic pain of right knee Active 08/21/2018 [facility] Type 2 diabetes mellitus without complication, with long-term current use of insulin Active 08/21/2018 [facility] Spasm of muscle Active 08/21/2018 [facility] Snoring Active 08/21/2018 [facility] Hypothyroidism, unspecified type Active 08/21/2018 [facility] Abdominal pain, generalized Active 08/21/2018 [facility] NO SHOW ENCOUNTER Active 08/21/2018 [facility] Need for zoster vaccination Active 08/21/2018 [facility] Diabetes education, encounter for Active 08/21/2018 [facility] Dietary counseling Active 08/21/2018 [facility] Exercise counseling Active 08/21/2018 [facility] Abdominal pain, right upper quadrant Active 08/21/2018 [facility] Need for Tdap vaccination Active 08/21/2018 [facility] Onychomycosis Active 08/21/2018 [facility] Need for pneumococcal vaccination Active 07/18/2018 [facility] Acute conjunctivitis of left eye, unspecified acute conjunctivitis type Active 08/21/2018 [facility] Medications Medication Details Route Status Patient Instructions Ordering Provider Order Date Source tropicamide (MYDRIACYL) 0.5 % ophthalmic solution Instill 1 Drop in each eye once as needed for up to 1 dose (for poor retina scan image). No Longer Active 08/01/2018 [facility] insulin detemir U-100 (LEVEMIR FLEXTOUCH) 100 unit/mL (3 mL) Pen Inject 40 Units under the skin 2 times daily for 184 days. Subcutaneous Active 08/01/2018 [facility] glipiZIDE (GLUCOTROL) 10 mg tablet Take 1 tablet by mouth 2 times daily (before meals). Oral Inactive 08/01/2018 [facility] albuterol 90 mcg/actuation inhaler INHALE 2 PUFFS BY MOUTH FOUR TIMES DAILY NEEDED FOR WHEEZING. Active 08/01/2018 [facility] amLODIPine (NORVASC) 5 mg tablet Take 1 tablet by mouth daily. Oral Active 08/01/2018 [facility] blood glucose (PRECISION XTRA TEST STRIPS) test strips 2 times daily Use 2 times weekly (once per day on Mon,Thurs) to test blood sugar. Active 08/01/2018 [facility] cyclobenzaprine (FLEXERIL) 10 mg tablet Take 1 tablet by mouth 3 times daily as needed for Muscle Spasms. Oral Active 08/01/2018 [facility] famotidine (PEPCID) 40 mg tablet Take 1 tablet by mouth daily as needed (STOMACH PAIN). Oral Active 08/01/2018 [facility] gabapentin (NEURONTIN) 300 mg capsule TAKE 1 CAPSULE BY MOUTH TWICE DAILY. Active 08/01/2018 [facility] lancets 28 gauge 2 times daily Use 2 times weekly as directed. Active 08/01/2018 [facility] levothyroxine (SYNTHROID) 125 mcg tablet Take 1 tablet by mouth daily. Oral Active 08/01/2018 [facility] lisinopril (PRINIVIL) 20 mg tablet Take 1 tablet by mouth daily. Oral Active 08/01/2018 [facility] memantine (NAMENDA) 5 mg tablet Take 1 tablet by mouth 2 times daily. Oral Active 08/01/2018 [facility] polymyxin B sulf-trimethoprim (POLYTRIM) ophthalmic solution Instill 1 Drop in left eye every 4 hours (while awake) for 10 days. No Longer Active 08/01/2018 [facility] gabapentin (NEURONTIN) 300 mg capsule TAKE 1 CAPSULE BY MOUTH TWICE DAILY No Longer Active 07/29/2018 [facility] albuterol 90 mcg/actuation inhaler INHALE 2 PUFFS BY MOUTH FOUR TIMES DAILY NEEDED FOR WHEEZING. No Longer Active 07/27/2018 [facility] levothyroxine (SYNTHROID) 125 mcg tablet TAKE 1 TABLET BY MOUTH DAILY Oral No Longer Active 07/19/2018 [facility] PROVENTIL HFA 90 mcg/actuation inhaler INHALE 2 PUFFS BY MOUTH FOUR TIMES DAILY NEEDED FOR WHEEZING No Longer Active 07/03/2018 [facility] blood glucose meter (PRECISION XTRA GLUCOMETER) Use as directed.. Active 06/13/2018 [facility] blood glucose (PRECISION XTRA TEST STRIPS) test strips 2 times daily Use 2 times weekly (once per day on Mon,Th) to test blood sugar. No Longer Active 06/13/2018 [facility] lancets 28 gauge 2 times daily Use 2 times weekly as directed. No Longer Active 06/13/2018 [facility] memantine (NAMENDA) 5 mg tablet Take 1 tablet by mouth 2 times daily. Oral No Longer Active 06/13/2018 [facility] insulin detemir U-100 (LEVEMIR FLEXTOUCH) 100 unit/mL (3 mL) Pen Inject 35 Units under the skin 2 times daily for 184 days. Subcutaneous No Longer Active 04/14/2018 [facility] famotidine (PEPCID) 40 mg tablet Take 1 tablet by mouth daily as needed (STOMACH PAIN). Oral No Longer Active 03/14/2018 [facility] tiZANidine (ZANAFLEX) 4 mg tablet Take 4 mg by mouth every 6 hours as needed for Muscle Spasms. Oral No Longer Active 03/14/2018 [facility] pen needle, diabetic (NOVOFINE) 30 gauge x 1/3" needles Inject under the skin daily Use as directed. Subcutaneous Active 03/14/2018 [facility] cyclobenzaprine (FLEXERIL) 10 mg tablet Take 1 tablet by mouth 3 times daily as needed for Muscle Spasms. Oral No Longer Active 03/14/2018 [facility] lisinopril (PRINIVIL) 20 mg tablet Take 1 tablet by mouth daily. Oral No Longer Active 03/14/2018 [facility] insulin detemir U-100 (LEVEMIR FLEXTOUCH) 100 unit/mL (3 mL) Pen Inject 60 Units under the skin daily for 184 days. Subcutaneous No Longer Active 03/14/2018 [facility] glipiZIDE (GLUCOTROL) 5 mg tablet Take 1 tablet by mouth 2 times daily (before meals). Oral No Longer Active 03/14/2018 [facility] gabapentin (NEURONTIN) 300 mg capsule Take 1 capsule by mouth 2 times daily. Oral No Longer Active 03/14/2018 [facility] amLODIPine (NORVASC) 5 mg tablet Take 1 tablet by mouth daily. Oral No Longer Active 03/14/2018 [facility] albuterol 90 mcg/actuation inhaler Inhale 2 Puffs by mouth 4 times daily as needed for Wheezing or Shortness of Breath. Inhalation No Longer Active 03/14/2018 [facility] levothyroxine (SYNTHROID) 125 mcg tablet Take 1 tablet by mouth daily. Oral No Longer Active 02/15/2018 [facility] albuterol 90 mcg/actuation inhaler Inhale 2 Puffs by mouth 4 times daily as needed for Wheezing or Shortness of Breath. Inhalation No Longer Active 01/18/2018 [facility] amLODIPine (NORVASC) 5 mg tablet Take 1 tablet by mouth daily. Oral No Longer Active 01/18/2018 [facility] gabapentin (NEURONTIN) 300 mg capsule Take 1 capsule by mouth 2 times daily. Oral No Longer Active 01/18/2018 [facility] glipiZIDE (GLUCOTROL) 5 mg tablet Take 1 tablet by mouth 2 times daily (before meals). Oral No Longer Active 01/18/2018 [facility] insulin detemir U-100 (LEVEMIR FLEXTOUCH) 100 unit/mL (3 mL) Pen Inject 60 Units under the skin daily for 184 days. Subcutaneous No Longer Active 01/18/2018 [facility] lisinopril (PRINIVIL) 20 mg tablet Take 1 tablet by mouth daily. Oral No Longer Active 01/18/2018 [facility] lancets 28 gauge by MISCELLANEOUS route 2 times daily Use 2 times weekly as directed. No Longer Active 01/18/2018 [facility] pen needle, diabetic (NOVOFINE) 30 gauge x 1/3" needles Inject under the skin daily Use as directed. Subcutaneous No Longer Active 01/18/2018 [facility] blood glucose test strips 2 times daily to test blood sugar. No Longer Active 01/18/2018 [facility] Albuterol Sulfate Hfa 90 McG/Actuation Aerosol Inhaler Proventil Hfa 90 McG/Actuation Aerosol Inhaler Inhale 2 Puffs by mouth 4 times daily as needed for Wheezing. Inhalation Active 01/11/2018 [facility] Cyclobenzaprine 10 Mg Tablet Take 1 tablet by mouth 3 times daily as needed for Muscle Spasms. Oral Active 01/11/2018 [facility] albuterol 90 mcg/actuation inhaler Inhale 2 Puffs by mouth 4 times daily as needed for Wheezing. Inhalation No Longer Active 01/11/2018 [facility] cyclobenzaprine (FLEXERIL) 10 mg tablet Take 1 tablet by mouth 3 times daily as needed for Muscle Spasms. Oral No Longer Active 01/11/2018 [facility] Proventil Hfa 90 McG/Actuation Aerosol Inhaler INHALE 2 PUFFS BY MOUTH FOUR TIMES DAILY NEEDED FOR WHEEZING No Longer Active 01/03/2018 [facility] insulin detemir U-100 (LEVEMIR FLEXTOUCH) 100 unit/mL (3 mL) Pen Inject 60 Units under the skin daily for 184 days. Subcutaneous Active 01/03/2018 [facility] Glipizide 5 Mg Tablet Take 1 tablet by mouth 2 times daily (before meals). Oral Active 01/03/2018 [facility] Blood Sugar Diagnostic Strips 2 times daily to test blood sugar. Active 01/03/2018 [facility] Cyclobenzaprine 10 Mg Tablet Take 1 tablet by mouth 3 times daily as needed for Muscle Spasms. Oral No Longer Active 01/03/2018 [facility] Gabapentin 300 Mg Capsule Take 1 capsule by mouth 2 times daily. Oral Active 01/03/2018 [facility] Lisinopril 20 Mg Tablet Prinivil 20 Mg Tablet Take 1 tablet by mouth daily. Oral Active 01/03/2018 [facility] PROVENTIL HFA 90 mcg/actuation inhaler INHALE 2 PUFFS BY MOUTH FOUR TIMES DAILY NEEDED FOR WHEEZING No Longer Active 01/03/2018 [facility] insulin detemir U-100 (LEVEMIR FLEXTOUCH) 100 unit/mL (3 mL) Pen Inject 60 Units under the skin daily for 184 days. Subcutaneous No Longer Active 01/03/2018 [facility] glipiZIDE (GLUCOTROL) 5 mg tablet Take 1 tablet by mouth 2 times daily (before meals). Oral No Longer Active 01/03/2018 [facility] blood glucose test strips 2 times daily to test blood sugar. No Longer Active 01/03/2018 [facility] cyclobenzaprine (FLEXERIL) 10 mg tablet Take 1 tablet by mouth 3 times daily as needed for Muscle Spasms. Oral No Longer Active 01/03/2018 [facility] gabapentin (NEURONTIN) 300 mg capsule Take 1 capsule by mouth 2 times daily. Oral No Longer Active 01/03/2018 [facility] lisinopril (PRINIVIL) 20 mg tablet Take 1 tablet by mouth daily. Oral No Longer Active 01/03/2018 [facility] Triamcinolone Acetonide 40 Mg/Ml Suspension For Injection INTRA-ARTICULAR Inactive 12/16/2017 [facility] triamcinolone acetonide (KENALOG-40) injection 80 mg INTRA-ARTICULAR Inactive 12/16/2017 [facility] triamcinolone acetonide (KENALOG-40) injection 80 mg INTRA-ARTICULAR Inactive 12/16/2017 [facility] Albuterol Sulfate Hfa 90 McG/Actuation Aerosol Inhaler Inhale 2 Puffs by mouth 4 times daily as needed for Wheezing. Inhalation Active 11/15/2017 [facility] albuterol 90 mcg/actuation inhaler Inhale 2 Puffs by mouth 4 times daily as needed for Wheezing. Inhalation No Longer Active 11/15/2017 [facility] Terbinafine Hcl 250 Mg Tablet Take 1 tablet by mouth daily. Oral Active 10/18/2017 [facility] Blood Sugar Diagnostic Strips 2 times daily to test blood sugar. No Longer Active 10/18/2017 [facility] terbinafine HCl (LAMISIL) 250 mg tablet Take 1 tablet by mouth daily. Oral No Longer Active 10/18/2017 [facility] blood glucose test strips 2 times daily to test blood sugar. No Longer Active 10/18/2017 [facility] Triamcinolone Acetonide 40 Mg/Ml Suspension For Injection INTRA-ARTICULAR Inactive 08/19/2017 [facility] triamcinolone acetonide (KENALOG-40) injection 80 mg INTRA-ARTICULAR Inactive 08/19/2017 [facility] triamcinolone acetonide (KENALOG-40) injection 80 mg INTRA-ARTICULAR Inactive 08/19/2017 [facility] insulin detemir U-100 (LEVEMIR FLEXTOUCH) 100 unit/mL (3 mL) Pen Inject 55 Units under the skin daily for 184 days. Subcutaneous No Longer Active 07/22/2017 [facility] Lisinopril 20 Mg Tablet Prinivil 20 Mg Tablet Take 1 tablet by mouth daily. Oral No Longer Active 07/22/2017 [facility] Amlodipine 5 Mg Tablet Take 1 tablet by mouth daily. Oral Active 07/22/2017 [facility] Cyclobenzaprine 10 Mg Tablet Take 1 tablet by mouth 3 times daily as needed for Muscle Spasms. Oral No Longer Active 07/22/2017 [facility] Gabapentin 300 Mg Capsule Take 1 capsule by mouth 2 times daily. Oral No Longer Active 07/22/2017 [facility] Tropicamide 0.5 % Eye Drops Instill 1 Drop in each eye once as needed for up to 1 dose (for poor retina scan image). No Longer Active 07/22/2017 [facility] insulin detemir U-100 (LEVEMIR FLEXTOUCH) 100 unit/mL (3 mL) Pen Inject 55 Units under the skin daily for 184 days. Subcutaneous No Longer Active 07/22/2017 [facility] lisinopril (PRINIVIL) 20 mg tablet Take 1 tablet by mouth daily. Oral No Longer Active 07/22/2017 [facility] amLODIPine (NORVASC) 5 mg tablet Take 1 tablet by mouth daily. Oral No Longer Active 07/22/2017 [facility] cyclobenzaprine (FLEXERIL) 10 mg tablet Take 1 tablet by mouth 3 times daily as needed for Muscle Spasms. Oral No Longer Active 07/22/2017 [facility] gabapentin (NEURONTIN) 300 mg capsule Take 1 capsule by mouth 2 times daily. Oral No Longer Active 07/22/2017 [facility] tropicamide (MYDRIACYL) 0.5 % ophthalmic solution Instill 1 Drop in each eye once as needed for up to 1 dose (for poor retina scan image). No Longer Active 07/22/2017 [facility] Levothyroxine 125 McG Tablet Take 125 mcg by mouth daily. Oral No Longer Active 06/24/2017 [facility] pen needle, diabetic (NOVOFINE) 30 gauge x 1/3" needles Inject under the skin daily Use as directed. Subcutaneous Active 06/24/2017 [facility] Lisinopril 20 Mg Tablet Prinivil 20 Mg Tablet Take 1 tablet by mouth daily. Oral No Longer Active 06/24/2017 [facility] Lancets 28 Gauge by MISCELLANEOUS route 2 times daily Use 2 times weekly as directed. Active 06/24/2017 [facility] insulin detemir U-100 (LEVEMIR FLEXTOUCH) 100 unit/mL (3 mL) Pen Inject 45 Units under the skin daily for 184 days. Subcutaneous No Longer Active 06/24/2017 [facility] Glipizide 5 Mg Tablet Take 1 tablet by mouth 2 times daily (before meals). Oral No Longer Active 06/24/2017 [facility] Gabapentin 300 Mg Capsule Take 1 capsule by mouth 2 times daily. Oral No Longer Active 06/24/2017 [facility] Cyclobenzaprine 10 Mg Tablet Take 1 tablet by mouth 3 times daily as needed for Muscle Spasms. Oral No Longer Active 06/24/2017 [facility] Blood Sugar Diagnostic Strips 2 times daily to test blood sugar. No Longer Active 06/24/2017 [facility] Amlodipine 5 Mg Tablet Take 1 tablet by mouth daily. Oral No Longer Active 06/24/2017 [facility] Albuterol Sulfate Hfa 90 McG/Actuation Aerosol Inhaler Inhale 2 Puffs by mouth 4 times daily as needed for up to 180 days for Wheezing. Inhalation No Longer Active 06/24/2017 [facility] pen needle, diabetic (NOVOFINE) 30 gauge x 1/3" needles Inject under the skin daily Use as directed. Subcutaneous No Longer Active 06/24/2017 [facility] lisinopril (PRINIVIL) 20 mg tablet Take 1 tablet by mouth daily. Oral No Longer Active 06/24/2017 [facility] lancets 28 gauge by MISCELLANEOUS route 2 times daily Use 2 times weekly as directed. No Longer Active 06/24/2017 [facility] insulin detemir U-100 (LEVEMIR FLEXTOUCH) 100 unit/mL (3 mL) Pen Inject 45 Units under the skin daily for 184 days. Subcutaneous No Longer Active 06/24/2017 [facility] glipiZIDE (GLUCOTROL) 5 mg tablet Take 1 tablet by mouth 2 times daily (before meals). Oral No Longer Active 06/24/2017 [facility] gabapentin (NEURONTIN) 300 mg capsule Take 1 capsule by mouth 2 times daily. Oral No Longer Active 06/24/2017 [facility] cyclobenzaprine (FLEXERIL) 10 mg tablet Take 1 tablet by mouth 3 times daily as needed for Muscle Spasms. Oral No Longer Active 06/24/2017 [facility] blood glucose test strips 2 times daily to test blood sugar. No Longer Active 06/24/2017 [facility] amLODIPine (NORVASC) 5 mg tablet Take 1 tablet by mouth daily. Oral No Longer Active 06/24/2017 [facility] albuterol (VENTOLIN HFA,PROVENTIL HFA,PROAIR HFA) 90 mcg/actuation inhaler Inhale 2 Puffs by mouth 4 times daily as needed for up to 180 days for Wheezing. Inhalation No Longer Active 06/24/2017 [facility] levothyroxine (SYNTHROID) 125 mcg tablet Take 1 tablet by mouth daily. Oral No Longer Active 06/24/2017 [facility] insulin detemir (LEVEMIR FLEXTOUCH) 100 unit/mL (3 mL) Pen Inject 30 Units under the skin daily for 184 days. Subcutaneous No Longer Active 04/22/2017 [facility] pen needle, diabetic (NOVOFINE) 30 gauge x 1/3" needles Inject under the skin daily Use as directed. Subcutaneous No Longer Active 04/22/2017 [facility] Lisinopril 20 Mg Tablet Prinivil 20 Mg Tablet Take 1 tablet by mouth daily. Oral No Longer Active 04/22/2017 [facility] Lancets 28 Gauge by MISCELLANEOUS route 2 times daily Use 2 times weekly as directed. No Longer Active 04/22/2017 [facility] Glipizide 5 Mg Tablet Take 1 tablet by mouth 2 times daily (before meals). Oral No Longer Active 04/22/2017 [facility] Amlodipine 5 Mg Tablet Take 1 tablet by mouth daily. Oral No Longer Active 04/22/2017 [facility] Blood Sugar Diagnostic Strips 2 times daily to test blood sugar. No Longer Active 04/22/2017 [facility] insulin detemir (LEVEMIR FLEXTOUCH) 100 unit/mL (3 mL) Pen Inject 30 Units under the skin daily for 184 days. Subcutaneous No Longer Active 04/22/2017 [facility] pen needle, diabetic (NOVOFINE) 30 gauge x 1/3" needles Inject under the skin daily Use as directed. Subcutaneous No Longer Active 04/22/2017 [facility] lisinopril (PRINIVIL) 20 mg tablet Take 1 tablet by mouth daily. Oral No Longer Active 04/22/2017 [facility] lancets 28 gauge by MISCELLANEOUS route 2 times daily Use 2 times weekly as directed. No Longer Active 04/22/2017 [facility] glipiZIDE (GLUCOTROL) 5 mg tablet Take 1 tablet by mouth 2 times daily (before meals). Oral No Longer Active 04/22/2017 [facility] amLODIPine (NORVASC) 5 mg tablet Take 1 tablet by mouth daily. Oral No Longer Active 04/22/2017 [facility] blood glucose test strips 2 times daily to test blood sugar. No Longer Active 04/22/2017 [facility] insulin detemir (LEVEMIR FLEXTOUCH) 100 unit/mL (3 mL) Pen Inject 30 Units under the skin daily for 184 days. Subcutaneous No Longer Active 04/19/2017 [facility] pen needle, diabetic (NOVOFINE) 30 gauge x 1/3" needles Inject under the skin daily Use as directed. Subcutaneous No Longer Active 04/19/2017 [facility] Lisinopril 20 Mg Tablet Prinivil 20 Mg Tablet Take 1 tablet by mouth daily. Oral No Longer Active 04/19/2017 [facility] Lancets 28 Gauge by MISCELLANEOUS route 2 times daily Use 2 times weekly as directed. No Longer Active 04/19/2017 [facility] Glipizide 5 Mg Tablet Take 1 tablet by mouth 2 times daily (before meals). Oral No Longer Active 04/19/2017 [facility] Gabapentin 300 Mg Capsule Take 1 capsule by mouth 2 times daily. Oral No Longer Active 04/19/2017 [facility] Cyclobenzaprine 10 Mg Tablet Take 1 tablet by mouth 3 times daily as needed for Muscle Spasms. Oral No Longer Active 04/19/2017 [facility] Blood Sugar Diagnostic Strips 2 times daily to test blood sugar. No Longer Active 04/19/2017 [facility] Amlodipine 5 Mg Tablet Take 1 tablet by mouth daily. Oral No Longer Active 04/19/2017 [facility] Albuterol Sulfate Hfa 90 McG/Actuation Aerosol Inhaler Inhale 2 Puffs by mouth 4 times daily as needed for up to 180 days for Wheezing. Inhalation No Longer Active 04/19/2017 [facility] gabapentin (NEURONTIN) 300 mg capsule Take 1 capsule by mouth 2 times daily. Oral No Longer Active 04/19/2017 [facility] cyclobenzaprine (FLEXERIL) 10 mg tablet Take 1 tablet by mouth 3 times daily as needed for Muscle Spasms. Oral No Longer Active 04/19/2017 [facility] albuterol (VENTOLIN HFA,PROVENTIL HFA,PROAIR HFA) 90 mcg/actuation inhaler Inhale 2 Puffs by mouth 4 times daily as needed for up to 180 days for Wheezing. Inhalation No Longer Active 04/19/2017 [facility] Glipizide 5 Mg Tablet Take 1 tablet by mouth 2 times daily (before meals). Oral No Longer Active 03/25/2017 [facility] Amlodipine 5 Mg Tablet Take 5 mg by mouth daily. Oral No Longer Active 03/02/2017 [facility] Prednisone 50 Mg Tablet Take 1 tablet by mouth daily for 5 days. Oral No Longer Active 03/02/2017 [facility] Novofine 30 30 Gauge X 1/3" Needle Use as directed. No Longer Active 03/02/2017 [facility] Lisinopril 20 Mg Tablet Prinivil 20 Mg Tablet Take 1 tablet by mouth daily. Oral No Longer Active 03/02/2017 [facility] Levothyroxine 125 McG Tablet Take 1 tablet by mouth daily. Oral No Longer Active 03/02/2017 [facility] Lancets by MISCELLANEOUS route 2 times daily. No Longer Active 03/02/2017 [facility] insulin detemir (LEVEMIR) 100 unit/mL injection Inject 10 Units under the skin daily. Subcutaneous Inactive 03/02/2017 [facility] Insulin Syringe-Needle U-100 1/2 Ml 30 Gauge X 5/16" Ultra Comfort Insulin Syringe 1/2 Ml 30 Gauge X 5/16" Use to inject medication daily. Use a new syringe each time. Subcutaneous No Longer Active 03/02/2017 [facility] pen needle, diabetic (NOVOFINE) 30 gauge x 1/3" needles Use as directed. No Longer Active 03/02/2017 [facility] Glipizide 5 Mg Tablet Take 1 tablet by mouth daily. Oral No Longer Active 03/02/2017 [facility] Gabapentin 300 Mg Capsule Take 1 capsule by mouth 2 times daily. Oral No Longer Active 03/02/2017 [facility] Cyclobenzaprine 10 Mg Tablet Take 1 tablet by mouth 3 times daily as needed for Muscle Spasms. Oral No Longer Active 03/02/2017 [facility] Blood Sugar Diagnostic Strips 2 times daily to test blood sugar. No Longer Active 03/02/2017 [facility] Blood Sugar Diagnostic Strips 2 times daily to test blood sugar. No Longer Active 02/02/2017 [facility] Lisinopril 20 Mg Tablet Prinivil 20 Mg Tablet Take 1 tablet by mouth daily. Oral No Longer Active 02/02/2017 [facility] Albuterol Sulfate Hfa 90 McG/Actuation Aerosol Inhaler Inhale 2 Puffs by mouth 4 times daily as needed for up to 180 days for Wheezing. Inhalation No Longer Active 02/02/2017 [facility] Albuterol Sulfate Hfa 90 McG/Actuation Aerosol Inhaler Inhale 2 Puffs by mouth 4 times daily as needed for up to 180 days for Wheezing. Inhalation No Longer Active 10/12/2016 [facility] Insulin Syringe-Needle U-100 1/2 Ml 30 Gauge X 5/16" Ultra Comfort Insulin Syringe 1/2 Ml 30 Gauge X 5/16" Use to inject medication at bedtime nightly. Use a new syringe each time. Subcutaneous No Longer Active 10/12/2016 [facility] Novofine 30 30 Gauge X 1/3" Needle Use as directed. No Longer Active 10/12/2016 [facility] insulin detemir (LEVEMIR) 100 unit/mL injection Inject 10 Units under the skin at bedtime nightly. Subcutaneous No Longer Active 10/12/2016 [facility] Insulin Syringe-Needle U-100 0.3 Ml 29 Gauge X 1/2" Monoject Insulin Syringe 0.3 Ml 29 Gauge X 1/2" Use to inject medication at bedtime nightly. Use a new syringe each time. Subcutaneous No Longer Active 10/12/2016 [facility] Victoza 3-Fabby 0.6 Mg/0.1 Ml (18 Mg/3 Ml) Subcutaneous Pen Injector Inject 0.2 mL under the skin daily for 90 days. Subcutaneous Inactive 10/12/2016 [facility] Levemir U-100 Insulin 100 Unit/Ml Subcutaneous Solution Inject 20 Units under the skin at bedtime nightly. Subcutaneous Inactive 10/12/2016 [facility] Lancets 2 times weekly. No Longer Active 10/08/2016 [facility] Blood-Glucose Meter Use as directed.. No Longer Active 10/08/2016 [facility] Blood Sugar Diagnostic Strips to test blood sugar. No Longer Active 10/08/2016 [facility] pen needle, diabetic (NOVOFINE) 30 gauge x 1/3" needles Use as directed. No Longer Active 10/08/2016 [facility] insulin aspart (NOVOLOG FLEXPEN) 100 unit/mL pen Inject 10 Units under the skin 3 times daily (before meals). Subcutaneous No Longer Active 10/08/2016 [facility] Premarin 0.625 Mg Tablet Take 0.625 mg by mouth daily. Oral No Longer Active 10/08/2016 [facility] LIRAGLUTIDE (VICTOZA 3-FABBY SC) Inject 18 Units under the skin daily. Subcutaneous Inactive 10/08/2016 [facility] Victoza 3-Fabby 0.6 Mg/0.1 Ml (18 Mg/3 Ml) Subcutaneous Pen Injector Inject 0.2 mL under the skin daily for 90 days. Subcutaneous No Longer Active 10/08/2016 [facility] Lisinopril 40 Mg Tablet Zestril 40 Mg Tablet Take 1 tablet by mouth daily. Oral No Longer Active 10/07/2016 [facility] Cyclobenzaprine 10 Mg Tablet Take 1 tablet by mouth 3 times daily as needed for Muscle Spasms. Oral No Longer Active 10/07/2016 [facility] Gabapentin 300 Mg Capsule Take 1 capsule by mouth 2 times daily. Oral No Longer Active 10/07/2016 [facility] Glipizide 5 Mg Tablet Take 1 tablet by mouth daily. Oral No Longer Active 10/07/2016 [facility] Levothyroxine 125 McG Tablet Take 1 tablet by mouth daily. Oral No Longer Active 10/07/2016 [facility] Blood-Glucose Meter Use as directed.. No Longer Active 10/07/2016 [facility] Blood Sugar Diagnostic Strips to test blood sugar. No Longer Active 10/07/2016 [facility] Tropicamide 0.5 % Eye Drops Instill 1 Drop in each eye once as needed for up to 1 dose for Other (For poor retina scan image). No Longer Active 10/07/2016 [facility] Montelukast 10 Mg Tablet Take 10 mg by mouth at bedtime nightly. Oral No Longer Active 10/07/2016 [facility] Amlodipine 10 Mg Tablet Take 10 mg by mouth daily. Oral No Longer Active 10/07/2016 [facility] Albuterol Sulfate Hfa 90 McG/Actuation Aerosol Inhaler Inhale 2 Puffs by mouth 4 times daily as needed for Wheezing. Inhalation No Longer Active 10/07/2016 [facility] Allergies, Adverse Reactions, Alerts Substance Category Reaction Severity Reaction type Status Date Reported Comments Source Immunizations Immunization Date Given Site Status Last Updated Comments Source TDap (Tetanus Toxoid, Reduced Diphtheria Toxoid And Acellular Pertussis, Absorbed) 10/19/2017 Not Given Deferred: Unavailable- Patient to return for vaccine later [facility] Tdap (Tetanus Toxoid, Reduced Diphtheria Toxoid And Acellular Pertussis, Absorbed) 10/19/2017 Not Given Deferred: Unavailable- Patient to return for vaccine later [facility] TDap (Tetanus Toxoid, Reduced Diphtheria Toxoid And Acellular Pertussis, Absorbed) 07/22/2017 Not Given Deferred: Vaccine Unavailable [facility] PPV 23 (Pneumococcal Polysaccharide 23 Valent) 07/22/2017 completed [facility] Tdap (Tetanus Toxoid, Reduced Diphtheria Toxoid And Acellular Pertussis, Absorbed) 07/22/2017 Not Given Deferred: Vaccine Unavailable [facility] Influenza Vaccine, Seasonal, Injectable 06/24/2017 Not Given Deferred: Patient Refused [facility] Results Order Name Results Value Reference Range Date Interpretation Comments Source OPHTHALMOLOGY RETINAL SCAN RETINAL SCAN-FINAL RESULT NORMAL 08/01/2018 [facility] OPHTHALMOLOGY RETINAL SCAN Right Diabetic Retinopathy None 08/01/2018 [facility] OPHTHALMOLOGY RETINAL SCAN Right Macular Edema None 08/01/2018 [facility] OPHTHALMOLOGY RETINAL SCAN Right Other Suspected Conditions None 08/01/2018 [facility] OPHTHALMOLOGY RETINAL SCAN Right Image Quality Gradeable Image 08/01/2018 [facility] OPHTHALMOLOGY RETINAL SCAN Left Diabetic Retinopathy None 08/01/2018 [facility] OPHTHALMOLOGY RETINAL SCAN Left Macular Edema None 08/01/2018 [facility] OPHTHALMOLOGY RETINAL SCAN Left Other Suspected Conditions None 08/01/2018 [facility] OPHTHALMOLOGY RETINAL SCAN Left Image Quality Gradeable Image 08/01/2018 [facility] OPHTHALMOLOGY RETINAL SCAN <p>Retinal Study Result for CARLIE ELIZABETH</p><p> </p><p>CARLIE ELIZABETH a 52 y/o, F (: 1965, )</p><p>presented to [facility] on 08-01-2018 for a retinal imaging study of the [...] </p><p> </p><p>This result was electronically signed by Sana Clark MD, , Taxonomy: [id number] on 08-01-2018 08:37:02 [facility] time.</p><p> </p><p>NOTE:Any pathology noted on this diabetic retinal evaluation should be confirmed by an appropriate ophthalmic examination.</p> Retinal Study Result for CARLIE ELIZABETH MARY, a 52 y/o, F (: 1965, ) presented to [facility] on 08-01-2018 for a retinal imaging study of the [...] Retinopathy. This result was electronically signed by Sana Clark MD, , Taxonomy: [id number] on 08-01-2018 08:37:02 [facility] time. NOTE:Any pathology noted on this diabetic retinal evaluation should be confirmed by an appropriate ophthalmic examination. 08/01/2018 [facility] HEMOGLOBIN A1C Hemoglobin A1c 10.6 % 4.3 - 6.1 06/17/2018 [facility] HEMOGLOBIN A1C Est Average Gluc 257.5 mg/dL 06/17/2018 [facility] HEMOGLOBIN A1C Lab Interpretation Abnormal 06/17/2018 [facility] TSH TSH 8.35 0.57 - 3.74 06/17/2018 [facility] TSH Lab Interpretation Abnormal 06/17/2018 [facility] BASIC METABOLIC PANEL CO2 32 mmol/L 21 - 31 06/17/2018 [facility] BASIC METABOLIC PANEL Chloride 100 mmol/L 98 - 107 06/17/2018 [facility] BASIC METABOLIC PANEL Potassium 5.4 mmol/L 3.5 - 5.1 06/17/2018 [facility] BASIC METABOLIC PANEL Sodium 141 mmol/L 136 - 145 06/17/2018 [facility] BASIC METABOLIC PANEL Glucose 125 mg/dL 70 - 110 06/17/2018 [facility] BASIC METABOLIC PANEL Urea Nitrogen 19 mg/dL 7 - 25 06/17/2018 [facility] BASIC METABOLIC PANEL Creatinine 1.00 mg/dL 0.6 - 1.2 06/17/2018 [facility] BASIC METABOLIC PANEL Anion Gap 9 06/17/2018 [facility] BASIC METABOLIC PANEL Calcium 9.8 mg/dL 8.6 - 10.3 06/17/2018 [facility] BASIC METABOLIC PANEL GFR, Estimated 58 mL/min/1.73 m2 06/17/2018 [facility] BASIC METABOLIC PANEL GFR, Estim, Afr-Am >60 mL/min/1.73 m2 06/17/2018 [facility] BASIC METABOLIC PANEL Lab Interpretation Abnormal 06/17/2018 [facility] LIPID PROFILE Cholesterol 184 mg/dL 06/17/2018 REFERENCE RANGE: Desirable: <200 mg/dL Borderline: 200-240 mg/dL High Risk: >240 mg/dL [facility] LIPID PROFILE Triglyceride 87 mg/dL <150 06/17/2018 REFERENCE RANGE: Normal: <150 mg/dL Borderline High: 150-199 mg/dL High: 200-499 mg/dL Very High: >yt=305 mg/dL [facility] LIPID PROFILE HDL 59 mg/dL 06/17/2018 Increased CHD risk: <40 mg/dL Decreased CHD risk: >60 mg/dL [facility] LIPID PROFILE LDL 108 mg/dL 06/17/2018 REFERENCE RANGE: Optimal: <100 mg/dL Near Optimal: 100-129 mg/dL Borderline High: 130-159 mg/dL High: 160-189 mg/dL Very High: >vo=752 mg/dL [facility] LIVER PROFILE T Protein 7.5 g/dL 6 - 8.3 06/17/2018 [facility] LIVER PROFILE Albumin 3.9 g/dL 3.7 - 5.3 06/17/2018 [facility] LIVER PROFILE T Bilirubin 0.6 mg/dL 0.2 - 1.2 06/17/2018 [facility] LIVER PROFILE Alk Phos 121 U/L 34 - 104 06/17/2018 [facility] LIVER PROFILE AST 13 U/L 13 - 39 06/17/2018 [facility] LIVER PROFILE ALT 18 U/L 7 - 52 06/17/2018 [facility] LIVER PROFILE D Bilirubin 0.2 mg/dL 0 - 0.2 06/17/2018 [facility] LIVER PROFILE Lab Interpretation Abnormal 06/17/2018 [facility] CBC/DIFF WBC 9.6 K/uL 4.5 - 11 06/16/2018 [facility] CBC/DIFF RBC 4.64 4.20 - 5.40 06/16/2018 [facility] CBC/DIFF Hemoglobin 13.5 g/dL 12 - 16 06/16/2018 [facility] CBC/DIFF Hematocrit 43.6 % 37 - 47 06/16/2018 [facility] CBC/DIFF MCV 94 fL 82 - 92 06/16/2018 [facility] CBC/DIFF MCH 29.1 pg 27 - 32 06/16/2018 [facility] CBC/DIFF MCHC 31.0 g/dL 32 - 36 06/16/2018 [facility] CBC/DIFF RDW 45.0 fL 36.4 - 46.3 06/16/2018 [facility] CBC/DIFF Platelet 304 K/uL 150 - 400 06/16/2018 [facility] CBC/DIFF Mean Platelet Volume 10.3 fL 9.4 - 12.4 06/16/2018 [facility] CBC/DIFF Percent NRBC 0.0 06/16/2018 [facility] CBC/DIFF Absolute NRBC 0.00 06/16/2018 [facility] CBC/DIFF Neutrophil 58.8 % 34 - 70 06/16/2018 [facility] CBC/DIFF Lymphocyte 31.4 % 20 - 50 06/16/2018 [facility] CBC/DIFF Monocyte 5.1 % 5 - 12 06/16/2018 [facility] CBC/DIFF Eosinophil 3.8 % 0.7 - 5 06/16/2018 [facility] CBC/DIFF Basophil 0.6 % 0.1 - 1.2 06/16/2018 [facility] CBC/DIFF Pct Immat Gran 0.3 0.0 - 0.5 06/16/2018 [facility] CBC/DIFF Neutrophil, Abs 5.63 K/uL 1.56 - 6.13 06/16/2018 [facility] CBC/DIFF Lymphocyte, Abs 3.01 K/uL 1.18 - 3.74 06/16/2018 [facility] CBC/DIFF Monocyte, Abs 0.49 K/uL 0.24 - 0.36 06/16/2018 [facility] CBC/DIFF Eosinophil, Abs 0.36 K/uL 0.04 - 0.36 06/16/2018 [facility] CBC/DIFF Basophil, Abs 0.06 K/uL 0.01 - 0.08 06/16/2018 [facility] CBC/DIFF Absol Immat Gran 0.03 K/uL 0 - 0.03 06/16/2018 [facility] CBC/DIFF Lab Interpretation Abnormal 06/16/2018 [facility] XRAY KNEE 1 OR 2 VIEWS (LIMITED-AP/LAT) IMPRESSION:No significant osseous or joint abnormality identified. Signed By: Sylvester Champagne MD, 04/19/2018 9:37 AM EXAM: XR RIGHT KNEE 2 VIEW DATE:04/18/2018 2:59 PM INDICATION: Severe Right Knee Pain COMPARISON: None available TECHNIQUE:AP and lateralknee radiographs DISCUSSION:No acute fracture or malalignment is identified. Knee joint spaces are overall preserved on these non-weightbearing views.There is no knee joint effusion. No soft tissue abnormality is identified. Interface, Rad/Mammog In - 04/19/2018 9:42 AM AERIAL PHOTOGRAMMETRIST EXAM: XR RIGHT KNEE 2 VIEW DATE: 04/18/2018 2:59 PM INDICATION: Severe Right Knee Pain COMPARISON: None available TECHNIQUE: AP and lateral knee radiographs DISCUSSION: No acute fracture or malalignment is identified. Knee joint spaces are overall preserved on these non-weightbearing views. There is no knee joint effusion. No soft tissue abnormality is identified. IMPRESSION IMPRESSION: No significant osseous or joint abnormality identified. Signed By: Sylvester Champagne MD, 04/19/2018 9:37 AM 04/19/2018 [facility] HEMOGLOBIN A1C Hemoglobin A1c 9.6 % 4.3 - 6.1 03/16/2018 [facility] HEMOGLOBIN A1C Est Average Gluc 228.8 mg/dL 03/16/2018 [facility] HEMOGLOBIN A1C Lab Interpretation Abnormal 03/16/2018 [facility] HEPATITIS PANEL HCV IgG Negative NEG 03/15/2018 [facility] HEPATITIS PANEL HBsAg Negative NEG 03/15/2018 [facility] HEPATITIS PANEL HAV, IgM Negative NEG 03/15/2018 [facility] HEPATITIS PANEL HBcAb, IgM Negative NEG 03/15/2018 [facility] VIT D, 25-HYDROXY Vit D, 25-Hydroxy 16.0 ng/mL 30 - 100 03/15/2018 Vitamin D deficiency has been defined by the [place] [employer] and [employer] Society guideline as a level of serum 25-OH Vitamin D less than 20 ng/mL. The Endocrine Society further defines Vitamin D insufficiency as a level between 21 and 29 ng/mL and sufficiency as a level between 30 and 100 ng/mL. [facility] VIT D, 25-HYDROXY Lab Interpretation Abnormal 03/15/2018 [facility] TSH TSH 0.57 0.57 - 3.74 03/15/2018 [facility] BASIC METABOLIC PANEL CO2 32 mmol/L 21 - 31 03/15/2018 [facility] BASIC METABOLIC PANEL Chloride 101 mmol/L 98 - 107 03/15/2018 [facility] BASIC METABOLIC PANEL Potassium 4.3 mmol/L 3.5 - 5.1 03/15/2018 [facility] BASIC METABOLIC PANEL Sodium 142 mmol/L 136 - 145 03/15/2018 [facility] BASIC METABOLIC PANEL Glucose 226 mg/dL 70 - 110 03/15/2018 [facility] BASIC METABOLIC PANEL Urea Nitrogen 25 mg/dL 7 - 25 03/15/2018 [facility] BASIC METABOLIC PANEL Creatinine 1.00 mg/dL 0.6 - 1.2 03/15/2018 [facility] BASIC METABOLIC PANEL Anion Gap 9 03/15/2018 [facility] BASIC METABOLIC PANEL Calcium 9.4 mg/dL 8.6 - 10.3 03/15/2018 [facility] BASIC METABOLIC PANEL GFR, Estimated 58 mL/min/1.73 m2 03/15/2018 [facility] BASIC METABOLIC PANEL GFR, Estim, Afr-Am >60 mL/min/1.73 m2 03/15/2018 [facility] BASIC METABOLIC PANEL Lab Interpretation Abnormal 03/15/2018 [facility] LIPID PROFILE Cholesterol 166 mg/dL 03/15/2018 REFERENCE RANGE: Desirable: <200 mg/dL Borderline: 200-240 mg/dL High Risk: >240 mg/dL [facility] LIPID PROFILE Triglyceride 165 mg/dL <150 03/15/2018 REFERENCE RANGE: Normal: <150 mg/dL Borderline High: 150-199 mg/dL High: 200-499 mg/dL Very High: >rd=968 mg/dL [facility] LIPID PROFILE HDL 53 mg/dL 03/15/2018 Increased CHD risk: <40 mg/dL Decreased CHD risk: >60 mg/dL [facility] LIPID PROFILE LDL 80 mg/dL 03/15/2018 REFERENCE RANGE: Optimal: <100 mg/dL Near Optimal: 100-129 mg/dL Borderline High: 130-159 mg/dL High: 160-189 mg/dL Very High: >dj=218 mg/dL [facility] LIPID PROFILE Lab Interpretation Abnormal 03/15/2018 [facility] XRAY KNEE 1 OR 2 VIEWS (LIMITED-AP/LAT) [...] present on the previously imaged right knee. Interface, Rad/Mammog In - 01/11/2018 7:46 PM [...] Melonie Shoemaker MD, 01/11/2018 7:41 PM 01/12/2018 [facility] DIABETIC FOOT EXAM <p>Dorian Agustin MD 01/11/2018 [...] normal, left foot appearance is normal. 01/11/2018 [facility] HEMOGLOBIN A1C Hemoglobin A1c 8.9 % 4.3 - 6.1 11/16/2017 [facility] HEMOGLOBIN A1C Est Average Gluc 208.7 mg/dL 11/16/2017 [facility] HEMOGLOBIN A1C Lab Interpretation Abnormal 11/16/2017 [facility] HEMOGLOBIN A1C Hemoglobin A1c 8.9 % 4.3 - 6.1 11/15/2017 High [facility] HEMOGLOBIN A1C Est Average Gluc 208.7 mg/dL 11/15/2017 [facility] HEMOGLOBIN A1C Lab Interpretation Abnormal 11/15/2017 [facility] OPHTHALMOLOGY RETINAL SCAN RETINAL SCAN-FINAL RESULT NORMAL 07/23/2017 [facility] OPHTHALMOLOGY RETINAL SCAN Right Diabetic Retinopathy None 07/23/2017 [facility] OPHTHALMOLOGY RETINAL SCAN Right Macular Edema None 07/23/2017 [facility] OPHTHALMOLOGY RETINAL SCAN Right Other Suspected Conditions None 07/23/2017 [facility] OPHTHALMOLOGY RETINAL SCAN Right Image Quality Gradeable Image 07/23/2017 [facility] OPHTHALMOLOGY RETINAL SCAN Left Diabetic Retinopathy None 07/23/2017 [facility] OPHTHALMOLOGY RETINAL SCAN Left Macular Edema None 07/23/2017 [facility] OPHTHALMOLOGY RETINAL SCAN Left Other Suspected Conditions None 07/23/2017 [facility] OPHTHALMOLOGY RETINAL SCAN Left Image Quality Gradeable Image 07/23/2017 [facility] OPHTHALMOLOGY RETINAL SCAN <p>Retinal Study Result for CARLIE ELIZABETH</p><p> </p><p>CARLIE ELIZABETH a 51 y/o, F (: 1965, )</p><p>presented to [facility] on 07-22-2017 for a retinal imaging study [...] electronically signed by Markel Downey MD. Taxonomy: [id number] on 07-23-2017 05:31:38 [facility] time.</p><p> </p><p>NOTE:Any pathology noted on this diabetic retinal evaluation should be confirmed by an appropriate ophthalmic examination.</p> Retinal Study Result for CARLIE ELIZABETH MARY, a 51 y/o, F (: 1965, ) presented to [facility] on 07-22-2017 for a retinal imaging study [...] was electronically signed by Markel Downey MD. CHEY: [id number] Taxonomy: [id number] on 07-23-2017 05:31:38 [facility] time. NOTE:Any pathology noted on this diabetic retinal evaluation should be confirmed by an appropriate ophthalmic examination. 07/23/2017 [facility] OPHTHALMOLOGY RETINAL SCAN RETINAL SCAN-FINAL RESULT NORMAL 07/23/2017 [facility] OPHTHALMOLOGY RETINAL SCAN Right Diabetic Retinopathy None 07/23/2017 [facility] OPHTHALMOLOGY RETINAL SCAN Right Macular Edema None 07/23/2017 [facility] OPHTHALMOLOGY RETINAL SCAN Right Other Suspected Conditions None 07/23/2017 [facility] OPHTHALMOLOGY RETINAL SCAN Right Image Quality Gradeable Image 07/23/2017 [facility] OPHTHALMOLOGY RETINAL SCAN Left Diabetic Retinopathy None 07/23/2017 [facility] OPHTHALMOLOGY RETINAL SCAN Left Macular Edema None 07/23/2017 [facility] OPHTHALMOLOGY RETINAL SCAN Left Other Suspected Conditions None 07/23/2017 [facility] OPHTHALMOLOGY RETINAL SCAN Left Image Quality Gradeable Image 07/23/2017 [facility] OPHTHALMOLOGY RETINAL SCAN <p>Retinal Study Result for CARLIE ELIZABETH</p><p> </p><p>CARLIE ELIZABETH a 51 y/o, F (: [birth year], )</p><p>presented to [facility] on 07-22-2017 for a retinal imaging study [...] electronically signed by Markel Downey MD. Taxonomy: [id number] on 07-23-2017 05:31:38 [facility] time.</p><p> </p><p>NOTE:Any pathology noted on this diabetic retinal evaluation should be confirmed by an appropriate ophthalmic examination.</p> Retinal Study Result for CARLIE ELIZABETH MARY, a 51 y/o, F (: 1965, ) presented to [facility] on 07-22-2017 for a retinal imaging study [...] electronically signed by Markel Downey MD. Taxonomy: [id number] on 07-23-2017 05:31:38 [facility] time. NOTE:Any pathology noted on this diabetic retinal evaluation should be confirmed by an appropriate ophthalmic examination. 07/23/2017 [facility] HEMOGLOBIN A1C Hemoglobin A1c 9.1 % 4.3 - 6.1 06/24/2017 High [facility] HEMOGLOBIN A1C Est Average Gluc 214.5 mg/dL 06/24/2017 [facility] HEMOGLOBIN A1C Lab Interpretation Abnormal 06/24/2017 [facility] OCCULT BLOOD ICT Occult Blood ICT Negative NEG 04/22/2017 [facility] OCCULT BLOOD ICT Occult Blood ICT Negative NEG 04/22/2017 [facility] TSH TSH 4.17 0.36 - 3.74 03/03/2017 [facility] TSH Lab Interpretation Abnormal 03/03/2017 [facility] TSH TSH 4.17 uIU/mL 0.36 - 3.74 03/02/2017 High [facility] TSH Lab Interpretation Abnormal 03/02/2017 [facility] DIABETIC FOOT EXAM <p>Dorian Agustin MD 12/08/2016 [...] </p><p>ASSESSMENT & PLAN</p><p> </p><p>1. Encounter to establish [facility] </p><p> LIVER PROFILE </p><p> HIV-1/HIV-2 ROUTINE SCREENING [...] </p><p>Orders and follow up as documented in [facility].</p><p>Patient was provided education on their diagnosis, treatments [...] & PLAN</p><p> & lt;/p><p>1. Encounter to establish [facility] </p><p> LIVER PROFILE </p><p> HIV-1/HIV-2 ROUTINE SCREENING [...] </p><p>Orders and follow up as documented in [facility].</p><p>Patient was provided education on their diagnosis, treatments and </p><p>any medications prescribed including medication use, any possible </p><p>adverse side effect or potential drug to drug interactions. </p><p>Patient's level of understanding is assessed with patient </p><p>acknowledgment of understanding . </p><p> </p><p> </p><p>Dorian Agustin [id number]</p><p> </p> 12/08/2016 [facility] STAIN Spec Description Vaginal 10/12/2016 [facility] ST[facility] Order Comments None 10/12/2016 [facility] Direct Exam No fungus seen by [facility] 10/12/2016 [facility] STAIN Report Status Final 10/12/2016 10/12/2016 [facility] [place] Spec Description Vaginal 10/12/2016 [facility] Order Comments None 10/12/2016 [facility] WET MOUNT Exam Epithelial cells Clue cells present Few WBC's seen No Trichomonas seen 10/12/2016 [facility] MOUNT Report Status Final 10/12/2016 10/12/2016 [facility] XRAY KNEE 3 VIEWS (ROUTINE W/ WT [...] Sylvester Champagne MD, 10/08/2016 12:12 PM 10/08/2016 [facility] FOLIC ACID Folic Acid 15.8 ng/mL 5.39 - 24 10/08/2016 [facility] VITAMIN B12 Vitamin B12 631 pg/mL 211 - 911 10/08/2016 [facility] BASIC METABOLIC PANEL CO2 29 mmol/L 21 - 32 10/08/2016 [facility] BASIC METABOLIC PANEL Chloride 102 mmol/L 98 - 107 10/08/2016 [facility] BASIC METABOLIC PANEL Potassium 4.2 mmol/L 3.5 - 5.1 10/08/2016 [facility] BASIC METABOLIC PANEL Sodium 138 mmol/L 136 - 145 10/08/2016 [facility] BASIC METABOLIC PANEL Glucose 216 mg/dL 70 - 99 10/08/2016 High [facility] BASIC METABOLIC PANEL Urea Nitrogen 11 mg/dL 7 - 18 10/08/2016 [facility] BASIC METABOLIC PANEL Creatinine 1.01 mg/dL 0.6 - 1.3 10/08/2016 [facility] BASIC METABOLIC PANEL Anion Gap 7 10/08/2016 [facility] BASIC METABOLIC PANEL Calcium 9.5 mg/dL 8.5 - 10.2 10/08/2016 [facility] BASIC METABOLIC PANEL GFR, Estimated 58 mL/min/1.73 m2 10/08/2016 [facility] BASIC METABOLIC PANEL GFR, Estim, Afr-Am >60 mL/min/1.73 m2 10/08/2016 [facility] BASIC METABOLIC PANEL Lab Interpretation Abnormal 10/08/2016 [facility] CBC WBC 9.0 K/uL 4.5 - 11 10/08/2016 [facility] CBC RBC 5.26 M/uL 4.20 - 5.40 10/08/2016 [facility] CBC Hemoglobin 15.2 g/dL 12 - 16 10/08/2016 [facility] CBC Hematocrit 46.9 % 37 - 47 10/08/2016 [facility] CBC MCV 89 fL 82 - 92 10/08/2016 [facility] CBC MCH 28.9 pg 27 - 32 10/08/2016 [facility] CBC MCHC 32.4 g/dL 32 - 36 10/08/2016 [facility] CBC RDW 39.4 fL 36.4 - 46.3 10/08/2016 [facility] CBC Platelet 367 K/uL 150 - 400 10/08/2016 [facility] CBC Mean Platelet Volume 9.8 fL 9.4 - 12.4 10/08/2016 [facility] CBC Percent NRBC 0.0 10/08/2016 [facility] CBC Absolute NRBC 0.00 10/08/2016 [facility] FREE T4 Free T4 1.15 ng/dl 0.89 - 1.76 10/08/2016 [facility] HIV-1/HIV-2 ROUTINE SCREENING HIV-1/HIV-2 Negative NEG 10/08/2016 [facility] LIPID PROFILE Cholesterol 191 mg/dL <200 10/08/2016 REFERENCE RANGE: Desirable: <200 mg/dL Borderline: 200-240 mg/dL High Risk: >240 mg/dL [facility] LIPID PROFILE Triglyceride 142 mg/dL 10/08/2016 REFERENCE RANGE: Normal: <150 mg/dL Borderline High: 150-199 mg/dL High: 200-499 mg/dL Very High: >rt=425 mg/dL [facility] LIPID PROFILE HDL 49 mg/dL 40 - 60 10/08/2016 Increased CHD risk: <40 mg/dL Decreased CHD risk: >60 mg/dL [facility] LIPID PROFILE LDL 114 mg/dL 10/08/2016 REFERENCE RANGE: Optimal: <100 mg/dL Near Optimal: 100-129 mg/dL Borderline High: 130-159 mg/dL High: 160-189 mg/dL Very High: >rz=211 mg/dL [facility] LIVER PROFILE T Protein 7.6 g/dL 6.4 - 8.2 10/08/2016 [facility] LIVER PROFILE Albumin 3.6 g/dL 3.4 - 5 10/08/2016 [facility] LIVER PROFILE T Bilirubin 0.8 mg/dL 0.2 - 1 10/08/2016 [facility] LIVER PROFILE Alk Phos 120 U/L 45 - 117 10/08/2016 High [facility] LIVER PROFILE AST 17 U/L 15 - 37 10/08/2016 [facility] LIVER PROFILE ALT 31 U/L 12 - 78 10/08/2016 [facility] LIVER PROFILE D Bilirubin 0.2 mg/dL 0 - 0.2 10/08/2016 [facility] LIVER PROFILE Lab Interpretation Abnormal 10/08/2016 [facility] MICROALBUM, URINE Microalbum, Random 9.1 mg/dL 0 - 29 10/08/2016 [facility] MICROALBUM, URINE Creatinine, Ur 292.6 mg/dL 10/08/2016 [facility] MICROALBUM, URINE Urine Microalbumin 31.1 mg/g UCR 0 - 29 10/08/2016 High To minimize intra-individual variation, analysis of three random urine samples collected over the course of a week is recommended. [facility] MICROALBUM, URINE Lab Interpretation Abnormal 10/08/2016 [facility] UA CHEMISTRIES Color Yellow 10/08/2016 [facility] UA CHEMISTRIES Clarity Clear 10/08/2016 [facility] UA CHEMISTRIES Spec [place] 1.006 1.001 - 1.035 10/08/2016 [facility] UA CHEMISTRIES pH 6.0 5 - 8 10/08/2016 [facility] UA CHEMISTRIES Protein Negative NEG 10/08/2016 [facility] UA CHEMISTRIES Glucose Negative NEG 10/08/2016 [facility] UA CHEMISTRIES Ketone Negative NEG 10/08/2016 [facility] UA CHEMISTRIES Bilirubin Negative NEG 10/08/2016 [facility] UA CHEMISTRIES Nitrate Negative NEG 10/08/2016 [facility] UA CHEMISTRIES Urobilinogen <1.0 0.2 - 1 10/08/2016 [facility] UA CHEMISTRIES Leukocyte Negative NEG 10/08/2016 [facility] UA CHEMISTRIES Blood Negative NEG 10/08/2016 [facility] VIT D, 25-HYDROXY Vit D, 25-Hydroxy 14.0 ng/mL 30 - 100 10/08/2016 Low Vitamin D deficiency has been defined by the [place] [employer] and End[employer] Society guideline as a level of serum 25-OH Vitamin D less than 20 ng/mL. The Endocrine Society further defines Vitamin D insufficiency as a level between 21 and 29 ng/mL and sufficiency as a level between 30 and 100 ng/mL. [facility] VIT D, 25-HYDROXY Lab Interpretation Abnormal 10/08/2016 [facility] Vital Signs Vital Sign Value Date Comments Source Systolic (mm Hg) 109 08/01/2018 [facility] Diastolic (mm Hg) 78 08/01/2018 [facility] Heart Rate 107 08/01/2018 [facility] Temperature Oral (F) 36.67 Inna 08/01/2018 [facility] Respitory Rate 18 08/01/2018 [facility] Height 157.5 cm 08/01/2018 [facility] Weight 109.317 08/01/2018 [facility] Systolic (mm Hg) 119 06/13/2018 [facility] Diastolic (mm Hg) 78 06/13/2018 [facility] Heart Rate 90 06/13/2018 [facility] Temperature Oral (F) 36.11 Inna 06/13/2018 [facility] Respitory Rate 18 06/13/2018 [facility] Height 157.5 cm 06/13/2018 [facility] Weight 107.956 06/13/2018 [facility] Systolic (mm Hg) 119 04/18/2018 [facility] Diastolic (mm Hg) 77 04/18/2018 [facility] Heart Rate 100 04/18/2018 [facility] Temperature Oral (F) 36.67 Inna 04/18/2018 [facility] Respitory Rate 22 04/18/2018 [facility] Height 157.5 cm 04/18/2018 [facility] Weight 107.956 04/18/2018 [facility] Respitory Rate 22 01/18/2018 [facility] Height [...] Health Temperature Oral (F) 36.78 Inna 08/31/2017 [facility] Respitory Rate 22 08/31/2017 [facility] Height 157.5 cm 08/31/2017 [facility] Weight 105.688 08/31/2017 [facility] BMI Calculated 42.62 08/31/2017 [facility] Encounters Location Location Details Encounter Type Encounter Number Reason For Visit Attending Provider ADM Date DC Date Status Counts Include [facility] Office Visit [id number] Encounter to establish care Forgetfulness Chronic midline low back pain without sciatica Morbid obesity, unspecified obesity type Diabetes mellitus type 2 in obese Essential hypertension Unspecified hypothyroidism Moderate persistent asthma without complication Dorian Agustin MD 10/07/2016 10/07/2016 [facility] Patient Education [place] Patient Education [id number] Dorian Agustin MD 10/07/2016 10/07/2016 [facility] Office Visit [id number] Diabetes mellitus type 2 in obese Chronic dental pain Forgetfulness Chronic pain of right knee Dorian Agustin MD 10/08/2016 10/08/2016 [facility] Office Visit [id number] Diabetes mellitus type 2 in obese Moderate persistent asthma without complication Well woman exam Chronic pain of right knee Dorian Agustin MD 10/12/2016 10/12/2016 [facility] Patient Education [place] Patient Education [id number] Diabetes education, encounter for Dorian Agustin MD 10/19/2016 10/19/2016 [facility] Patient Education [place] Telephone [id number] Kimber Hoffman RN 10/23/2016 [facility] Clinical [facility]acy [facility] [id number] [facility]25[facility]2016 11/25/2016 [facility] Office Visit [id number] Diony [facility] 12/21/2016 12/21/2016 [facility] Patient Education [place] Patient Education [id number] Kimber Hoffman RN 02/02/2017 [facility] [place] [facility] Visit [id number] 02/02/2017 [facility] Office Visit [id number] Routine adult health maintenance Uncontrolled type 2 diabetes mellitus with complication, with long-term current use of insulin Essential hypertension Morbid obesity Moderate persistent asthma without complication Leach's palsy Dorian Agustin MD 02/02/2017 02/02/2017 [facility] Office Visit [id number] Diony Coppola [facility] 02/25/2017 02/25/2017 [facility] Patient Education [place] Patient Education [id number] Kimber Hoffman RN 03/02/2017 [facility] Office Visit [id number] Essential hypertension Acquired hypothyroidism Chronic midline low back pain without sciatica Uncontrolled type 2 diabetes mellitus with complication, with long-term current use of insulin Forgetfulness TMJ syndrome Morbid obesity History of hypothyroidism Dorian Agustin MD 03/02/2017 03/02/2017 [facility] Telephone [id number] Kya Reyes [employer] 03/03/2017 [facility] Patient Education [place] Patient Education [id number] Diabetes education, encounter for Dorian Agustin MD 03/05/2017 03/05/2017 [facility] Office Visit [id number] Uncontrolled type 2 diabetes mellitus with complication, with long-term current use of insulin Diony Abdon [facility] 03/25/2017 03/25/2017 [facility] Patient Education [place] Telephone [id number] Kimber Hoffman RN 04/08/2017 [facility] Orders Only [id number] Morbid obesity Dorian Agustin MD 04/19/2017 [facility] [place] [facility] Visit [id number] 04/19/2017 [facility] Office Visit [id number] Uncontrolled type 2 diabetes mellitus with complication, with long-term current use of insulin Morbid obesity Essential hypertension Chronic midline low back pain without sciatica Moderate persistent asthma without complication Routine adult health maintenance Dorian Agustin MD 04/19/2017 04/19/2017 [facility] Pharmacy Visit [id number] 04/20/2017 [facility] Orders Only [id number] Routine adult health maintenance Dorian Agustin MD 04/22/2017 [facility] [place] [facility] Visit [id number] 04/22/2017 [facility] Office Visit [id number] Uncontrolled type 2 diabetes mellitus with complication, with long-term current use of insulin Essential hypertension Diony Coppola [facility] 04/22/2017 04/22/2017 [facility] Patient Education [place] Telephone [id number] Kimber Hoffman RN 04/26/2017 [facility] [place] [facility] Visit [id number] 04/28/2017 [facility] Patient Education [place] Patient Education [id number] Diabetes education, encounter for Dorian Agustin MD 04/28/2017 04/28/2017 [facility] [place] Pharm[facility] Visit [id number] 05/04/2017 [facility] Orders Only [id number] Dorian Agustin MD 06/24/2017 [facility] Nutrition [id number] Nico Arora LD 06/24/2017 [facility] Office Visit [id number] Dorian Agustin MD 06/24/2017 06/24/2017 [facility] Telephone [id number] Laila Farris [employer] AND [employer]EVERAGE ASSOCIATE 06/25/2017 [facility] Office Visit [id number] Dorian Agustin MD 07/22/2017 07/22/2017 [facility] Ophthalmology/Optometry [facility] Nurse Only [id number] Dorian Agustin MD 07/22/2017 07/22/2017 [facility] Clinical Pharmacy BY Office Visit [id number] Diony Coppola [facility] 08/03/2017 08/03/2017 [facility] Nutrition [id number] Nico Arora LD 08/03/2017 08/03/2017 [facility] Procedures [place] Office Visit [id number] Catherine Cespedes MD 08/19/2017 12/16/2017 [facility] Clinical Pharmacy [facility] Office Visit [id number] Diony Coppola [facility] 08/31/2017 08/31/2017 [facility] Orders Only [id number] Dorian Agustin MD 10/18/2017 [facility] Office Visit [id number] Dorian Agustin MD 10/18/2017 10/19/2017 [facility] Telephone [id number] Kathy Hylton [employer] AND [employer]EVERAGE ASSOCIATE 10/20/2017 [facility] Telephone [id number] Marsha Luna RN 11/15/2017 [facility] Refill [id number] Dorian Agustin MD 11/15/2017 [facility] Clinical Pharmacy [facility] Office Visit [id number] Diony Coppola [facility] 11/15/2017 11/15/2017 [facility] Telephone [id number] Laila Farris LVN 11/17/2017 [facility] Procedures [place] Office Visit [id number] Catherine Cespedes MD 12/16/2017 12/16/2017 [facility] Refill [id number] Dorian Agustin MD 12/29/2017 [facility] Refill [id number] Dorian Agustin MD 01/03/2018 [facility] Clinical Pharmacy BY Office Visit [id number] Diony Coppola [facility] 01/03/2018 01/03/2018 [facility] Orders Only [id number] Dorian Agustin MD 01/11/2018 [facility] Office Visit [id number] Dorian Agustin MD 01/11/2018 01/19/2018 [facility] Radiology [place] Ancillary Procedure [id number] Dorian Agustin MD 01/11/2018 01/11/2018 [facility] Patient Education [place] Patient Education [id number] Dorian Agustin MD 01/11/2018 01/11/2018 [facility] Office Visit [id number] Dorian Agustin MD 01/18/2018 01/18/2018 [facility] Clinical Case Mgt [id number] Juan Armas RN 01/27/2018 [facility] Patient Education [place] Telephone [id number] Kimber Hoffman RN 02/16/2018 [facility] Clinical Pharmacy BY Office Visit [id number] Diony Coppola [facility] 03/10/2018 03/10/2018 [facility] Office Visit [id number] Dorian Agustin MD 03/14/2018 03/14/2018 [facility] ASK YOUR NURSE PROGRAM Nurse Triage [id number] Lionel Thomas RN 03/18/2018 [facility] Travel [id number] 04/14/2018 [facility] Clinical Pharmacy [facility] Office Visit [id number] Diony Coppola [facility] 04/14/2018 04/14/2018 [facility] Orders Only [id number] Dorian Agustin MD 04/18/2018 [facility] Office Visit [id number] Dorian Agustin MD 04/18/2018 04/18/2018 [facility] Radiology [place] Ancillary Procedure [id number] Dorian Agustin MD 04/18/2018 04/18/2018 [facility] Travel [id number] 06/13/2018 [facility] Office Visit [id number] Dorian Agustin MD 06/13/2018 06/13/2018 [facility] Refill [id number] Dorian Agustin MD 07/01/2018 [facility] GI Lab Services [facility] Telephone [id number] Delfina Grullon 07/08/2018 [facility] Refill [id number] Dorian Agustin MD 07/18/2018 [facility] Refill [id number] Dorian Agustin MD 07/27/2018 [facility] Refill [id number] Dorian Agustin MD 07/28/2018 [facility] Travel [id number] 08/01/2018 [facility] Clinical Pharmacy BY Office Visit [id number] Diony Coppola [facility] 08/01/2018 08/01/2018 [facility] Office Visit [id number] Dorian Agustin MD 08/01/2018 08/01/2018 [facility] Procedures Procedure Code Date Perfomer Comments Source OPHTHALMOLOGY RETINAL SCAN [id number] 08/02/2018 [facility] HEMOCCULT KIT FOR SPECIMEN COLLECTION AT HOME [id number] 08/02/2018 [facility] CBC/DIFF [id number] 06/16/2018 [facility] BASIC METABOLIC PANEL [id number] 06/16/2018 [facility] [employer] LIPID PROFILE [id number] 06/16/2018 [facility] LIVER PROFILE [id number] 06/16/2018 [facility] HEMOGLOBIN A1C 19886 06/16/2018 [facility] TSH [id number] 06/16/2018 [facility] HEMOCCULT KIT FOR SPECIMEN COLLECTION AT HOME [id number] 06/14/2018 [employer] [facility] XRAY KNEE 1 OR 2 VIEWS (LIMITED-AP/LAT) [id number] 04/19/2018 [employer] [facility] HEMOCCULT KIT FOR SPECIMEN COLLECTION AT HOME [id number] 04/19/2018 [employer] [facility] HEMOGLOBIN A1C 56477 03/15/2018 [employer] VIT D, 25-HYDROXY 92168 03/15/2018 [facility] LIPID PROFILE [id number] 03/15/2018 [facility] HEPATITIS PANEL 52778 03/15/2018 [facility] BASIC METABOLIC PANEL 79400 03/15/2018 [facility] TSH [id number] 03/15/2018 [facility] HEMOCCULT KIT FOR SPECIMEN COLLECTION AT HOME [id number] 03/15/2018 [employer] XRAY KNEE 1 OR 2 VIEWS (LIMITED-AP/LAT) [id number] 01/12/2018 [facility] DIABETIC FOOT EXAM 8F 01/11/2018 [facility] HEMOGLOBIN A1C 85352 11/15/2017 [facility] OPHTHALMOLOGY RETINAL SCAN [id number] 07/23/2017 [facility] OPHTHALMOLOGY RETINAL SCAN [id number] 07/23/2017 [facility] HEMOGLOBIN A1C 49935 06/25/[facility] [id number] 04/22/2017 [facility] HEMOCCULT KIT FOR SPECIMEN COLLECTION AT HOME 29720 04/19/2017 [employer] [facility] TSH [id number] 03/02/2017 [facility] HEMOGLOBIN A1C 10231 02/02/2017 [facility] HEMOCCULT KIT FOR SPECIMEN COLLECTION AT HOME 51609 02/02/2017 [facility]
--- OUTSIDE RECORDS SUMMARY | 2018-08-23 19:58 | XMS REPORT | Clinical Summary ---
Author Author [facility] Organization [facility] Address Unknown Phone Unavailable Care Team Providers Care Medical Sociologist Name Role Phone Dorian Agustin MD PCP Allergies No Known Allergies Medications End Date Status Medication Sig Dispensed Refills Start Date Active pen needle, diabetic Inject under 1 Box 5 (NOVOFINE) 30 gauge x the skin 8 1/" needlesIndications: daily Use as Uncontrolled type 2 directed. diabetes mellitus with complication, with long-term current use of insulin Active blood glucose meter Use as 1 Kit 0 (PRECISION XTRA directed.. 9 GLUCOMETER)Indications: Uncontrolled type 2 diabetes mellitus with complication, with long-term current use of insulin 02/01/2019 Active insulin detemir U-100 Inject 40 110.4 mL 2 (LEVEMIR FLEXTOUCH) 100 Units under 9 unit/mL (3 mL) the skin 2 PenIndications: times daily Uncontrolled type 2 for 184 days. diabetes mellitus with complication, with long-term current use of insulin Active albuterol 90 INHALE 2 6.7 g 5 mcg/actuation PUFFS BY 9 inhalerIndications: MOUTH FOUR Moderate persistent TIMES DAILY asthma without NEEDED FOR complication WHEEZING. Active amLODIPine (NORVASC) 5 mg Take 1 tablet 30 tablet 5 tabletIndications: by mouth 9 Essential hypertension daily. Active blood glucose (PRECISION 2 times daily 50 Each 3 XTRA TEST STRIPS) test Use 2 times 9 stripsIndications: weekly (once Uncontrolled type 2 per day on diabetes mellitus with Mon,Thurs) to complication, with test blood long-term current use of sugar. insulin Active cyclobenzaprine Take 1 tablet 90 tablet 5 (FLEXERIL) 10 mg by mouth 3 9 tabletIndications: Spasm times daily of muscle as needed for Muscle Spasms. Active famotidine (PEPCID) 40 mg Take 1 tablet 30 tablet 5 tabletIndications: by mouth 9 Abdominal pain, daily as generalized needed (STOMACH PAIN). Active gabapentin (NEURONTIN) TAKE 1 60 capsule 5 300 mg CAPSULE BY 9 capsuleIndications: MOUTH TWICE Chronic midline low back DAILY. pain without sciatica Active glipiZIDE (GLUCOTROL) 10 Take 1 tablet 60 tablet 5 mg tabletIndications: by mouth 2 9 Uncontrolled type 2 times daily diabetes mellitus with (before complication, with meals). long-term current use of insulin Active lancets 28 2 times daily 100 Each 1 gaugeIndications: Use 2 times 9 Uncontrolled type 2 weekly as diabetes mellitus with directed. complication, with long-term current use of insulin Active levothyroxine (SYNTHROID) Take 1 tablet 30 tablet 5 125 mcg by mouth 9 tabletIndications: daily. Hypothyroidism, unspecified type Active lisinopril (PRINIVIL) 20 Take 1 tablet 30 tablet 5 mg tabletIndications: by mouth 9 Essential hypertension daily. Active memantine (NAMENDA) 5 mg Take 1 tablet 60 tablet 5 tabletIndications: by mouth 2 9 Forgetfulness times daily. 08/11/2018 Active polymyxin B Instill 1 10 mL 0 sulf-trimethoprim Drop in left 9 (POLYTRIM) ophthalmic eye every 4 solutionIndications: hours (while Acute conjunctivitis of awake) for 10 left eye, unspecified days. acute conjunctivitis type 01/18/2018 Discontinued pen needle, diabetic Inject under 1 Box 5 (NOVOFINE) 30 gauge x the skin 8 /" needlesIndications: daily Use as Uncontrolled type 2 directed. diabetes mellitus with complication, with long-term current use of insulin 01/18/2018 Discontinued lancets 28 by 100 Each 5 gaugeIndications: MISCELLANEOUS 8 Uncontrolled type 2 route 2 times diabetes mellitus with daily Use 2 complication, with times weekly long-term current use of as directed. insulin 01/03/2018 Discontinued glipiZIDE (GLUCOTROL) 5 Take 1 tablet 180 tablet 3 mg tabletIndications: by mouth 2 8 Uncontrolled type 2 times daily diabetes mellitus with (before complication, with meals). long-term current use of insulin 10/18/2017 Discontinued blood glucose test 2 times daily 100 Each 5 stripsIndications: to test blood 8 Uncontrolled type 2 sugar. diabetes mellitus with complication, with long-term current use of insulin 10/18/2017 Discontinued albuterol (VENTOLIN Inhale 2 6.7 g 3 HFA,PROVENTIL HFA,PROAIR Puffs by 8 HFA) 90 mcg/actuation mouth 4 times inhalerIndications: daily as Moderate persistent needed for up asthma without to 180 days complication for Wheezing. 10/18/2017 Discontinued levothyroxine (SYNTHROID) Take 1 tablet 90 tablet 1 125 mcg by mouth 8 tabletIndications: daily. Hypothyroidism, unspecified type 01/03/2018 Discontinued insulin detemir U-100 Inject 55 101.2 mL 0 (LEVEMIR FLEXTOUCH) 100 Units under 8 unit/mL (3 mL) the skin PenIndications: daily for 184 Uncontrolled type 2 days. diabetes mellitus with complication, with long-term current use of insulin 01/03/2018 Discontinued lisinopril (PRINIVIL) 20 Take 1 tablet 90 tablet 3 mg tabletIndications: by mouth 8 Essential hypertension daily. 01/18/2018 Discontinued amLODIPine (NORVASC) 5 mg Take 1 tablet 90 tablet 3 tabletIndications: by mouth 8 Essential hypertension daily. 01/03/2018 Discontinued cyclobenzaprine Take 1 tablet 270 tablet 1 (FLEXERIL) 10 mg by mouth 3 8 tabletIndications: times daily Chronic midline low back as needed for pain without sciatica Muscle Spasms. 01/03/2018 Discontinued gabapentin (NEURONTIN) Take 1 180 capsule 3 300 mg capsule by 8 capsuleIndications: mouth 2 times Chronic midline low back daily. pain without sciatica 08/01/2018 Discontinued terbinafine HCl (LAMISIL) Take 1 tablet 84 tablet 0 250 mg tabletIndications: by mouth 8 Onychomycosis daily. 01/03/2018 Discontinued blood glucose test 2 times daily 100 Each 5 stripsIndications: to test blood 8 Uncontrolled type 2 sugar. diabetes mellitus with complication, with long-term current use of insulin 01/18/2018 Discontinued albuterol 90 Inhale 2 6.7 g 3 mcg/actuation Puffs by 8 inhalerIndications: mouth 4 times Moderate persistent daily as asthma without needed for complication Wheezing. 01/11/2018 Discontinued PROVENTIL HFA 90 INHALE 2 6.7 g 0 mcg/actuation PUFFS BY 8 inhalerIndications: MOUTH FOUR Moderate persistent TIMES DAILY asthma without NEEDED FOR complication WHEEZING 01/18/2018 Discontinued insulin detemir U-100 Inject 60 110.4 mL 0 (LEVEMIR FLEXTOUCH) 100 Units under 8 unit/mL (3 mL) the skin PenIndications: daily for 184 Uncontrolled type 2 days. diabetes mellitus with complication, with long-term current use of insulin 01/18/2018 Discontinued glipiZIDE (GLUCOTROL) 5 Take 1 tablet 180 tablet 3 mg tabletIndications: by mouth 2 8 Uncontrolled type 2 times daily diabetes mellitus with (before complication, with meals). long-term current use of insulin 01/18/2018 Discontinued blood glucose test 2 times daily 100 Each 5 stripsIndications: to test blood 8 Uncontrolled type 2 sugar. diabetes mellitus with complication, with long-term current use of insulin 01/11/2018 Discontinued cyclobenzaprine Take 1 tablet 270 tablet 1 (FLEXERIL) 10 mg by mouth 3 8 tabletIndications: times daily Chronic midline low back as needed for pain without sciatica Muscle Spasms. 01/18/2018 Discontinued gabapentin (NEURONTIN) Take 1 180 capsule 3 300 mg capsule by 8 capsuleIndications: mouth 2 times Chronic midline low back daily. pain without sciatica 01/18/2018 Discontinued lisinopril (PRINIVIL) 20 Take 1 tablet 90 tablet 3 mg tabletIndications: by mouth 8 Essential hypertension daily. 01/18/2018 Discontinued albuterol 90 Inhale 2 6.7 g 2 mcg/actuation Puffs by 8 inhalerIndications: mouth 4 times Moderate persistent daily as asthma without needed for complication Wheezing. 03/14/2018 Discontinued cyclobenzaprine Take 1 tablet 270 tablet 1 (FLEXERIL) 10 mg by mouth 3 8 tabletIndications: Spasm times daily of muscle as needed for Muscle Spasms. 03/14/2018 Discontinued albuterol 90 Inhale 2 6.7 g 2 mcg/actuation Puffs by 8 inhalerIndications: mouth 4 times Moderate persistent daily as asthma without needed for complication Wheezing or Shortness of Breath. 03/14/2018 Discontinued amLODIPine (NORVASC) 5 mg Take 1 tablet 90 tablet 3 tabletIndications: by mouth 8 Essential hypertension daily. 03/14/2018 Discontinued gabapentin (NEURONTIN) Take 1 180 capsule 3 300 mg capsule by 8 capsuleIndications: mouth 2 times Chronic midline low back daily. pain without sciatica 03/14/2018 Discontinued glipiZIDE (GLUCOTROL) 5 Take 1 tablet 180 tablet 3 mg tabletIndications: by mouth 2 8 Uncontrolled type 2 times daily diabetes mellitus with (before complication, with meals). long-term current use of insulin 03/14/2018 Discontinued insulin detemir U-100 Inject 60 110.4 mL 2 (LEVEMIR FLEXTOUCH) 100 Units under 8 unit/mL (3 mL) the skin PenIndications: daily for 184 Uncontrolled type 2 days. diabetes mellitus with complication, with long-term current use of insulin 03/14/2018 Discontinued lisinopril (PRINIVIL) 20 Take 1 tablet 90 tablet 3 mg tabletIndications: by mouth 8 Essential hypertension daily. 08/01/2018 Discontinued lancets 28 by 100 Each gaugeIndications: MISCELLANEOUS 8 Uncontrolled type 2 route 2 times diabetes mellitus with daily Use 2 complication, with times weekly long-term current use of as directed. insulin 03/14/2018 Discontinued pen needle, diabetic Inject under 1 Box (NOVOFINE) 30 gauge x the skin 8 1/3" needlesIndications: daily Use as Uncontrolled type 2 directed. diabetes mellitus with complication, with long-term current use of insulin 08/01/2018 Discontinued blood glucose test 2 times daily 100 Each stripsIndications: to test blood 8 Uncontrolled type 2 sugar. diabetes mellitus with complication, with long-term current use of insulin 08/01/2018 Discontinued famotidine (PEPCID) 40 mg Take 1 tablet 90 tablet 1 tabletIndications: by mouth 8 Abdominal pain, daily as generalized needed (STOMACH PAIN). 07/19/2018 Discontinued levothyroxine (SYNTHROID) Take 1 tablet 0 125 mcg tablet by mouth 8 daily. 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 08/01/2018 Discontinued cyclobenzaprine Take 1 tablet 270 tablet 1 (FLEXERIL) 10 mg by mouth 3 8 tabletIndications: Spasm times daily of muscle as needed for Muscle Spasms. 08/01/2018 Discontinued lisinopril (PRINIVIL) 20 Take 1 tablet 90 tablet 3 mg tabletIndications: by mouth 8 Essential hypertension daily. 04/14/2018 Discontinued insulin detemir U-100 Inject 60 110.4 mL 2 (LEVEMIR FLEXTOUCH) 100 Units under 8 unit/mL (3 mL) the skin PenIndications: daily for 184 Uncontrolled type 2 days. diabetes mellitus with complication, with long-term current use of insulin 08/01/2018 Discontinued glipiZIDE (GLUCOTROL) 5 Take 1 tablet 180 tablet 3 mg tabletIndications: by mouth 2 8 Uncontrolled type 2 times daily diabetes mellitus with (before complication, with meals). long-term current use of insulin 08/01/2018 Discontinued gabapentin (NEURONTIN) Take 1 180 capsule 3 300 mg capsule by 8 capsuleIndications: mouth 2 times Chronic midline low back daily. pain without sciatica 08/01/2018 Discontinued amLODIPine (NORVASC) 5 mg Take 1 tablet 90 tablet 3 tabletIndications: by mouth 8 Essential hypertension daily. 08/01/2018 Discontinued albuterol 90 Inhale 2 6.7 g 2 mcg/actuation Puffs by 8 inhalerIndications: mouth 4 times Moderate persistent daily as asthma without needed for complication Wheezing or Shortness of Breath. 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 08/01/2018 Discontinued insulin detemir U-100 Inject 35 110.4 mL 2 (LEVEMIR FLEXTOUCH) 100 Units under 8 unit/mL (3 mL) the skin 2 PenIndications: times daily Uncontrolled type 2 for 184 days. diabetes mellitus with complication, with long-term current use of insulin 08/01/2018 Discontinued blood glucose (PRECISION 2 times daily 50 Each 3 XTRA TEST STRIPS) test Use 2 times 9 stripsIndications: weekly (once Uncontrolled type 2 per day on diabetes mellitus with Mon,Thurs) to complication, with test blood long-term current use of sugar. insulin 08/01/2018 Discontinued lancets 28 2 times daily 100 Each 1 gaugeIndications: Use 2 times 9 Uncontrolled type 2 weekly as diabetes mellitus with directed. complication, with long-term current use of insulin 08/01/2018 Discontinued memantine (NAMENDA) 5 mg Take 1 tablet 180 tablet 1 tabletIndications: by mouth 2 9 Forgetfulness times daily. 07/27/2018 Discontinued PROVENTIL HFA 90 INHALE 2 6.7 g 0 mcg/actuation PUFFS BY 9 inhalerIndications: MOUTH FOUR Moderate persistent TIMES DAILY asthma without NEEDED FOR complication WHEEZING 08/01/2018 Discontinued levothyroxine (SYNTHROID) TAKE 1 TABLET 90 tablet 0 125 mcg BY MOUTH 9 tabletIndications: DAILY Hypothyroidism, unspecified type 08/01/2018 Discontinued albuterol 90 INHALE 2 6.7 g 0 mcg/actuation PUFFS BY 9 inhalerIndications: MOUTH FOUR Moderate persistent TIMES DAILY asthma without NEEDED FOR complication WHEEZING. 08/01/2018 Discontinued gabapentin (NEURONTIN) TAKE 1 180 capsule 0 300 mg CAPSULE BY 9 capsuleIndications: MOUTH TWICE Chronic midline low back DAILY pain without sciatica 08/01/2018 tropicamide (MYDRIACYL) Instill 1 15 mL 0 0.5 % ophthalmic Drop in each 9 solutionIndications: eye once as Uncontrolled type 2 needed for up diabetes mellitus with to 1 dose complication, with (for poor long-term current use of retina scan insulin image). 08/01/2018 Discontinued glipiZIDE (GLUCOTROL) 10 Take 1 tablet 90 tablet 1 mg tabletIndications: by mouth 2 9 Uncontrolled type 2 times daily diabetes mellitus with (before complication, with meals). long-term current use of insulin 08/01/2018 Discontinued tropicamide (MYDRIACYL) Instill 1 15 mL 0 0.5 % ophthalmic solution Drop in each 9 eye daily as needed for up to 1 dose (for poor retina scan image). Status Hospital, Clinic, or Ordered Dose Route Frequency Start End Date Other Facility Date Administered Medication Ended triamcinolone acetonide 80 mg IX ONCE 08/20/19 (KENALOG-40) injection 80 18 8 mg Ended triamcinolone acetonide 80 mg IX ONCE 12/17/19 (KENALOG-40) injection 80 18 8 mgIndications: Chronic pain of right knee Active Problems Problem Noted Date Hypothyroidism 03/14/2018 Large breasts 07/22/2017 Chronic pain of both knees 07/22/2017 Uncontrolled type 2 diabetes mellitus with complication, with long-term 02/02/2017 current use of insulin Forgetfulness 10/07/2016 Chronic midline low back pain without sciatica 10/07/2016 Morbid obesity 10/07/2016 Essential hypertension 10/07/2016 Moderate persistent asthma without complication 10/07/2016 Resolved Problems Problem Noted Date Resolved Date Cancer 08/01/2018 Overview: hx of thyroid cancer Encounters Care Team Description Date Type Specialty Dorian Agustin MD Routine adult health maintenance (Primary Dx); Uncontrolled type 2 diabetes mellitus with complication, with long-term current use of insulin; Moderate persistent asthma without complication; Essential hypertension; Spasm of muscle; Abdominal pain, generalized; Chronic midline low back pain without sciatica; Hypothyroidism, unspecified type; Forgetfulness; Acute conjunctivitis of left eye, unspecified acute conjunctivitis type 08/01/2018 Office Visit Family Practice Diony Coppola [facility] Type 2 diabetes mellitus without complication, with long- term current use of insulin (Primary Dx); Uncontrolled type 2 diabetes mellitus with complication, with long-term current use of insulin 08/01/2018 Office Visit Clinical Pharmacy 08/01/2018 Travel Dorian Agustin MD Chronic midline low back pain without sciatica 07/28/2018 Refill [facility] Dorian Agustin MD Moderate persistent asthma without complication 07/27/2018 Refill [facility] Dorian Agustin MD Hypothyroidism, unspecified type 07/18/2018 [facility] Delfina Grullon Colon Cancer Screening (Education on FIT completion) 07/08/2018 Telephone Gastroenterology Dorian Agustin MD Moderate persistent asthma without complication 07/01/2018 Refill [facility] Dorian Agustin MD Uncontrolled type 2 diabetes mellitus with complication, with long-term current use of insulin (Primary Dx); Routine adult health maintenance; Forgetfulness 06/13/2018 Office Visit [facility] 06/13/2018 Travel Dorian Agustin MD Chronic pain of right knee 04/18/2018 Ancillary Radiology Procedure Dorian Agustin MD Routine adult health maintenance (Primary Dx); Need for influenza vaccination; Chronic pain of right knee 04/18/2018 [facility] Dorian Agustin MD Chronic pain of right knee 04/18/2018 Orders Only [facility] Coppola [facility] Type 2 diabetes mellitus without complication, with long- term current use of insulin (Primary Dx); Uncontrolled type 2 diabetes mellitus with complication, with long-term current use of insulin 04/14/2018 Office Visit Clinical Pharmacy 04/14/2018 Lionel Mei RN 03/18/2018 Nurse Triage Dorian Agustin MD Routine adult health maintenance (Primary Dx); Uncontrolled type 2 diabetes mellitus with complication, with long-term current use of insulin; Spasm of muscle; Essential hypertension; Chronic midline low back pain without sciatica; Moderate persistent asthma without complication; Snoring; Hypothyroidism, unspecified type; Abdominal pain, generalized 03/14/2018 [facility] Coppola Chitra NO SHOW ENCOUNTER (Primary Dx) 03/10/2018 Office Visit Clinical Pharmacy Kimber Hoffman RN Appointment Related Questions 02/16/2018 Telephone Patient Juan Mendez RN 01/27/2018 Clinical Case Social Work Mgt Dorian Agustin MD Routine adult health maintenance (Primary Dx); Moderate persistent asthma without complication; Essential hypertension; Chronic midline low back pain without sciatica; Uncontrolled type 2 diabetes mellitus with complication, with long-term current use of insulin; Need for zoster vaccination 01/18/2018 Office Visit Family Practice Dorian Agustin MD Echeverria, Veronica, RN Diabetes education, encounter for (Primary Dx) 01/11/2018 Patient Patient Education Education Dorian Agustin MD 01/11/2018 Ancillary Radiology Procedure Dorian Agustin MD Chronic pain of both knees (Primary Dx); Moderate persistent asthma without complication; Dietary counseling for Above / Below Normal BMI; Exercise counseling for Above Normal BMI Only!; Chronic midline low back pain without sciatica; Routine adult health maintenance; Abdominal pain, right upper quadrant; Spasm of muscle; Uncontrolled type 2 diabetes mellitus with complication, with long-term current use of insulin 01/11/2018 Office Visit Family Practice Dorian Agustin MD Chronic pain of both knees; Uncontrolled type 2 diabetes mellitus with complication, with long-term current use of insulin 01/11/2018 Orders Only [facility] Diony Coppola RPH Uncontrolled type 2 diabetes mellitus with complication, with long-term current use of insulin (Primary Dx) 01/03/2018 Office Visit Clinical Pharmacy Dorian Agustin MD Chronic midline low back pain without sciatica; Essential hypertension 01/03/2018 Refill [facility] Dorian Agustin MD Moderate persistent asthma without complication 12/29/2017 Refill [facility] Catherine Cespedes MD Chronic pain of right knee (Primary Dx) 12/16/2017 Office Visit Family Practice Laila Farris LVN Appointment Related Questions 11/17/2017 Telephone [facility] Diony Coppola RPH Uncontrolled type 2 diabetes mellitus with complication, with long-term current use of insulin (Primary Dx) 11/15/2017 Office Visit Clinical Pharmacy Marsha Luna RN Other ([facility] ) 11/15/2017 Telephone Family Practice Dorian Agustin MD Moderate persistent asthma without complication 11/15/2017 Refill Family Practice Kathy Hylton LVN Other (returning staff message) 10/20/2017 Telephone Family Practice Dorian Agustin MD Need for Tdap vaccination (Primary Dx); Routine adult health maintenance; Onychomycosis; Uncontrolled type 2 diabetes mellitus with complication, with long-term current use of insulin; Chronic pain of both knees 10/18/2017 Office Visit Family Practice Dorian Agustin MD Chronic pain of both knees 10/18/2017 Orders Only Family Practice Diony Coppola, [facility] Uncontrolled type 2 diabetes mellitus with complication, with long-term current use of insulin (Primary Dx) 08/31/2017 Office Visit Clinical Pharmacy Catherine Cespedes MD Chronic pain of right knee (Primary Dx) 08/19/2017 Office Visit Family Practice after 08/08/2017 Immunizations Name Dates Previously Given Next Due PPV 23 (Pneumococcal 07/22/2017 Polysaccharide 23 Valent) Tdap (Tetanus Toxoid, 10/19/2017 (Deferred: Unavailable-Patient to Reduced [...] Alive 1 Son Alive 1 Social History Date Tobacco Use Types Packs/Day Years Used Never Smoker Smokeless Tobacco: Never Used Tobacco Cessation: Counseling Given: Yes Alcohol Use Drinks/Week oz/Week Comments Yes Holidays only Sex Assigned at Date Recorded Not on file Industry Job Start Date Occupation Not on file Not on file Not on file Travel End Travel History Travel Start No recent travel history available. Last Filed Vital Signs Time Taken Vital Sign Reading 08/01/2018 1:38 PM CDT Blood Pressure 109/78 08/01/2018 1:38 PM CDT Pulse 107 08/01/2018 1:38 PM CDT Temperature 36.7 C (98 F) 08/01/2018 1:38 PM CDT Respiratory Rate 18 - Oxygen Saturation - - Inhaled Oxygen - Concentration 08/01/2018 1:38 PM CDT Weight 109.3 kg (241 lb) 08/01/2018 1:38 PM CDT Height 157.5 cm (5' 2") 08/01/2018 1:38 PM CDT Body Mass Index 44.08 Plan of Treatment Care Team Description Date Type Specialty Catherine Cespedes MD [address] [id number] steroid injection 08/12/2018 Office Visit Family Practice Diony Coppola RPH dm f/u 08/29/2018 Office Visit Clinical Pharmacy 10/06/2018 Ancillary Radiology Procedure Health Maintenance Due Date Last Done Comments Breast Cancer Scrn 2006 (Yearly) Colorectal Cancer Scrn 04/22/2018 04/22/2017 Annual (FIT/FOBT) Age 50 to 75 DM Foot Exam (Yearly) 01/11/2019 01/11/2018, 10/07/2016, 10/07/2016 IMM Influenza Seasonal 02/07/2019Feb to July (>/=19 yrs) DM HGBA1C (Yearly) 06/16/2019 06/16/2018, 03/14/2018, 11/15/2017, Additional history exists DM Retinal Exam (Yearly) 08/02/2019 08/01/2018, 07/23/2017, 10/07/2016 Cervical Cancer Scrn (3 10/13/2019 10/12/2016 Yrs) Goals Goal Patient Associated Recent Progress Patient-Stat Author Goal Type Problems ed? Reduce fat intake Diet Not on track No Canio, (10/12/2016) MD Dorian Eat Healthy Lifestyle On track No Reyes, (08/01/2018) Kya Larkin LVN Note: Patient will eat more fruit and vegetables. Maintain blood pressure under Treatment On track No Canio, 140/90 (08/01/2018) MD Dorian Procedures Comments Procedure Name Priority Date/Time Associated Diagnosis OPHTHALMOLOGY RETINAL Routine 08/01/2018 Uncontrolled type 2 SCAN 3:16 PM CDT diabetes mellitus with complication, with long-term current use of insulin HEMOCCULT KIT FOR Routine 08/01/2018 Routine adult health SPECIMEN COLLECTION AT 2:52 PM CDT maintenance HOME TSH Routine 06/16/2018 Uncontrolled type 2 8:29 AM [employer] diabetes mellitus with complication, with long-term current use of insulin HEMOGLOBIN A1C Routine 06/16/2018 Routine adult health 8:29 AM [employer] maintenance LIVER PROFILE Routine 06/16/2018 Routine adult health 8:29 AM [employer]ATT[employer] maintenance LIPID PROFILE Routine 06/16/2018 Routine adult health 8:29 AM [employer] maintenance BASIC METABOLIC PANEL Routine 06/16/2018 Routine adult health 8:29 AM [employer] maintenance CBC/DIFF Routine 06/16/2018 Routine adult health 8:29 AM [employer] maintenance HEMOCCULT KIT FOR Routine 06/13/2018 Routine adult health SPECIMEN COLLECTION AT 3:43 PM [employer]ATTOO ARTIST maintenance HOME XRAY KNEE 1 OR 2 VIEWS Routine 04/18/2018 Chronic pain of right (LIMITED-AP/LAT) 2:59 PM [employer]IST knee HEMOCCULT KIT FOR Routine 04/18/2018 Routine adult health SPECIMEN COLLECTION AT 2:12 PM [employer] ARTIST maintenance HOME TSH Routine 03/14/2018 Hypothyroidism, 2:11 PM [employer] ARTIST unspecified type BASIC METABOLIC PANEL Routine 03/14/2018 Routine adult health 2:11 PM [employer]ATT[employer] ARTIST maintenance HEPATITIS PANEL Routine 03/14/2018 Routine adult health 2:11 PM TATTOO ARTIST maintenance LIPID PROFILE Routine 03/14/2018 Routine adult health 2:11 PM TATTOO ARTIST maintenance VIT D, 25-HYDROXY Routine 03/14/2018 Routine adult health 2:11 PM TATTOO ARTIST maintenance HEMOGLOBIN A1C Routine 03/14/2018 Uncontrolled type 2 2:11 PM TATTOO ARTIST diabetes mellitus with complication, with long-term current use of insulin HEMOCCULT KIT FOR Routine 03/14/2018 Routine adult health SPECIMEN COLLECTION AT 2:00 PM TATTOO ARTIST maintenance HOME XRAY KNEE 1 OR 2 VIEWS Routine 01/11/2018 Chronic pain of both (LIMITED-AP/LAT) 2:27 PM CDT knees DIABETIC FOOT EXAM Routine 01/11/2018 Uncontrolled type 2 1:14 PM CDT diabetes mellitus with complication, with long-term current use of insulin HEMOGLOBIN A1C Routine 11/15/2017 Uncontrolled type 2 10:37 AM CDT diabetes mellitus with complication, with long-term current use of insulin after 08/08/2017 Results * OPHTHALMOLOGY RETINAL SCAN (08/01/2018 3:16 PM CDT) RETINAL NORMAL IRIS SCAN-FINAL RESULT Right Diabetic None IRIS Retinopathy Right Macular None IRIS Edema Right Other None IRIS Suspected Conditions Right Image Gradeable Image IRIS Quality Left Diabetic None IRIS Retinopathy Left Macular None IRIS Edema Left Other None IRIS Suspected Conditions Left Image Gradeable Image IRIS Quality Narrative Performed At Retinal Study Result for CARLIE ELIZABETH MARY, a 52 y/o, F (: 1965, ) presented to [facility] on 08-01-2018 for a retinal imaging study [...] signed by Sana Clark MD, , Taxonomy: [id number] on 08-01-2018 08:37:02 [facility] time. NOTE:Any pathology noted on this diabetic retinal evaluation should be confirmed by an appropriate ophthalmic examination. Performing Organization Address [facility] Phone Number IRIS * HEMOGLOBIN A1C (06/16/2018 8:29 AM TATTOO ARTIST) Only the most recent of 3 results within the time period is included. Hemoglobin A1c 10.6 (H) 4.3 - 6.1 % BT DIAGNOSTIC IMMUNOLOGY Est Average 257.5 mg/dL BT DIAGNOSTIC Gluc IMMUNOLOGY Specimen Blood Performing Organization Address [facility] Phone Number MISYS BT DIAGNOSTIC IMMUNOLOGY * TSH (06/16/2018 8:29 AM TATTOO ARTIST) Only the most recent of 2 results within the time period is included. TSH 8.35 (H) 0.57 - 3.74 uIU/mL BT MAIN-STATION 1 Specimen Blood Performing Organization Address [facility] Phone Number MISYS BT MAIN-STATION 1 * LIVER PROFILE (06/16/2018 8:29 AM TATTOO ARTIST) T Protein 7.5 6.0 - 8.3 g/dL BT MAIN-STATION 1 Albumin 3.9 3.7 - 5.3 g/dL BT MAIN-STATION 1 T Bilirubin 0.6 0.2 - 1.2 mg/dL BT MAIN-STATION 1 Alk Phos 121 (H) 34 - 104 U/L BT MAIN-STATION 1 AST 13 13 - 39 U/L BT MAIN-STATION 1 ALT 18 7 - 52 U/L BT MAIN-STATION 1 D Bilirubin 0.2 0.0 - 0.2 mg/dL BT MAIN-STATION 1 Specimen Blood Performing Organization Address [facility] Phone Number MISYS BT MAIN-STATION 1 * LIPID PROFILE (06/16/2018 8:29 AM TATTOO ARTIST) Only the most recent of 2 results within the time period is included. Cholesterol 184 mg/dL BT MAIN-STATION Comment: 1 REFERENCE RANGE: Desirable: <200 mg/dL Borderline: 200-240 mg/dL High Risk: >240 mg/dL Triglyceride 87 <150 mg/dL BT MAIN-STATION Comment: 1 REFERENCE RANGE: Normal: <150 mg/dL Borderline High: 150-199 mg/dL High: 200-499 mg/dL Very High: >vt=028 mg/dL HDL 59 mg/dL BT MAIN-STATION Comment: 1 Increased CHD risk: <40 mg/dL Decreased CHD risk: >60 mg/dL LDL 108 mg/dL BT MAIN-STATION Comment: 1 REFERENCE RANGE: Optimal: <100 mg/dL Near Optimal: 100-129 mg/dL Borderline High: 130-159 mg/dL High: 160-189 mg/dL Very High: >zm=680 mg/dL Specimen Blood Performing Organization Address [facility] Phone Number MISYS BT MAIN-STATION 1 * CBC/DIFF (06/16/2018 8:29 AM TATTOO ARTIST) WBC 9.6 4.5 - 11.0 K/uL BT MAIN-STATION 2 RBC 4.64 4.20 - 5.40 M/uL BT MAIN-STATION 2 Hemoglobin 13.5 12.0 - 16.0 g/dL BT MAIN-STATION 2 Hematocrit 43.6 37.0 - 47.0 % BT MAIN-STATION 2 MCV 94 (H) 82 - 92 fL BT MAIN-STATION 2 MCH 29.1 27.0 - 32.0 pg BT MAIN-STATION 2 MCHC 31.0 (L) 32.0 - 36.0 g/dL BT MAIN-STATION 2 RDW 45.0 36.4 - 46.3 fL BT MAIN-STATION 2 Platelet 304 150 - 400 K/uL BT MAIN-STATION 2 Mean Platelet 10.3 9.4 - 12.4 fL BT MAIN-STATION Volume 2 Percent NRBC 0.0 BT MAIN-STATION 2 Absolute NRBC 0.00 BT MAIN-STATION 2 Neutrophil 58.8 34.0 - 70.0 % BT MAIN-STATION 2 Lymphocyte 31.4 20.0 - 50.0 % BT MAIN-STATION 2 Monocyte 5.1 5.0 - 12.0 % BT MAIN-STATION 2 Eosinophil 3.8 0.7 - 5.0 % BT MAIN-STATION 2 Basophil 0.6 0.1 - 1.2 % BT MAIN-STATION 2 Pct Immat Gran 0.3 0.0 - 0.5 BT MAIN-STATION 2 Neutrophil, Abs 5.63 1.56 - 6.13 K/uL BT MAIN-STATION 2 Lymphocyte, Abs 3.01 1.18 - 3.74 K/uL BT MAIN-STATION 2 Monocyte, Abs 0.49 (H) 0.24 - 0.36 K/uL BT MAIN-STATION 2 Eosinophil, Abs 0.36 0.04 - 0.36 K/uL BT MAIN-STATION 2 Basophil, Abs 0.06 0.01 - 0.08 K/uL BT MAIN-STATION 2 Absol Immat 0.03 0.00 - 0.03 K/uL BT MAIN-STATION Gran 2 Specimen Blood Performing Organization Address City/State/Zipcode Phone Number MISYS BT MAIN-STATION 2 * BASIC METABOLIC PANEL (06/16/2018 8:29 AM TATTOO ARTIST) Only the most recent of 2 results within the time period is included. CO2 32 (H) 21 - 31 mmol/L BT MAIN-STATION 1 Chloride 100 98 - 107 mmol/L BT MAIN-STATION 1 Potassium 5.4 (H) 3.5 - 5.1 mmol/L BT MAIN-STATION 1 Sodium 141 136 - 145 mmol/L BT MAIN-STATION 1 Glucose 125 (H) 70 - 110 mg/dL BT MAIN-STATION 1 Urea Nitrogen 19 7 - 25 mg/dL BT MAIN-STATION 1 Creatinine 1.00 0.6 - 1.2 mg/dL BT MAIN-STATION 1 Anion Gap 9 BT MAIN-STATION 1 Calcium 9.8 8.6 - 10.3 mg/dL BT MAIN-STATION 1 GFR, Estimated 58 mL/min/1.73 m2 BT MAIN-STATION 1 GFR, Estim, >60 mL/min/1.73 m2 BT MAIN-STATION Afr-Am 1 Specimen Blood Performing Organization Address City/[facility] Phone Number MISYS BT MAIN-STATION 1 * XRAY KNEE 1 OR 2 VIEWS (LIMITED-AP/LAT) (04/18/2018 2:59 PM TATTOO ARTIST) Only the most recent of 2 results within the time period is included. Impressions Performed At IMPRESSION:No significant osseous or joint abnormality identified. SMS Signed By: Sylvester Champagne MD, 04/19/2018 9:37 AM Narrative Performed At EXAM: XR RIGHT KNEE 2 VIEW SMS DATE:04/18/2018 2:59 PM INDICATION: Severe Right Knee Pain COMPARISON: None available TECHNIQUE:AP and lateralknee radiographs DISCUSSION:No acute fracture or malalignment is identified. Knee joint spaces are overall preserved on these non-weightbearing views.There is no knee joint effusion. No soft tissue abnormality is identified. Procedure Note Interface, Rad/Mammog In - 04/19/2018 9:42 AM TATTOO ARTIST EXAM: XR RIGHT KNEE 2 VIEW DATE: [...] By: Sylvester Champagne MD, 04/19/2018 9:37 AM Performing Organization Address City/[facility]/Zipcode Phone Number SMS * VIT D, 25-HYDROXY (03/14/2018 2:11 PM TATTOO ARTIST) Vit D, 16.0 (L) 30 - 100 ng/mL BT DIAGNOSTIC 25-Hydroxy Comment: IMMUNOLOGY Vitamin D deficiency has been defined by the [place] [employer] and Endocrine Society guideline as a level of serum 25-OH Vitamin D less than 20 ng/mL. The Endocrine Society further defines Vitamin D insufficiency as a level between 21 and 29 ng/mL and sufficiency as a level between 30 and 100 ng/mL. Performing Organization Address [facility]/State[facility] Phone Number MISYS BT DIAGNOSTIC IMMUNOLOGY * HEPATITIS PANEL (03/14/2018 2:11 PM TATTOO ARTIST) HCV IgG Negative NEG BT MAIN-STATION 3 HBsAg Negative NEG BT MAIN-STATION 3 HAV, IgM Negative NEG BT MAIN-STATION 3 HBcAb, IgM Negative NEG BT MAIN-STATION 3 Specimen Blood Performing Organization Address [facility] [place] Phone Number MISYS BT MAIN-STATION 3 * DIABETIC FOOT EXAM (01/11/2018 1:14 PM CDT) Narrative Performed At Dorian Agustin MD 01/11/2018 10:37 PM Diabetic Foot Exam was performed at 01/11/2018 9:40 PM.Right foot sensation is normal, right foot pulses are normal, right foot appearance is normal.Left foot sensation is normal,left foot pulses are normal, left foot appearance is normal. after 08/08/2017 Insurance Type Payer Benefit Subscriber ID Effective Phone Address Plan / Dates Group [employer] [facility]-P [phone] [address] [id number] [place] [address]
--- OUTSIDE RECORDS SUMMARY | 2018-08-23 19:58 | XMS REPORT | Clinical Summary ---
Author Author [facility] Organization [facility] Address Unknown Phone Unavailable Care Team Providers [employer] Flatbed Driver Name Role Phone Dorian Agustin MD PCP Allergies No Known Allergies Medications End Date Status Medication Sig Dispensed Refills Start Date Active terbinafine HCl (LAMISIL) Take 1 tablet 84 tablet 0 250 mg tabletIndications: by mouth 8 Onychomycosis daily. Active lancets 28 by 100 Each 5 gaugeIndications: MISCELLANEOUS 8 Uncontrolled type 2 route 2 times diabetes mellitus with daily Use 2 complication, with times weekly long-term current use of as directed. insulin Active blood glucose test 2 times daily 100 Each 5 stripsIndications: to test blood 8 Uncontrolled type 2 sugar. diabetes mellitus with complication, with long-term current use of insulin Active famotidine (PEPCID) 40 mg Take 1 tablet 90 tablet 1 tabletIndications: by mouth 8 Abdominal pain, daily as generalized needed (STOMACH PAIN). Active levothyroxine (SYNTHROID) Take 1 tablet 0 125 mcg tablet by mouth 8 daily. Active pen needle, diabetic Inject under 1 Box 5 (NOVOFINE) 30 gauge x the skin 8 1/3" needlesIndications: daily Use as Uncontrolled type 2 directed. diabetes mellitus with complication, with long-term current use of insulin Active cyclobenzaprine Take 1 tablet 270 tablet 1 (FLEXERIL) 10 mg by mouth 3 8 tabletIndications: Spasm times daily of muscle as needed for Muscle Spasms. Active lisinopril (PRINIVIL) 20 Take 1 tablet 90 tablet 3 mg tabletIndications: by mouth 8 Essential hypertension daily. Active glipiZIDE (GLUCOTROL) 5 Take 1 tablet 180 tablet 3 mg tabletIndications: by mouth 2 8 Uncontrolled type 2 times daily diabetes mellitus with (before complication, with meals). long-term current use of insulin Active gabapentin (NEURONTIN) Take 1 180 capsule 3 300 mg capsule by 8 capsuleIndications: mouth 2 times Chronic midline low back daily. pain without sciatica Active amLODIPine (NORVASC) 5 mg Take 1 tablet 90 tablet 3 tabletIndications: by mouth 8 Essential hypertension daily. Active albuterol 90 Inhale 2 6.7 g 2 mcg/actuation Puffs by 8 inhalerIndications: mouth 4 times Moderate persistent daily as asthma without needed for complication Wheezing or Shortness of Breath. 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 10/15/2018 Active insulin detemir U-100 Inject 35 110.4 mL [...] current use of insulin Active blood glucose (PRECISION 2 times daily 50 Each 3 XTRA TEST STRIPS) test Use 2 times 9 stripsIndications: weekly (once Uncontrolled type 2 per day on diabetes mellitus with Mon,) to complication, with test blood long-term current use of sugar. insulin Active lancets 28 2 times daily 100 Each 1 gaugeIndications: Use 2 times 9 Uncontrolled type 2 weekly as diabetes mellitus with directed. complication, with long-term current use of insulin Active memantine (NAMENDA) 5 mg Take 1 tablet 180 tablet 1 tabletIndications: by mouth 2 9 Forgetfulness times daily. 01/18/2018 Discontinued pen needle, diabetic Inject under 1 Box 5 (NOVOFINE) 30 gauge x the skin 8 05/12" needlesIndications: daily Use as Uncontrolled type 2 directed. diabetes mellitus with complication, with long-term current use of insulin 07/22/2017 Discontinued lisinopril (PRINIVIL) 20 Take 1 tablet 90 tablet 3 mg tabletIndications: by mouth 8 Essential hypertension daily. 01/18/2018 Discontinued lancets 28 by 100 Each 5 gaugeIndications: MISCELLANEOUS 8 Uncontrolled type 2 route 2 times diabetes mellitus with daily Use 2 complication, with times weekly long-term current use of as directed. insulin 07/22/2017 Discontinued insulin detemir U-100 Inject 45 82.8 mL 0 (LEVEMIR FLEXTOUCH) 100 Units under 8 unit/mL (3 mL) the skin PenIndications: daily for 184 Uncontrolled type 2 days. diabetes mellitus with complication, with long-term current use of insulin 01/03/2018 Discontinued glipiZIDE (GLUCOTROL) 5 Take 1 tablet 180 tablet 3 mg tabletIndications: by mouth 2 8 Uncontrolled type 2 times daily diabetes mellitus with (before complication, with meals). long-term current use of insulin 07/22/2017 Discontinued gabapentin (NEURONTIN) Take 1 180 capsule 3 300 mg capsule by 8 capsuleIndications: mouth 2 times Chronic midline low back daily. pain without sciatica 07/22/2017 Discontinued cyclobenzaprine Take 1 tablet 270 tablet 1 (FLEXERIL) 10 mg by mouth 3 8 tabletIndications: times daily Chronic midline low back as needed for pain without sciatica Muscle Spasms. 10/18/2017 Discontinued blood glucose test 2 times daily 100 Each 5 stripsIndications: to test blood 8 Uncontrolled type 2 sugar. diabetes mellitus with complication, with long-term current use of insulin 07/22/2017 Discontinued amLODIPine (NORVASC) 5 mg Take 1 tablet 90 tablet 3 tabletIndications: by mouth 8 Essential hypertension daily. 10/18/2017 Discontinued albuterol (VENTOLIN Inhale 2 6.7 [...] midline low back daily. pain without sciatica 07/22/2017 tropicamide (MYDRIACYL) Instill 1 15 mL 0 0.5 % ophthalmic Drop in each 8 solutionIndications: eye once as Uncontrolled type 2 needed for up diabetes mellitus with to 1 dose complication, with (for poor long-term current use of retina scan insulin image). 01/03/2018 Discontinued blood glucose test 2 times [...] mouth 8 Essential hypertension daily. 03/14/2018 Discontinued pen needle, diabetic Inject under 1 Box 5 (NOVOFINE) 30 gauge x the skin 8 05/12" needlesIndications: daily Use as Uncontrolled type 2 directed. 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 04/14/2018 Discontinued insulin detemir U-100 Inject 60 110.4 mL 2 (LEVEMIR FLEXTOUCH) 100 Units under 8 unit/mL (3 mL) the skin PenIndications: daily for 184 Uncontrolled type 2 days. diabetes mellitus with complication, with long-term current use of insulin Status Hospital, Clinic, or Ordered Dose Route [...] 10/07/2016 Cancer Overview: hx of thyroid cancer Encounters Care Team Description Date Type Specialty Dorian Agustin MD Uncontrolled type 2 diabetes mellitus with complication, with long-term current use of insulin (Primary Dx); Routine adult health maintenance; Forgetfulness 06/13/2018 Office Visit Family Practice 06/13/2018 Travel Dorian Agustin MD Chronic pain of right knee 04/18/2018 Ancillary Radiology Procedure Dorian Agustin MD Routine adult health maintenance (Primary Dx); Need for influenza vaccination; Chronic pain of right knee 04/18/2018 Office Visit Family Practice Dorian Agustin MD Chronic pain of right knee 04/18/2018 Orders Only [facility] Diony Coppola [facility] Type 2 diabetes mellitus without complication, with [...] type; Abdominal pain, generalized 03/14/2018 Office Visit Family [facility] Diony Coppola RPH NO SHOW ENCOUNTER (Primary Dx) 03/10/2018 Office Visit Clinical Pharmacy Kimber Hoffman RN Appointment Related Questions 02/16/2018 Telephone Patient Education Juan Armas RN 01/27/2018 Clinical Case Social Work Mgt [...] of insulin 01/11/2018 Orders Only [facility] Diony Coppola RPH Uncontrolled type 2 diabetes mellitus with complication, with long-term current use of insulin (Primary Dx) 01/03/2018 Office Visit Clinical Pharmacy Dorian Agustin MD Chronic midline low back pain without sciatica; Essential hypertension 01/03/2018 Refill [facility] Dorian Agustin MD Moderate persistent asthma without complication 12/29/2017 Refill [facility] Catherine Cespedes MD Chronic pain of right knee (Primary Dx) 12/16/2017 Office Visit Family Practice Laila Farris LVN Appointment Related Questions 11/17/2017 Telephone [facility] Diony Coppola RPH Uncontrolled type [...] knees 10/18/2017 Orders Only Family Practice Diony Coppola [facility] Uncontrolled type 2 diabetes mellitus with complication, with long-term current use of insulin (Primary Dx) 08/31/2017 Office Visit Clinical Pharmacy Catherine Cespedes MD Chronic pain of right knee (Primary Dx) 08/19/2017 Office Visit Family Practice Nico Arora LD 08/03/2017 Nutrition Nutrition Diony Coppola, [facility] Uncontrolled type 2 diabetes mellitus with complication, with long-term current use of insulin (Primary Dx) 08/03/2017 Office Visit Clinical Pharmacy Dorian Agustin MD Gaytan, Brisaida Uncontrolled type 2 diabetes mellitus with complication, with long- term current use of insulin 07/22/2017 Nurse Only Ophthalmology Dorian Agustin MD Need for pneumococcal vaccination (Primary Dx); Chronic midline low back pain without sciatica; Uncontrolled type 2 diabetes mellitus with complication, with long-term current use of insulin; Large breasts; Chronic pain of both knees; Morbid obesity; Need for Tdap vaccination; Routine adult health maintenance; Essential hypertension 07/22/2017 Office Visit Family Practice after 06/28/2017 Immunizations Name Dates Previously Given Next Due [...] Vital Signs Time Taken Vital Sign Reading 06/13/2018 3:25 PM [employer]EST [employer]ANG[employer] TECHNICIAN Blood Pressure 119/78 06/13/2018 3:25 PM FOREST RANGER TECHNICIAN Pulse 90 06/13/2018 3:25 PM FOREST RANGER TECHNICIAN Temperature 36.1 C (97 F) 06/13/2018 3:25 PM FOREST RANGER TECHNICIAN Respiratory Rate 18 - Oxygen Saturation - - Inhaled Oxygen - Concentration 06/13/2018 3:25 PM FOREST RANGER TECHNICIAN Weight 108 kg (238 lb) 06/13/2018 3:25 PM FOREST RANGER TECHNICIAN Height 157.5 cm (5' 2") 06/13/2018 3:25 PM FOREST RANGER TECHNICIAN Body Mass Index 43.53 Plan of Treatment Care Team Description Date Type Specialty Doiny Coppola RPH dm f/u 08/01/2018 Office Visit Clinical Pharmacy Health Maintenance Due Date Last Done Comments Breast Cancer Scrn 2006 (Yearly) IMM Influenza Seasonal 02/07/2018Feb to July (>/=19 yrs) Colorectal Cancer Scrn 04/22/2018 04/22/2017 Annual (FIT/FOBT) Age 50 to 75 DM Retinal Exam (Yearly) 07/23/2018 07/23/2017, 10/07/2016 DM Foot Exam (Yearly) 01/11/2019 01/11/2018, 10/07/2016, 10/07/2016 DM HGBA1C (Yearly) 06/16/2019 06/16/2018, 03/14/2018, 11/15/2017, Additional history exists Cervical Cancer Scrn (3 10/13/2019 10/12/2016 Yrs) Goals Goal Patient Associated Recent Progress Patient-Stat Author Goal Type Problems ed? Reduce fat intake Diet Not on track No Canio, (10/12/2016) MD Dorian Eat Healthy Lifestyle On track No Reyes, (04/18/2018) Kya Larkin LVN Note: Patient will eat more fruit and vegetables. Maintain blood pressure under Treatment On track No Canio, 140/90 (04/18/2018) MD Dorian Procedures Comments Procedure Name Priority Date/Time Associated Diagnosis TSH Routine 06/16/2018 Uncontrolled type 2 8:29 AM FOREST RANGER TECHNICIAN diabetes mellitus with complication, with long-term current use of insulin HEMOGLOBIN A1C Routine 06/16/2018 Routine adult health 8:29 AM FOREST RANGER TECHNICIAN maintenance LIVER PROFILE Routine 06/16/2018 Routine adult health 8:29 AM FOREST RANGER TECHNICIAN maintenance LIPID PROFILE Routine 06/16/2018 Routine adult health 8:29 AM FOREST RANGER TECHNICIAN maintenance BASIC METABOLIC PANEL Routine 06/16/2018 Routine adult health 8:29 AM FOREST RANGER TECHNICIAN maintenance CBC/DIFF Routine 06/16/2018 Routine adult health 8:29 AM FOREST RANGER TECHNICIAN maintenance HEMOCCULT KIT FOR Routine 06/13/2018 Routine adult health SPECIMEN COLLECTION AT 3:43 PM FOREST RANGER TECHNICIAN maintenance HOME XRAY KNEE 1 OR 2 VIEWS Routine 04/18/2018 Chronic pain of right (LIMITED-AP/LAT) 2:59 PM FOREST RANGER TECHNICIAN knee HEMOCCULT KIT FOR Routine 04/18/2018 Routine adult health SPECIMEN COLLECTION AT 2:12 PM FOREST RANGER TECHNICIAN maintenance HOME TSH Routine 03/14/2018 Hypothyroidism, 2:11 PM FOREST RANGER TECHNICIAN unspecified type BASIC METABOLIC PANEL Routine 03/14/2018 Routine adult health 2:11 PM FOREST RANGER TECHNICIAN maintenance HEPATITIS PANEL Routine 03/14/2018 Routine adult health 2:11 PM FOREST RANGER TECHNICIAN maintenance LIPID PROFILE Routine 03/14/2018 Routine adult health 2:11 PM FOREST RANGER TECHNICIAN maintenance VIT D, 25-HYDROXY Routine 03/14/2018 Routine adult health 2:11 PM FOREST RANGER TECHNICIAN maintenance HEMOGLOBIN A1C Routine 03/14/2018 Uncontrolled type 2 2:11 PM FOREST RANGER TECHNICIAN diabetes mellitus with complication, with long-term current use of insulin HEMOCCULT KIT FOR Routine 03/14/2018 Routine adult health SPECIMEN COLLECTION AT 2:00 PM FOREST RANGER TECHNICIAN maintenance HOME XRAY KNEE 1 OR 2 VIEWS Routine 01/11/2018 Chronic pain of both (LIMITED-AP/LAT) 2:27 PM CDT knees DIABETIC FOOT EXAM Routine 01/11/2018 Uncontrolled type 2 1:14 PM CDT diabetes mellitus with complication, with long-term current use of insulin HEMOGLOBIN A1C Routine 11/15/2017 Uncontrolled type 2 10:37 AM CDT diabetes mellitus with complication, with long-term current use of insulin OPHTHALMOLOGY RETINAL Routine 07/23/2017 Uncontrolled type 2 SCAN 12:31 PM CDT diabetes mellitus with complication, with long-term current use of insulin after 06/28/2017 Results * HEMOGLOBIN A1C (06/16/2018 8:29 AM FOREST RANGER TECHNICIAN) Only the most recent of 3 results within the time period is included. Hemoglobin A1c 10.6 (H) 4.3 - 6.1 % BT DIAGNOSTIC IMMUNOLOGY Est Average 257.5 mg/dL BT DIAGNOSTIC Gluc IMMUNOLOGY Specimen Blood Performing Organization Address [facility] Phone Number MISYS BT DIAGNOSTIC IMMUNOLOGY * TSH (06/16/2018 8:29 AM FOREST RANGER TECHNICIAN) Only the most recent of 2 results within the time period is included. TSH 8.35 (H) 0.57 - 3.74 uIU/mL BT MAIN-STATION 1 Specimen Blood Performing Organization Address [facility] Phone Number MISYS BT MAIN-STATION 1 * LIVER PROFILE (06/16/2018 8:29 AM FOREST RANGER TECHNICIAN) T Protein 7.5 6.0 - 8.3 g/dL [...] MAIN-STATION 1 Specimen Blood Performing Organization Address [facility] Phone Number MISYS BT MAIN-STATION 1 * LIPID PROFILE (06/16/2018 8:29 AM FOREST RANGER TECHNICIAN) Only the most recent of 2 results within the time period is included. Cholesterol 184 mg/dL BT MAIN-STATION Comment: 1 REFERENCE RANGE: Desirable: <200 mg/dL Borderline: 200-240 mg/dL High Risk: >240 mg/dL Triglyceride 87 <150 mg/dL BT MAIN-STATION Comment: 1 REFERENCE RANGE: Normal: <150 mg/dL Borderline High: 150-199 mg/dL High: 200-499 mg/dL Very High: >pu=096 mg/dL HDL 59 mg/dL BT MAIN-STATION Comment: 1 Increased CHD risk: <40 mg/dL Decreased CHD risk: >60 mg/dL LDL 108 mg/dL BT MAIN-STATION Comment: 1 REFERENCE RANGE: Optimal: <100 mg/dL Near Optimal: 100-129 mg/dL Borderline High: 130-159 mg/dL High: 160-189 mg/dL Very High: >op=703 mg/dL Specimen Blood Performing Organization Address City/State/Zipcode Phone Number MISYS BT MAIN-STATION 1 * CBC/DIFF (06/16/2018 8:29 AM FOREST RANGER TECHNICIAN) WBC 9.6 4.5 - 11.0 K/uL BT [...] Gran 2 Specimen Blood Performing Organization Address [facility] Phone Number MISYS BT MAIN-STATION 2 * BASIC METABOLIC PANEL (06/16/2018 8:29 AM FOREST RANGER TECHNICIAN) Only the most recent of 2 results [...] Afr-Am 1 Specimen Blood Performing Organization Address [facility] Phone Number MISYS BT MAIN-STATION 1 * XRAY KNEE 1 OR 2 VIEWS (LIMITED-AP/LAT) (04/18/2018 2:59 PM FOREST RANGER TECHNICIAN) Only the most recent of 2 results [...] Interface, Rad/Mammog In - 04/19/2018 9:42 AM FOREST RANGER TECHNICIAN EXAM: XR RIGHT KNEE 2 VIEW DATE: [...] MD, 04/19/2018 9:37 AM Performing Organization Address [facility] Phone Number SMS * VIT D, 25-HYDROXY (03/14/2018 2:11 PM FOREST RANGER TECHNICIAN) Vit D, 16.0 (L) 30 - 100 ng/mL BT DIAGNOSTIC 25-Hydroxy Comment: IMMUNOLOGY Vitamin D deficiency has been defined by the [place] of [employer] and Endocrine Society guideline as a level of serum 25-OH Vitamin D less than 20 ng/mL. The Endocrine Society further defines Vitamin D insufficiency as a level between 21 and 29 ng/mL and sufficiency as a level between 30 and 100 ng/mL. Performing Organization Address [facility] Phone Number MISYS BT DIAGNOSTIC IMMUNOLOGY * HEPATITIS PANEL (03/14/2018 2:11 PM FOREST RANGER TECHNICIAN) HCV IgG Negative NEG BT MAIN-STATION 3 HBsAg Negative NEG BT MAIN-STATION 3 HAV, IgM Negative NEG BT MAIN-STATION 3 HBcAb, IgM Negative NEG BT MAIN-STATION 3 Specimen Blood Performing Organization Address [facility] Phone Number MISYS BT MAIN-STATION 3 * DIABETIC FOOT EXAM (01/11/2018 1:14 PM CDT) Narrative Performed At Dorian Agustin MD 01/11/2018 10:37 PM Diabetic Foot Exam was performed at 01/11/2018 9:40 PM.Right foot sensation is normal, right foot pulses are normal, right foot appearance is normal.Left foot sensation is normal,left foot pulses are normal, left foot appearance is normal. * OPHTHALMOLOGY RETINAL SCAN (07/23/2017 12:31 PM CDT) RETINAL NORMAL IRIS SCAN-FINAL RESULT [...] y/o, F (: 1965, ) presented to [facility] on 07-22-2017 for a retinal imaging study [...] electronically signed by Markel Downey MD. Taxonomy: [id number] on 07-23-2017 05:31:38 [facility] time. NOTE:Any pathology noted on this diabetic retinal evaluation should be confirmed by an appropriate ophthalmic examination. Performing Organization Address City/State/Zipcode Phone Number IRIS after 06/28/2017 Insurance Type Payer Benefit Subscriber ID Effective Phone Address Plan / Dates Group [employer] HMO [facility] xxxxxxxxx 2017-P [phone] [address] [id number] [place] [address]
--- OUTSIDE RECORDS SUMMARY | 2018-08-23 19:58 | XMS REPORT | Clinical Summary ---
Author Author [facility] Organization [facility] Address Unknown Phone Unavailable Care Team Providers Care Regulatory Affairs Spec Name Role Phone Dorian Agustin MD PCP [...] daily as generalized needed (STOMACH PAIN). Active pen needle, diabetic Inject under 1 [...] by mouth 2 9 Forgetfulness times daily. Active levothyroxine (SYNTHROID) TAKE 1 TABLET 90 tablet 0 125 mcg BY MOUTH 9 tabletIndications: DAILY Hypothyroidism, unspecified type Active albuterol 90 INHALE 2 6.7 g 0 mcg/actuation PUFFS BY 9 inhalerIndications: MOUTH FOUR Moderate persistent TIMES DAILY asthma without NEEDED FOR complication WHEEZING. Active gabapentin (NEURONTIN) TAKE 1 180 capsule 0 300 mg CAPSULE BY 9 capsuleIndications: MOUTH TWICE Chronic midline low back DAILY pain without sciatica 01/18/2018 Discontinued pen needle, diabetic Inject under [...] midline low back daily. pain without sciatica 01/03/2018 Discontinued blood glucose test 2 times [...] complication, with long-term current use of insulin 07/19/2018 Discontinued levothyroxine (SYNTHROID) Take 1 tablet [...] complication, with long-term current use of insulin 07/27/2018 Discontinued PROVENTIL HFA 90 INHALE 2 6.7 g 0 mcg/actuation PUFFS BY 9 inhalerIndications: MOUTH FOUR Moderate persistent TIMES DAILY asthma without NEEDED FOR complication WHEEZING Status Hospital, Clinic, or Ordered Dose Route [...] Description Date Type Specialty Dorian Agustin MD Chronic midline low back pain without sciatica 07/28/2018 Refill Family Practice Dorian Agustin MD Moderate persistent asthma without complication 07/27/2018 Refill Family Practice Dorian Agustin MD Hypothyroidism, unspecified type 07/18/2018 Refill [facility] Delfina Grullon Colon Cancer Screening (Education on FIT completion) 07/08/2018 Telephone Gastroenterology Dorian Agustin MD Moderate persistent asthma without complication 07/01/2018 Refill [facility] Dorian Agustin MD Uncontrolled type [...] pain of right knee 04/18/[address] [facility] Dorian Agustin MD Chronic pain of right knee 04/18/[address] [facility] Diony Coppola [facility] Type 2 diabetes mellitus without complication, with [...] type; Abdominal pain, generalized 03/14/[address] [facility] Diony Coppola Chitra NO SHOW ENCOUNTER (Primary [...] current use of insulin 01/11/[address] [facility] Diony Coppola [facility] Uncontrolled type 2 diabetes mellitus with complication, with long-term current use of insulin (Primary Dx) 01/03/2018 Office Visit Clinical Pharmacy Dorian Agustin MD Chronic midline low back pain without sciatica; Essential hypertension 01/03/2018 Refill [facility] Dorian Agustin MD Moderate persistent asthma without complication 12/29/2017 Refill Family Practice Catherine Cespedes MD Chronic pain of right knee (Primary Dx) 12/16/2017 Office Visit Family Practice Laila Farris LVN Appointment Related Questions 11/17/[address] [facility] Diony Coppola [facility] Uncontrolled type 2 diabetes mellitus with complication, with long-term current use of insulin (Primary Dx) 11/15/2017 Office Visit Clinical Pharmacy Marsha Luna, ELIZABETH Other ([facility] ) 11/15/2017 Telephone [facility] Dorian Agustin MD Moderate persistent asthma [...] 10/18/2017 Orders Only Family Practice Diony Coppola [facility] Uncontrolled type 2 diabetes mellitus with complication, with long-term current use of insulin (Primary Dx) 08/31/2017 Office Visit Clinical Pharmacy Catherine Cespedes MD Chronic pain of right knee (Primary Dx) 08/19/2017 Office Visit Family Practice Nico Arora LD 08/03/2017 Nutrition Nutrition Diony Coppola [facility] Uncontrolled type 2 diabetes mellitus with complication, with long-term current use of insulin (Primary Dx) 08/03/2017 Office Visit Clinical Pharmacy after 07/31/2017 Immunizations Name Dates Previously Given Next Due [...] Taken Vital Sign Reading 06/13/2018 3:25 PM CERTIFIED PEDIATRIC NURSE PRACTITIONER Blood Pressure 119/78 06/13/2018 3:25 PM CERTIFIED PEDIATRIC NURSE PRACTITIONER Pulse 90 06/13/2018 3:25 PM CERTIFIED PEDIATRIC NURSE PRACTITIONER Temperature 36.1 C (97 F) 06/13/2018 3:25 PM CERTIFIED PEDIATRIC NURSE PRACTITIONER Respiratory Rate 18 - Oxygen Saturation - - Inhaled Oxygen - Concentration 06/13/2018 3:25 PM CERTIFIED PEDIATRIC NURSE PRACTITIONER Weight 108 kg (238 lb) 06/13/2018 3:25 PM CERTIFIED PEDIATRIC NURSE PRACTITIONER Height 157.5 cm (5' 2") 06/13/2018 3:25 PM CERTIFIED PEDIATRIC NURSE PRACTITIONER Body Mass Index 43.53 Plan of Treatment Care Team Description Date Type Specialty Diony Coppola [facility] dm f/u 08/01/2018 Office Visit Clinical Pharmacy Dorian Agustin MD [address] [place] [address] [phone] medication refill already contacted pharmacy. 08/01/2018 Office Visit Family Practice Health Maintenance Due Date Last Done Comments [...] blood pressure under Treatment On track No [place], 140/90 (04/18/2018) MD Dorian Procedures Comments Procedure Name Priority Date/Time Associated Diagnosis TSH Routine 06/16/2018 Uncontrolled type 2 8:29 AM CERTIFIED PEDIATRIC NURSE PRACTITIONER diabetes mellitus with complication, with long-term current use of insulin HEMOGLOBIN A1C Routine 06/16/2018 Routine adult health 8:29 AM CERTIFIED PEDIATRIC NURSE PRACTITIONER maintenance LIVER PROFILE Routine 06/16/2018 Routine adult health 8:29 AM CERTIFIED PEDIATRIC NURSE PRACTITIONER maintenance LIPID PROFILE Routine 06/16/2018 Routine adult health 8:29 AM CERTIFIED PEDIATRIC NURSE PRACTITIONER maintenance BASIC METABOLIC PANEL Routine 06/16/2018 Routine adult health 8:29 AM CERTIFIED PEDIATRIC NURSE PRACTITIONER maintenance CBC/DIFF Routine 06/16/2018 Routine adult health 8:29 AM CERTIFIED PEDIATRIC NURSE PRACTITIONER maintenance HEMOCCULT KIT FOR Routine 06/13/2018 Routine adult health SPECIMEN COLLECTION AT 3:43 PM CERTIFIED PEDIATRIC NURSE PRACTITIONER maintenance HOME XRAY KNEE 1 OR 2 VIEWS Routine 04/18/2018 Chronic pain of right (LIMITED-AP/LAT) 2:59 PM CERTIFIED PEDIATRIC NURSE PRACTITIONER knee HEMOCCULT KIT FOR Routine 04/18/2018 Routine adult health SPECIMEN COLLECTION AT 2:12 PM CERTIFIED PEDIATRIC NURSE PRACTITIONER maintenance HOME TSH Routine 03/14/2018 Hypothyroidism, 2:11 PM CERTIFIED PEDIATRIC NURSE PRACTITIONER unspecified type BASIC METABOLIC PANEL Routine 03/14/2018 Routine adult health 2:11 PM CERTIFIED PEDIATRIC NURSE PRACTITIONER maintenance HEPATITIS PANEL Routine 03/14/2018 Routine adult health 2:11 PM CERTIFIED PEDIATRIC NURSE PRACTITIONER maintenance LIPID PROFILE Routine 03/14/2018 Routine adult health 2:11 PM CERTIFIED PEDIATRIC NURSE PRACTITIONER maintenance VIT D, 25-HYDROXY Routine 03/14/2018 Routine adult health 2:11 PM CERTIFIED PEDIATRIC NURSE PRACTITIONER maintenance HEMOGLOBIN A1C Routine 03/14/2018 Uncontrolled type 2 2:11 PM CERTIFIED PEDIATRIC NURSE PRACTITIONER diabetes mellitus with complication, with long-term current use of insulin HEMOCCULT KIT FOR Routine 03/14/2018 Routine adult health SPECIMEN COLLECTION AT 2:00 PM CERTIFIED PEDIATRIC NURSE PRACTITIONER maintenance HOME XRAY KNEE 1 OR 2 VIEWS Routine 01/11/2018 Chronic pain of both (LIMITED-AP/LAT) 2:27 PM CDT knees DIABETIC FOOT EXAM Routine 01/11/2018 Uncontrolled type 2 1:14 PM CDT diabetes mellitus with complication, with long-term current use of insulin HEMOGLOBIN A1C Routine 11/15/2017 Uncontrolled type 2 10:37 AM CDT diabetes mellitus with complication, with long-term current use of insulin after 07/31/2017 Results * HEMOGLOBIN A1C (06/16/2018 8:29 AM CERTIFIED PEDIATRIC NURSE PRACTITIONER) Only the most recent of 3 results within the time period is included. Hemoglobin A1c 10.6 (H) 4.3 - 6.1 % BT DIAGNOSTIC IMMUNOLOGY Est Average 257.5 mg/dL BT DIAGNOSTIC Gluc IMMUNOLOGY Specimen Blood Performing Organization Address [facility] Phone Number [facility] * TSH (06/16/2018 8:29 AM CERTIFIED PEDIATRIC NURSE PRACTITIONER) Only the most recent of 2 results within the time period is included. TSH 8.35 (H) 0.57 - 3.74 uIU/mL BT MAIN-STATION 1 Specimen Blood Performing Organization Address [facility] Phone Number [facility] 1 * LIVER PROFILE (06/16/2018 8:29 AM CERTIFIED PEDIATRIC NURSE PRACTITIONER) T Protein 7.5 6.0 - 8.3 g/dL [...] MAIN-STATION 1 Specimen Blood Performing Organization Address [facility] Phone Number [facility] 1 * LIPID PROFILE (06/16/2018 8:29 AM CERTIFIED PEDIATRIC NURSE PRACTITIONER) Only the most recent of 2 results within the time period is included. Cholesterol 184 mg/dL BT MAIN-STATION Comment: 1 REFERENCE RANGE: Desirable: <200 mg/dL Borderline: 200-240 mg/dL High Risk: >240 mg/dL Triglyceride 87 <150 mg/dL BT MAIN-STATION Comment: 1 REFERENCE RANGE: Normal: <150 mg/dL Borderline High: 150-199 mg/dL High: 200-499 mg/dL Very High: >fh=846 mg/dL HDL 59 mg/dL BT MAIN-STATION Comment: 1 Increased CHD risk: <40 mg/dL Decreased CHD risk: >60 mg/dL LDL 108 mg/dL BT MAIN-STATION Comment: 1 REFERENCE RANGE: Optimal: <100 mg/dL Near Optimal: 100-129 mg/dL Borderline High: 130-159 mg/dL High: 160-189 mg/dL Very High: >yo=430 mg/dL Specimen Blood Performing Organization Address City/State/Zipcode Phone Number [facility] BT MAIN-STATION 1 * CBC/DIFF (06/16/2018 8:29 AM CERTIFIED PEDIATRIC NURSE PRACTITIONER) WBC 9.6 4.5 - 11.0 K/uL BT [...] Gran 2 Specimen Blood Performing Organization Address [facility] Phone Number [facility] MAIN-STATION 2 * BASIC METABOLIC PANEL (06/16/2018 8:29 AM CERTIFIED PEDIATRIC NURSE PRACTITIONER) Only the most recent of 2 results [...] Afr-Am 1 Specimen Blood Performing Organization Address [facility] Phone Number [facility] MAIN-STATION 1 * XRAY KNEE 1 OR 2 VIEWS (LIMITED-AP/LAT) (04/18/2018 2:59 PM CERTIFIED PEDIATRIC NURSE PRACTITIONER) Only the most recent of 2 results [...] Interface, Rad/Mammog In - 04/19/2018 9:42 AM CERTIFIED PEDIATRIC NURSE PRACTITIONER EXAM: XR RIGHT KNEE 2 VIEW DATE: [...] MD, 04/19/2018 9:37 AM Performing Organization Address City/State[facility] Phone Number SMS * VIT D, 25-HYDROXY (03/14/2018 2:11 PM CERTIFIED PEDIATRIC NURSE PRACTITIONER) Vit D, 16.0 (L) 30 - 100 ng/mL BT DIAGNOSTIC 25-Hydroxy Comment: IMMUNOLOGY Vitamin D deficiency has been defined by the [place] of [employer] and Endocrine Society guideline as a level of serum 25-OH Vitamin D less than 20 ng/mL. The Endocrine Society further defines Vitamin D insufficiency as a level between 21 and 29 ng/mL and sufficiency as a level between 30 and 100 ng/mL. Performing Organization Address [place]/State[facility] Phone Number [facility] BT DIAGNOSTIC IMMUNOLOGY * HEPATITIS PANEL (03/14/2018 2:11 PM CERTIFIED PEDIATRIC NURSE PRACTITIONER) HCV IgG Negative NEG BT MAIN-STATION 3 HBsAg Negative NEG BT MAIN-STATION 3 HAV, IgM Negative NEG BT MAIN-STATION 3 HBcAb, IgM Negative NEG BT MAIN-STATION 3 Specimen Blood Performing Organization Address City/[facility] Phone Number [facility] BT MAIN-STATION 3 * DIABETIC FOOT EXAM (01/11/2018 1:14 PM CDT) Narrative Performed At Dorian Agustin MD 01/11/2018 10:37 PM Diabetic Foot Exam was performed at 01/11/2018 9:40 PM.Right foot sensation is normal, right foot pulses are normal, right foot appearance is normal.Left foot sensation is normal,left foot pulses are normal, left foot appearance is normal. after 07/31/2017 Insurance Type Payer Benefit Subscriber ID Effective Phone Address Plan / Dates Group [employer] HMO [employer] xxxxxxxxx 2017-P [phone] [address] [id number] [place] [address]
--- OUTSIDE RECORDS SUMMARY | 2018-08-23 19:59 | XMS REPORT | Clinical Summary ---
Author Author [facility] Organization [facility] Address Unknown Phone Unavailable Care Team Providers Care Commercial Loan Administrator Name Role Phone Dorian Agustin MD PCP [...] complication, with long-term current use of insulin 06/24/2017 Discontinued gabapentin (NEURONTIN) Take 1 180 capsule 3 300 mg capsule by 7 capsuleIndications: mouth 2 times Chronic midline low back daily. pain without sciatica 06/24/2017 Discontinued cyclobenzaprine Take 1 tablet 270 tablet 1 (FLEXERIL) 10 mg by mouth 3 7 tabletIndications: times daily Chronic midline low back as needed for pain without sciatica Muscle Spasms. 06/24/2017 Discontinued albuterol (VENTOLIN Inhale 2 6.7 g 3 HFA,PROVENTIL HFA,PROAIR Puffs by 7 HFA) 90 mcg/actuation mouth 4 times inhalerIndications: daily as Moderate persistent needed for up asthma without to 180 days complication for Wheezing. 06/24/2017 Discontinued insulin detemir (LEVEMIR Inject 30 55.2 mL 0 FLEXTOUCH) 100 unit/mL (3 Units under 7 mL) PenIndications: the skin Uncontrolled type 2 daily for 184 diabetes mellitus with days. complication, with long-term current use of insulin 06/24/2017 Discontinued pen needle, diabetic Inject under 1 Box 5 (NOVOFINE) 30 gauge x the skin 7 1/3" needlesIndications: daily Use as Uncontrolled type 2 directed. diabetes mellitus with complication, with long-term current use of insulin 06/24/2017 Discontinued lisinopril (PRINIVIL) 20 Take 1 tablet 90 tablet 3 mg tabletIndications: by mouth 7 Essential hypertension daily. 06/24/2017 Discontinued lancets 28 by 100 Each 5 gaugeIndications: MISCELLANEOUS 7 Uncontrolled type 2 route 2 times diabetes mellitus with daily Use 2 complication, with times weekly long-term current use of as directed. insulin 06/24/2017 Discontinued glipiZIDE (GLUCOTROL) 5 Take 1 tablet 180 tablet 3 mg tabletIndications: by mouth 2 7 Uncontrolled type 2 times daily diabetes mellitus with (before complication, with meals). long-term current use of insulin 06/24/2017 Discontinued amLODIPine (NORVASC) 5 mg Take 1 tablet 90 tablet 3 tabletIndications: by mouth 7 Essential hypertension daily. 06/24/2017 Discontinued blood glucose test 2 times daily 100 Each 5 stripsIndications: to test blood 7 Uncontrolled type 2 sugar. diabetes mellitus with complication, with long-term current use of insulin 06/24/2017 Discontinued levothyroxine (SYNTHROID) Take 125 mcg 0 125 mcg tablet by mouth daily. 01/18/2018 Discontinued pen needle, diabetic Inject [...] Resolved Date History of hypothyroidism 03/03/2017 06/24/2017 Encounters Care Team Description Date Type Specialty Dorian Agustin MD Chronic pain of right knee 04/18/2018 Ancillary Radiology Procedure Dorian Agustin MD Routine adult health maintenance (Primary Dx); Need for influenza vaccination; Chronic pain of right knee 04/18/2018 Office Visit [facility] Dorian Agustin MD Chronic pain of right knee 04/18/[address] [facility] Diony Coppola [facility] Type [...] [facility] Diony Coppola [facility] NO SHOW ENCOUNTER (Primary Dx) 03/10/2018 Office Visit Clinical Pharmacy Kimber Hoffman, ELIZABETH Appointment Related Questions 02/16/2018 Telephone Patient Education Juan Armas RN 01/27/2018 Clinical Case Social Work Mgt Dorian Agustin MD Routine adult health maintenance (Primary Dx); Moderate persistent asthma without complication; Essential hypertension; Chronic midline low back pain without sciatica; Uncontrolled type 2 diabetes mellitus with complication, with long-term current use of insulin; Need for zoster vaccination 01/18/2018 Office Visit [facility] Dorian Quintero MD Echeverria, Veronica, stave mill hand education, encounter for (Primary Dx) 01/11/2018 Patient [...] current use of insulin 01/11/2018 Office Visit [facility] Dorian Agustin MD Chronic pain of both knees; Uncontrolled type 2 diabetes mellitus with complication, with long-term current use of insulin 01/11/[address] [facility] Diony Coppola RPH Uncontrolled type 2 diabetes mellitus with complication, with long-term current use of insulin (Primary Dx) 01/03/2018 Office Visit Clinical Pharmacy Dorian Agustin MD Chronic midline low back pain without sciatica; Essential hypertension 01/03/2018 Refill [facility] Dorian Agustin MD Moderate persistent asthma without complication 12/29/2017 Refill [facility] Catherine Cespedes MD Chronic pain of right knee (Primary Dx) 12/16/2017 Office Visit [facility] Laila Farris LVN Appointment Related Questions 11/17/[address] [facility] Diony Coppola RPH Uncontrolled type 2 diabetes mellitus with complication, with long-term current use of insulin (Primary Dx) 11/15/2017 Office Visit Clinical Pharmacy Marsha Luna RN Other ([facility] ) 11/15/2017 Telephone [facility] Dorian Agustin MD Moderate persistent asthma without complication 11/15/2017 Refill [facility] Kathy Hylton LVN Other (returning staff message) 10/20/2017 Telephone [facility] Dorian Agustin MD Need for Tdap vaccination (Primary Dx); Routine adult health maintenance; Onychomycosis; Uncontrolled type 2 diabetes mellitus with complication, with long-term current use of insulin; Chronic pain of both knees 10/18/2017 Office Visit Family Practice Dorian Agustin MD Chronic pain of both knees 10/18/[address] [facility] Diony Coppola RPH Uncontrolled type 2 diabetes mellitus with complication, with long-term current use of insulin (Primary Dx) 08/31/2017 Office Visit Clinical Pharmacy Catherine Cespedes MD Chronic pain of right knee (Primary Dx) 08/19/2017 Office Visit [facility] Nico Arora LD 08/03/2017 Nutrition Nutrition Diony Coppola RPH Uncontrolled type 2 diabetes mellitus with complication, with long-term current use of insulin (Primary Dx) 08/03/2017 Office Visit Clinical Pharmacy Dorian Agustin MD Miladys Rolle Uncontrolled type 2 diabetes mellitus with complication, [...] Essential hypertension 07/22/2017 Office Visit Family Practice Laila Farris LVN Appointment Related Questions 06/25/2017 Telephone Dorian Agustin MD Uncontrolled type 2 diabetes mellitus with complication, with long-term current use of insulin (Primary Dx); Routine adult health maintenance; Need for influenza vaccination; Essential hypertension; Chronic midline low back pain without sciatica; Moderate persistent asthma without complication; Large breasts; Hypothyroidism, unspecified type; Chronic pain of right knee 06/24/2017 Office Visit Family Practice Dorian Agustin MD Chronic pain of right knee 06/24/2017 Orders Only Family Practice Nico Arora LD 06/24/2017 Nutrition Nutrition after 05/23/2017 Immunizations Name Dates Previously Given Next Due [...] Vital Signs Time Taken Vital Sign Reading 04/18/2018 1:38 PM INSTRUCTIONAL SYSTEMS SPECIALIST Blood Pressure 119/77 04/18/2018 1:38 PM INSTRUCTIONAL SYSTEMS SPECIALIST Pulse 100 04/18/2018 1:38 PM INSTRUCTIONAL SYSTEMS SPECIALIST Temperature 36.7 C (98 F) 04/18/2018 1:38 PM INSTRUCTIONAL SYSTEMS SPECIALIST Respiratory Rate 22 - Oxygen Saturation - - Inhaled Oxygen - Concentration 04/18/2018 1:38 PM INSTRUCTIONAL SYSTEMS SPECIALIST Weight 108 kg (238 lb) 04/18/2018 1:38 PM INSTRUCTIONAL SYSTEMS SPECIALIST Height 157.5 cm (5' 2") 04/18/2018 1:38 PM INSTRUCTIONAL SYSTEMS SPECIALIST Body Mass Index 43.53 Plan of Treatment Care Team Description Date Type Specialty Diony Coppola RPH dm f/u 05/26/2018 Office Visit Clinical Pharmacy Dorian Agustin MD [address] [place] [address] [phone] follow up 06/13/2018 Office Visit Family Practice 06/16/2018 Ancillary Radiology Procedure Health Maintenance Due Date Last Done Comments Breast Cancer Scrn 2006 (Yearly) IMM Influenza Seasonal 02/07/2018Feb to July (>/=19 yrs) Colorectal Cancer Scrn 04/22/2018 04/22/2017 Annual (FIT/FOBT) Age 50 to 75 DM Retinal Exam (Yearly) 07/23/2018 07/23/2017, 10/07/2016 DM Foot Exam (Yearly) 01/11/2019 01/11/2018, 10/07/2016, 10/07/2016 DM HGBA1C (Yearly) 03/14/2019 03/14/2018, 11/15/2017, 06/24/2017, Additional history exists Cervical Cancer Scrn (3 10/13/2019 10/12/2016 Yrs) Goals Goal Patient Associated Recent Progress Patient-Stat Author Goal Type Problems ed? Reduce fat intake Diet Not on track No [place], (10/12/2016) MD Dorian Eat Healthy Lifestyle On track No Reyes, (04/18/2018) Kya Larkin LVN Note: Patient will eat more fruit and vegetables. Maintain blood pressure under Treatment On track No Vamsi, 140/90 (04/18/2018) MD Dorian Procedures Comments Procedure Name Priority Date/Time Associated Diagnosis XRAY KNEE 1 OR 2 VIEWS Routine 04/18/2018 Chronic pain of right (LIMITED-AP/LAT) 2:59 PM INSTRUCTIONAL SYSTEMS SPECIALIST knee HEMOCCULT KIT FOR Routine 04/18/2018 Routine adult health SPECIMEN COLLECTION AT 2:12 PM INSTRUCTIONAL SYSTEMS SPECIALIST maintenance HOME TSH Routine 03/14/2018 Hypothyroidism, 2:11 PM INSTRUCTIONAL SYSTEMS SPECIALIST unspecified type BASIC METABOLIC PANEL Routine 03/14/2018 Routine adult health 2:11 PM INSTRUCTIONAL SYSTEMS SPECIALIST maintenance HEPATITIS PANEL Routine 03/14/2018 Routine adult health 2:11 PM INSTRUCTIONAL SYSTEMS SPECIALIST maintenance LIPID PROFILE Routine 03/14/2018 Routine adult health 2:11 PM INSTRUCTIONAL SYSTEMS SPECIALIST maintenance VIT D, 25-HYDROXY Routine 03/14/2018 Routine adult health 2:11 PM INSTRUCTIONAL SYSTEMS SPECIALIST maintenance HEMOGLOBIN A1C Routine 03/14/2018 Uncontrolled type 2 2:11 PM INSTRUCTIONAL SYSTEMS SPECIALIST diabetes mellitus with complication, with long-term current use of insulin HEMOCCULT KIT FOR Routine 03/14/2018 Routine adult health SPECIMEN COLLECTION AT 2:00 PM INSTRUCTIONAL SYSTEMS SPECIALIST maintenance HOME XRAY KNEE 1 OR 2 [...] HEMOGLOBIN A1C STAT 06/24/2017 Uncontrolled type 2 2:06 PM INSTRUCTIONAL SYSTEMS SPECIALIST diabetes mellitus with complication, with long-term current use of insulin after 05/23/2017 Results * XRAY KNEE 1 OR 2 VIEWS (LIMITED-AP/LAT) (04/18/2018 2:59 PM INSTRUCTIONAL SYSTEMS SPECIALIST) Only the most recent of 2 results [...] Interface, Rad/Mammog In - 04/19/2018 9:42 AM INSTRUCTIONAL SYSTEMS SPECIALIST EXAM: XR RIGHT KNEE 2 VIEW DATE: [...] MD, 04/19/2018 9:37 AM Performing Organization Address City/[facility] Phone Number SMS * VIT D, 25-HYDROXY (03/14/2018 2:11 PM INSTRUCTIONAL SYSTEMS SPECIALIST) Vit D, 16.0 (L) 30 - 100 ng/mL BT DIAGNOSTIC 25-Hydroxy Comment: IMMUNOLOGY Vitamin D deficiency has been defined by the [place] of Medicine and Endocrine Society guideline as a level of serum 25-OH Vitamin D less than 20 ng/mL. The Endocrine Society further defines Vitamin D insufficiency as a level between 21 and 29 ng/mL and sufficiency as a level between 30 and 100 ng/mL. Performing Organization Address City/State/[facility] Phone Number [facility] BT DIAGNOSTIC IMMUNOLOGY * HEMOGLOBIN A1C (03/14/2018 2:11 PM INSTRUCTIONAL SYSTEMS SPECIALIST) Only the most recent of 3 results within the time period is included. Hemoglobin A1c 9.6 (H) 4.3 - 6.1 % BT DIAGNOSTIC IMMUNOLOGY Est Average 228.8 mg/dL BT DIAGNOSTIC Gluc IMMUNOLOGY Specimen Blood Performing Organization Address City/[facility] Phone Number [facility]ISYS BT DIAGNOSTIC IMMUNOLOGY * TSH (03/14/2018 2:11 PM INSTRUCTIONAL SYSTEMS SPECIALIST) TSH 0.57 0.57 - 3.74 uIU/mL BT MAIN-STATION 1 Specimen Blood Performing Organization Address [facility] Phone Number [facility] BT MAIN-STATION 1 * LIPID PROFILE (03/14/2018 2:11 PM INSTRUCTIONAL SYSTEMS SPECIALIST) Cholesterol 166 mg/dL BT MAIN-STATION Comment: 1 REFERENCE RANGE: Desirable: <200 mg/dL Borderline: 200-240 mg/dL High Risk: >240 mg/dL Triglyceride 165 (H) <150 mg/dL BT MAIN-STATION Comment: 1 REFERENCE RANGE: Normal: <150 mg/dL Borderline High: 150-199 mg/dL High: 200-499 mg/dL Very High: >oh=537 mg/dL HDL 53 mg/dL BT MAIN-STATION Comment: 1 Increased CHD risk: <40 mg/dL Decreased CHD risk: >60 mg/dL LDL 80 mg/dL BT MAIN-STATION Comment: 1 REFERENCE RANGE: Optimal: <100 mg/dL Near Optimal: 100-129 mg/dL Borderline High: 130-159 mg/dL High: 160-189 mg/dL Very High: >wh=151 mg/dL Specimen Blood Performing Organization Address [facility] Phone Number [facility] * HEPATITIS PANEL (03/14/2018 2:11 PM INSTRUCTIONAL SYSTEMS SPECIALIST) HCV IgG Negative NEG BT MAIN-STATION 3 HBsAg Negative NEG BT MAIN-STATION 3 HAV, IgM Negative NEG BT MAIN-STATION 3 HBcAb, IgM Negative NEG BT MAIN-STATION 3 Specimen Blood Performing Organization Address [facility] Phone Number [facility] BT MAIN-STATION 3 * BASIC METABOLIC PANEL (03/14/2018 2:11 PM INSTRUCTIONAL SYSTEMS SPECIALIST) CO2 32 (H) 21 - 31 mmol/L BT MAIN-STATION 1 Chloride 101 98 - 107 mmol/L BT MAIN-STATION 1 Potassium 4.3 3.5 - 5.1 mmol/L BT MAIN-STATION 1 Sodium 142 136 - 145 mmol/L BT MAIN-STATION 1 Glucose 226 (H) 70 - 110 mg/dL BT MAIN-STATION 1 Urea Nitrogen 25 7 - 25 mg/dL BT MAIN-STATION 1 Creatinine 1.00 0.6 - 1.2 mg/dL BT MAIN-STATION 1 Anion Gap 9 BT MAIN-STATION 1 Calcium 9.4 8.6 - 10.3 mg/dL BT MAIN-STATION 1 GFR, Estimated 58 mL/min/1.73 m2 BT MAIN-STATION 1 GFR, Estim, >60 mL/min/1.73 m2 BT MAIN-STATION Afr-Am 1 Specimen Blood Performing Organization Address City/State/Zipcode Phone Number [facility] BT MAIN-STATION 1 * DIABETIC FOOT EXAM (01/11/2018 1:14 PM [...] y/o, F (: 1965, ) presented to [facility] on 07-22-2017 for a retinal imaging study [...] electronically signed by Markel Downey MD. RAINI: [id number] Taxonomy: [id number] on 07-23-2017 05:31:38 [facility] time. NOTE:Any pathology noted on this diabetic retinal evaluation should be confirmed by an appropriate ophthalmic examination. Performing Organization Address City/State/Zipcode Phone Number IRIS after 05/23/2017 Insurance Type Payer Benefit Subscriber ID Effective Phone Address Plan / Dates Group [employer] MEDICA[employer] HMO [employer] xxxxxxx 2017-P [phone] [address] [id number] [place] [address]
--- OUTSIDE RECORDS SUMMARY | 2018-08-23 20:00 | XMS REPORT | Clinical Summary ---
Author Author [facility] Organization [facility] Address Unknown Phone Unavailable Care Team Providers Care Plaster Block Layer Name Role Phone Dorian Agustin MD PCP [...] pain of right knee 04/18/2018 Office Visit [facility] Dorian Agustin MD Chronic pain of right knee 04/18/2018 Orders Only [facility] Diony Coppola [facility] Type 2 diabetes mellitus without complication, with long- term current use of insulin (Primary Dx); Uncontrolled type 2 diabetes mellitus with complication, with long-term current use of insulin 04/14/2018 Office Visit Clinical Pharmacy 04/14/2018 Lionel Mei RN 03/18/2018 Nurse Triage Dorian Agsutin MD Routine adult health maintenance (Primary Dx); Uncontrolled type 2 diabetes mellitus with complication, with long-term current use of insulin; Spasm of muscle; Essential hypertension; Chronic midline low back pain without sciatica; Moderate persistent asthma without complication; Snoring; Hypothyroidism, unspecified type; Abdominal pain, generalized 03/14/2018 Office Visit [facility] Diony Coppola [facility] NO SHOW ENCOUNTER (Primary Dx) 03/10/2018 Office [...] Need for zoster vaccination 01/18/2018 Office Visit [facility] Dorian Quintero MD Echeverria, Veronica, group dynamics instructor education, encounter for (Primary Dx) 01/11/2018 Patient [...] current use of insulin 01/11/2018 Office Visit [facility] Dorian Agustin MD Chronic pain of both knees; Uncontrolled type 2 diabetes mellitus with complication, with long-term current use of insulin 01/11/2018 Orders Only [facility] Diony Coppola RPH Uncontrolled type 2 diabetes mellitus with complication, with long-term current use of insulin (Primary Dx) 01/03/2018 Office Visit Clinical Pharmacy Dorian Agustin MD Chronic midline low back pain without sciatica; Essential hypertension 01/03/2018 Refill [facility] Dorian Agustin MD Moderate persistent asthma without complication 12/29/2017 Refill [facility] Catherine Csepedes MD Chronic pain of right knee (Primary Dx) 12/16/2017 Office Visit [facility] Laila Farris LVN Appointment Related Questions 11/17/2017 Telephone [facility] Diony Coppola RPH Uncontrolled type 2 diabetes mellitus with complication, with long-term current use of insulin (Primary Dx) 11/15/2017 Office Visit Clinical Pharmacy Marsha Luna RN Other ([facility] ) 11/15/2017 Telephone [facility] Dorian Agustin MD Moderate persistent asthma without complication 11/15/2017 Refill [facility] Kathy Hylton LVN Other (returning staff message) 10/20/2017 Telephone [facility] Dorian Agustin MD Need for Tdap vaccination (Primary Dx); Routine adult health maintenance; Onychomycosis; Uncontrolled type 2 diabetes mellitus with complication, with long-term current use of insulin; Chronic pain of both knees 10/18/2017 Office Visit Family Practice Dorian Agustin MD Chronic pain of both knees 10/18/2017 Orders Only [facility] Diony Coppola RPH Uncontrolled type 2 diabetes mellitus with complication, with long-term current use of insulin (Primary Dx) 08/31/2017 Office Visit Clinical Pharmacy Catherine Cespedes MD Chronic pain of right knee (Primary Dx) 08/19/2017 Office Visit [facility] Nico Arora LD 08/03/2017 Nutrition [...] Nico Arora LD 06/24/2017 Nutrition Nutrition after 05/25/2017 Immunizations Name Dates Previously Given Next Due [...] Taken Vital Sign Reading 04/18/2018 1:38 PM BRICK MOLDER HAND Blood Pressure 119/77 04/18/2018 1:38 PM BRICK MOLDER HAND Pulse 100 04/18/2018 1:38 PM BRICK MOLDER HAND Temperature 36.7 C (98 F) 04/18/2018 1:38 PM BRICK MOLDER HAND Respiratory Rate 22 - Oxygen Saturation - - Inhaled Oxygen - Concentration 04/18/2018 1:38 PM BRICK MOLDER HAND Weight 108 kg (238 lb) 04/18/2018 1:38 PM BRICK MOLDER HAND Height 157.5 cm (5' 2") 04/18/2018 1:38 PM BRICK MOLDER HAND Body Mass Index 43.53 Plan of Treatment Care Team Description Date Type Specialty Diony Coppola RPH dm f/u 06/13/2018 Office Visit Clinical Pharmacy Dorian Agustin MD [address] [place] [address] [phone] follow up 06/13/2018 Office Visit Family Practice [...] Chronic pain of right (LIMITED-AP/LAT) 2:59 PM BRICK MOLDER HAND knee HEMOCCULT KIT FOR Routine 04/18/2018 Routine adult health SPECIMEN COLLECTION AT 2:12 PM BRICK MOLDER HAND maintenance HOME TSH Routine 03/14/2018 Hypothyroidism, 2:11 PM BRICK MOLDER HAND unspecified type BASIC METABOLIC PANEL Routine 03/14/2018 Routine adult health 2:11 PM BRICK MOLDER HAND maintenance HEPATITIS PANEL Routine 03/14/2018 Routine adult health 2:11 PM BRICK MOLDER HAND maintenance LIPID PROFILE Routine 03/14/2018 Routine adult health 2:11 PM BRICK MOLDER HAND maintenance VIT D, 25-HYDROXY Routine 03/14/2018 Routine adult health 2:11 PM BRICK MOLDER HAND maintenance HEMOGLOBIN A1C Routine 03/14/2018 Uncontrolled type 2 2:11 PM BRICK MOLDER HAND diabetes mellitus with complication, with long-term current use of insulin HEMOCCULT KIT FOR Routine 03/14/2018 Routine adult health SPECIMEN COLLECTION AT 2:00 PM BRICK MOLDER HAND maintenance HOME XRAY KNEE 1 OR 2 [...] STAT 06/24/2017 Uncontrolled type 2 2:06 PM BRICK MOLDER HAND diabetes mellitus with complication, with long-term current use of insulin after 05/25/2017 Results * XRAY KNEE 1 OR 2 VIEWS (LIMITED-AP/LAT) (04/18/2018 2:59 PM BRICK MOLDER HAND) Only the most recent of 2 results [...] Interface, Rad/Mammog In - 04/19/2018 9:42 AM BRICK MOLDER HAND EXAM: XR RIGHT KNEE 2 VIEW DATE: [...] MD, 04/19/2018 9:37 AM Performing Organization Address City[facility] Phone Number SMS * VIT D, 25-HYDROXY (03/14/2018 2:11 PM BRICK MOLDER HAND) Vit D, 16.0 (L) 30 - 100 ng/mL BT DIAGNOSTIC 25-Hydroxy Comment: IMMUNOLOGY Vitamin D deficiency has been defined by the [place] of Medicine and Endocrine Society guideline as a level of serum 25-OH Vitamin D less than 20 ng/mL. The Endocrine Society further defines Vitamin D insufficiency as a level between 21 and 29 ng/mL and sufficiency as a level between 30 and 100 ng/mL. Performing Organization Address [facility]/State[facility] Phone Number [facility] BT DIAGNOSTIC IMMUNOLOGY * HEMOGLOBIN A1C (03/14/2018 2:11 PM BRICK MOLDER HAND) Only the most recent of 3 results within the time period is included. Hemoglobin A1c 9.6 (H) 4.3 - 6.1 % BT DIAGNOSTIC IMMUNOLOGY Est Average 228.8 mg/dL BT DIAGNOSTIC Gluc IMMUNOLOGY Specimen Blood Performing Organization Address City/[facility] Phone Number [facility] BT DIAGNOSTIC IMMUNOLOGY * TSH (03/14/2018 2:11 PM BRICK MOLDER HAND) TSH 0.57 0.57 - 3.74 uIU/mL BT MAIN-STATION 1 Specimen Blood Performing Organization Address [facility] Phone Number [facility] BT MAIN-STATION 1 * LIPID PROFILE (03/14/2018 2:11 PM BRICK MOLDER HAND) Cholesterol 166 mg/dL BT MAIN-STATION Comment: 1 REFERENCE RANGE: Desirable: <200 mg/dL Borderline: 200-240 mg/dL High Risk: >240 mg/dL Triglyceride 165 (H) <150 mg/dL BT MAIN-STATION Comment: 1 REFERENCE RANGE: Normal: <150 mg/dL Borderline High: 150-199 mg/dL High: 200-499 mg/dL Very High: >vx=241 mg/dL HDL 53 mg/dL BT MAIN-STATION Comment: 1 Increased CHD risk: <40 mg/dL Decreased CHD risk: >60 mg/dL LDL 80 mg/dL BT MAIN-STATION Comment: 1 REFERENCE RANGE: Optimal: <100 mg/dL Near Optimal: 100-129 mg/dL Borderline High: 130-159 mg/dL High: 160-189 mg/dL Very High: >on=107 mg/dL Specimen Blood Performing Organization Address [facility] Phone Number [facility] * HEPATITIS PANEL (03/14/2018 2:11 PM BRICK MOLDER HAND) HCV IgG Negative NEG BT MAIN-STATION 3 HBsAg Negative NEG BT MAIN-STATION 3 HAV, IgM Negative NEG BT MAIN-STATION 3 HBcAb, IgM Negative NEG BT MAIN-STATION 3 Specimen Blood Performing Organization Address [facility] Phone Number [facility] BT MAIN-STATION 3 * BASIC METABOLIC PANEL (03/14/2018 2:11 PM BRICK MOLDER HAND) CO2 32 (H) 21 - 31 mmol/L [...] y/o, F (: 1965, ) presented to [facility] on 07-22-2017 for a retinal [...] electronically signed by Markel Downey MD. RAINI: [id number] Taxonomy: [id number] on 07-23-2017 05:31:38 [facility] time. NOTE:Any pathology noted on this diabetic retinal evaluation should be confirmed by an appropriate ophthalmic examination. Performing Organization Address City/State/Zipcode Phone Number IRIS after 05/25/2017 Insurance Type Payer Benefit Subscriber ID Effective Phone Address Plan / Dates Group [employer] MEDICA[employer] HMO [employer] xxxxxxx 2017-P [phone] [address] [id number] [place] [address]
--- OUTSIDE RECORDS SUMMARY | 2018-08-23 20:01 | XMS REPORT | Clinical Summary ---
Author Author [facility] Organization [facility] Address Unknown Phone Unavailable Care Team Providers Care Herpetologist Name Role Phone Dorian Agustin MD PCP [...] 2 per day on diabetes mellitus with Wed,) to complication, with test blood long-term current use of sugar. insulin Active lancets 28 2 times daily 100 Each 1 gaugeIndications: Use 2 times 9 Uncontrolled type 2 weekly as diabetes mellitus with directed. complication, with long-term current use of insulin Active memantine (NAMENDA) 5 mg Take 1 tablet 180 tablet 1 tabletIndications: by mouth 2 9 Forgetfulness times daily. Active PROVENTIL HFA 90 INHALE 2 6.7 g 0 mcg/actuation PUFFS BY 9 inhalerIndications: MOUTH FOUR Moderate persistent TIMES DAILY asthma without NEEDED FOR complication WHEEZING 01/18/2018 Discontinued pen needle, diabetic Inject under [...] Encounters Care Team Description Date Type Specialty Delfina Grullon Colon Cancer Screening (Education on FIT completion) 07/08/2018 Telephone Gastroenterology Dorian Agustin MD Moderate persistent asthma without complication 07/01/2018 Refill Family Practice Dorian Agustin MD Uncontrolled type [...] pain of right knee 04/18/2018 Orders Only [facility] Diony Coppola RPH Type 2 diabetes mellitus without complication, with [...] Abdominal pain, generalized 03/14/2018 Office Visit Family [facility] Diony Coppola RPH NO SHOW ENCOUNTER (Primary Dx) 03/10/2018 Office Visit Clinical Pharmacy Hoffman, Kimber, ELIZABETH Appointment Related Questions 02/16/2018 Telephone Patient [...] Family Practice Dorian Agustin MD Echeverria, Veronica, study director education, encounter for (Primary Dx) 01/11/2018 Patient [...] current use of insulin 01/11/2018 Office Visit [facility] Dorian Agustin MD Chronic pain of both knees; Uncontrolled type 2 diabetes mellitus with complication, with long-term current use of insulin 01/11/2018 Orders Only [facility] Diony Coppola RPH Uncontrolled type 2 diabetes mellitus with complication, with long-term current use of insulin (Primary Dx) 01/03/2018 Office Visit Clinical Pharmacy Dorian Agustin MD Chronic midline low back pain without sciatica; Essential hypertension 01/03/2018 Refill Family Practice Dorian Agustin MD Moderate persistent asthma without complication 12/29/2017 Refill [facility] Catherine Cespedes MD Chronic pain of right knee (Primary Dx) 12/16/2017 Office Visit Family Practice Laila Farris LVN Appointment Related Questions 11/17/2017 Telephone [facility] Diony Coppola RPH Uncontrolled type 2 diabetes mellitus with complication, with long-term current use of insulin (Primary Dx) 11/15/2017 Office Visit Clinical Pharmacy Marsha Luna RN Other ([facility] ) 11/15/2017 Telephone [facility] Dorian Agustin MD Moderate persistent asthma without complication 11/15/2017 Refill Family Practice Kathy Hylton, BUILD MANAGER Other (returning staff message) 10/20/2017 Telephone [facility] Dorian Agustin MD Need for Tdap vaccination (Primary Dx); Routine adult health maintenance; Onychomycosis; Uncontrolled type 2 diabetes mellitus with complication, with long-term current use of insulin; Chronic pain of both knees 10/18/2017 Office Visit Family Practice Dorian Agustin MD Chronic pain of both knees 10/18/2017 Orders Only [facility] Diony Coppola, [facility] Uncontrolled type 2 diabetes mellitus with complication, with long-term current use of insulin (Primary Dx) 08/31/2017 Office Visit Clinical Pharmacy Catherine Cespedes MD Chronic pain of right knee (Primary Dx) 08/19/2017 Office Visit [facility] Nico Arora, YOAN 08/03/2017 Nutrition Nutrition Diony Coppola, [facility] Uncontrolled type 2 diabetes mellitus with complication, [...] hypertension 07/22/2017 Office Visit Family Practice after 07/17/2017 Immunizations Name Dates Previously Given Next Due [...] Taken Vital Sign Reading 06/13/2018 3:25 PM HAZARDOUS MATERIALS DRIVER Blood Pressure 119/78 06/13/2018 3:25 PM HAZARDOUS MATERIALS DRIVER Pulse 90 06/13/2018 3:25 PM HAZARDOUS MATERIALS DRIVER Temperature 36.1 C (97 F) 06/13/2018 3:25 PM HAZARDOUS MATERIALS DRIVER Respiratory Rate 18 - Oxygen Saturation - - Inhaled Oxygen - Concentration 06/13/2018 3:25 PM HAZARDOUS MATERIALS DRIVER Weight 108 kg (238 lb) 06/13/2018 3:25 PM HAZARDOUS MATERIALS DRIVER Height 157.5 cm (5' 2") 06/13/2018 3:25 PM HAZARDOUS MATERIALS DRIVER Body Mass Index 43.53 Plan of Treatment Care Team Description Date Type Specialty Dorian Agustin MD [address] [place] [address] [id number] Check up 07/25/2018 Office Visit Family Practice Diony Coppola [facility] dm f/u 08/01/2018 Office Visit Clinical Pharmacy [...] Routine 06/16/2018 Uncontrolled type 2 8:29 AM HAZARDOUS MATERIALS DRIVER diabetes mellitus with complication, with long-term current use of insulin HEMOGLOBIN A1C Routine 06/16/2018 Routine adult health 8:29 AM HAZARDOUS MATERIALS DRIVER maintenance LIVER PROFILE Routine 06/16/2018 Routine adult health 8:29 AM HAZARDOUS MATERIALS DRIVER maintenance LIPID PROFILE Routine 06/16/2018 Routine adult health 8:29 AM HAZARDOUS MATERIALS DRIVER maintenance BASIC METABOLIC PANEL Routine 06/16/2018 Routine adult health 8:29 AM HAZARDOUS MATERIALS DRIVER maintenance CBC/DIFF Routine 06/16/2018 Routine adult health 8:29 AM HAZARDOUS MATERIALS DRIVER maintenance HEMOCCULT KIT FOR Routine 06/13/2018 Routine adult health SPECIMEN COLLECTION AT 3:43 PM HAZARDOUS MATERIALS DRIVER maintenance HOME XRAY KNEE 1 OR 2 VIEWS Routine 04/18/2018 Chronic pain of right (LIMITED-AP/LAT) 2:59 PM HAZARDOUS MATERIALS DRIVER knee HEMOCCULT KIT FOR Routine 04/18/2018 Routine adult health SPECIMEN COLLECTION AT 2:12 PM HAZARDOUS MATERIALS DRIVER maintenance HOME TSH Routine 03/14/2018 Hypothyroidism, 2:11 PM HAZARDOUS MATERIALS DRIVER unspecified type BASIC METABOLIC PANEL Routine 03/14/2018 Routine adult health 2:11 PM HAZARDOUS MATERIALS DRIVER maintenance HEPATITIS PANEL Routine 03/14/2018 Routine adult health 2:11 PM HAZARDOUS MATERIALS DRIVER maintenance LIPID PROFILE Routine 03/14/2018 Routine adult health 2:11 PM HAZARDOUS MATERIALS DRIVER maintenance VIT D, 25-HYDROXY Routine 03/14/2018 Routine adult health 2:11 PM HAZARDOUS MATERIALS DRIVER maintenance HEMOGLOBIN A1C Routine 03/14/2018 Uncontrolled type 2 2:11 PM HAZARDOUS MATERIALS DRIVER diabetes mellitus with complication, with long-term current use of insulin HEMOCCULT KIT FOR Routine 03/14/2018 Routine adult health SPECIMEN COLLECTION AT 2:00 PM HAZARDOUS MATERIALS DRIVER maintenance HOME XRAY KNEE 1 OR 2 [...] with long-term current use of insulin after 07/17/2017 Results * HEMOGLOBIN A1C (06/16/2018 8:29 AM HAZARDOUS MATERIALS DRIVER) Only the most recent of 3 results within the time period is included. Hemoglobin A1c 10.6 (H) 4.3 - 6.1 % BT DIAGNOSTIC IMMUNOLOGY Est Average 257.5 mg/dL BT DIAGNOSTIC Gluc IMMUNOLOGY Specimen Blood Performing Organization Address [facility] Phone Number MISYS BT DIAGNOSTIC IMMUNOLOGY * TSH (06/16/2018 8:29 AM HAZARDOUS MATERIALS DRIVER) Only the most recent of 2 results within the time period is included. TSH 8.35 (H) 0.57 - 3.74 uIU/mL BT MAIN-STATION 1 Specimen Blood Performing Organization Address City/[facility]/Zipcode Phone Number MISYS BT MAIN-STATION 1 * LIVER PROFILE (06/16/2018 8:29 AM HAZARDOUS MATERIALS DRIVER) T Protein 7.5 6.0 - 8.3 g/dL [...] MAIN-STATION 1 Specimen Blood Performing Organization Address [facility] [place] Phone Number MISYS BT MAIN-STATION 1 * LIPID PROFILE (06/16/2018 8:29 AM HAZARDOUS MATERIALS DRIVER) Only the most recent of 2 results within the time period is included. Cholesterol 184 mg/dL BT MAIN-STATION Comment: 1 REFERENCE RANGE: Desirable: <200 mg/dL Borderline: 200-240 mg/dL High Risk: >240 mg/dL Triglyceride 87 <150 mg/dL BT MAIN-STATION Comment: 1 REFERENCE RANGE: Normal: <150 mg/dL Borderline High: 150-199 mg/dL High: 200-499 mg/dL Very High: >lz=766 mg/dL HDL 59 mg/dL BT MAIN-STATION Comment: 1 Increased CHD risk: <40 mg/dL Decreased CHD risk: >60 mg/dL LDL 108 mg/dL BT MAIN-STATION Comment: 1 REFERENCE RANGE: Optimal: <100 mg/dL Near Optimal: 100-129 mg/dL Borderline High: 130-159 mg/dL High: 160-189 mg/dL Very High: >iy=906 mg/dL Specimen Blood Performing Organization Address [facility] [place] Phone Number MISYS BT MAIN-STATION 1 * CBC/DIFF (06/16/2018 8:29 AM HAZARDOUS MATERIALS DRIVER) WBC 9.6 4.5 - 11.0 K/uL BT [...] * BASIC METABOLIC PANEL (06/16/2018 8:29 AM HAZARDOUS MATERIALS DRIVER) Only the most recent of 2 results [...] Afr-Am 1 Specimen Blood Performing Organization Address [facility] [place] Phone Number MISYS BT MAIN-STATION 1 * XRAY KNEE 1 OR 2 VIEWS (LIMITED-AP/LAT) (04/18/2018 2:59 PM HAZARDOUS MATERIALS DRIVER) Only the most recent of 2 results [...] Interface, Rad/Mammog In - 04/19/2018 9:42 AM HAZARDOUS MATERIALS DRIVER EXAM: XR RIGHT KNEE 2 VIEW DATE: [...] MD, 04/19/2018 9:37 AM Performing Organization Address [facility] [place] Phone Number SMS * VIT D, 25-HYDROXY (03/14/2018 2:11 PM HAZARDOUS MATERIALS DRIVER) Vit D, 16.0 (L) 30 - 100 ng/mL BT DIAGNOSTIC 25-Hydroxy Comment: IMMUNOLOGY Vitamin D deficiency has been defined by the [place] of Medicine and Endocrine Society guideline as a level of serum 25-OH Vitamin D less than 20 ng/mL. The Endocrine Society further defines Vitamin D insufficiency as a level between 21 and 29 ng/mL and sufficiency as a level between 30 and 100 ng/mL. Performing Organization Address [facility] Phone Number MISYS BT DIAGNOSTIC IMMUNOLOGY * HEPATITIS PANEL (03/14/2018 2:11 PM HAZARDOUS MATERIALS DRIVER) HCV IgG Negative NEG BT MAIN-STATION 3 HBsAg Negative NEG BT MAIN-STATION 3 HAV, IgM Negative NEG BT MAIN-STATION 3 HBcAb, IgM Negative NEG BT MAIN-STATION 3 Specimen Blood Performing Organization Address City/State/Zipcode Phone Number MISYS BT MAIN-STATION 3 * [...] 1965, ) presented to [facility] on 07-22-2017 for a retinal imaging study [...] electronically signed by Markel Downey MD. Taxonomy: [id number] on 07-23-2017 05:31:38 [facility] time. NOTE:Any pathology noted on this diabetic retinal evaluation should be confirmed by an appropriate ophthalmic examination. Performing Organization Address City/State/Zipcode Phone Number IRIS after 07/17/2017 Insurance Type Payer Benefit Subscriber ID Effective Phone Address Plan / Dates Group [employer] MEDICA[employer] HMO [employer] xxxxxxxxx 2017-P [phone] [address] [facility] resent [id number] [place] [address]
--- OUTSIDE RECORDS SUMMARY | 2018-08-23 20:02 | XMS REPORT | Clinical Summary ---
Author Author [facility] Organization [facility] Address Unknown Phone Unavailable Care Team Providers Care Mining And Quarrying Machinery Repairer Name Role Phone Dorian Agustin MD PCP [...] 01/18/2018 Discontinued lancets 28 by 100 Each gaugeIndications: [...] 1 dose (for poor retina scan image). 08/11/2018 polymyxin B Instill 1 10 mL 0 sulf-trimethoprim Drop in left 9 (POLYTRIM) ophthalmic eye every 4 solutionIndications: hours (while Acute conjunctivitis of awake) for 10 left eye, unspecified days. acute conjunctivitis type Status Hospital, Clinic, or Ordered Dose Route [...] 08/01/2018 Office Visit Family Practice Diony Coppola [facility] Type 2 diabetes mellitus without complication, with [...] Agustin MD Hypothyroidism, unspecified type 07/18/2018 Refill [facility] Delfina Grullon Colon Cancer Screening (Education on FIT completion) 07/08/2018 Telephone Gastroenterology Dorian Agustin MD Moderate persistent asthma without complication 07/01/2018 Refill [facility] Dorian Agustin MD Uncontrolled [...] pain of right knee 04/18/2018 Office Visit [facility] Dorian Agustin MD Chronic pain of right knee 04/18/2018 Orders Only [facility] Diony Coppola [facility] Type 2 diabetes mellitus without complication, with [...] type; Abdominal pain, generalized 03/14/2018 Office Visit [facility] Diony Coppola Chitra NO SHOW ENCOUNTER (Primary [...] current use of insulin 01/11/2018 Orders Only [facility] Diony Coppola [facility] Uncontrolled type 2 diabetes mellitus with complication, with long-term current use of insulin (Primary Dx) 01/03/2018 Office Visit Clinical Pharmacy Dorian Agustin MD Chronic midline low back pain without sciatica; Essential hypertension 01/03/2018 Refill [facility] Dorian Agustin MD Moderate persistent asthma without complication 12/29/2017 Refill Family Practice Catherine Cespedes MD Chronic pain of right knee (Primary Dx) 12/16/2017 Office Visit Family Practice Laila Farris LVN Appointment Related Questions 11/17/2017 Telephone [facility] Diony Coppola [facility] Uncontrolled type 2 diabetes mellitus with complication, with long-term current use of insulin (Primary Dx) 11/15/2017 Office Visit Clinical Pharmacy Marsha Luna, ELIZABETH Other ([facility] - [facility] ) 11/15/2017 Telephone [facility] Dorian Agustin MD Moderate [...] 10/18/2017 Orders Only Family Practice Diony Coppola RPH Uncontrolled type 2 diabetes mellitus with complication, with long-term current use of insulin (Primary Dx) 08/31/2017 Office Visit Clinical Pharmacy after 08/20/2017 Immunizations Name Dates Previously Given Next Due [...] Type Specialty Diony Coppola RPH dm f/u 08/29/2018 Office Visit Clinical Pharmacy Catherine Cespedes MD [address] [place] [id number] [phone] procedure only - injection 09/01/2018 Office Visit Family Practice 10/06/2018 Ancillary Radiology Procedure Health Maintenance Due [...] Routine 06/16/2018 Uncontrolled type 2 8:29 AM PATIENT SUPPORT ASSOCIATE diabetes mellitus with complication, with long-term current use of insulin HEMOGLOBIN A1C Routine 06/16/2018 Routine adult health 8:29 AM PATIENT SUPPORT ASSOCIATE maintenance LIVER PROFILE Routine 06/16/2018 Routine adult health 8:29 AM PATIENT SUPPORT ASSOCIATE maintenance LIPID PROFILE Routine 06/16/2018 Routine adult health 8:29 AM PATIENT SUPPORT ASSOCIATE maintenance BASIC METABOLIC PANEL Routine 06/16/2018 Routine adult health 8:29 AM PATIENT SUPPORT ASSOCIATE maintenance CBC/DIFF Routine 06/16/2018 Routine adult health 8:29 AM PATIENT SUPPORT ASSOCIATE maintenance HEMOCCULT KIT FOR Routine 06/13/2018 Routine adult health SPECIMEN COLLECTION AT 3:43 PM PATIENT SUPPORT ASSOCIATE maintenance HOME XRAY KNEE 1 OR 2 VIEWS Routine 04/18/2018 Chronic pain of right (LIMITED-AP/LAT) 2:59 PM PATIENT SUPPORT ASSOCIATE knee HEMOCCULT KIT FOR Routine 04/18/2018 Routine adult health SPECIMEN COLLECTION AT 2:12 PM PATIENT SUPPORT ASSOCIATE maintenance HOME TSH Routine 03/14/2018 Hypothyroidism, 2:11 PM PATIENT SUPPORT ASSOCIATE unspecified type BASIC METABOLIC PANEL Routine 03/14/2018 Routine adult health 2:11 PM PATIENT SUPPORT ASSOCIATE maintenance HEPATITIS PANEL Routine 03/14/2018 Routine adult health 2:11 PM PATIENT SUPPORT ASSOCIATE maintenance LIPID PROFILE Routine 03/14/2018 Routine adult health 2:11 PM PATIENT SUPPORT ASSOCIATE maintenance VIT D, 25-HYDROXY Routine 03/14/2018 Routine adult health 2:11 PM PATIENT SUPPORT ASSOCIATE maintenance HEMOGLOBIN A1C Routine 03/14/2018 Uncontrolled type 2 2:11 PM PATIENT SUPPORT ASSOCIATE diabetes mellitus with complication, with long-term current use of insulin HEMOCCULT KIT FOR Routine 03/14/2018 Routine adult health SPECIMEN COLLECTION AT 2:00 PM PATIENT SUPPORT ASSOCIATE maintenance HOME XRAY KNEE 1 OR 2 VIEWS Routine 01/11/2018 Chronic pain of both (LIMITED-AP/LAT) 2:27 PM CDT knees DIABETIC FOOT EXAM Routine 01/11/2018 Uncontrolled type 2 1:14 PM CDT diabetes mellitus with complication, with long-term current use of insulin HEMOGLOBIN A1C Routine 11/15/2017 Uncontrolled type 2 10:37 AM CDT diabetes mellitus with complication, with long-term current use of insulin after 08/20/2017 Results * OPHTHALMOLOGY RETINAL SCAN (08/01/2018 3:16 [...] (: 1965, ) presented to [facility] on 08-01-2018 for a retinal imaging study of the left and right eyes. Based on the findings of the study, the following is recommended for CARLEI ELIZABETH Normal Scan: Please advise the patient to return for another scan in 1 year. Interpreting Provider's Comments:No comments provided Right Eye Findings: Normal Result.Negative for Diabetic Retinopathy. Left Eye Findings: Normal Result.Negative for Diabetic Retinopathy. This result was electronically signed by Sana Clark MD, , Taxonomy: [id number] on 08-01-2018 08:37:02 [facility] time. NOTE:Any pathology noted on this diabetic retinal evaluation should be confirmed by an appropriate ophthalmic examination. Performing Organization Address City/[facility] Phone Number IRIS * HEMOGLOBIN A1C (06/16/2018 8:29 AM PATIENT SUPPORT ASSOCIATE) Only the most recent of 3 results within the time period is included. Hemoglobin A1c 10.6 (H) 4.3 - 6.1 % BT DIAGNOSTIC IMMUNOLOGY Est Average 257.5 mg/dL BT DIAGNOSTIC Gluc IMMUNOLOGY Specimen Blood Performing Organization Address [facility] Phone Number MISYS BT DIAGNOSTIC IMMUNOLOGY * TSH (06/16/2018 8:29 AM PATIENT SUPPORT ASSOCIATE) Only the most recent of 2 results within the time period is included. TSH 8.35 (H) 0.57 - 3.74 uIU/mL BT MAIN-STATION 1 Specimen Blood Performing Organization Address [facility] Phone Number MISYS BT MAIN-STATION 1 * LIVER PROFILE (06/16/2018 8:29 AM PATIENT SUPPORT ASSOCIATE) T Protein 7.5 6.0 - 8.3 g/dL [...] MAIN-STATION 1 Specimen Blood Performing Organization Address [facility] Phone Number MISYS BT MAIN-STATION 1 * LIPID PROFILE (06/16/2018 8:29 AM PATIENT SUPPORT ASSOCIATE) Only the most recent of 2 results within the time period is included. Cholesterol 184 mg/dL BT MAIN-STATION Comment: 1 REFERENCE RANGE: Desirable: <200 mg/dL Borderline: 200-240 mg/dL High Risk: >240 mg/dL Triglyceride 87 <150 mg/dL BT MAIN-STATION Comment: 1 REFERENCE RANGE: Normal: <150 mg/dL Borderline High: 150-199 mg/dL High: 200-499 mg/dL Very High: >ha=662 mg/dL HDL 59 mg/dL BT MAIN-STATION Comment: 1 Increased CHD risk: <40 mg/dL Decreased CHD risk: >60 mg/dL LDL 108 mg/dL BT MAIN-STATION Comment: 1 REFERENCE RANGE: Optimal: <100 mg/dL Near Optimal: 100-129 mg/dL Borderline High: 130-159 mg/dL High: 160-189 mg/dL Very High: >sg=598 mg/dL Specimen Blood Performing Organization Address [facility] Phone Number MISYS BT MAIN-STATION 1 * CBC/DIFF (06/16/2018 8:29 AM PATIENT SUPPORT ASSOCIATE) WBC 9.6 4.5 - 11.0 K/uL BT [...] * BASIC METABOLIC PANEL (06/16/2018 8:29 AM PATIENT SUPPORT ASSOCIATE) Only the most recent of 2 results [...] Afr-Am 1 Specimen Blood Performing Organization Address [facility] Phone Number MISYS BT MAIN-STATION 1 * XRAY KNEE 1 OR 2 VIEWS (LIMITED-AP/LAT) (04/18/2018 2:59 PM PATIENT SUPPORT ASSOCIATE) Only the most recent of 2 results [...] Interface, Rad/Mammog In - 04/19/2018 9:42 AM PATIENT SUPPORT ASSOCIATE EXAM: XR RIGHT KNEE 2 VIEW DATE: [...] MD, 04/19/2018 9:37 AM Performing Organization Address [facility] Phone Number [facility] * VIT D, 25-HYDROXY (03/14/2018 2:11 PM PATIENT SUPPORT ASSOCIATE) Vit D, 16.0 (L) 30 - 100 ng/mL BT DIAGNOSTIC 25-Hydroxy Comment: IMMUNOLOGY Vitamin D deficiency has been defined by the [place] of Medicine and Endocrine Society guideline as a level of serum 25-OH Vitamin D less than 20 ng/mL. The Endocrine Society further defines Vitamin D insufficiency as a level between 21 and 29 ng/mL and sufficiency as a level between 30 and 100 ng/mL. Performing Organization Address [facility] Phone Number MISYS BT DIAGNOSTIC IMMUNOLOGY * HEPATITIS PANEL (03/14/2018 2:11 PM PATIENT SUPPORT ASSOCIATE) HCV IgG Negative NEG BT MAIN-STATION 3 HBsAg Negative NEG BT MAIN-STATION 3 HAV, IgM Negative NEG BT MAIN-STATION 3 HBcAb, IgM Negative NEG BT MAIN-STATION 3 Specimen Blood Performing Organization Address City/State/Zipcode Phone Number [place] BT MAIN-STATION 3 * DIABETIC FOOT EXAM (01/11/2018 1:14 PM CDT) Narrative Performed At Dorian Agustin MD 01/11/2018 10:37 PM Diabetic Foot Exam was performed at 01/11/2018 9:40 PM.Right foot sensation is normal, right foot pulses are normal, right foot appearance is normal.Left foot sensation is normal,left foot pulses are normal, left foot appearance is normal. after 08/20/2017 Insurance Type Payer Benefit Subscriber ID Effective Phone Address Plan / Dates Group [employer] MEDICA[employer] O [employer] xxxxxxxxx 2013-P [phone] [address] [id number] [place] [address]
--- OUTSIDE RECORDS SUMMARY | 2018-08-23 20:04 | XMS REPORT | Clinical Summary ---
Author Author [facility] Organization [facility] Address Unknown Phone Unavailable Care Team Providers Care Septic Tank Servicer Name Role Phone Dorian Agustin MD PCP [...] pain of right knee 04/18/2018 [facility] Dorian Agustin MD Chronic pain of right knee 04/18/2018 [facility] Type 2 diabetes mellitus without complication, with [...] type; Abdominal pain, generalized 03/14/2018 [facility] NO SHOW ENCOUNTER (Primary Dx) 03/10/2018 Office [...] Need for zoster vaccination 01/18/2018 [facility] Dorian Quintero MD Echeverria, Veronica, inspector subassemblies education, encounter for (Primary Dx) 01/11/2018 Patient [...] current use of insulin 01/11/2018 Orders Only [facility] Diony Coppola RPH Uncontrolled type 2 diabetes mellitus with complication, with long-term current use of insulin (Primary Dx) 01/03/2018 Office Visit Clinical Pharmacy Dorian Agustin MD Chronic midline low back pain without sciatica; Essential hypertension 01/03/2018 Refill [facility] Dorian Agustin MD Moderate persistent asthma without complication 12/29/2017 Refill [facility] Catherine Cespedes MD Chronic pain of right knee (Primary Dx) 12/16/2017 Office Visit Family Practice Laila Farris LVN Appointment Related Questions 11/17/2017 Telephone [facility] Diony Coppola RPH Uncontrolled type 2 diabetes mellitus with complication, with long-term current use of insulin (Primary Dx) 11/15/2017 Office Visit Clinical Pharmacy Marsha Luna RN Other ([facility] ) 11/15/2017 Telephone [facility] Dorian Agustin MD Moderate persistent asthma without complication 11/15/2017 Refill [facility] Kathy Hylton LVN Other (returning staff message) 10/20/2017 Telephone [facility] Dorian Agustin MD Need for Tdap vaccination (Primary Dx); Routine adult health maintenance; Onychomycosis; Uncontrolled type 2 diabetes mellitus with complication, with long-term current use of insulin; Chronic pain of both knees 10/18/2017 Office Visit Family Practice Dorian Agustin MD Chronic pain of both knees 10/18/2017 Orders Only [facility] Diony Coppola RPH Uncontrolled type 2 [...] Nico Arora LD 06/24/2017 Nutrition Nutrition after 05/15/2017 Immunizations Name Dates Previously Given Next Due [...] Taken Vital Sign Reading 04/18/2018 1:38 PM PV DESIGN ENGINEER Blood Pressure 119/77 04/18/2018 1:38 PM PV DESIGN ENGINEER Pulse 100 04/18/2018 1:38 PM PV DESIGN ENGINEER Temperature 36.7 C (98 F) 04/18/2018 1:38 PM PV DESIGN ENGINEER Respiratory Rate 22 - Oxygen Saturation - - Inhaled Oxygen - Concentration 04/18/2018 1:38 PM PV DESIGN ENGINEER Weight 108 kg (238 lb) 04/18/2018 1:38 PM PV DESIGN ENGINEER Height 157.5 cm (5' 2") 04/18/2018 1:38 PM PV DESIGN ENGINEER Body Mass Index 43.53 Plan of Treatment Care Team Description Date Type Specialty Dorian Agustin MD [address] [place] [id number] [phone] follow up on knee problems 05/23/2018 Office Visit Family Practice Diony Coppola [facility] 05/26/2018 Office Visit Clinical Pharmacy 06/16/2018 Ancillary Radiology Procedure Health Maintenance Due Date Last Done Comments Breast Cancer Scrn 2006 (Yearly) IMM Influenza Seasonal 02/07/2018 Oct to July [...] fat intake Diet Not on track No Vamsi, (10/12/2016) MD Dorian Eat Healthy Lifestyle On track No Eric, (04/18/2018) Kya Larkin LVN Note: Patient will eat more fruit and vegetables. Maintain blood pressure under Treatment On track No Vamsi, 140/90 (04/18/2018) MD Dorian Procedures Comments Procedure Name Priority Date/Time Associated Diagnosis XRAY KNEE 1 OR 2 VIEWS Routine 04/18/2018 Chronic pain of right (LIMITED-AP/LAT) 2:59 PM PV DESIGN ENGINEER knee HEMOCCULT KIT FOR Routine 04/18/2018 Routine adult health SPECIMEN COLLECTION AT 2:12 PM PV DESIGN ENGINEER maintenance HOME TSH Routine 03/14/2018 Hypothyroidism, 2:11 PM PV DESIGN ENGINEER unspecified type BASIC METABOLIC PANEL Routine 03/14/2018 Routine adult health 2:11 PM PV DESIGN ENGINEER maintenance HEPATITIS PANEL Routine 03/14/2018 Routine adult health 2:11 PM PV DESIGN ENGINEER maintenance LIPID PROFILE Routine 03/14/2018 Routine adult health 2:11 PM PV DESIGN ENGINEER maintenance VIT D, 25-HYDROXY Routine 03/14/2018 Routine adult health 2:11 PM PV DESIGN ENGINEER maintenance HEMOGLOBIN A1C Routine 03/14/2018 Uncontrolled type 2 2:11 PM PV DESIGN ENGINEER diabetes mellitus with complication, with long-term current use of insulin HEMOCCULT KIT FOR Routine 03/14/2018 Routine adult health SPECIMEN COLLECTION AT 2:00 PM PV DESIGN ENGINEER maintenance HOME XRAY KNEE 1 OR 2 [...] STAT 06/24/2017 Uncontrolled type 2 2:06 PM PV DESIGN ENGINEER diabetes mellitus with complication, with long-term current use of insulin after 05/15/2017 Results * XRAY KNEE 1 OR 2 VIEWS (LIMITED-AP/LAT) (04/18/2018 2:59 PM PV DESIGN ENGINEER) Only the most recent of 2 results [...] Interface, Rad/Mammog In - 04/19/2018 9:42 AM PV DESIGN ENGINEER EXAM: XR RIGHT KNEE 2 VIEW DATE: [...] MD, 04/19/2018 9:37 AM Performing Organization Address City/[facility] Phone Number SMS * VIT D, 25-HYDROXY (03/14/2018 2:11 PM PV DESIGN ENGINEER) Vit D, 16.0 (L) 30 - 100 ng/mL BT DIAGNOSTIC 25-Hydroxy Comment: IMMUNOLOGY Vitamin D deficiency has been defined by the [place] of [employer] and Endocrine Society guideline as a level of serum 25-OH Vitamin D less than 20 ng/mL. The Endocrine Society further defines Vitamin D insufficiency as a level between 21 and 29 ng/mL and sufficiency as a level between 30 and 100 ng/mL. Performing Organization Address City/[facility] Phone Number MISYS BT DIAGNOSTIC IMMUNOLOGY * HEMOGLOBIN A1C (03/14/2018 2:11 PM PV DESIGN ENGINEER) Only the most recent of 3 results within the time period is included. Hemoglobin A1c 9.6 (H) 4.3 - 6.1 % BT DIAGNOSTIC IMMUNOLOGY Est Average 228.8 mg/dL BT DIAGNOSTIC Gluc IMMUNOLOGY Specimen Blood Performing Organization Address City/[facility] Phone Number MISYS BT DIAGNOSTIC IMMUNOLOGY * TSH (03/14/2018 2:11 PM PV DESIGN ENGINEER) TSH 0.57 0.57 - 3.74 uIU/mL BT MAIN-STATION 1 Specimen Blood Performing Organization Address [facility] Phone Number [facility] MAIN-STATION 1 * LIPID PROFILE (03/14/2018 2:11 PM PV DESIGN ENGINEER) Cholesterol 166 mg/dL BT MAIN-STATION Comment: 1 REFERENCE RANGE: Desirable: <200 mg/dL Borderline: 200-240 mg/dL High Risk: >240 mg/dL Triglyceride 165 (H) <150 mg/dL BT MAIN-STATION Comment: 1 REFERENCE RANGE: Normal: <150 mg/dL Borderline High: 150-199 mg/dL High: 200-499 mg/dL Very High: >dv=103 mg/dL HDL 53 mg/dL BT MAIN-STATION Comment: 1 Increased CHD risk: <40 mg/dL Decreased CHD risk: >60 mg/dL LDL 80 mg/dL BT MAIN-STATION Comment: 1 REFERENCE RANGE: Optimal: <100 mg/dL Near Optimal: 100-129 mg/dL Borderline High: 130-159 mg/dL High: 160-189 mg/dL Very High: >zj=944 mg/dL Specimen Blood Performing Organization Address [facility] Phone Number [facility] BT MAIN-STATION 1 * HEPATITIS PANEL (03/14/2018 2:11 PM PV DESIGN ENGINEER) Pathologist [facility] HCV IgG Negative NEG BT MAIN-STATION 3 HBsAg Negative NEG BT MAIN-STATION 3 HAV, IgM Negative NEG BT MAIN-STATION 3 HBcAb, IgM Negative NEG BT MAIN-STATION 3 Specimen Blood Performing Organization Address [facility] Phone Number [facility] BT MAIN-STATION 3 * BASIC METABOLIC PANEL (03/14/2018 2:11 PM PV DESIGN ENGINEER) CO2 32 (H) 21 - 31 mmol/L [...] y/o, F (: 1965, ) presented to [facility] on 07-22-2017 for a retinal imaging study [...] electronically signed by Markel Downey MD. RAINI: [id number] Taxonomy: [id number] on 07-23-2017 05:31:38 [facility] time. NOTE:Any pathology noted on this diabetic retinal evaluation should be confirmed by an appropriate ophthalmic examination. Performing Organization Address City/State/[facility] Phone Number IRIS after 05/15/2017 Insurance Type Payer Benefit Subscriber ID Effective Phone Address Plan / Dates Group [employer] MEDICA[employer] O [employer] xxxxxxxxx 2017-P [phone] [address] [id number] [place] [address]
--- OUTSIDE RECORDS SUMMARY | 2018-08-23 20:04 | XMS REPORT | Clinical Summary ---
Author Author [facility] Organization [facility] Address Unknown Phone Unavailable Care Team Providers Care Editorial Specialist Name Role Phone Dorian Agustin MD [...] pain of right knee 04/18/2018 Office Visit [facility] Dorian Agustin MD Chronic pain of right knee 04/18/2018 [facility] Type 2 diabetes mellitus without complication, with [...] type; Abdominal pain, generalized 03/14/2018 [facility] NO SHOW ENCOUNTER (Primary Dx) 03/10/2018 Office [...] Need for zoster vaccination 01/18/2018 Office Visit [facility] Dorian Quintero MD Echeverria, Veronica, cash register operator education, encounter for (Primary Dx) 01/11/2018 Patient [...] current use of insulin 01/11/2018 Orders Only [facility] Diony Coppola RPH Uncontrolled type 2 diabetes mellitus with complication, with long-term current use of insulin (Primary Dx) 01/03/2018 Office Visit Clinical Pharmacy Dorian Agustin MD Chronic midline low back pain without sciatica; Essential hypertension 01/03/2018 Refill [facility] Dorian Agustin MD Moderate persistent asthma without complication 12/29/2017 Refill [facility] Catherine Cespedes MD Chronic pain of right knee (Primary Dx) 12/16/2017 Office Visit Family Practice Laila Farris LVN Appointment Related Questions 11/17/2017 Telephone [facility] Diony Coppola RPH Uncontrolled type 2 diabetes mellitus with complication, with long-term current use of insulin (Primary Dx) 11/15/2017 Office Visit Clinical Pharmacy Marsha Luna RN Other ([facility] ) 11/15/2017 Telephone [facility] Dorian Agustin MD Moderate persistent asthma without complication 11/15/2017 Refill [facility] Kathy Hylton LVN Other (returning staff message) 10/20/2017 Telephone [facility] Dorian Agustin MD Need for Tdap vaccination (Primary Dx); Routine adult health maintenance; Onychomycosis; Uncontrolled type 2 diabetes mellitus with complication, with long-term current use of insulin; Chronic pain of both knees 10/18/2017 Office Visit Family Practice Dorian Agustin MD Chronic pain of both knees 10/18/2017 Orders Only [facility] Diony Coppola RPH Uncontrolled type 2 diabetes [...] Nico Arora LD 06/24/2017 Nutrition Nutrition after 06/12/2017 Immunizations Name Dates Previously Given Next Due [...] Taken Vital Sign Reading 04/18/2018 1:38 PM ACTIVITIES LEADER Blood Pressure 119/77 04/18/2018 1:38 PM ACTIVITIES LEADER Pulse 100 04/18/2018 1:38 PM ACTIVITIES LEADER Temperature 36.7 C (98 F) 04/18/2018 1:38 PM ACTIVITIES LEADER Respiratory Rate 22 - Oxygen Saturation - - Inhaled Oxygen - Concentration 04/18/2018 1:38 PM ACTIVITIES LEADER Weight 108 kg (238 lb) 04/18/2018 1:38 PM ACTIVITIES LEADER Height 157.5 cm (5' 2") 04/18/2018 1:38 PM ACTIVITIES LEADER Body Mass Index 43.53 Plan of Treatment Care Team Description Date Type Specialty Diony Coppola RPH dm f/u 06/13/2018 Office Visit Clinical Pharmacy Dorian Agustin MD [address] [place] [address] [phone] follow up 06/13/2018 Office Visit Family Practice [...] Chronic pain of right (LIMITED-AP/LAT) 2:59 PM ACTIVITIES LEADER knee HEMOCCULT KIT FOR Routine 04/18/2018 Routine adult health SPECIMEN COLLECTION AT 2:12 PM ACTIVITIES LEADER maintenance HOME TSH Routine 03/14/2018 Hypothyroidism, 2:11 PM ACTIVITIES LEADER unspecified type BASIC METABOLIC PANEL Routine 03/14/2018 Routine adult health 2:11 PM ACTIVITIES LEADER maintenance HEPATITIS PANEL Routine 03/14/2018 Routine adult health 2:11 PM ACTIVITIES LEADER maintenance LIPID PROFILE Routine 03/14/2018 Routine adult health 2:11 PM ACTIVITIES LEADER maintenance VIT D, 25-HYDROXY Routine 03/14/2018 Routine adult health 2:11 PM ACTIVITIES LEADER maintenance HEMOGLOBIN A1C Routine 03/14/2018 Uncontrolled type 2 2:11 PM ACTIVITIES LEADER diabetes mellitus with complication, with long-term current use of insulin HEMOCCULT KIT FOR Routine 03/14/2018 Routine adult health SPECIMEN COLLECTION AT 2:00 PM ACTIVITIES LEADER maintenance HOME XRAY KNEE 1 OR 2 [...] STAT 06/24/2017 Uncontrolled type 2 2:06 PM ACTIVITIES LEADER diabetes mellitus with complication, with long-term current use of insulin after 06/12/2017 Results * XRAY KNEE 1 OR 2 VIEWS (LIMITED-AP/LAT) (04/18/2018 2:59 PM ACTIVITIES LEADER) Only the most recent of 2 results [...] Interface, Rad/Mammog In - 04/19/2018 9:42 AM ACTIVITIES LEADER EXAM: XR RIGHT KNEE 2 VIEW DATE: [...] MD, 04/19/2018 9:37 AM Performing Organization Address City/[facility] Phone Number SMS * VIT D, 25-HYDROXY (03/14/2018 2:11 PM ACTIVITIES LEADER) Vit D, 16.0 (L) 30 - 100 ng/mL BT DIAGNOSTIC 25-Hydroxy Comment: IMMUNOLOGY Vitamin D deficiency has been defined by the [place] of Medicine and Endocrine Society guideline as a level of serum 25-OH Vitamin D less than 20 ng/mL. The Endocrine Society further defines Vitamin D insufficiency as a level between 21 and 29 ng/mL and sufficiency as a level between 30 and 100 ng/mL. Performing Organization Address City/[facility] Phone Number MISYS BT DIAGNOSTIC IMMUNOLOGY * HEMOGLOBIN A1C (03/14/2018 2:11 PM ACTIVITIES LEADER) Only the most recent of 3 results within the time period is included. Hemoglobin A1c 9.6 (H) 4.3 - 6.1 % BT DIAGNOSTIC IMMUNOLOGY Est Average 228.8 mg/dL BT DIAGNOSTIC Gluc IMMUNOLOGY Specimen Blood Performing Organization Address City/[facility] Phone Number MISYS BT DIAGNOSTIC IMMUNOLOGY * TSH (03/14/2018 2:11 PM ACTIVITIES LEADER) TSH 0.57 0.57 - 3.74 uIU/mL BT MAIN-STATION 1 Specimen Blood Performing Organization Address [facility] Phone Number [facility] MAIN-STATION 1 * LIPID PROFILE (03/14/2018 2:11 PM ACTIVITIES LEADER) Pathologist [facility] Cholesterol 166 mg/dL BT MAIN-STATION Comment: 1 REFERENCE RANGE: Desirable: <200 mg/dL Borderline: 200-240 mg/dL High Risk: >240 mg/dL Triglyceride 165 (H) <150 mg/dL BT MAIN-STATION Comment: 1 REFERENCE RANGE: Normal: <150 mg/dL Borderline High: 150-199 mg/dL High: 200-499 mg/dL Very High: >es=967 mg/dL HDL 53 mg/dL BT MAIN-STATION Comment: 1 Increased CHD risk: <40 mg/dL Decreased CHD risk: >60 mg/dL LDL 80 mg/dL BT MAIN-STATION Comment: 1 REFERENCE RANGE: Optimal: <100 mg/dL Near Optimal: 100-129 mg/dL Borderline High: 130-159 mg/dL High: 160-189 mg/dL Very High: >th=753 mg/dL Specimen Blood Performing Organization Address [facility] Phone Number [facility] BT MAIN-STATION 1 * HEPATITIS PANEL (03/14/2018 2:11 PM ACTIVITIES LEADER) Pathologist [facility] HCV IgG Negative NEG BT MAIN-STATION 3 HBsAg Negative NEG BT MAIN-STATION 3 HAV, IgM Negative NEG BT MAIN-STATION 3 HBcAb, IgM Negative NEG BT MAIN-STATION 3 Specimen Blood Performing Organization Address [facility] Phone Number [facility] BT MAIN-STATION 3 * BASIC METABOLIC PANEL (03/14/2018 2:11 PM ACTIVITIES LEADER) CO2 32 (H) 21 - 31 mmol/L [...] y/o, F (: 1965, ) presented to [facility] on 07-22-2017 for a retinal imaging [...] electronically signed by Markel Downey MD. RAINI: [id number] Taxonomy: [id number] on 07-23-2017 05:31:38 [facility] time. NOTE:Any pathology noted on this diabetic retinal evaluation should be confirmed by an appropriate ophthalmic examination. Performing Organization Address City/State/Zipcode Phone Number IRIS after 06/12/2017 Insurance Type Payer Benefit Subscriber ID Effective Phone Address Plan / Dates Group [employer] MEDICA[employer] O [employer] xxxxxxxxx 2017-P [phone] [address] [address] [place] [address]
--- NOTE | 2018-08-23 20:05 | NUR ---
no answer to triage
== END 2018-08-23 20:34 | disposition left against medical advice (07) ==
LOC: ER 19:52
DX: S89.91XA Unspecified injury of right lower leg, initial encounter (principal); W19.XXXA Unspecified fall, initial encounter; I10 Essential (primary) hypertension; E11.9 Type 2 diabetes mellitus without complications; J45.909 Unspecified asthma, uncomplicated; G43.909 Migraine, unspecified, not intractable, without status migrainosus

== ENCOUNTER 2021-01-19 21:31 | Inpatient (IN) | payer OTHER ==
[~2021-01-19] VITALS: Ht 154.9 cm; Wt 106.6 kg
[2021-01-19] MEDS ORDERED: SODIUM CHLORIDE 0.9% 1000ML 1,000 ML IV STA (21:35)
[2021-01-19] MEDS ORDERED: ONDANSETRON HCL INJ 2MG/ML 2ML 2 MG/ML VIAL IV STA (21:35)
[2021-01-19] MEDS ORDERED: ASPIRIN 81 MG CHEW TAB PO ONE (21:45)
[2021-01-19 22:36] LABS: BASOPHILS # (AUTO) 0.1 (0.0-0.1); BASOPHILS % 0.5 % (0.0-1.0); EOSINOPHILS % 0.1 % (0.0-6.0); HEMATOCRIT 44.4 % (34.2-44.1); HEMOGLOBIN 13.9 g/dL (12.0-16.0); LYMPHOCYTES % 6.2 % (18.0-39.1); MEAN CORPUSCULAR HGB CONC 31.3 g/dL (31-35); MEAN CORPUSCULAR VOLUME 92.7 fL (81-99); MONOCYTES # (AUTO) 0.4 (0.2-0.8); MONOCYTES % 2.3 % (4.4-11.3); NEUTROPHILS # (AUTO) 14.9 (2.1-6.9); NEUTROPHILS % 90.4 % (38.7-80.0); PLATELET COUNT 307 x10e3/uL (140-360); RED BLOOD COUNT 4.79 x10e6/uL (3.6-5.1); RED CELL DISTRIBUTION WIDTH 12.5 % (11.7-14.4)
[2021-01-19 22:54] LABS: ALANINE AMINOTRANSFERASE 18 IU/L (0-55); ALBUMIN 3.7 g/dL (3.5-5.0); ALBUMIN/GLOBULIN RATIO 0.9 (0.8-2.0); ALKALINE PHOSPHATASE 92 IU/L (40-150); ANION GAP 17.2 mmol/L (8-16); BLOOD UREA NITROGEN 18 mg/dL (7-26); BUN/CREATININE RATIO 16 (6-25); CALCIUM 9.1 mg/dL (8.4-10.2); CARBON DIOXIDE 24 mmol/L (22-29); CHLORIDE 104 mmol/L (98-107); CREATINE KINASE 14 IU/L (29-168); CREATININE, SERUM 1.11 mg/dL (0.57-1.11); EST GLOMERULAR FILTRATION RATE 51 ML/MIN (60-); GLUCOSE 258 mg/dL (74-118); POTASSIUM 5.2 mmol/L (3.5-5.1); SODIUM 140 mmol/L (136-145)
[2021-01-19] MEDS ORDERED: CEFEPIME 1 GM in SODIUM CHLORIDE 0.9% 50ML 50 ML IV ONE (23:30)
[2021-01-20] MEDS ORDERED: IOPAMIDOL 370 MG/ML 200 ML INFUS..BTL INJ ONE (00:42)
[2021-01-20] MEDS ORDERED: SODIUM CHLORIDE 0.9% 50ML 50 ML ONE (00:43)
[2021-01-20] MEDS ORDERED: ONDANSETRON HCL INJ 2MG/ML 2ML 2 MG/ML VIAL IV PRN ×3 (01:45→11:00)
[2021-01-20] MEDS: SODIUM CHLORIDE 0.9% 1000ML 1,000 ML IV SCH ×4 (01:50→22:25)
[2021-01-20] MEDS ORDERED: ONDANSETRON HCL INJ 2MG/ML 2ML 2 MG/ML VIAL ONE (01:57)
[2021-01-20] MEDS ORDERED: MORPHINE SULFATE INJ 4 MG/ML INJ 1ML ONE (01:57)
[2021-01-20] MEDS: MORPHINE SULFATE INJ 4 MG/ML INJ 1ML IV PRN ×2 (02:00→06:39)
[2021-01-20 02:04] LABS: CLARITY,URINE CLOUDY (CLEAR); COLOR,URINE YELLOW (YELLOW)
[2021-01-20 02:05] LABS: KETONES,URINE 1+ (NEGATIVE); LEUKOCYTE ESTERASE ,URINE NEGATIVE (NEGATIVE); NITRITE,URINE NEGATIVE (NEGATIVE); PROTEIN,URINE DIPSTICK NEGATIVE (NEGATIVE); URINE UROBILINOGEN 0.2 mg/dL (0.2 - 1)
[2021-01-20 02:19] LABS: BACTERIA,URINE MANY /HPF; CALCIUM OXALATE CRYSTALS,UR FEW (FEW); EPITHELIAL CELLS,URINE MANY /LPF; RBC,URINE 0-5 /HPF (0-5); WBC,URINE (MAN) 0-5 /HPF (0-5)
[2021-01-20 02:20] LABS: URIC ACID CRYSTALS,URINE MODERATE (FEW)
[2021-01-20] MEDS ORDERED: LIDOCAINE 4% PATCH TP PRN (11:00)
[2021-01-20] MEDS ORDERED: DEXTROSE 50% SYRINGE 50 ML IV PRN ×3 (11:00→22:00)
[2021-01-20] MEDS ORDERED: DIPHENHYDRAMINE HCL 25 MG CAP PO PRN (11:00)
[2021-01-20] MEDS ORDERED: KETOROLAC TROMETHAMINE 30 MG/ML VIAL IV PRN (11:00)
[2021-01-20] MEDS ORDERED: POTASSIUM CHLORIDE 20 MEQ TAB CR PO PRN (11:00)
[2021-01-20] MEDS ORDERED: SIMETHICONE 80 MG CHEW PO PRN (11:00)
[2021-01-20] MEDS ORDERED: BENZONATATE 100 MG CAP PO PRN (11:00)
[2021-01-20] MEDS ORDERED: HYDRALAZINE HCL 20 MG/ML VIAL IV PRN (11:00)
[2021-01-20] MEDS ORDERED: DOCUSATE SODIUM 100 MG CAP PO PRN (11:00)
[2021-01-20 12:15] VITALS: BP_SYST 104; BP_DIAS 84; BP_DIAS 86
[2021-01-20] MEDS: PIPERACILLIN/TAZOBACTAM 3.375 GM in SODIUM CHLORIDE 0.9% 50ML 50 ML IV SCH ×2 (13:00→22:25)
[2021-01-20] MEDS ORDERED: BUPIVACAINE 0.25% 30ML SDV ONE (13:13)
[2021-01-20] MEDS ORDERED: HYDROMORPHONE 1MG/1ML INJ IV PRN (14:00)
[2021-01-20 16:00] VITALS: BP 106/66
[2021-01-20 20:00] VITALS: BP 115/81
[2021-01-20 21:00] VITALS: BP 115/81
[2021-01-20] MEDS ORDERED: MELATONIN 5 MG TABLET PO PRN (21:00)
[2021-01-20] MEDS: INSULIN LISPRO 100 UNIT/1 ML 3ML VIAL SQ SCH (22:25)
[2021-01-20] MEDS ORDERED: LEVEMIR FL100 UNIT/1 SC (23:46)
[2021-01-20] MEDS ORDERED: CYCLOBENZAPRINE10 MG PO (23:46)
[2021-01-20] MEDS ORDERED: NEURONTIN300 MG PO (23:46)
[2021-01-20] MEDS ORDERED: VIBRAMYCIN100 MG PO (23:46)
[2021-01-20] MEDS ORDERED: DULERA 50 MCG-513 GM (23:46)
[2021-01-20] MEDS ORDERED: NORVASC5 MG PO (23:46)
[2021-01-20] MEDS ORDERED: TERBINAFINE HC250 MG PO (23:46)
[2021-01-20] MEDS ORDERED: CETIRIZINE HCL10 MG PO (23:46)
[2021-01-20] MEDS ORDERED: PRINIVIL20 MG PO (23:46)
[2021-01-20] MEDS ORDERED: LEVOTHYROXINE100 MC2 PO (23:46)
[2021-01-21 00:53] VITALS: BP 137/101
[2021-01-21 04:00] VITALS: BP 145/86
[2021-01-21] MEDS: PIPERACILLIN/TAZOBACTAM 3.375 GM in SODIUM CHLORIDE 0.9% 50ML 50 ML IV SCH ×3 (06:14→22:50)
[2021-01-21] MEDS: INSULIN LISPRO 100 UNIT/1 ML 3ML VIAL SQ SCH ×4 (07:30→20:40)
[2021-01-21 07:37] LABS: BASOPHILS # (AUTO) 0.1 (0.0-0.1); BASOPHILS % 0.5 % (0.0-1.0); EOSINOPHILS # (AUTO) 0.3 (0.0-0.4); EOSINOPHILS % 1.9 % (0.0-6.0); HEMATOCRIT 38.4 % (34.2-44.1); LYMPHOCYTES # (AUTO) 2.3 (1.0-3.2); LYMPHOCYTES % 17.6 % (18.0-39.1); MEAN CORPUSCULAR HEMOGLOBIN 29.4 pg (28-32); MEAN CORPUSCULAR HGB CONC 31.3 g/dL (31-35); MEAN CORPUSCULAR VOLUME 94.1 fL (81-99); MONOCYTES # (AUTO) 0.7 (0.2-0.8); MONOCYTES % 5.6 % (4.4-11.3); NEUTROPHILS # (AUTO) 9.8 (2.1-6.9); PLATELET COUNT 269 x10e3/uL (140-360); RED BLOOD COUNT 4.08 x10e6/uL (3.6-5.1); RED CELL DISTRIBUTION WIDTH 12.8 % (11.7-14.4)
[2021-01-21 08:02] LABS: ANION GAP 13.7 mmol/L (8-16); CREATININE, SERUM 1.07 mg/dL (0.57-1.11); POTASSIUM 3.7 mmol/L (3.5-5.1)
[2021-01-21] MEDS: GABAPENTIN 300 MG CAP PO SCH (08:15)
[2021-01-21] MEDS: AMLODIPINE BESYLATE 5 MG TAB PO SCH (08:15)
[2021-01-21] MEDS: PANTOPRAZOLE SOD 40 MG TABEC PO SCH (08:15)
[2021-01-21] MEDS: LEVOTHYROXINE SODIUM 100 MCG TAB PO SCH (08:15)
[2021-01-21] MEDS: LISINOPRIL 20 MG TAB PO SCH (08:15)
[2021-01-21 09:06] VITALS: BP 123/73
[2021-01-21] MEDS: SODIUM CHLORIDE 0.9% 1000ML 1,000 ML IV SCH (09:40)
[2021-01-21 16:35] LABS: BASOPHILS # (AUTO) 0.1 (0.0-0.1); BASOPHILS % 0.5 % (0.0-1.0); EOSINOPHILS # (AUTO) 0.3 (0.0-0.4); EOSINOPHILS % 2.9 % (0.0-6.0); LYMPHOCYTES # (AUTO) 2.9 (1.0-3.2); LYMPHOCYTES % 25.5 % (18.0-39.1); MEAN CORPUSCULAR HEMOGLOBIN 29.1 pg (28-32); MEAN CORPUSCULAR HGB CONC 30.8 g/dL (31-35); MEAN CORPUSCULAR VOLUME 94.7 fL (81-99); MONOCYTES # (AUTO) 0.7 (0.2-0.8); NEUTROPHILS # (AUTO) 7.5 (2.1-6.9); NEUTROPHILS % 64.8 % (38.7-80.0); PLATELET COUNT 263 x10e3/uL (140-360); RED BLOOD COUNT 4.12 x10e6/uL (3.6-5.1); RED CELL DISTRIBUTION WIDTH 12.9 % (11.7-14.4)
[2021-01-21 20:50] VITALS: BP 102/90
[2021-01-21 21:00] VITALS: BP 102/90
[2021-01-22] VITALS (8 sets, daily range): BP systolic 93–130; BP diastolic 66–93
[2021-01-22 05:13] LABS: BASOPHILS % 0.4 % (0.0-1.0); EOSINOPHILS # (AUTO) 0.3 (0.0-0.4); EOSINOPHILS % 3.4 % (0.0-6.0); HEMATOCRIT 39.6 % (34.2-44.1); HEMOGLOBIN 12.6 g/dL (12.0-16.0); LYMPHOCYTES # (AUTO) 2.4 (1.0-3.2); LYMPHOCYTES % 25.1 % (18.0-39.1); MEAN CORPUSCULAR HEMOGLOBIN 29.4 pg (28-32); MEAN CORPUSCULAR HGB CONC 31.8 g/dL (31-35); MEAN CORPUSCULAR VOLUME 92.3 fL (81-99); MONOCYTES # (AUTO) 0.5 (0.2-0.8); MONOCYTES % 5.6 % (4.4-11.3); NEUTROPHILS # (AUTO) 6.1 (2.1-6.9); NEUTROPHILS % 65.1 % (38.7-80.0); PLATELET COUNT 275 x10e3/uL (140-360); RED BLOOD COUNT 4.29 x10e6/uL (3.6-5.1); RED CELL DISTRIBUTION WIDTH 12.7 % (11.7-14.4)
[2021-01-22 05:28] LABS: ANION GAP 13.9 mmol/L (8-16); CALCIUM 8.6 mg/dL (8.4-10.2); CREATININE, SERUM 1.01 mg/dL (0.57-1.11); POTASSIUM 3.9 mmol/L (3.5-5.1)
[2021-01-22] MEDS: PIPERACILLIN/TAZOBACTAM 3.375 GM in SODIUM CHLORIDE 0.9% 50ML 50 ML IV SCH ×3 (06:10→21:48)
[2021-01-22] MEDS: INSULIN LISPRO 100 UNIT/1 ML 3ML VIAL SQ SCH ×4 (07:30→21:00)
[2021-01-22] MEDS: ACETAMINOPHEN 325 MG TAB PO PRN ×2 (08:30→21:45)
[2021-01-22] MEDS: PANTOPRAZOLE SOD 40 MG TABEC PO SCH (08:30)
[2021-01-22] MEDS: AMLODIPINE BESYLATE 5 MG TAB PO SCH (08:30)
[2021-01-22] MEDS: GABAPENTIN 300 MG CAP PO SCH (08:30)
[2021-01-22] MEDS: LEVOTHYROXINE SODIUM 100 MCG TAB PO SCH (08:30)
[2021-01-22] MEDS: LISINOPRIL 20 MG TAB PO SCH (08:30)
[2021-01-23] VITALS: BP 119/86
[2021-01-23 04:00] VITALS: BP 90/66
[2021-01-23] MEDS: PIPERACILLIN/TAZOBACTAM 3.375 GM in SODIUM CHLORIDE 0.9% 50ML 50 ML IV SCH ×2 (06:00→13:20)
[2021-01-23] MEDS: LEVOTHYROXINE SODIUM 100 MCG TAB PO SCH (07:30)
[2021-01-23] MEDS: PANTOPRAZOLE SOD 40 MG TABEC PO SCH (07:30)
[2021-01-23] MEDS: AMLODIPINE BESYLATE 5 MG TAB PO SCH (09:00)
[2021-01-23] MEDS: LISINOPRIL 20 MG TAB PO SCH (09:00)
[2021-01-23] MEDS: GABAPENTIN 300 MG CAP PO SCH (09:00)
[2021-01-23] MEDS: INSULIN LISPRO 100 UNIT/1 ML 3ML VIAL SQ SCH ×3 (11:25→17:05)
[2021-01-23 11:48] VITALS: BP 112/97
[2021-01-23 11:57] VITALS: BP 112/97
[2021-01-23 12:00] VITALS: BP 123/96
[2021-01-23] MEDS ORDERED: ONDANSETRON HCL 4 MG ORAL DISINTEGRATING TAB PO PRN (13:00)
[2021-01-23 16:00] VITALS: BP 122/56
== END 2021-01-23 18:21 | disposition home or self-care (01) | DRG 341 ==
LOC: ER 21:35 → ERHOLD 01-20 01:48 → IMCU 01-20 12:37 → OBSVTOIN 01-21 09:08
PROVIDERS: ADMIT Internal Medicine; ATTEND Internal Medicine
PROC: 0DTJ4ZZ Resection of Appendix, Percutaneous Endoscopic Approach (ICD-10-PCS; principal; 2021-01-21)
DX: K35.890 Other acute appendicitis without perforation or gangrene (principal); U07.1 COVID-19; Z68.41 Body mass index [BMI] 40.0-44.9, adult; E66.01 Morbid (severe) obesity due to excess calories; E11.9 Type 2 diabetes mellitus without complications; I10 Essential (primary) hypertension; Z96.651 Presence of right artificial knee joint
CPT/HCPCS: 36415; 74177; 80048; 80053; 81001; 82550; 82553; 82948; 84484; 85025; 88304; 93005; 96372; 99284; G0378; J0692; J1885; J2270; J2405; J2543; J7030; Q9967; U0002

== ENCOUNTER 2021-05-11 12:54 | Emergency (ER) | payer OTHER ==
[~2021-05-11] VITALS: Ht 162.6 cm; Wt 94.3 kg
[~2021-05-11 12:54] MED LIST: CETIRIZINE HCL10 MG PO; CYCLOBENZAPRINE10 MG PO; DULERA 50 MCG-513 GM; LEVEMIR FL100 UNIT/1 SC; LEVOTHYROXINE100 MC2 PO; NEURONTIN300 MG PO; NORVASC5 MG PO; PRINIVIL20 MG PO; TERBINAFINE HC250 MG PO; VIBRAMYCIN100 MG PO
[2021-05-11] MEDS ORDERED: ONDANSETRON HCL INJ 2MG/ML 2ML 2 MG/ML VIAL IV STA (13:08)
[2021-05-11] MEDS ORDERED: SODIUM CHLORIDE 0.9% 1000ML 1,000 ML IV STA (13:08)
[2021-05-11] MEDS ORDERED: DICYCLOMINE HCL 20 MG/2 ML VIAL IM ONE (13:15)
[2021-05-11 13:25] LABS: BASOPHILS # (AUTO) 0.1 (0.0-0.1); BASOPHILS % 0.4 % (0.0-1.0); EOSINOPHILS % 0.3 % (0.0-6.0); HEMATOCRIT 43.5 % (34.2-44.1); HEMOGLOBIN 13.6 g/dL (12.0-16.0); LYMPHOCYTES # (AUTO) 1.3 (1.0-3.2); LYMPHOCYTES % 11.3 % (18.0-39.1); MEAN CORPUSCULAR HEMOGLOBIN 28.9 pg (28-32); MEAN CORPUSCULAR HGB CONC 31.3 g/dL (31-35); MEAN CORPUSCULAR VOLUME 92.6 fL (81-99); MONOCYTES # (AUTO) 0.3 (0.2-0.8); MONOCYTES % 2.2 % (4.4-11.3); NEUTROPHILS # (AUTO) 9.9 (2.1-6.9); NEUTROPHILS % 85.4 % (38.7-80.0); PLATELET COUNT 324 x10e3/uL (140-360); RED CELL DISTRIBUTION WIDTH 12.4 % (11.7-14.4)
[2021-05-11 13:37] LABS: CLARITY,URINE SL CLOUDY (CLEAR); COLOR,URINE YELLOW (YELLOW)
[2021-05-11 13:38] LABS: KETONES,URINE TRACE (NEGATIVE); LEUKOCYTE ESTERASE ,URINE NEGATIVE (NEGATIVE); NITRITE,URINE NEGATIVE (NEGATIVE); PROTEIN,URINE DIPSTICK 1+ (NEGATIVE); URINE UROBILINOGEN 0.2 mg/dL (0.2 - 1)
[2021-05-11 13:44] LABS: ALBUMIN 3.8 g/dL (3.5-5.0); ANION GAP 15.4 mmol/L (8-16); CREATININE, SERUM 1.18 mg/dL (0.57-1.11); POTASSIUM 4.4 mmol/L (3.5-5.1)
[2021-05-11 13:53] LABS: BACTERIA,URINE MODERATE /HPF; EPITHELIAL CELLS,URINE MANY /LPF; RBC,URINE 0-5 /HPF (0-5); WBC,URINE (MAN) 0-5 /HPF (0-5)
[2021-05-11] MEDS ORDERED: DICYCLOMINE HCL20 MG PO (14:56)
[2021-05-11] MEDS ORDERED: SODIUM CHLORIDE 0.9% 50ML 50 ML ONE (16:40)
[2021-05-11] MEDS ORDERED: IOPAMIDOL 370 MG/ML 200 ML INFUS..BTL INJ ONE (16:40)
== END 2021-05-11 19:00 | disposition home or self-care (01) ==
LOC: ER 12:57
DX: R42 Dizziness and giddiness (principal); G51.0 Bell's palsy; R11.0 Nausea; E11.65 Type 2 diabetes mellitus with hyperglycemia; I10 Essential (primary) hypertension; R94.31 Abnormal electrocardiogram [ECG] [EKG]
CPT/HCPCS: 36415; 70450; 74177; 80053; 81001; 83690; 84484; 84702; 85025; 93005; 99284; J0500; J2405; J7030; Q9967

== ENCOUNTER 2021-06-04 20:07 | Emergency (ER) | payer OTHER ==
[~2021-06-04] VITALS: Ht 162.6 cm; Wt 94.3 kg
[~2021-06-04 20:07] MED LIST changes: +DICYCLOMINE HCL20 MG PO
[2021-06-04] MEDS: CLONIDINE HCL 0.1 MG TAB PO STA ×2 (20:30→20:33)
[2021-06-04] MEDS ORDERED: ACETAMINOPHEN 325 MG TAB PO STA (21:37)
[2021-06-04] MEDS ORDERED: FIORICET 50-301 EACH PO (21:39)
[2021-06-04 22:00] VITALS: BP 122/93
[2021-06-04] MEDS ORDERED: ACETAMINOPHEN 325 MG TAB PO ONE (22:00)
== END 2021-06-04 22:21 | disposition home or self-care (01) ==
LOC: ER 20:20
DX: R51.9 Headache, unspecified (principal); I10 Essential (primary) hypertension; E11.9 Type 2 diabetes mellitus without complications; J45.909 Unspecified asthma, uncomplicated
CPT/HCPCS: 70450; 93005; 99283

== ENCOUNTER 2024-07-09 16:35 | Emergency (ER) | payer MEDICAID, OTHER ==
[~2024-07-09] VITALS: Ht 162.6 cm; Wt 94.3 kg
[~2024-07-09 16:35] MED LIST changes: +FIORICET 50-301 EACH PO
[2024-07-09 17:47] LABS: BASOPHILS # (AUTO) 0.1 (0.0-0.1); BASOPHILS % 0.6 % (0.0-1.0); EOSINOPHILS # (AUTO) 0.3 (0.0-0.4); EOSINOPHILS % 3.2 % (0.0-6.0); HEMOGLOBIN 14.8 g/dL (12.0-16.0); LYMPHOCYTES # (AUTO) 2.5 (1.0-3.2); LYMPHOCYTES % 26.5 % (18.0-39.1); MEAN CORPUSCULAR HEMOGLOBIN 29.1 pg (28-32); MEAN CORPUSCULAR HGB CONC 32.9 g/dL (31-35); MEAN CORPUSCULAR VOLUME 88.4 fL (81-99); MONOCYTES # (AUTO) 0.6 (0.2-0.8); MONOCYTES % 5.9 % (4.4-11.3); NEUTROPHILS % 63.6 % (38.7-80.0); PLATELET COUNT 288 x10e3/uL (140-360); RED BLOOD COUNT 5.09 x10e6/uL (3.6-5.1); RED CELL DISTRIBUTION WIDTH 12.6 % (11.7-14.4); WHITE BLOOD COUNT 9.37 x10e3/uL (4.8-10.8)
[2024-07-09 18:00] LABS: CORONAVIRUS COVID-19 AG NEGATIVE (NEGATIVE); INFLUENZA A AG NEGATIVE (NEGATIVE); INFLUENZA B AG NEGATIVE (NEGATIVE); STREPTOCOCCUS GRP A ANTIGEN POSITIVE (NEGATIVE)
[2024-07-09 18:04] LABS: ALBUMIN 3.8 g/dL (3.5-5.0); ALBUMIN/GLOBULIN RATIO 0.9 (0.8-2.0); ANION GAP 16.3 mmol/L (8-16); BILIRUBIN,TOTAL 0.7 mg/dL (0.2-1.2); CALCIUM 9.4 mg/dL (8.4-10.2); CREATININE, SERUM 1.21 mg/dL (0.57-1.11); POTASSIUM 4.3 mmol/L (3.5-5.1)
[2024-07-09 18:16] LABS: CREATINE KINASE 24 IU/L (29-168)
[2024-07-09 18:23] LABS: TROPONIN I < 0.001 ng/mL (0-0.300)
[2024-07-09] MEDS: SODIUM CHLORIDE 0.9% 1000ML 1,000 ML IV SCH (18:23)
[2024-07-09] MEDS: ALBUTEROL/IPRATROPIUM 3 ML NEB NEB STA (18:29)
[2024-07-09 18:30] VITALS: PULSE 64; RESP 20; O2SAT 99
[2024-07-09 18:49] VITALS: PULSE 67; RESP 18
[2024-07-09] MEDS ORDERED: ATORVASTATIN CA20 MG PO (19:11)
[2024-07-09] MEDS ORDERED: MELOXICAM7.5 MG PO (19:11)
[2024-07-09] MEDS ORDERED: SERTRALINE HCL100 MG PO (19:11)
[2024-07-09] MEDS ORDERED: CEPHALEXIN500 MG PO (19:11)
[2024-07-09] MEDS ORDERED: CITALOPRAM HBR40 MG PO (19:11)
[2024-07-09] MEDS ORDERED: JARDIANCE25 MG PO (19:11)
[2024-07-09] MEDS ORDERED: FAMOTIDINE20 MG PO (19:11)
[2024-07-09] MEDS ORDERED: OXYBUTYNIN CHLOR5 MG PO (19:11)
[2024-07-09] MEDS: INSULIN REGULAR, HUMAN 100 UNIT/1 ML IV STA (19:43)
[2024-07-09 20:00] VITALS: PULSE 75; RESP 16; TEMP 98.6; O2SAT 99
[2024-07-09] MEDS ORDERED: AZITHROMYCIN250 MG PO (20:03)
[2024-07-09] MEDS ORDERED: VENTOLIN HFA18 GM INH (20:12)
== END 2024-07-09 20:11 | disposition home or self-care (01) ==
LOC: ER 16:49
DX: R05.9 Cough, unspecified (principal); J02.0 Streptococcal pharyngitis; E11.65 Type 2 diabetes mellitus with hyperglycemia; I10 Essential (primary) hypertension; J45.909 Unspecified asthma, uncomplicated; Z11.52 Encounter for screening for COVID-19
CPT/HCPCS: 36415; 71046; 80053; 82550; 82948; 83518; 83690; 83880; 84484; 85025; 87428; 94640; 94799; 99284; J7030

== ENCOUNTER 2024-09-08 10:39 | Emergency (ER) | payer SELFPAY ==
[~2024-09-08] VITALS: Ht 162.6 cm; Wt 94.3 kg
[~2024-09-08 10:39] MED LIST changes: +ATORVASTATIN CA20 MG PO; +AZITHROMYCIN250 MG PO; +CEPHALEXIN500 MG PO; +CITALOPRAM HBR40 MG PO; +FAMOTIDINE20 MG PO; +JARDIANCE25 MG PO; +MELOXICAM7.5 MG PO; +OXYBUTYNIN CHLOR5 MG PO; +SERTRALINE HCL100 MG PO; +VENTOLIN HFA18 GM INH
[2024-09-08 10:49] VITALS: TEMP 98.5
[2024-09-08] MEDS: DEXAMETHASONE SOD PHOS 10 MG/1 ML VIAL IV ONE (11:33)
[2024-09-08] MEDS: FAMOTIDINE 20 MG/2 ML VIAL IV STA (11:34)
[2024-09-08] MEDS: DIPHENHYDRAMINE HCL INJ 50 MG/ML VIAL IV ONE (11:34)
[2024-09-08 14:00] VITALS: PULSE 66; RESP 16; O2SAT 98
== END 2024-09-08 14:44 | disposition home or self-care (01) ==
LOC: ER 10:54
DX: L25.0 Unspecified contact dermatitis due to cosmetics (principal); I10 Essential (primary) hypertension; E11.9 Type 2 diabetes mellitus without complications; J45.909 Unspecified asthma, uncomplicated
CPT/HCPCS: 99283; J1100; J1200; J1308

== ENCOUNTER 2024-09-21 08:32 | Emergency (ER) | payer SELFPAY ==
[~2024-09-21] VITALS: Ht 162.6 cm; Wt 94.3 kg
[2024-09-21 09:04] VITALS: TEMP 98.2
[2024-09-21] MEDS ORDERED: AMOX TR-K CLV1 EAC2 PO (10:09)
[2024-09-21] MEDS ORDERED: DOXYCYCLINE HY100 MG PO (10:09)
[2024-09-21 10:18] VITALS: PULSE 74; RESP 18; O2SAT 100
== END 2024-09-21 10:19 | disposition home or self-care (01) ==
LOC: ER 09:29
DX: N63.20 Unspecified lump in the left breast, unspecified quadrant (principal); I10 Essential (primary) hypertension; E11.9 Type 2 diabetes mellitus without complications; J45.909 Unspecified asthma, uncomplicated
CPT/HCPCS: 99282